=== PATIENT | female | born 1970 | race Caucasian/White ===

== ENCOUNTER → 2018-05-24 | Outpatient (CLI) | payer BC, MEDICARE ==
[2018-05-24 11:40] LABS: BASO % 0.6 %; BASO ABS # 0.03 K/uL (0-0.2); EOS % 3.3 %; EOS ABS # 0.18 K/uL (0-0.5); HEMATOCRIT 33.7 % (37-47); HEMOGLOBIN 10.1 g/dL (12.0-16.0); LYMPH ABS # 1.57 K/uL (1.2-3.4); MEAN CELL VOLUME 77.6 fL (80-100); MEAN CORPUSCULAR HEMOGLOBIN 23.3 pg (25-34); MEAN PLATELET VOLUME 9.8 fL (7.4-10.4); MONO ABS # 0.38 K/uL (0.11-0.59); NEUT % 60.1 %; NEUT ABS # 3.26 K/uL (1.4-6.5); PLATELET COUNT 357 K/uL (130-400); RED CELL DISTRIBUTION WIDTH CV 16.2 % (11.5-14.5); RED CELL DISTRIBUTION WIDTH SD 46.5 fL (36.4-46.3); WHITE BLOOD COUNT 5.42 K/uL (4.8-10.8)
[2018-05-24 11:51] LABS: HEMOGLOBIN A1C 6.9 % (4.5-5.6)
[2018-05-24 12:17] LABS: T3 FREE 3.29 pg/ml (2.30-4.20)
[2018-05-24 12:20] LABS: ALBUMIN 3.5 gm/dl (3.4-5.0); ALKALINE PHOSPHATASE 80 U/L (45-117); ALT/SGPT 25 U/L (12-78); AST/SGOT 9 U/L (15-37); BLOOD UREA NITROGEN 10 mg/dl (7-18); CALCIUM 8.8 mg/dl (8.5-10.1); CARBON DIOXIDE 26 mmol/L (21-32); CHOLESTEROL 181 mg/dl (0-200); CREATININE 0.77 mg/dl (0.60-1.20); GLUCOSE 108 mg/dl (70-99); LDL CHOLESTEROL CALCULATED 98 mg/dl; POTASSIUM 3.8 mmol/L (3.5-5.1); SODIUM 140 mmol/L (136-145); TOTAL PROTEIN 7.1 gm/dl (6.4-8.2)
== END | disposition home or self-care (01) ==
LOC: C.LAB 11:14
PROVIDERS: ATTEND Psychiatry & Neurology Child & Adolescent Psychiatry
DX: E11.9 Type 2 diabetes mellitus without complications (principal); F31.9 Bipolar disorder, unspecified; F90.2 Attention-deficit hyperactivity disorder, combined type; F32.9 Major depressive disorder, single episode, unspecified; E06.9 Thyroiditis, unspecified; D52.9 Folate deficiency anemia, unspecified; E55.9 Vitamin D deficiency, unspecified; E78.00 Pure hypercholesterolemia, unspecified; K75.9 Inflammatory liver disease, unspecified

== ENCOUNTER 2023-08-05 12:15 | Observation (INO) ==
--- NOTE | 2023-08-01 11:50 | Anesthesiology Consultation ---
Date of Service August 01, 2023 Assessment & Plan (1) Encounter for pre-operative examination: Chart Review Chart Review: Acceptable Risk for Surgery and Patient NOT seen in Pre Admission Testing *Due to pt's psychiatric history, decision was made to have procedure in Main OR with Anesthesia. 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 I do not think further recording to look for symptoms is necessary given the extreme slowing we have recorded. 2. Sinus node dysfunction: She has severe sinus node dysfunction with long pauses and I suspect loss of consciousness which she does not remember (based on what looks like pseudoseizure activity on the recording) on several different occasions while wearing her monitor. With a history of syncope and a documented pauses of nearly 8 seconds and on no medications to cause this she should have a pacemaker. I discussed the indications, procedure, risks and alternatives of pacemaker implantation with her and I gave her a booklet and showed her a pacemaker model. She agrees to proceed. 3. Hypertension: Her blood pressure is somewhat elevated today, she is on lisinopril and hydrochlorothiazide currently, I have not changed that although once a pacemaker is in place we can consider calcium blockade. It is certainly not dangerously high now and I would prefer to have it run a little bit high then risk hypotension." Infectious Disease screening: Per PAT nursing assessment on 08/01/23, No known infectious disease contacts in past 10 days. No recent travel outside the country. Pt reports cough and nasal congestion x past 10 days. Surgeon aware. She is coming to [facility] 08/01/23 for COVID testing. History Surgery Operation Date: 08/05/23 13:00 Proposed Procedures p Dual Chamber Pacemaker Insertion w/Anesthesia - Mateo Mcfarland MD Height/Weight Height: 5 ft 1 in Weight: 92.533 kg Allergies Allergy/AdvReac Type Severity Reaction Status Date / Time carbamazepine [From Tegretol] Allergy Intermediate Rash Verified 08/01/23 11:01 Sulfa (Sulfonamide Allergy Intermediate HIVES/DELUS Verified 08/01/23 11:01 Antibiotics) IONAL prednisone AdvReac Unknown CONTRAINDICATED Verified 08/01/23 11:01 WITH BIPOLAR MEDS. Medications Home Medications Medication Instructions Recorded Confirmed Last Taken clonazepam 0.5 mg tablet 0.5 mg PO TID PRN Anxiety 05/31/23 08/01/23 Unknown dextroamphetamine-amphetamine 10 10 mg PO BID 05/31/23 08/01/23 05/30/23 mg tablet dextroamphetamine-amphetamine ER 20 mg PO BID 05/31/23 08/01/23 05/30/23 20 mg 24hr capsule,extend release olanzapine 10 mg disintegrating 10 mg translingual DAILY PRN 05/31/23 08/01/23 05/30/23 tablet NEEDED cyanocobalamin (vitamin B-12) 100 mcg subcut Q7D 07/03/23 08/01/23 Unknown 1,000 mcg/mL injection kit metformin 500 mg tablet 500 mg PO BID 07/03/23 08/01/23 Unknown perphenazine 16 mg tablet 16 mg PO BID 07/03/23 08/01/23 Unknown sumatriptan succinate 100 mg tablet 100 mg PO Q2H PRN Migraine Headache 07/03/23 08/01/23 Unknown venlafaxine 75 mg capsule,extended 75 mg PO QAM 07/03/23 08/01/23 Unknown release 24 hr hydrochlorothiazide 25 mg tablet 25 mg PO QAM #30 tabs 07/17/23 08/01/23 Unknown metformin 500 mg/5 mL oral 500 mg (5 mL) PO BID #480 mL 07/17/23 08/01/23 Unknown suspension,extended release (Riomet ER) syringe with needle 3 mL 25 x 5/8" #50 ea 07/17/23 07/17/23 Unknown (BD Eclipse Luer-Yanna) paliperidone 3 mg tablet,extended 3 mg PO HS 07/24/23 08/01/23 Unknown release 24 hr (Invega) Medical Marijuana 1 dose PO DAILY PRN Pain 08/01/23 08/01/23 Unknown folic acid 1 mg tablet 1 mg PO QAM 08/01/23 08/01/23 Unknown lisinopril 40 mg tablet 40 mg PO HS 08/01/23 08/01/23 Unknown Past Medical History Medical History (Updated 10/12/23 @ 12:24 by Natty Maguire PA-C) Anxiety follows with psych Bipolar disorder follows with psych Chronic anemia per chart review, recent H/H WNL Diabetes NIDDM GERD (gastroesophageal reflux disease) denies, and no meds Hypertension Kidney stones passed on own Migraine "Thunderclap Migraines" Post traumatic stress disorder (PTSD) "Complex"; follows with psych Schizoaffective disorder follows with psych Sinus node dysfunction reason for up coming pacemaker placement Sleep apnea dx several yrs ago, no device, feels no issues with Spinal stenosis Spondylolysis "L5" Past Family History Family History Mother Breast cancer Aunt Breast cancer Uncle Lung cancer Denies family history of Ovarian cancer Prostate cancer Diabetes Myocardial infarction Colorectal cancer Stroke Past Surgical History Surgical History History of carpal tunnel release left History of colonoscopy History of esophagogastroduodenoscopy (EGD) History of gastric bypass History of total knee arthroplasty left partial S/P trigger finger release left thumb [place] teeth extracted Social History Smoking Status: Current every day smoker tobacco type: cigarettes Smoking cigarettes per day: 10-15 cigs per day > advised npo status Do You Dip or Chew Tobacco: No Hx Alcohol Use: No Hx Substance Use: Yes substance use type: marijuana Substance Use Type Other:: medical card > edibles > every other day use Lab Results Anesthesia Preop Results Results Anesthesia Widget: WBC 7.18 K/ul (4.8-10.8) 07/31/23 Hgb 12.8 g/dl (12.0-16.0) 07/31/23 Hct 39.8 % (37.0-47.0) 07/31/23 Plt 404 K/uL (130-400) H 07/31/23 Na 141 mmol/L (136-145) 07/31/23 K 3.8 mmol/L (3.5-5.1) 07/31/23 Cl 110 mmol/L (98-107) H 07/31/23 CO2 24 mmol/L (21-32) 07/31/23 BUN 13 mg/dl (6-23) 07/31/23 Creat 0.75 mg/dl (0.6-1.2) 07/31/23 Glucose Level 135 mg/dl (70-99(Fasting)) H 07/31/23 HA1c 7.2 % (4.5-5.6) H 07/31/23 Testing Electrocardiogram Date: 07/03/23 SB (rate 58bpm) with sinus arrhythmia Echocardiogram Date: 07/04/23 EF: 60-65% LV Function: normal RWMA: + none Mild MR. Mild TR. Other Testing Holter Monitor 07/05/23-07/12/23: -frequent PACs, pairs, rare triplet, no PSVT -rare PVCs. No pairs, grouped beating, or NSVT -sinus tachycardia (max HR 128bpm) -sinus bradycardia (min HR 14bpm) -5 pauses greater than 2 secs, longest 7.9 sec -No high grade AV block -No symptoms recorded 07/04/23 Carotid Doppler: No hemodynamically significant stenosis seen within the carotid arteries. 04/21/[address]: No acute fractures or subluxations are identified. The vertebral body heights and disk spaces are well maintained. The alignment is normal. Soft tissues are unremarkable.
[~2023-08-05 12:15] MED LIST: DEXAMETHASONE SOD INJ 4 MG/ML VIAL ONE; LIDOCAINE 2% 2 ML VIAL/AMP(20MG/ML) INFIL ONE; LR 15ML/HR IV SCH; MIDAZOLAM HCL 1 MG/ML 2ML VIAL ONE; ONDANSETRON INJ 2 MG/ML 2 ML VIAL ONE; PROPOFOL IV EMULSION 10 MG/ML 20 ML VIAL IV ONE; fentaNYL citrate PF 100 MCG/2 ML VIAL ONE
[2023-08-05] MEDS ORDERED: VANCOMYCIN HCL 1000MG/20ML VIAL ONE (12:21)
[2023-08-05] MEDS ORDERED: WATER, STERILE FOR INJ 10 ML VIAL ONE (12:21)
[2023-08-05] MEDS ORDERED: BUPIVACAINE 0.25% PF 30 ML VIAL ONE (12:21)
--- NOTE | 2023-08-05 13:01 | History & Physical Bridge Note ---
Date of Service August 05, 2023 History & Physical Bridge Note I have examined the patient, reviewed the History & Physical and in the interval since the performance of the History & Physical I have noted the following changes of clinical significance: no changes noted. I reviewed the indications, procedure, risks and alternatives with the patient, and answered all questions. Patient understands and agrees to the procedure. Consent obtained.
[2023-08-05] MEDS ORDERED: ONDANSETRON INJ 2 MG/ML 2 ML VIAL IV PRN (13:16)
[2023-08-05] MEDS ORDERED: ATROPINE SULFATE 0.1 MG/ML 10ML SYR IV PRN (13:16)
[2023-08-05] MEDS ORDERED: fentaNYL citrate PF 100 MCG/2 ML VIAL IV PRN (13:16)
[2023-08-05] MEDS ORDERED: ePHEDrine sulfate 50 MG/ML AMP IV PRN (13:16)
[2023-08-05] MEDS ORDERED: ceFAZolin 330 MG/ML 1 GM VIAL ONE (13:38)
[2023-08-05] MEDS ORDERED: KETAMINE 50 MG/5 ML SYRINGE ONE (13:39)
[2023-08-05] MEDS ORDERED: fentaNYL citrate PF 100 MCG/2 ML VIAL ONE (13:47)
[2023-08-05] MEDS ORDERED: KETOROLAC TROMETHAMINE 10 MG TABLET PO PRN (14:34)
[2023-08-05] MEDS ORDERED: ACETAMINOPHEN 325 MG TAB PO PRN (14:34)
--- NOTE | 2023-08-05 14:34 | Electrophysiology Report ---
Date of Service August 05, 2023 Electrophysiology Procedure Electrophysiology Procedure Report Preoperative diagnosis: Sinus node dysfunction and sinus arrest Postoperative diagnosis: Same Procedure: Dual-chamber pacemaker implantation Surgeon: Mateo Mcfarland MD Estimated blood loss: 30 cc Specimens: None Anesthesia: General per patient's request Procedure details: After obtaining informed consent for the procedure, the patient was brought to the laboratory and prepped and draped in the standard sterile manner. The left prepectoral region was anesthetized with 1% lidocaine local anesthetic and left axillary venipuncture was performed by percutaneous technique and a guidewire placed through the left subclavian vein into the superior vena cava. The area was further infiltrated with 1% lidocaine local anesthetic and a 5 cm incision was made parallel to the left clavicle and 2 cm below it and carried down to the anterior pectoralis fascia. A pacemaker pocket was formed by blunt dissection anterior to the pectoralis fascia and a vancomycin soaked sponge was placed in the pocket. An 8.5 Vietnamese Medtronic lead introducer was placed over the guidewire into the left subclavian vein, the dilator and guidewire were removed and a bipolar active fixation steroid tipped ventricular lead was advanced through the introducer into the superior vena cava. A guidewire was placed through the introducer and the introducer was stripped from the lead and guidewire. Another 8.5 Vietnamese Medtronic lead introducer was placed over the guidewire into the left subclavian vein, the dilator and guidewire were removed and a bipolar active fixation steroid tipped atrial lead was advanced through the introducer into the superior vena cava. A guidewire was placed back through the introducer and the introducer was stripped from the lead and guidewire. Using a curved stylette the ventricular lead was advanced through the right ventricular outflow tract into the pulmonary artery and then using a straight stylette was positioned in the right ventricular apex. The screw was extended fixing the lead in position. Pacing and sensing thresholds were evaluated in bipolar configuration and are recorded on the implant data sheet. Using a curved stylette the atrial lead was positioned in the region of the atrial appendage and the screw extended fixing the lead in position. Pacing and sensing thresholds were evaluated in bipolar configuration and are recorded on the implant data sheet. Once the leads were in position they were attached to the anterior pectoralis fascia using 2 sutures of 2-0 silk around each lead collar. The vancomycin soaked sponge was removed from the pocket, hemostasis was obtained, the pacemaker was attached to the leads and placed in the pocket with the leads coiled beneath it. The incision was closed with a running double subcutaneous closure of 3-0 Vicryl absorbable suture, followed by running subcuticular skin closure of 4-0 Vicryl absorbable suture. Bacitracin ointment was placed on the incision and a dressing applied. [facility] Electrophysiology codes Indication for Procedure (1) Sinus node dysfunction: Pacing Procedure 1: Pacin Insert/Replace Pacer A & V PG Moderate Sedation Codes Moderate Sedation Codes Procedure 1: Sedation/Anesthesia: 23054 Mod Sedation by the same physician;Init15 Min Child Age 5 & Up Procedure 2: Sedation/Anesthesia: 99930 Mod Sedation by the same physician; Ea [id number] Minutes
[2023-08-05] MEDS ORDERED: clonazePAM 0.5 MG TAB PO PRN (14:35)
[2023-08-05] MEDS ORDERED: NON-FORMULARY MEDICATION (Cyanocobalamin (Vitamin B-12) 1,000 mcg/mL kit) SQ SCH (14:45)
[2023-08-05] MEDS ORDERED: hydrALAZINE HCL 20 MG/ML VIAL IV STA (15:16)
[2023-08-05] MEDS ORDERED: hydrALAZINE HCL 20 MG/ML VIAL ONE (15:20)
[2023-08-05] MEDS ORDERED: MEDICAL MARIJUANA PO PRN (15:34)
[2023-08-05] MEDS ORDERED: hydrALAZINE HCL 20 MG/ML VIAL IV ONE (15:39)
--- NOTE | 2023-08-05 15:43 | Anesthesiology Progress Note ---
Date of Service August 05, 2023 Anesthesia Post Procedure Vital Signs Vital Signs: Temp Pulse Resp BP Pulse Ox O2 Del Method O2 Flow Rate 08/05/23 15:20 36.9 C 71 16 170/104 H 99 Oxymask 3 08/05/23 15:10 68 16 168/92 H 97 Oxymask 3 08/05/23 15:00 73 14 158/103 H 97 Oxymask 3 08/05/23 14:50 84 13 172/84 H 99 Oxymask 5 08/05/23 15:30 36.9 C 78 14 148/94 H 97 Room Air 08/05/23 14:40 90 18 168/92 H 96 Oxymask 5 08/05/23 14:33 36.0 C L 87 12 174/92 H 95 Oxymask 5 08/05/23 12:26 37.2 C 74 18 169/115 H 98 Room Air Transfer of Care Handoff Completed per policy Notes Mental Status: alert / awake / arousable Patient Amnestic to Procedure: Yes Nausea / Vomiting: adequately controlled Pain: adequately controlled Airway Patency, RR, SpO2: stable & adequate BP & HR: stable & adequate Hydration State: stable & adequate Anesthetic Complications: no major complications apparent and Pt Satisfied with anesthetic care
[2023-08-05] MEDS ORDERED: INFLUENZA VIRUS QUADRIVALENT VACCINE (IIV4) 0.5 ML SYR IM ONE (16:48)
[2023-08-05] MEDS: dilTIAZem HCL 180 MG CAPCR PO SCH (17:13)
[2023-08-05] MEDS: SUMAtriptan succinate 100 MG TAB PO PRN ×2 (20:18→22:15)
[2023-08-05] MEDS: PERPHENAZINE 2 MG TABLET PO SCH (20:19)
[2023-08-05] MEDS ORDERED: [UNRECOGNIZED DRUG - OTHER] PO SCH (21:00)
[2023-08-05] MEDS ORDERED: lisinopril 40 MG TAB PO SCH (21:00)
[2023-08-05] MEDS ORDERED: NON-FORMULARY MEDICATION (Dextroamphetamine-Amphetamine 10 mg tablet) PO SCH (21:00)
[2023-08-05] MEDS ORDERED: PALIPERIDONE 3 MG TABCR PO SCH (21:00)
[2023-08-05] MEDS ORDERED: AMPHETAMINE ASP/SULF/DEXTRAMPH ER 20 MG CAP PO SCH (21:00)
[2023-08-05] MEDS ORDERED: METFORMIN PO SCH (21:00)
--- NOTE | 2023-08-06 07:29 | XRay Report ---
XR chest 2V PA/lateral HISTORY: 52 years-old Female EXACT TIME ORDERED Evaluate for pneumothorax and l status post placemen t of a left subclavian pacer COMPARISON: Chest CT 04/21/2022 TECHNIQUE: PA and lateral views of the chest FINDINGS: Cardiac silhouette is normal in size. Status post placement of a dual lead left subclavian pacer. No postprocedural pneumothorax. No pleural effusion or overt pulmonary edema. Mild linear left basilar a telectasis versus scarring. Bones appear grossly intact. IMPRESSION: Status post placement of a left subclavian pacer. No postprocedural pneumothorax. ACT 112: Negative or not required by law. The above report was generated using voice recognition software. It may contain grammatical, syntax o r spelling errors. Electronically signed by: Issac Abdullahi M.D. 08/06/2023 7:28 AM
--- NOTE | 2023-08-06 07:40 | Electrocardiogram Report ---
Test Reason : Blood Pressure : / mmHG Vent. Rate : 065 BPM Atrial Rate : 065 BPM P-R Int : 138 ms QRS Dur : 092 ms QT Int : 388 ms P-R-T Axes : 019 -04 001 degrees QTc Int : 403 ms Normal sinus rhythm Minimal voltage criteria for LVH, may be normal variant Borderline ECG When compared with ECG of 21-APR-2022 12:23, No significant change was found Confirmed by Mateo Mcfarland ([id number]) on 08/06/2023 7:40:00 AM Referred By: Mateo Mcfarland Confirmed By:Mateo Mcfarland
[2023-08-06] MEDS: PERPHENAZINE 2 MG TABLET PO SCH (07:58)
[2023-08-06] MEDS: dilTIAZem HCL 180 MG CAPCR PO SCH (07:58)
[2023-08-06] MEDS ORDERED: metFORMIN HCL 500 MG TAB PO SCH (08:00)
[2023-08-06] MEDS ORDERED: FOLIC ACID 1 MG TAB PO SCH (09:00)
[2023-08-06] MEDS ORDERED: VENLAFAXINE HCL XR 75 MG CAPXR PO SCH (09:00)
[2023-08-06] MEDS ORDERED: hydroCHLOROthiazide 25 MG TAB PO SCH (09:00)
--- NOTE | 2023-08-06 09:42 | Cardiology Progress Note ---
Date of Service August 06, 2023 Assessment & Plan (1) Status post placement of cardiac pacemaker: Plan: 1. Postop day #1: The site looks good, the device is working well and leads are in good position. She is stable for discharge. Admission and Anticipated Discharge Date Admission Date: August 05, 2023 Subjective She is feeling well today, somewhat tired but no significant discomfort. No chest pain or shortness of breath. Physical Exam Physical Exam: The incision is clean and dry, no swelling or drainage. Cardiac rhythm is regular with no rub Lungs are clear Results & Data Vital Signs (Past 12 Hours) Vital Signs Temp Pulse Pulse Resp BP Pulse Ox O2 Del Method 08/06/23 08:00 60 08/06/23 07:34 36.6 C 72 18 182/99 H 93 Room Air 08/06/23 02:57 36.9 C 56 L 16 165/97 H 95 Nasal Cannula 08/05/23 23:00 36.9 C 68 16 166/98 H 94 Nasal Cannula 08/05/23 22:46 66 Diagnostic Findings Postop ECG: Appropriate pacemaker inhibition Chest x-ray: Good lead position, no pneumothorax Telemetry: Appropriate pacemaker inhibition Pacemaker evaluation: Excellent pacing and sensing characteristics PG Care Time/CCT Total # of Minutes Spent Total Time Spent with Patient: Total time spent is greater than 50% in coordination of care (as documented) at patient's floor/unit and/or counseling patient: Coding Level of Care Code 99140 Post Operative Follow-Up Diagnoses Status post placement of cardiac pacemaker Z95.0 CPT Codes Dual Lead Pacemaker System - 20410 ([id number])
--- NOTE | 2023-08-06 09:54 | Discharge Summary ---
Date of Service August 06, 2023 Admission HPI Per Admitting Provider This is a 52-year-old woman with a history of bipolar disorder as well as hypertension, diabetes mellitus and an episode of syncope. It sounds as though her syncopal event occurred around June 28, 2023 and occurred while she was standing on her porch. She evidently woke up face down on the ground and after a few minutes was able to get up and go to bed. This is the only episode she has had. She notes that her blood pressure has been "out of whack" by which she means elevated. Evaluation included an echocardiogram on July 04, 2023 which shows normal left ventricular systolic function with mild mitral regurgitation. She also wore a cardiac event monitor for a week from July 05, 2023 through July 12, 2023. Her heart rate ranged from a very low heart rate at around 10:40 AM on July 07, 2023 when she had bradycardia with a pause of nearly 8 seconds, up to a maximum of 128 with an average heart rate of 58 bpm. It is not clear that this cause symptoms however evaluation of the rhythm strip shows slowing leading up to the pauses and then artifact suggestive of possible pseudoseizure activity due to hypotension before termination. She had other periods of extreme bradycardia with similar artifact including on July 12, 2023 when she had sequential pauses and a heart rate which calculates to 14 bpm. This also demonstrates a similar artifact suggesting pseudoseizure a ctivity. Of note, she is not on a negative chronotropic medication. I reviewed her symptoms with her in detail and she reports having a few episodes of chest discomfort while laying in bed on the monitor (which she did not gloria) however had none of her presyncopal events. I suspect however she had transient loss of consciousness but was not aware of it. Admission Exam (Per Admitting) Constitutional Constitutional: Alert, cooperative and in no distress. She is overweight. HEENT: Unremarkable Neck: No jugular venous distention, carotid pulses are normal and equal bilaterally without bruits. Pulmonary: Clear to auscultation bilaterally. Cardiac: Regular rhythm with no murmur, gallop or rub. Abdomen: Soft, nontender with normal bowel sounds. Extremities: No edema. Distal pulses intact. Neurologic: No focal findings. Gait is steady. Skin: No rash, ecchymoses or petechiae. Discharge Data Procedures Performed Operation Date: 08/05/23 13:00 Actual Procedures p Pacer with A/V Leads (Dual) - Mateo Mcfarland MD Hospital Course (1) Status post placement of cardiac pacemaker: Plan 1. Pacemaker implantation: The pacemaker was implanted without difficulty on August 05, 2023, the device is working well, x-ray shows good lead position no pneumothorax and the site looks good. She is therefore stable for discharge. Coding Level of Care Code None Diagnoses Status post placement of cardiac pacemaker Z95.0
== END 2023-08-06 11:10 | disposition home or self-care (01) ==
LOC: ASU 12:15 → INTOOBSV 14:54 → EDINP 14:54 → 2S 16:16

== ENCOUNTER 2025-04-13 16:43 | Inpatient (IN) ==
[2025-04-13] MEDS: SODIUM CHLORIDE 0.9% 1,000 ML IV SCH (17:06)
[2025-04-13] MEDS: CALCIUM GLUCONATE 1,000 MG/60 ML BAG IV STA (17:07)
--- NOTE | 2025-04-13 17:11 | Emergency Department Note ---
Impression & Plan Hypotension, Pacemaker, Calcium channel edwin overdose, MARY JANE (acute kidney injury), Leukocytosis, Acute dehydration, Suicidal ideation, Metabolic acidosis, Elevated lactic acid level ED Provider Note NAME: DEVAN MERRITT AGE: 54 SEX: F : 1970 ARRIVES VIA: Ambulance INFORMANT: [Patient] ED PROVIDER(S): [Jose A Frank MD] CHIEF COMPLAINT: Overdose HISTORY OF PRESENT ILLNESS: Patient is a 54-year-old female who presents after overdosing on diltiazem tablets. She took around 50 of the 180 mg diltiazem XR tablets around 16 hours ago. She took the pills over about an hour timeframe. She did this as a suicide attempt because of how stressed and worked up she has been. The patient states that she has a pacemaker. She was hoping that the diltiazem would end her life. She woke up dizzy and weak. Somehow, she was able to get outside. She was found by bystanders outside laying in the grass. She was quite sweaty. She was brought for evaluation. The patient complains of feeling thirsty and hot and faint. She has no chest pain, no shortness of breath. She denies any abdominal pain, no trauma. She is not on blood thinning agents. PMHx/PSHx/Social Hx: See Below PHYSICAL EXAM: GENERAL: Patient is in mild distress, sweaty HEENT: No acute trauma, normocephalic atraumatic, mucous membranes quite dry, no nasal congestion. NECK: No stridor, no adenopathy, no meningismus, trachea is midline. LUNGS: Clear to auscultation bilaterally, no wheeze, no rhonchi, breath sounds equal. HEART: Without murmurs gallops or rubs, regular rate and rhythm. ABDOMEN: Soft, nontender, no peritonitis. EXTREMITIES: No cyanosis, full range of motion of all the joints without pain or difficulty. NEUROLOGIC: Oriented x 3, no acute motor or sensory deficits, no focal weakness. SKIN: No jaundice, mild diaphoresis. Somewhat pale appearing. DIFFERENTIAL DIAGNOSIS: Overdose, dysrhythmia, hypotension, dehydration, rhabdomyolysis, electrolyte imbalance, [place], among others. EMERGENCY DEPARTMENT PROCEDURES: MEDICAL DECISION MAKING: There is a leukocytosis at 19,000, this could be from infection or just the stress of her hypotension and presentation. Hemoglobin was adequate at 11.5. There was a normal platelet count. VBG shows a metabolic acidosis with some respiratory compensation. CO2 was low at 6 consistent with acidosis. There was an anion gap at 28. She was quite dehydrated with a creatinine of 2.5. Lactic acid level was quite high at 8.2, this would be consistent with hypotension and potentially infection. There was no concerning liver enzyme elevation. Total CK was not elevated making rhabdomyolysis unlikely. The patient appeared to be in a euthyroid state. ECG showed an atrial pacemaker, no dysrhythmia. Cardiac enzyme testing x 1 was not consistent with acute cardiac injury. Chest x-ray did not show pneumonia or CHF. Aspirin, Tylenol and alcohol levels were undetectable. Urine tox is pending. The patient was aggressively managed. She presented sweaty and hypotensive. Systolic blood pressure was in the 60s. She appeared quite dehydrated clinically. She was moved to a large trauma bay. Patient had multiple IVs initiated. She was given 2 L of IV saline, she received 3 g of IV calcium gluconate. She received 2 Amps of IV bicarb. She was eventually placed on an epinephrine drip and this was titrated to improve her blood pressure. Eventually, 2 additional g of IV calcium gluconate was ordered. I did discuss this case with the poison center in [place]. Their advice for fluid resuscitation, calcium administration, epinephrine administration was followed. A bedside cardiac echo was performed by the cardiology staff. The patient had adequate contraction and had an adequate EF. An additional 1 L of IV saline was then ordered. The patient has made some improvement with her blood pressure. Her blood pressure is now more consistently in the 90s systolic. I did speak with the ICU, I did speak with the on-call hospitalist. I spoke with cardiology. I did speak with case management. I talked to the patient and her family about the need for a hospital stay and ICU admission. It appears the patient truly did overdose on calcium channel blockers. This medication coupled with her dehydration has led to her hypotension. Luckily, her pacemaker is still working well. Prior/Outside records/notes reviewed: Today's EMS note describing her presentation and transport to this hospital. ECG per my interpretation: Indication was overdose. The ECG shows an atrial pacemaker with a prolonged AV conduction. The rate is 61. There is no acute ST elevation, no dysrhythmia, no PVCs. QTc was 453. Continuous Cardiac Monitoring per my interpretation: An order was placed for continuous cardiac monitoring. The monitor shows a rate of 61 with atrial pacemaker. Imaging/x-ray results per my interpretation: Chest x-ray does not show CHF or cardiomegaly. There was no pneumonia. Chronic Medical/Social conditions affecting care: History of previous mental health admissions. Care/Management discussed with: [place] [facility]--Dr. Wallace. ICU staff-Dr. Sandoval. Cardiology-Dr. Sharma. Case management and the on-call hospitalist. Level of care consideration(s): After review of the information above and other included data: --I believe the patient requires escalation of care to admission Critical Care Note: I have personally spent 62 minutes of critical care time in the direct management of this patient. This includes bedside care, interpretation of diagnostic studies, and testing, discussion with consultants, patient, and family members, and other required patient management activities. This 62 minutes is in excess of all separately billable procedures. DISPOSITION: Admission Past Med/Surg History Problem List (Updated 04/13/25 @ 21:04 by Jose A Frank MD) Elevated lactic acid level (Acute) Metabolic acidosis (Acute) Suicidal ideation (Acute) Acute dehydration (Acute) Leukocytosis (Acute) MARY JANE (acute kidney injury) (Acute) Calcium channel edwin overdose (Acute) Pacemaker (Acute) Hypotension (Acute) Medical non-compliance Cardiogenic shock Mass of heart Leukocytosis Lactic acidosis High anion gap metabolic acidosis Acute kidney injury Calcium channel edwin overdose Vertigo PSVT (paroxysmal supraventricular tachycardia) Pacemaker Dyslipidemia due to type 2 diabetes mellitus GERD (gastroesophageal reflux disease) Sinus node dysfunction Bipolar disorder Schizoaffective disorder Diabetes (Chronic) NIDDM Migraine (Chronic) "Thunderclap Migraines" Chronic anemia (Chronic) per chart review, recent H/H WNL Hypertension (Chronic) Spondylolysis (Chronic) "L5" Spinal stenosis (Chronic) Post traumatic stress disorder (PTSD) (Chronic) "Complex"; follows with psych Medical History Diabetes mellitus, type 2 Encounter for pre-operative examination Schizoaffective disorder follows with psych Kidney stones passed on own Anxiety follows with psych Bipolar disorder follows with psych Sinus node dysfunction reason for up coming pacemaker placement Sleep apnea dx several yrs ago, no device, feels no issues with Surgical History Status post placement of cardiac pacemaker S/P trigger finger release left thumb History of carpal tunnel release left History of esophagogastroduodenoscopy (EGD) History of colonoscopy [place] teeth extracted Family History Mother Breast cancer Aunt Breast cancer Uncle Lung cancer Denies family history of Ovarian cancer Prostate cancer Diabetes Myocardial infarction Colorectal cancer Stroke Social History Smoking Status: Current every day smoker Tobacco Type: Cigarettes Age Started Using Tobacco: 17; packs per day: 0.5; Cigarettes Per Day: 10-15 cigs per day > advised npo status; Second Hand Exposure: Yes (s/o smokes); Do You Dip or Chew Tobacco: No; Hx Alcohol Use: No Hx Substance Use: No Preferred Language: Kazakh Communication Ability: Effective Visual Impairment: Limited Hearing Ability: Normal Dining Room Helper Required: No Beliefs That Will Affect Care: None marital status: Single Current Living Situation: Homeless Current Living Situation Comment: Pt states she had a roommate, but would consider herself homeless now. current occupational status: unemployed How many Children do You have: 0 Feels Safe at Home: Yes Childhood Exposure to Second-Hand Smoke: Yes Diet: regular caffeine: Yes during the past year weight has: decreased > 10 lbs Dental Care, Regularly: Yes Physical Activity Frequency: Does not Exercise Seatbelt Use: always Sunscreen Use: Yes Gender Identity: Female Assistive Devices: None Allergies Allergies Allergy/AdvReac Type Severity Reaction Status Date / Time carbamazepine [From Tegretol] Allergy Intermediate Rash Verified 03/09/25 16:08 Sulfa (Sulfonamide Allergy Intermediate HIVES/DELUS Verified 03/09/25 16:08 Antibiotics) IONAL prednisone AdvReac Unknown CONTRAINDICATED Verified 03/09/25 16:08 WITH BIPOLAR MEDS. Home Meds Home Medications Medication Instructions Recorded Confirmed clonazepam 0.5 mg tablet 0.5 mg PO TID PRN Anxiety 05/31/23 04/13/25 sumatriptan succinate 100 mg tablet 100 mg PO Q2H PRN Migraine Headache 07/03/23 04/13/25 Medical Marijuana 1 dose PO DAILY PRN Pain 08/01/23 04/13/25 olanzapine 10 mg disintegrating 10 mg translingual DAILY 09/18/23 04/13/25 tablet ipratropium bromide 21 mcg (0.03 2 spray intranasal BID PRN 01/11/25 04/13/25 %) nasal spray DIRECTED lamotrigine 100 mg tablet 100 mg PO DAILY 01/11/25 04/13/25 lamotrigine 150 mg tablet 150 mg PO DAILY 01/11/25 04/13/25 dextroamphetamine-amphetamine 10 20 mg PO DAILY 04/13/25 04/13/25 mg tablet Previous Rx's Medication Instructions Recorded syringe with needle 3 mL 25 x 5/8" #50 ea 07/17/23 (BD Eclipse Luer-Yanna) spironolactone 50 mg tablet 50 mg PO QAM #90 tabs 08/27/24 lisinopril 40 mg tablet 40 mg PO HS #90 tabs 09/03/24 omeprazole 40 mg capsule,delayed 40 mg PO DAILY #90 caps 10/12/24 release atorvastatin 10 mg tablet 10 mg PO DAILY #90 tabs 10/26/24 diltiazem HCl 180 mg 180 mg PO BID #180 caps 11/04/24 capsule,extended release 24 hr cyanocobalamin (vitamin B-12) 1,000 mcg subcut Q7D #26 ea 11/30/24 1,000 mcg/mL injection kit venlafaxine 75 mg capsule,extended 75 mg PO DAILY #30 caps 01/11/25 release 24 hr Results & Data (ED) Vital Signs Vital Signs - 24 hr 04/13/25 16:53 04/13/25 16:56 04/13/25 17:02 Temperature 36.5 C Temperature Source Oral Pulse Rate 61 61 Pulse Rate [Apical] Pulse Rate from SpO2 Sensor Pulse Rhythm [Apical] Pulse Strength [Apical] Respiratory Rate 18 Respiratory Effort / Characteristics Non-Labored Spontaneous Respiratory Depth Normal Respiratory Pattern Regular Blood Pressure 67/37 L Blood Pressure [Right Arm] Blood Pressure Mean 47 Blood Pressure Mean [Right Arm] Blood Pressure Position [Right Arm] Pulse Oximetry 100 Oxygen Delivery Method Room Air Sepsis Recent Fever Within 48 Hours No Sepsis New/Unexplained Change in Mental Status No Sepsis Action Taken by Nursing No Action Required 04/13/25 17:03 04/13/25 17:03 04/13/25 17:03 Temperature Temperature Source Pulse Rate 61 61 Pulse Rate [Apical] Pulse Rate from SpO2 Sensor 61 Pulse Rhythm [Apical] Pulse Strength [Apical] Respiratory Rate Respiratory Effort / Characteristics Respiratory Depth Respiratory Pattern Blood Pressure 64/38 L 64/38 L Blood Pressure [Right Arm] Blood Pressure Mean 51 51 Blood Pressure Mean [Right Arm] Blood Pressure Position [Right Arm] Pulse Oximetry 96 96 Oxygen Delivery Method Sepsis Recent Fever Within 48 Hours Sepsis New/Unexplained Change in Mental Status Sepsis Action Taken by Nursing 04/13/25 17:08 04/13/25 17:08 04/13/25 17:08 Temperature Temperature Source Pulse Rate Pulse Rate [Apical] Pulse Rate from SpO2 Sensor Pulse Rhythm [Apical] Pulse Strength [Apical] Respiratory Rate Respiratory Effort / Characteristics Respiratory Depth Respiratory Pattern Blood Pressure 80/45 L 80/45 L 80/45 L Blood Pressure [Right Arm] Blood Pressure Mean 52 52 52 Blood Pressure Mean [Right Arm] Blood Pressure Position [Right Arm] Pulse Oximetry Oxygen Delivery Method Sepsis Recent Fever Within 48 Hours Sepsis New/Unexplained Change in Mental Status Sepsis Action Taken by Nursing 04/13/25 17:12 04/13/25 17:15 04/13/25 17:15 Temperature Temperature Source Pulse Rate 60 60 60 Pulse Rate [Apical] Pulse Rate from SpO2 Sensor 60 Pulse Rhythm [Apical] Pulse Strength [Apical] Respiratory Rate Respiratory Effort / Characteristics Respiratory Depth Respiratory Pattern Blood Pressure 78/43 L 70/45 L Blood Pressure [Right Arm] Blood Pressure Mean 49 54 Blood Pressure Mean [Right Arm] Blood Pressure Position [Right Arm] Pulse Oximetry 100 95 95 Oxygen Delivery Method Sepsis Recent Fever Within 48 Hours Sepsis New/Unexplained Change in Mental Status Sepsis Action Taken by Nursing 04/13/25 17:21 04/13/25 17:25 04/13/25 17:27 Temperature Temperature Source Pulse Rate 60 60 60 Pulse Rate [Apical] Pulse Rate from SpO2 Sensor 60 Pulse Rhythm [Apical] Pulse Strength [Apical] Respiratory Rate Respiratory Effort / Characteristics Respiratory Depth Respiratory Pattern Blood Pressure 77/45 L 78/50 L 87/49 L Blood Pressure [Right Arm] Blood Pressure Mean 51 63 61 Blood Pressure Mean [Right Arm] Blood Pressure Position [Right Arm] Pulse Oximetry 99 100 100 Oxygen Delivery Method Sepsis Recent Fever Within 48 Hours Sepsis New/Unexplained Change in Mental Status Sepsis Action Taken by Nursing 04/13/25 17:36 04/13/25 17:38 04/13/25 17:40 Temperature Temperature Source Pulse Rate 62 Pulse Rate [Apical] Pulse Rate from SpO2 Sensor Pulse Rhythm [Apical] Pulse Strength [Apical] Respiratory Rate Respiratory Effort / Characteristics Respiratory Depth Respiratory Pattern Blood Pressure 87/49 L 70/38 L 65/38 L Blood Pressure [Right Arm] Blood Pressure Mean 61 54 46 Blood Pressure Mean [Right Arm] Blood Pressure Position [Right Arm] Pulse Oximetry 100 Oxygen Delivery Method Sepsis Recent Fever Within 48 Hours Sepsis New/Unexplained Change in Mental Status Sepsis Action Taken by Nursing 04/13/25 17:45 04/13/25 17:46 04/13/25 17:48 Temperature Temperature Source Pulse Rate 60 Pulse Rate [Apical] 60 Pulse Rate from SpO2 Sensor 60 Pulse Rhythm [Apical] Regular Pulse Strength [Apical] Normal Respiratory Rate 20 Respiratory Effort / Characteristics Non-Labored Spontaneous Respiratory Depth Normal Respiratory Pattern Regular Blood Pressure 70/38 L Blood Pressure [Right Arm] 70/38 L Blood Pressure Mean 51 Blood Pressure Mean [Right Arm] 48 Blood Pressure Position [Right Arm] Lying Pulse Oximetry 98 98 Oxygen Delivery Method Room Air Sepsis Recent Fever Within 48 Hours Sepsis New/Unexplained Change in Mental Status Sepsis Action Taken by Nursing 04/13/25 17:50 04/13/25 17:51 04/13/25 17:55 Temperature Temperature Source Pulse Rate 60 60 Pulse Rate [Apical] Pulse Rate from SpO2 Sensor 60 Pulse Rhythm [Apical] Pulse Strength [Apical] Respiratory Rate 18 Respiratory Effort / Characteristics Respiratory Depth Respiratory Pattern Blood Pressure 71/43 L 72/42 L Blood Pressure [Right Arm] Blood Pressure Mean 53 55 Blood Pressure Mean [Right Arm] Blood Pressure Position [Right Arm] Pulse Oximetry 98 98 Oxygen Delivery Method Sepsis Recent Fever Within 48 Hours Sepsis New/Unexplained Change in Mental Status Sepsis Action Taken by Nursing 04/13/25 17:58 04/13/25 18:06 04/13/25 18:08 Temperature Temperature Source Pulse Rate Pulse Rate [Apical] Pulse Rate from SpO2 Sensor Pulse Rhythm [Apical] Pulse Strength [Apical] Respiratory Rate Respiratory Effort / Characteristics Respiratory Depth Respiratory Pattern Blood Pressure 78/37 L 75/39 L 79/40 L Blood Pressure [Right Arm] Blood Pressure Mean 62 61 53 Blood Pressure Mean [Right Arm] Blood Pressure Position [Right Arm] Pulse Oximetry Oxygen Delivery Method Sepsis Recent Fever Within 48 Hours Sepsis New/Unexplained Change in Mental Status Sepsis Action Taken by Nursing 04/13/25 18:10 04/13/25 18:15 04/13/25 18:15 Temperature Temperature Source Pulse Rate 60 Pulse Rate [Apical] Pulse Rate from SpO2 Sensor 60 Pulse Rhythm [Apical] Pulse Strength [Apical] Respiratory Rate 24 Respiratory Effort / Characteristics Respiratory Depth Respiratory Pattern Blood Pressure 84/33 L 82/41 L Blood Pressure [Right Arm] Blood Pressure Mean 51 55 Blood Pressure Mean [Right Arm] Blood Pressure Position [Right Arm] Pulse Oximetry 97 Oxygen Delivery Method Sepsis Recent Fever Within 48 Hours Sepsis New/Unexplained Change in Mental Status Sepsis Action Taken by Nursing 04/13/25 18:16 04/13/25 18:16 04/13/25 18:19 Temperature Temperature Source Pulse Rate Pulse Rate [Apical] Pulse Rate from SpO2 Sensor Pulse Rhythm [Apical] Pulse Strength [Apical] Respiratory Rate Respiratory Effort / Characteristics Respiratory Depth Respiratory Pattern Blood Pressure 81/38 L 81/38 L 81/44 L Blood Pressure [Right Arm] Blood Pressure Mean 55 55 59 Blood Pressure Mean [Right Arm] Blood Pressure Position [Right Arm] Pulse Oximetry Oxygen Delivery Method Sepsis Recent Fever Within 48 Hours Sepsis New/Unexplained Change in Mental Status Sepsis Action Taken by Nursing 04/13/25 18:28 04/13/25 18:31 04/13/25 18:32 Temperature Temperature Source Pulse Rate Pulse Rate [Apical] Pulse Rate from SpO2 Sensor Pulse Rhythm [Apical] Pulse Strength [Apical] Respiratory Rate Respiratory Effort / Characteristics Respiratory Depth Respiratory Pattern Blood Pressure 87/38 L 73/30 L 81/38 L Blood Pressure [Right Arm] Blood Pressure Mean 55 48 66 Blood Pressure Mean [Right Arm] Blood Pressure Position [Right Arm] Pulse Oximetry Oxygen Delivery Method Sepsis Recent Fever Within 48 Hours Sepsis New/Unexplained Change in Mental Status Sepsis Action Taken by Nursing 04/13/25 18:34 04/13/25 18:37 Temperature Temperature Source Pulse Rate Pulse Rate [Apical] Pulse Rate from SpO2 Sensor Pulse Rhythm [Apical] Pulse Strength [Apical] Respiratory Rate Respiratory Effort / Characteristics Respiratory Depth Respiratory Pattern Blood Pressure 90/36 L 88/44 L Blood Pressure [Right Arm] Blood Pressure Mean 52 59 Blood Pressure Mean [Right Arm] Blood Pressure Position [Right Arm] Pulse Oximetry Oxygen Delivery Method Sepsis Recent Fever Within 48 Hours Sepsis New/Unexplained Change in Mental Status Sepsis Action Taken by Intermediate Medications Current Medication List: was personally reviewed by me Laboratory Data Attestation: I reviewed the patient's lab results. 04/13/25 17:01 04/13/25 20:06 Lab Results 04/13/25 04/13/25 04/13/25 Range/Units 17:01 17:09 17:48 WBC 19.00 H (4.8-10.8) K/ul RBC 4.40 (4.20-5.40) M/uL Hgb 11.5 L (12.0-16.0) g/dl POC Hgb 11.9 L (12.0-16.0) g/dl Hct 36.8 L (37.0-47.0) % POC Hct 35 L (37-47) % MCV 83.6 (80.0-100.0) fL MCH 26.1 (25.0-34.0) pg MCHC 31.3 L (32.0-36.0) g/dL RDW Std Deviation 50.6 H (36.4-46.3) fL RDW Coeff of Maxine 16.7 H (11.5-14.5) % Plt Count 313 (130-400) K/uL MPV 10.5 (9.4-12.4) fL Immature Gran % (Auto) 1.8 % Neut % (Auto) 82.3 % Lymph % (Auto) 9.9 % [place] % (Auto) 5.5 % Eos % (Auto) 0.2 % Baso % (Auto) 0.3 % Neut # (Auto) 15.65 H (1.40-6.50) K/uL Lymph # (Auto) 1.88 (1.20-3.40) K/uL [place] # (Auto) 1.04 H (0.11-0.59) K/uL Eos # (Auto) 0.03 (0.00-0.50) K/uL Baso # (Auto) 0.06 (0.00-0.20) K/uL Immature Gran # (Auto) 0.34 H (0.01-0.20) K/uL VBG pH 7.19 L (7.36-7.41) VBG pCO2 21 L (38-50) mmHg VBG pO2 61 mmHg VBG HCO3 8 mmol/L VBG O2 Saturation 88.4 % VBG Base Excess -18.4 mEq/L POC Sodium 138 (135-144) mmol/L Sodium 138 (136-145) mmol/L POC Potassium 4.1 (3.3-5.0) mmol/L Potassium 4.1 (3.5-5.1) mmol/L POC Chloride 110 (101-112) mmol/L Chloride 104 (98-107) mmol/L Carbon Dioxide 6 L* (21-32) mmol/L POC Total CO2 8 L* (24-31) mmol/L Anion Gap 28 H (3-11) POC Anion Gap 25.0 (16-25) mmol/L POC BUN 18 (7-18) mg/dl BUN 21 (6-23) mg/dl Creatinine 2.53 H (0.6-1.2) mg/dl POC Creatinine 2.6 H (0.6-1.3) mg/dl Est Cr Clr Drug Dosing 24.6 ml/min eGFR 21.84 BUN/Creatinine Ratio 8.3 L (10-20) Glucose 165 H (70-99(Fasting)) mg/dl POC Glucose (other) 160 H (70-99) mg/dl Lactate (0.4-2.0) mmol/L Calcium 10.1 (8.6-10.3) mg/dl POC Ioniz Calcium Armen 1.17 (1.12-1.32) mmol/l Magnesium 2.2 (1.7-2.4) mg/dl Total Bilirubin 0.6 (0.2-1.0) mg/dl AST 21 (13-39) U/L ALT 24 (7-52) U/L Alkaline Phosphatase 66 (34-104) U/L Total Creatine Kinase 170 (26-192) U/L Troponin I High Sens 9.7 (0-14) pg/ml Total Protein 7.1 (6.0-8.3) gm/dl Albumin 4.2 (3.4-5.0) gm/dl Globulin 2.9 (2.5-4.0) gm/dl Albumin/Globulin Ratio 1.4 (0.9-2) TSH 2.220 (0.300-4.500) uIu/ml Salicylates < 3.0 L (3.0-30) mg/dl Acetaminophen < 3 L (10-30) ug/ml Ethyl Alcohol mg/dL < 10.0 (<10.0) mg/dl 04/13/25 Range/Units 18:00 WBC (4.8-10.8) K/ul RBC (4.20-5.40) M/uL Hgb (12.0-16.0) g/dl POC Hgb (12.0-16.0) g/dl Hct (37.0-47.0) % POC Hct (37-47) % MCV (80.0-100.0) fL MCH (25.0-34.0) pg MCHC (32.0-36.0) g/dL RDW Std Deviation (36.4-46.3) fL RDW Coeff of Maxine (11.5-14.5) % Plt Count (130-400) K/uL MPV (9.4-12.4) fL Immature Gran % (Auto) % Neut % (Auto) % Lymph % (Auto) % [place] % (Auto) % Eos % (Auto) % Baso % (Auto) % Neut # (Auto) (1.40-6.50) K/uL Lymph # (Auto) (1.20-3.40) K/uL [place] # (Auto) (0.11-0.59) K/uL Eos # (Auto) (0.00-0.50) K/uL Baso # (Auto) (0.00-0.20) K/uL Immature Gran # (Auto) (0.01-0.20) K/uL VBG pH (7.36-7.41) VBG pCO2 (38-50) mmHg VBG pO2 mmHg VBG HCO3 mmol/L VBG O2 Saturation % VBG Base Excess mEq/L POC Sodium (135-144) mmol/L Sodium (136-145) mmol/L POC Potassium (3.3-5.0) mmol/L Potassium (3.5-5.1) mmol/L POC Chloride (101-112) mmol/L Chloride (98-107) mmol/L Carbon Dioxide (21-32) mmol/L POC Total CO2 (24-31) mmol/L Anion Gap (3-11) POC Anion Gap (16-25) mmol/L POC BUN (7-18) mg/dl BUN (6-23) mg/dl Creatinine (0.6-1.2) mg/dl POC Creatinine (0.6-1.3) mg/dl Est Cr Clr Drug Dosing ml/min eGFR BUN/Creatinine Ratio (10-20) Glucose (70-99(Fasting)) mg/dl POC Glucose (other) (70-99) mg/dl Lactate 8.2 H* (0.4-2.0) mmol/L Calcium (8.6-10.3) mg/dl POC Ioniz Calcium Armen (1.12-1.32) mmol/l Magnesium (1.7-2.4) mg/dl Total Bilirubin (0.2-1.0) mg/dl AST (13-39) U/L ALT (7-52) U/L Alkaline Phosphatase (34-104) U/L Total Creatine Kinase (26-192) U/L Troponin I High Sens (0-14) pg/ml Total Protein (6.0-8.3) gm/dl Albumin (3.4-5.0) gm/dl Globulin (2.5-4.0) gm/dl Albumin/Globulin Ratio (0.9-2) TSH (0.300-4.500) uIu/ml Salicylates (3.0-30) mg/dl Acetaminophen (10-30) ug/ml Ethyl Alcohol mg/dL (<10.0) mg/dl Administered Medications Epinephrine HCl () 4 mg in 254 mls @ 19.042 mls/hr IV .[id number] [facility]; Protocol Stop: 05/13/25 17:44 Last Titration: 04/13/25 19:34 Dose: 0.24 mcg/kg/min, 76.2 mls/hr Documented By: NABIL Co-signed By: IDD Titration: 04/13/25 19:29 Dose: 0.22 mcg/kg/min, 69.8 mls/hr Documented By: NABIL Co-signed By: BRONSON Titration: 04/13/25 19:19 Dose: 0.2 mcg/kg/min, 63.5 mls/hr Documented By: NABIL Co-signed By: IDD Titration: 04/13/25 18:36 Dose: 0.18 mcg/kg/min, 57.1 mls/hr Documented By: VALE Co-signed By: KENNEDI Titration: 04/13/25 18:30 Dose: 0.16 mcg/kg/min, 50.8 mls/hr Documented By: VALE Co-signed By: KENNEDI Titration: 04/13/25 18:22 Dose: 0.14 mcg/kg/min, 44.4 mls/hr Documented By: VALE Co-signed By: KENNEDI Titration: 04/13/25 18:08 Dose: 0.12 mcg/kg/min, 38.1 mls/hr Documented By: VALE Co-signed By: KENNEDI Titration: 04/13/25 18:01 Dose: 0.1 mcg/kg/min, 31.7 mls/hr Documented By: VALE Co-signed By: KENNEDI Titration: 04/13/25 17:56 Dose: 0.08 mcg/kg/min, 25.4 mls/hr Documented By: VALE Co-signed By: KENNEDI Admin: 04/13/25 17:51 Dose: 0.06 mcg/kg/min, 19 mls/hr Documented By: VALE Co-signed By: KENNEDI Lactated Ringer's (Lr) 1,000 mls @ 125 mls/hr IV .Q8H MARTÍN Stop: 04/16/25 19:14 Last Admin: 04/13/25 19:36 Dose: 125 mls/hr Documented By: NABIL Discontinued Medications Calcium Gluconate () 1,000 mg in 60 mls @ 240 mls/hr IV NOW STA Stop: 04/13/25 17:14 Last Infusion: 04/13/25 17:22 Dose: Infused Documented By: Admin: 04/13/25 17:07 Dose: 240 mls/hr Documented By: VALE Sodium Chloride (Nss) 1,000 mls @ 999 mls/hr IV .Q1H1M MARTÍN Stop: 04/13/25 19:00 Last Infusion: 04/13/25 17:31 Dose: Infused Documented By: Admin: 04/13/25 17:23 Dose: 999 mls/hr Documented By: Infusion: 04/13/25 17:23 Dose: Infused Documented By: Admin: 04/13/25 17:06 Dose: 999 mls/hr Documented By: VALE Calcium Gluconate () 1,000 mg in 60 mls @ 240 mls/hr IV Q15M MARTÍN Stop: 04/13/25 17:44 Last Infusion: 04/13/25 17:56 Dose: Infused Documented By: Admin: 04/13/25 17:36 Dose: 240 mls/hr Documented By: Infusion: 04/13/25 17:36 Dose: Infused Documented By: Admin: 04/13/25 17:23 Dose: 240 mls/hr Documented By: VALE Calcium Gluconate () 1,000 mg in 60 mls @ 240 mls/hr IV Q15M MARTÍN Stop: 04/13/25 18:59 Last Admin: 04/13/25 18:50 Dose: 240 mls/hr Documented By: Infusion: 04/13/25 18:45 Dose: Infused Documented By: Admin: 04/13/25 18:29 Dose: 240 mls/hr Documented By: VALE Sodium Chloride (Nss) 1,000 mls @ 999 mls/hr IV .Q1H1M ONE Stop: 04/13/25 19:49 Last Admin: 04/13/25 18:51 Dose: 999 mls/hr Documented By: VALE Sodium Chloride (Nss) 1,000 mls @ 999 mls/hr IV .Q1H1M ONE Stop: 04/13/25 20:01 Last Admin: 04/13/25 20:06 Dose: Not Given Documented By: NABIL Miscellaneous (Stat Iv Infusion Titration Per Protocol) 1 each N/A NOW STA Stop: 04/13/25 17:45 Last Admin: 04/13/25 19:58 Dose: Not Given Documented By: NABIL Sodium Bicarbonate (Sodium Bicarbonate 8.4% Inj 50 Meq/50 Ml Vial) 100 meq IV NOW STA Stop: 04/13/25 18:12 Last Admin: 04/13/25 18:17 Dose: 100 meq Documented By: KENNEDI Sodium Bicarbonate (Sodium Bicarb 8.4% Inj 50 Meq/50 Ml Syr) 50 meq IV NOW STA Stop: 04/13/25 19:31 Last Admin: 04/13/25 19:35 Dose: 50 meq Documented By: NABIL Imaging Data Radiologist's Impression: Chest X-Ray 04/13/25 17:02 Chest radiograph, one view History: Overdose Comparison: 08/27/2024 Findings: Single AP view of the chest performed. No focal consolidation or pleural effusion. No pneumothorax. Left chest wall dual-lead AICD. The cardiomediastinal silhouette is within normal limits. Normal pulmonary vascularity. No evidence for lymphadenopathy. No visualized bony or soft tissue abnormality. Gaseous distention of the large bowel appears moderate. Impression: Normal chest radiograph Electronically signed by Frederick Reyes 04-13-2025 5:20 PM Discharge Plan Visit Data Chief Complaint: Overdose (Intentional) ED Provider: Jose A Frank Discharge Problem: Hypotension, Pacemaker, Calcium channel edwin overdose, MARY JANE (acute kidney injury), Leukocytosis, Acute dehydration, Suicidal ideation, Metabolic acidosis, Elevated lactic acid level Patient Disposition: Admitted As Inpatient Condition: Critical Discharge Instructions Interventions: ED Discharge Assessment Last Done: 04/13/25 19:35 Discharge Problem: Hypotension Qualifiers: Hypotension type: unspecified hypotension type Qualified Code(s): I95.9 - Hypotension, unspecified Calcium channel edwin overdose Qualifiers: Encounter type: initial encounter Injury intent: intentional self-harm Q ualified Code(s): T46.1X2A - Poisoning by calcium-channel blockers, intentional self-harm, initial encounter Leukocytosis Qualifiers: Leukocytosis type: unspecified Qualified Code(s): D72.829 - Elevated white blood cell count, unspecified
[2025-04-13 17:16] LABS: Hematocrit (blood only) 36.8 % (37.0-47.0); Hemoglobin 11.5 g/dl (12.0-16.0); Immature Granulocytes # (auto) 0.34 K/uL (0.01-0.20); Immature Granulocytes % (auto) 1.8 %; Mean Corpuscular Hemoglobin 26.1 pg (25.0-34.0); Mean Corpuscular Volume 83.6 fL (80.0-100.0); Platelet Count 313 K/uL (130-400); RDW Standard Deviation 50.6 fL (36.4-46.3); Red Blood Count 4.40 M/uL (4.20-5.40); White Blood Count 19.00 K/ul (4.8-10.8)
--- NOTE | 2025-04-13 17:20 | XRay Report ---
Chest radiograph, one view History: Overdose Comparison: 08/27/2024 Findings: Single AP view of the chest performed. No focal consolidation or pleural effusion. No pneumothorax. Left chest wall dual-lead AICD. The cardiomediastinal silhouette is within normal limits. Normal pulmonary vascularity. No evidence for lymphadenopathy. No visualized bony or soft tissue abnormality. Gaseous distention of the large bowel appears moderate. Impression: Normal chest radiograph Electronically signed by Frederick Reyes 04-13-2025 5:20 PM
[2025-04-13] MEDS: CALCIUM GLUCONATE 1,000 MG/60 ML BAG IV SCH ×3 (17:23→23:19)
[2025-04-13 17:37] LABS: Acetaminophen < 3 ug/ml (10-30); Salicylate < 3.0 mg/dl (3.0-30)
[2025-04-13 17:46] LABS: Alanine Aminotransferase 24.0 U/L (7-52); Albumin Globulin Ratio 1.4 (0.9-2); Alkaline Phosphatase 66.0 U/L (34-104); Anion Gap 28.0 (3-11); Bilirubin,Total 0.6 mg/dl (0.2-1.0); Blood Urea Nitrogen 21.0 mg/dl (6-23); Calcium 10.1 mg/dl (8.6-10.3); Carbon Dioxide 6.0 mmol/L (21-32); Chloride 104.0 mmol/L (98-107); Creatine Kinase 170.0 U/L (26-192); Creatinine Clr Calc Pharmacy 24.6 ml/min; Globulin 2.9 gm/dl (2.5-4.0); Glucose 165.0 mg/dl (70-99(Fasting)); Magnesium 2.2 mg/dl (1.7-2.4); Potassium 4.1 mmol/L (3.5-5.1); Sodium 138.0 mmol/L (136-145); Total Protein 7.1 gm/dl (6.0-8.3)
[2025-04-13] MEDS: EPINEPHrine/NSS 4 MG/254 ML BAG IV SCH (17:51)
[2025-04-13 17:52] LABS: Thyroid Stimulating Hormone 2.22 uIu/ml (0.300-4.500)
[2025-04-13 17:52] LABS: Base Excess VBG -18.4 mEq/L; HCO3 VBG 8 mmol/L; Oxygen Saturation VBG 88.4 %; PCO2 VBG 21 mmHg (38-50); PO2 VBG 61 mmHg; pH VBG 7.19 (7.36-7.41)
--- NOTE | 2025-04-13 18:13 | History & Physical Report ---
Date of Service April 13, 2025 Assessment & Plan (1) Calcium channel edwin overdose: Plan: 4-year-old female who presented after an intentional attempted overdose in life with diltiazem. She woke the following morning feeling poorly, collapsed and EMS was called. Intentional overdose Diltiazem XR tablets 50x, 180mg each taken at approximately 1 AM on 04/13/2020 Hypotensive, started on epinephrine in the ER patient is in shock, lactic 8.2 and hypotensive. Cardiogenic and vasodilatory shock Calcium gluconate 1 g x 3 given in the ER. NSS 1 L given in the ER Epinephrine gtt. currently at 0.06, admitted to the ICU As per poison control Dr. Wallace and following. Recommended initial treatment with epinephrine. If maxed out then add norepinephrine as an adjunct. Stat echo is pending. Patient clinically appears dry with dry mucous membranes however if EF is markedly reduced then for fluids due to risk of decompensation. If EF is preserved/hyperdynamic --> +additional fluids. Did not recommend fat/motion therapy. Could consider high-dose insulin therapy as adjunct if all other measures fail. Agree with continuing regular calcium dosing. No transaminitis EKG atrial paced with prolonged AV conduction QTc 453, normal No salicylate/acetaminophen coingestion. Levels of this are negative. Alcohol level negative Sinus node dysfunction, history of PSVT With history of syncope S/p Med[employer]onic dual-chamber pacemaker 07/2023 Pacer functioning appropriately, fortunately maintaining paced rate in the setting of CCB overdose Stat echo pending to evaluate contractility/EF History of nonepileptic form seizures Noted. Bipolar/PTSD, acute suicidal attempts One-to-one observation Will need psychiatry consultation once medically cleared Home medications clonazepam PRN, olanzapine, Adderall IR, lamotrigine, Effexor Lamotrigine continued due to risk of withdrawal seizures Venlafaxine continued Olanzapine with alpha-1 antagonism. This is held due to potential for potentiating hypotension with CCB overdose Type II DM ICU hyperglycemia protocol May progress to insulin infusion for CCP toxicity. BSG 160 MARY JANE Perfusion versus prerenal Continue fluids Trend Hold nephrotoxins Prophylaxis: Heparin SQ Disposition: ICU CODE STATUS: Full code, may not leave AMA (2) PSVT (paroxysmal supraventricular tachycardia): (3) Schizoaffective disorder: (4) Dyslipidemia due to type 2 diabetes mellitus: History of Present Illness Primary Care Provider: Dusty Stover DO Leslie is a 54-year-old female with a past medical history of schizoaffective/bipolar disorder who took 50x tablets of 180 mg diltiazem XR in a suicidal attempt. She presents hypotensive and with a metabolic acidosis and is recommended for admission for overdose/CCB toxicity. Seen at bedside. She reports she has a long history of passive suicidality, intermittently active with attempts in the past. She reports that she was not particularly planning her current overdose but last night she was overwhelmed with recent stressors and feeling that she has a stalker although is not who this is. She has not seen or heard anything unusual. She reported she started taking 1 diltiazem, and then continue taking 1 after the other with the intention to . When she woke up this morning she felt very weak tired and confused to try to go outside and then was brought to the hospital. She reports she still feels suicidal. She notes that her suicidal he has never completely gone away but is usually passive, and current stressors have made this worse. She denies any coingestions along with her diltiazem. She last took her regular medications yesterday, she reports she had not been missing doses of these. She denies alcohol/tobacco use. She reports she is very thirsty, otherwise no complaints. Denies fevers chills sweats. Denies cough. Denies abdominal pain. She denies chest pressure/chest pain. Full code in the setting of SI/302 Allergies Allergy/AdvReac Type Severity Reaction Status Date / Time carbamazepine [From Tegretol] Allergy Intermediate Rash Verified 03/09/25 16:08 Sulfa (Sulfonamide Allergy Intermediate HIVES/DELUS Verified 03/09/25 16:08 Antibiotics) IONAL prednisone AdvReac Unknown CONTRAINDICATED Verified 03/09/25 16:08 WITH BIPOLAR MEDS. Home Medications Medication Instructions Recorded Confirmed Type clonazepam 0.5 mg tablet 0.5 mg PO TID PRN Anxiety 05/31/23 04/13/25 History sumatriptan succinate 100 mg tablet 100 mg PO Q2H PRN Migraine Headache 07/03/23 04/13/25 History syringe with needle 3 mL 25 x 5/8" #50 ea 07/17/23 04/13/25 Rx (BD Eclipse Luer-Yanna) Medical Marijuana 1 dose PO DAILY PRN Pain 10/12/23 06/24/25 History olanzapine 10 mg disintegrating 10 mg translingual DAILY 09/18/23 04/13/25 History tablet spironolactone 50 mg tablet 50 mg PO QAM #90 tabs 08/27/24 04/13/25 Rx lisinopril 40 mg tablet 40 mg PO HS #90 tabs 09/03/24 04/13/25 Rx omeprazole 40 mg capsule,delayed 40 mg PO DAILY #90 caps 10/12/24 04/13/25 Rx release atorvastatin 10 mg tablet 10 mg PO DAILY #90 tabs 10/26/24 04/13/25 Rx diltiazem HCl 180 mg 180 mg PO BID #180 caps 11/04/24 04/13/25 Rx capsule,extended release 24 hr cyanocobalamin (vitamin B-12) 1,000 mcg subcut Q7D #26 ea 11/30/24 04/13/25 Rx 1,000 mcg/mL injection kit ipratropium bromide 21 mcg (0.03 2 spray intranasal BID PRN 01/11/25 04/13/25 History %) nasal spray DIRECTED lamotrigine 100 mg tablet 100 mg PO DAILY 01/11/25 04/13/25 History lamotrigine 150 mg tablet 150 mg PO DAILY 01/11/25 04/13/25 History venlafaxine 75 mg capsule,extended 75 mg PO DAILY #30 caps 01/11/25 04/13/25 Rx release 24 hr dextroamphetamine-amphetamine 10 20 mg PO DAILY 04/13/25 04/13/25 History mg tablet Past Med/Surg History Problem List (Updated 04/13/25 @ 20:15 by Prachi Ordoñez) Calcium channel edwin overdose Vertigo PSVT (paroxysmal supraventricular tachycardia) Pacemaker Dyslipidemia due to type 2 diabetes mellitus GERD (gastroesophageal reflux disease) Sinus node dysfunction Bipolar disorder Schizoaffective disorder Diabetes (Chronic) NIDDM Migraine (Chronic) "Thunderclap Migraines" Chronic anemia (Chronic) per chart review, recent H/H WNL Hypertension (Chronic) Spondylolysis (Chronic) "L5" Spinal stenosis (Chronic) Post traumatic stress disorder (PTSD) (Chronic) "Complex"; follows with psych Medical History (Updated 04/13/25 @ 20:15 by Prachi Ordoñez) Diabetes mellitus, type 2 Encounter for pre-operative examination Schizoaffective disorder follows with psych Kidney stones passed on own Anxiety follows with psych Bipolar disorder follows with psych Sinus node dysfunction reason for up coming pacemaker placement Sleep apnea dx several yrs ago, no device, feels no issues with Surgical History Status post placement of cardiac pacemaker S/P trigger finger release left thumb History of carpal tunnel release left History of esophagogastroduodenoscopy (EGD) History of colonoscopy [place] teeth extracted Family History Mother Breast cancer Aunt Breast cancer Uncle Lung cancer Denies family history of Ovarian cancer Prostate cancer Diabetes Myocardial infarction Colorectal cancer Stroke Social History Smoking Status: Current every day smoker Tobacco Type: Cigarettes Age Started Using Tobacco: 17; packs per day: 0.5; Cigarettes Per Day: 10-15 cigs per day > advised npo status; Second Hand Exposure: Yes (s/o smokes); Do You Dip or Chew Tobacco: No; Hx Alcohol Use: No Hx Substance Use: No Preferred Language: Citizen Of [place] Communication Ability: Effective Visual Impairment: Limited Hearing Ability: Normal Cooker Pie Filling Required: No Beliefs That Will Affect Care: None marital status: Single Current Living Situation: Homeless Current Living Situation Comment: Pt states she had a roommate, but would consider herself homeless now. current occupational status: unemployed How many Children do You have: 0 Feels Safe at Home: Yes Childhood Exposure to Second-Hand Smoke: Yes Diet: regular caffeine: Yes during the past year weight has: decreased > 10 lbs Dental Care, Regularly: Yes Physical Activity Frequency: Does not Exercise Seatbelt Use: always Sunscreen Use: Yes Gender Identity: Female Assistive Devices: None Physical Exam Physical Exam: General: A&Ox3. NAD. Cooperative. Rogers pallor. HEENT: Atraumatic, normocephalic./Hearing grossly intact Pulm: CTAB A&P. -wheezes, -rales, -rhonchi. Symmetrical chest rise. No increased work of breathing. No respiratory distress. Cardiac: RRR, -mrg. Radial pulses intact and symmetrical. Abdominal: Nontender, nondistended, soft. BS present. Results & Data Results & Data Vital Signs (Past 12 Hours) Vital Signs Temp Pulse Pulse Resp BP BP Pulse Ox 04/13/25 17:58 78/37 L 04/13/25 17:55 72/42 L 04/13/25 17:51 60 98 04/13/25 17:50 60 18 71/43 L 98 04/13/25 17:48 60 98 04/13/25 17:46 60 20 70/38 L 98 04/13/25 17:45 70/38 L 04/13/25 17:40 65/38 L 04/13/25 17:38 70/38 L 04/13/25 17:36 62 87/49 L 100 04/13/25 17:27 60 87/49 L 100 04/13/25 17:25 60 78/50 L 100 04/13/25 17:21 60 77/45 L 99 04/13/25 17:15 60 95 04/13/25 17:15 60 70/45 L 95 04/13/25 17:12 60 78/43 L 100 04/13/25 17:08 80/45 L 04/13/25 17:08 80/45 L 04/13/25 17:08 80/45 L 04/13/25 17:03 64/38 L 04/13/25 17:03 61 64/38 L 96 04/13/25 17:03 61 96 04/13/25 17:02 100 04/13/25 16:56 61 04/13/25 16:53 36.5 C 61 18 67/37 L O2 Del Method 04/13/25 17:58 04/13/25 17:55 04/13/25 17:51 04/13/25 17:50 04/13/25 17:48 04/13/25 17:46 Room Air 04/13/25 17:45 04/13/25 17:40 04/13/25 17:38 04/13/25 17:36 04/13/25 17:27 04/13/25 17:25 04/13/25 17:21 04/13/25 17:15 04/13/25 17:15 04/13/25 17:12 04/13/25 17:08 04/13/25 17:08 04/13/25 17:08 04/13/25 17:03 04/13/25 17:03 04/13/25 17:03 04/13/25 17:02 Room Air 04/13/25 16:56 04/13/25 16:53 PG Care Time/CCT Total # of Minutes Spent Total Time Spent with Patient: Total time spent is greater than 50% in coordination of care (as documented) at patient's floor/unit and/or counseling patient: Coding Level of Care Code 28873 INT INP/OBS CARE 3/75MIN Diagnoses Calcium channel edwin overdose T46.1X1A PSVT (paroxysmal supraventricular tachycardia) I47.10 Schizoaffective disorder, depressive type F25.1 Schizoaffective disorder type: depressive Dyslipidemia due to type 2 diabetes mellitus E11.69; E78.5 (3) Schizoaffective disorder Schizoaffective disorder type: depressive Qualified Code(s): F25.1 - Schizoaffective disorder, depressive type
[2025-04-13] MEDS: SODIUM BICARBONATE 8.4% INJ 50 MEQ/50 ML VIAL IV STA (18:17)
[2025-04-13] MEDS: SODIUM CHLORIDE 0.9% 1,000 ML IV ONE ×2 (18:51→20:06)
[2025-04-13] MEDS: SODIUM BICARB 8.4% INJ 50 MEQ/50 ML SYR IV STA ×2 (19:35→23:18)
--- NOTE | 2025-04-13 19:35 | Critical Care Consultation ---
Date of Consultation April 13, 2025 Assessment & Plan (1) Calcium channel edwin overdose: (2) Schizoaffective disorder: (3) Bipolar disorder: (4) Acute kidney injury: (5) High anion gap metabolic acidosis: (6) Lactic acidosis: (7) Leukocytosis: (8) Mass of heart: (9) Cardiogenic shock: (10) Medical non-compliance: Plan Reason Critically Ill: 1. Cardiogenic shock 2/2 #2 2. Intention overdose of CCB 3. Bipolar disorder, prior suicide attempts 4. Non-compliance with medical management of psychiatric illness 5. HAGMA 2/2 lactic acidosis 6. Acute kidney injury, prerenal 2/2 #1 7. Leukocytosis, likely reactive, cannot rule out infection 8. Large mass of atrial pacemaker lead, cannot rule out infection Neuro - [facility] ICU: Negative RASS GOAL 0 Continue Lamictal, Effexor. Continue to hold home Adderall, Zyprexa, clonazpam. Can consider re-introducing in the next 12 - 24 hours Psychiatry consult, appreciate recommendations. Expect involuntary commitment once medically cleared 1-to-1 sitter, cannot elope Cardiac - Hold all antihypertensives and diuretics Continue epinephrine infusion for MAP goal > 65mmHg Admit EKG atrial-paced with prolonged AV conduction, normal QTc Repeat EKG NSR, prolonged QTc (504) Target K > 4, Mg > 2 TTE showing large atrial lead mass, non-specific, cannot rule out infection, RVSP elevated. LVEF WNL. Routine Cardiology consult, appreciate recommendations Respiratory - Respiratory compensation inadequate on admission VBG, recheck pending SpO2 goal > 92% Reported history of LARON not using a device at home, monitor while inpatient Admission CXR WNL GI - Diet: Advance as tolerated once respiratory status is stable SUP: N/A Bowel regimen: PRN RENAL/LYTES - BMP trended overnight, continue IVF S/p calcium gluconate x3g with improvement in AV conduction delay Replete electrolytes as indicated Purewick for I/Os, can consider gomez if UOP inadequate or Cr does not improve. At this time patient is adamantly refusing all invasive measures Maintain net even ENDO - BG 140-180 per SCCM guidelines ISS if needed while inpatient HEME - Leukocytosis No other concerns ID - Unable to rule out EC BC x2 prior to antibiotics, UA to be collected, procalcitonin pending, MRSA nares pending Vancomycin on board after BC LINES/TUBES/DRAINS - PIV x2 DVT PROPHYLAXIS - SQH DISPOSITION - ICU CODE STATUS - FULL, patient unable to change status at this time given suicide attempt and no prior advanced directive I have personally spent 46 minutes of critical care time in the direct management of this patient. This is a life/limb threatening event. This includes time spent evaluating patient, direct bedside care, chart review, placing orders, interpretation of diagnostic studies, discussion with consultants, patient, and family members, as well as other required patient management activities. This time is exclusive of all separately billable procedures, and teaching time and separate from and in addition to any other critical care service time. Thank you for allowing us to participate in the care of this patient. Please refer to my attending physician's documentation for any further recommendations. Supervising Physician Co-Signing Physician Notes Patient seen and examined. EMR reviewed. Discussed with ER and with critical care NIRAV. Agree with assessment plan as noted. For additional details please refer to my progress note from 04/14/2025 History of Present Illness Reason for Consultation: CCB overdose Requesting Physician: Darren Attending Physician: Prachi Tinoco MD History of Present Illness Ms. Leslie Ling is a 54YOF with a history of schizoaffective and bipolar disorders, migraines, tobacco use disorder (1/2PPD), spinal stenosis, hypertension, hyperlipidemia, sinus node dysfunction/PSVT s/p PPM, NIDDMII who presented to [facility] ED after being found down by bystanders in her front lawn. On arrival to ED patient was awake and alert. Diaphoretic. Profoundly hypotensive on arrival. HR 61 (paced), BP 67/37mmHg. Normothermic. Per report, patient gave history that she took #50 180mg Diltiazem XR tablets around midnight or 0100 (16 hours prior to presentation) in an attempt to take her own life. EKG showed atrial paced rhythm with prolonged AV conduction, QTc 453. Labs remarkable for lactic acidosis (8.2), MARY JANE (2.53), HCO3 6, AG 28, WBC 19K with neutrophil predominance, CK WNL. VBG 7.19/21/61/8. She was started on epinephrine infusion. Calcium gluconate 3g given as well as 2L NSS. Poison Control was contacted who recommended epinephrine infusion, calcium administration, possible high dose insulin if those measures fail. Admitted to ICU for continuation of care. Patient is seen on arrival to ICU. On 0.26mcg/kg/min Epinephrine. She is AAOx3. Currently complaining of thirst, otherwise feeling better. Denies headache, visual changes, chest pain, SOB, n/v, abdominal pain, muscle cramps. Does have auditory hallucinations. Currently taking Lamictal, lisinopril, Effexor, Ald actone, Diltiazem. Not taking her clonazepam, Zyprexa (ran out), or Adderall IR/XR (x2 weeks). STAT echo has returned with significant finding for normal LVEF but with nonspecific large mass on atrial lead of pacemaker with RVSP elevated. Will reach out to on-call Cardiology for additional recommendations. She will be placed on vancomycin in the interim. Allergies Allergy/AdvReac Type Severity Reaction Status Date / Time carbamazepine [From Tegretol] Allergy Intermediate Rash Verified 03/09/25 16:08 Sulfa (Sulfonamide Allergy Intermediate HIVES/DELUS Verified 03/09/25 16:08 Antibiotics) IONAL prednisone AdvReac Unknown CONTRAINDICATED Verified 03/09/25 16:08 WITH BIPOLAR MEDS. Home Medications Medication Instructions Recorded Confirmed Type clonazepam 0.5 mg tablet 0.5 mg PO TID PRN Anxiety 05/31/23 04/13/25 History sumatriptan succinate 100 mg tablet 100 mg PO Q2H PRN Migraine Headache 07/03/23 04/13/25 History syringe with needle 3 mL 25 x 5/8" #50 ea 07/17/23 04/13/25 Rx (BD Eclipse Luer-Yanna) Medical Marijuana 1 dose PO DAILY PRN Pain 08/01/23 04/13/25 History olanzapine 10 mg disintegrating 10 mg translingual DAILY 09/18/23 04/13/25 History tablet spironolactone 50 mg tablet 50 mg PO QAM #90 tabs 08/27/24 04/13/25 Rx lisinopril 40 mg tablet 40 mg PO HS #90 tabs 09/03/24 04/13/25 Rx omeprazole 40 mg capsule,delayed 40 mg PO DAILY #90 caps 10/12/24 04/13/25 Rx release atorvastatin 10 mg tablet 10 mg PO DAILY #90 tabs 10/26/24 04/13/25 Rx diltiazem HCl 180 mg 180 mg PO BID #180 caps 11/04/24 04/13/25 Rx capsule,extended release 24 hr cyanocobalamin (vitamin B-12) 1,000 mcg subcut Q7D #26 ea 11/30/24 04/13/25 Rx 1,000 mcg/mL injection kit ipratropium bromide 21 mcg (0.03 2 spray intranasal BID PRN 01/11/25 04/13/25 History %) nasal spray DIRECTED lamotrigine 100 mg tablet 100 mg PO DAILY 01/11/25 04/13/25 History lamotrigine 150 mg tablet 150 mg PO DAILY 01/11/25 04/13/25 History venlafaxine 75 mg capsule,extended 75 mg PO DAILY #30 caps 01/11/25 04/13/25 Rx release 24 hr dextroamphetamine-amphetamine 10 20 mg PO DAILY 04/13/25 04/13/25 History mg tablet Patient History Medical History Diabetes mellitus, type 2 Encounter for pre-operative examination Schizoaffective disorder follows with psych Kidney stones passed on own Anxiety follows with psych Bipolar disorder follows with psych Sinus node dysfunction reason for up coming pacemaker placement Sleep apnea dx several yrs ago, no device, feels no issues with Surgical History Status post placement of cardiac pacemaker S/P trigger finger release left thumb History of carpal tunnel release left History of esophagogastroduodenoscopy (EGD) History of colonoscopy [place] teeth extracted Family History Mother Breast cancer Aunt Breast cancer Uncle Lung cancer Denies family history of Ovarian cancer Prostate cancer Diabetes Myocardial infarction Colorectal cancer Stroke Social History Smoking Status: Current every day smoker Tobacco Type: Cigarettes Age Started Using Tobacco: 17; packs per day: 0.5; Cigarettes Per Day: 10-15 cigs per day > advised npo status; Second Hand Exposure: Yes (s/o smokes); Do You Dip or Chew Tobacco: No; Hx Alcohol Use: No Hx Substance Use: No Preferred Language: Portuguese Communication Ability: Effective Visual Impairment: Limited Hearing Ability: Normal Allergist/Pediatric Pulmonologist Required: No Beliefs That Will Affect Care: None marital status: Single Current Living Situation: Homeless Current Living Situation Comment: Pt states she had a roommate, but would consider herself homeless now. current occupational status: unemployed How many Children do You have: 0 Feels Safe at Home: Yes Childhood Exposure to Second-Hand Smoke: Yes Diet: regular caffeine: Yes during the past year weight has: decreased > 10 lbs Dental Care, Regularly: Yes Physical Activity Frequency: Does not Exercise Seatbelt Use: always Sunscreen Use: Yes Gender Identity: Female Assistive Devices: None Review of Systems Review of Systems: All systems reviewed & are unremarkable except as noted in Subjective Physical Exam Constitutional: well developed, well nourished and cooperative; no acute distress Eyes: PERRL, conjunctivae normal, anicteric sclerae ENMT: external ear and nose normal, oropharynx normal Respiratory: normal respiratory effort, lungs clear to auscultation Cardiovascular: Rate/Rhythm: regular rate and regular rhythm Heart Sounds: no murmur Vessels: no JVD and no carotid bruit Extremities: normal capillary refill; no edema Gastrointestinal (Abdomen): normal bowel sounds, soft, nontender, no hepatosplenomegaly Musculoskeletal: no cyanosis or clubbing, extremities motor strength 5/5 Skin: no rashes, warm and dry Neurologic: PERRL, EOMI, accommodation nl, no face palsy, no dysarthria Psychiatric: Orientation: alert and oriented x 3 Apperance: appeared stated age Eye Contact: + fair eye contact Motor Behavior: no abnormal motor movements Speech: normal rate/rhythm/volume of speech Affect: + flat affect Mood: + depressed mood Thought Process: goal directed thought process Thought Content: + preoccupation and + hopelessness Suicidal Thoughts: + reports suicidal thoughts, + reports suicidal plan and + reports suicidal intent Homicidal Thoughts: denies homicidal thoughts Hallucinations: + auditory hallucinations Cognition: recent memory grossly intact Estimated Intelligence: average estimated intelligence Insight: + limited insight Judgment: + fair judgement Genitourinary: Deferred Results & Data Results & Data Vital Signs (Past 12 Hours) Vital Signs Temp Pulse Pulse Resp BP BP Pulse Ox 04/13/25 19:21 61 16 98 04/13/25 19:20 86/49 L 04/13/25 19:18 82/49 L 04/13/25 19:17 92/44 L 04/13/25 19:15 60 19 98 04/13/25 19:15 89/43 L 04/13/25 19:10 92/46 L 04/13/25 19:04 91/45 L 04/13/25 19:00 87/46 L 04/13/25 19:00 87/46 L 04/13/25 18:55 92/62 L 04/13/25 18:54 63 15 98 04/13/25 18:54 95/44 L 04/13/25 18:53 97/46 L 04/13/25 18:50 97/46 L 04/13/25 18:48 60 13 100 04/13/25 18:48 100/40 L 04/13/25 18:47 89/47 L 04/13/25 18:45 90/45 L 04/13/25 18:45 60 18 98 04/13/25 18:40 60 19 90/45 L 98 04/13/25 18:39 60 19 99 04/13/25 18:37 88/44 L 04/13/25 18:34 90/36 L 04/13/25 18:32 81/38 L 04/13/25 18:31 73/30 L 04/13/25 18:28 87/38 L 04/13/25 18:19 81/44 L 04/13/25 18:16 81/38 L 04/13/25 18:16 81/38 L 04/13/25 18:15 60 24 97 04/13/25 18:15 82/41 L 04/13/25 18:10 84/33 L 04/13/25 18:08 79/40 L 04/13/25 18:06 75/39 L 04/13/25 17:58 78/37 L 04/13/25 17:55 72/42 L 04/13/25 17:51 60 98 04/13/25 17:50 60 18 71/43 L 98 04/13/25 17:48 60 98 04/13/25 17:46 60 20 70/38 L 98 04/13/25 17:45 70/38 L 04/13/25 17:40 65/38 L 04/13/25 17:38 70/38 L 04/13/25 17:36 62 87/49 L 100 04/13/25 17:27 60 87/49 L 100 04/13/25 17:25 60 78/50 L 100 04/13/25 17:21 60 77/45 L 99 04/13/25 17:15 60 95 04/13/25 17:15 60 70/45 L 95 04/13/25 17:12 60 78/43 L 100 04/13/25 17:08 80/45 L 04/13/25 17:08 80/45 L 04/13/25 17:08 80/45 L 04/13/25 17:03 64/38 L 04/13/25 17:03 61 64/38 L 96 04/13/25 17:03 61 96 04/13/25 17:02 100 04/13/25 16:56 61 04/13/25 16:53 36.5 C 61 18 67/37 L O2 Del Method 04/13/25 19:21 04/13/25 19:20 04/13/25 19:18 04/13/25 19:17 04/13/25 19:15 04/13/25 19:15 04/13/25 19:10 04/13/25 19:04 04/13/25 19:00 04/13/25 19:00 04/13/25 18:55 04/13/25 18:54 04/13/25 18:54 04/13/25 18:53 04/13/25 18:50 04/13/25 18:48 04/13/25 18:48 04/13/25 18:47 04/13/25 18:45 04/13/25 18:45 04/13/25 18:40 Room Air 04/13/25 18:39 Room Air 04/13/25 18:37 04/13/25 18:34 04/13/25 18:32 04/13/25 18:31 04/13/25 18:28 04/13/25 18:19 04/13/25 18:16 04/13/25 18:16 04/13/25 18:15 04/13/25 18:15 04/13/25 18:10 04/13/25 18:08 04/13/25 18:06 04/13/25 17:58 04/13/25 17:55 04/13/25 17:51 04/13/25 17:50 04/13/25 17:48 04/13/25 17:46 Room Air 04/13/25 17:45 04/13/25 17:40 04/13/25 17:38 04/13/25 17:36 04/13/25 17:27 04/13/25 17:25 04/13/25 17:21 04/13/25 17:15 04/13/25 17:15 04/13/25 17:12 04/13/25 17:08 04/13/25 17:08 04/13/25 17:08 04/13/25 17:03 04/13/25 17:03 04/13/25 17:03 04/13/25 17:02 Room Air 04/13/25 16:56 04/13/25 16:53 Laboratory Results Reviewed Diagnostic Findings Reviewed Medications Administered See MAR Coding Level of Care Code 82808 CRITICAL CARE 1ST 30-74M Diagnoses Calcium channel edwin overdose T46.1X1A Schizoaffective disorder, depressive type F25.1 Schizoaffective disorder type: depressive Bipolar disorder F31.9 Acute kidney injury N17.9 High anion gap metabolic acidosis E87.29 Lactic acidosis E87.20 Leukocytosis D72.829 Mass of heart I51.89 Cardiogenic shock R57.0 Medical non-compliance Z91.199 Time Spent (min) 46 (2) Schizoaffective disorder Schizoaffective disorder type: depressive Qualified Code(s): F25.1 - Schizoaffective disorder, depressive type
[2025-04-13] MEDS: LACTATED RINGER'S 1,000 ML IV SCH (19:36)
--- NOTE | 2025-04-13 19:42 | XCELERA ---
[id number] \\[id number]
[2025-04-13] MEDS: STAT IV Infusion **Titration per Protocol STA (19:58)
[2025-04-13] MEDS ORDERED: VANCOMYCIN CONSULT ACTIVE PRN (20:01)
[2025-04-13 20:40] LABS: Anion Gap 26.0 (3-11); Blood Urea Nitrogen 21.0 mg/dl (6-23); Calcium 10.1 mg/dl (8.6-10.3); Carbon Dioxide 10.0 mmol/L (21-32); Chloride 108.0 mmol/L (98-107); Creatinine Clr Calc Pharmacy 25.9 ml/min; Glucose 295.0 mg/dl (70-99(Fasting)); Potassium 3.6 mmol/L (3.5-5.1); Sodium 144.0 mmol/L (136-145)
[2025-04-13] MEDS: VANCOMYCIN HCL 1,750 MG in SODIUM CHLORIDE 0.9% 500 ML IV ONE (21:12)
[2025-04-13] MEDS ORDERED: DEXTROSE 50% 50 ML SYRINGE IV PRN (21:20)
[2025-04-13] MEDS ORDERED: CARBOHYDRATES FOR HYPOGLYCEMIA PO PRN (21:20)
[2025-04-13] MEDS ORDERED: GLUCOSE 40% GEL 15 GM TUBE PO PRN (21:20)
[2025-04-13] MEDS ORDERED: GLUCOSE 10 TAB/TUBE PO PRN (21:20)
[2025-04-13] MEDS ORDERED: GLUCAGON FOR INJ 1 MG VIAL SQ PRN (21:20)
[2025-04-13] MEDS: POTASSIUM CHLORIDE / WTR 10 MEQ/100 ML PLCT IV SCH (21:37)
[2025-04-13] MEDS: INSULIN ASPART PER UNIT CHARGE SC SCH (21:48)
[2025-04-13] MEDS ORDERED: STAT IV Infusion **Titration per Protocol STA (22:14)
[2025-04-13] MEDS ORDERED: STAT IV/IM STA (23:00)
--- NOTE | 2025-04-13 23:05 | Communication Note ---
Date of Service: April 13, 2025 Patient's metabolic acidosis has not improved. She has incomplete respiratory compensation. Clinically she appears ill, tachypneic. Able to converse, she is oriented, no significant distress requiring airway protection. Lactic acid is 12.4 from 8.3. Will give 2 ampules of bicarbonate and add bicarbonate infusion. D/w Dr. Sandoval regarding possible insulin infusion, we will hold on this given predominantly vasodilatory shock rather than myocardial dysfunction. Methylene blue also an options but we will defer for now. Cr slightly improved. Mcdonnell was placed for close monitoring of I/Os. Will perform POCUS to evaluate volume status and any progression to myocardial dysfunction. Epinephrine remains at 0.28mcg/kg/min with borderline hemodynamics. CVC will need to be placed, will also consider arterial line. PPM is functioning appropriately. Paced at 60bpm. She is high risk for continued respiratory decompensation. Despite continued request of large volumes of water, we will make patient NPO except ice chips and sips for safety. HFNC placed to augment ventilation. Continue trending chemistries. Give additional 3g calcium gluconate and target goal iCal of 2. Addendum 0200: Discussed course with poison control. Recommending continued up- titration of vasopressors as well as calcium supplementation as we are doing. No current role for targeted insulin therapy. Rn Shift Mgr does recommend increasing the paced rate to 80-100bpm to augment cardiac output. I spoke with our [employer] sales representative cash registers who advises placement of donut magnet on pacemaker to set to asynchronous mode which will set AV paced rate at 85bpm automatically. This was done successfully. Will apply Tegaderm to ensure proper positioning. Standard insulin infusion was started due to profound hyperglycemia. Patient was intubated for airway protection at 0140 by me. Please see procedure note for details. Will update patient's family now that she is unable to make her own medical decisions. Addendum 0245: New hypoxemia following intubation. Concern for pulmonary vascular congestion. Will decrease HCO3 gtt to 100cc/hr and consider gentle diuresis if no improvement in oxygenation. I have personally spent 67 minutes of critical care time in the direct management of this patient. This is a life/limb threatening event. This includes time spent evaluating patient, direct bedside care, chart review, placing orders, interpretation of diagnostic studies, discussion with consultants, patient, and family members, as well as other required patient management activities. This time is exclusive of all separately billable procedures, and teaching time and separate from and in addition to any other critical care service time. Coding Level of Care Code 61779 CRITICAL CARE EA ADD 30M Time Spent (min) 67
[2025-04-13 23:10] LABS: iSTAT Art Bld Gas Base Excess -24.0 meg/L (-9-1.8); iSTAT Art Bld Gas pCO2 Correct 13 mmHg (35-46); iSTAT Art Bld Gas pH Corrected 7.147 (7.35-7.45); iSTAT Arterial Blood Gas pO2 C 65
[2025-04-13 23:11] LABS: Appearance Urine Clear (Clear); Bacteria Urine Automated None Seen (None Seen); Glucose Urine UA 2+ (Negative); RBC Urine Automated 0-2 /hpf (0-2)
[2025-04-13 23:42] LABS: Amphetamines+Metham, Urine Neg (Neg); MDMA (Ecstacy), Urine Neg (Neg); Marijuana, Urine Pos (Neg)
[2025-04-13] MEDS: SODIUM BICARBONATE 8.4% 150 MEQ in DEXTROSE 5% 1,000 ML IV SCH (23:46)
--- NOTE | 2025-04-14 | Procedure Note ---
Procedure Note Date of Service April 13, 2025 ARTERIAL LINE PROCEDURE NOTE: Procedure: Arterial Line Placement Attending: Dr. Sandoval APC/Proceduralist: Farnaz Lion PA-C Indication: Monitoring on Pressors/Frequent labs Anesthesia: Lidocaine 1% Emergent consent implied A time-out was completed verifying correct patient, procedure, site, positioning, and implant(s) or special equipment if applicable. Patients L groin was prepped and draped in the usual sterile fashion. Ultrasound guidance was used to aid needle placement. A 20g Arrow arterial line was introduced into the L common femoral artery. Catheter was threaded, and the needle was removed with appropriate blood return. Good waveform was observed. The patient tolerated the procedure well. Blood Loss: Minimal Complications: None [facility] Procedure Codes (Charges) Aterial Pressure Waveform Analysis Arterial Pressure Waveform: 80848 Arterial Pressure Waveform Analysis Tubes, Drains, and Vasc Access Procedure 1: Tubes, Drains, and Vasc Access: [id number] Arterial Cath/Cannulation Sampling/Monitoring/Transfusion Coding CPT Codes Aterial Pressure Waveform Analysis - Arterial Pressure Waveform: 30641 Arterial Pressure Waveform Analysis ([id number]) Tubes, Drains, and Vasc Access - Tubes, Drains, and Vasc Access: [id number] Arterial Cath/Cannulation Sampling/Monitoring/Transfusion ([id number]) Additional Codes Date of Service ([facility].SURGERY)
--- NOTE | 2025-04-14 00:03 | Procedure Note ---
Procedure Note Date of Service April 14, 2025 INTERNAL JUGULAR CENTRAL LINE PROCEDURE NOTE: Procedure: Internal Jugular Central Line Placement Attending: Dr. Sandoval APC/Proceduralist: Farnaz Lion PA-C Indication: Central Drug Administration, Poor Venous Access, Multiple Lab Draws Necessary, etc. Anesthesia: Lidocaine 1% Emergent consent implied. A time-out was completed verifying correct patient, procedure, site, positioning, and implants(s) or special equipment if applicable. Patients L groin was cleansed and draped in the typical sterile fashion using Chloraprep. The femoral vein and common femoral artery were identified using ultrasound. The superficial tissue was anesthetized using 5 mL of 1% lidocaine without epinephrine under direct visualization with the ultrasound. After adequate anesthetization was achieved, the Internal Jugular vein was cannulated under direct ultrasound guidance using an introducer needle on a syringe. Good venous blood return was maintained prior to removal of syringe from introducer needle. Using Seldinger Technique, a guide wire was advanced through the introducer needle without resistance. The introducer needle was removed and the guide wire was visualized within the femoral vein on mulitple veins. A small incision was made in penetrating fashion at the guide wire insertion site utilizing an 11 blade scalpel. The dilator was advanced to the vessel without resistance. The dilator was exchanged for the triple lumen catheter which was advanced into the vessel without resistance. The guide wire was removed intact from the catheter without issue. Claves were placed on each catheter tip with confirmation of good blood flow from each lumen. Each port was easily flushed with sterile saline. The catheter was placed at 20 cm and sutured in place. BioPatch was applied to the catheter and a sterile Tegaderm dressing was applied over the catheter with careful attention to sterility. Patient tolerated procedure well. No immediate complications were met. Site selection rationale: Patient cooperation and respiratory status. [facility] [place]odes (Charges) Tubes, Drains, and Vasc Access Procedure 1: Tubes, Drains, and Vasc Access: [id number] Insertion Of Non-tunneled Catheter Age 4 Yrs> Coding CPT Codes Tubes, Drains, and Vasc Access - Tubes, Drains, and Vasc Access: [id number] Insertion Of Non-tunneled Catheter Age 4 Yrs> ([id number]) Additional Codes Date of Service ([facility].SURGERY)
[2025-04-14] MEDS: SODIUM BICARB 8.4% INJ 50 MEQ/50 ML SYR IV STA ×2 (00:29→01:30)
[2025-04-14] MEDS: NOREPINEPHRINE/D5W 4 MG/250 ML PLCT IV SCH (00:39)
[2025-04-14] MEDS: ALBUMIN 5% 250 ML IV ONE (00:57)
[2025-04-14 01:11] LABS: Anion Gap 29.0 (3-11); Blood Urea Nitrogen 21.0 mg/dl (6-23); Calcium 10.5 mg/dl (8.6-10.3); Carbon Dioxide 6.0 mmol/L (21-32); Chloride 102.0 mmol/L (98-107); Creatinine Clr Calc Pharmacy 25.5 ml/min; Glucose 412.0 mg/dl (70-99(Fasting)); Magnesium 2.0 mg/dl (1.7-2.4); Potassium 4.2 mmol/L (3.5-5.1); Sodium 137.0 mmol/L (136-145)
[2025-04-14] MEDS ORDERED: SEVERE STRESS LEVEL ONE (01:11)
[2025-04-14] MEDS ORDERED: INSULIN PROTOCOL GOAL RANGE ONE (01:11)
[2025-04-14] MEDS ORDERED: STAT IV Infusion **Titration per Protocol STA ×2 (01:11→01:46)
[2025-04-14] MEDS ORDERED: Concentrate Norepinephrine IV Infusion ONE (01:14)
[2025-04-14] MEDS: CALCIUM GLUCONATE 1,000 MG/60 ML BAG IV SCH ×2 (01:14→05:22)
[2025-04-14] MEDS ORDERED: Nursing to Pharmacy Communication SCH ×2 (01:30→06:00)
[2025-04-14] MEDS: RAPID SEQUENCE INDUCTION BAG ONE (01:37)
[2025-04-14] MEDS: fentaNYL citrate 2,500 MCG/250 ML BAG IV ONE (01:42)
[2025-04-14] MEDS: fentaNYL citrate 2,500 MCG/250 ML BAG IV SCH (01:45)
[2025-04-14] MEDS: INSULIN REGULAR 250 UNITS in SODIUM CHLORIDE 0.9% 247.5 ML IV SCH (01:59)
[2025-04-14] MEDS: NovoLIN-R BOLUS FROM BAG IV ONE ×3 (02:01→07:07)
--- NOTE | 2025-04-14 02:03 | Procedure Note ---
Procedure Note Date of Service April 14, 2025 INTUBATION PROCEDURE NOTE: APC/Proceduralist: Farnaz Lion PA-C. Attending: Lori A time-out was completed verifying correct patient, procedure, site, positioning. Patient was evaluated and required intubation for airway protection. Sedative agent used: Ketamine 100mg, Versed 2mg Paralysis agent used: Rocuronium 50mg Emergent consent was implied given patients rapidly declining clinical status and need for airway protection. The patient was prepared in the appropriate fashion. Sedation was achieved utilizing Ketamine and Versed, per Dr. Rowe administration. The patient was easily ventilated using [id number] to achieve adequate oxygenation. A 7.5 Scottish endotracheal tube was placed under direct visualization via video laryngoscopy to 24 cm at the lip. The stylette was removed and balloon was inflated with 10mL of air. Appropriate Colorimetric change was appreciated. Bilateral breath sounds were heard without air sounds in the abdomen. Dr. Rowe was present for the entire procedure. Post Intubation Chest X-ray confirms placement without pneumothorax. ETT was removed to 22cm based on CXR. Patient tolerated the procedure well and there were no immediate complications. [facility] [place] Procedure Codes (Charges) Resuscitation Resuscitation: 29159 Endotracheal Intubation, emergency Ventilator Management Ventilator Managment: [id number] Ventilation assist and management; Hospital inpt/obs, intl day Coding CPT Codes Resuscitation - Resuscitation: 70553 Endotracheal Intubation, emergency ([id number]) Ventilator Management - Ventilator Managment: [id number] Ventilation assist and management; Hospital inpt/obs, intl day ([id number]) Additional Codes Date of Service (PG.SURGERY)
[2025-04-14] MEDS: Max Conc; 16 MG in 250mL for HYPOTENSION IV SCH (02:07)
--- NOTE | 2025-04-14 02:14 | XRay Report ---
Exam(s): XR CXR 1 VIEW EXAM: XR Chest, 1 View CLINICAL HISTORY: Reason for exam: SOB. TECHNIQUE: Frontal view of the chest. COMPARISON: Prior chest x-ray from April 13, 2025 5. FINDINGS: There is an MR-compatible pacemaker in the left chest wall distal leads in the right atrium right ventricle. Lungs: Moderate peribronchial thickening of the central lower lobe bronchi with increased interstitial opacities throughout the lungs. No consolidation. Pleural space: Unremarkable. No pneumothorax. Heart: Unremarkable. No cardiomegaly. Mediastinum: Unremarkable. Normal mediastinal contour. Bones/joints: Unremarkable. No acute fracture. IMPRESSION: Bronchitis, which may be of infectious or inflammatory etiologies. No consolidation or pleural effusion. Electronically signed by: Temi Ji MD 04/14/25 02:13 AM
[2025-04-14] MEDS: MAGNESIUM SULFATE / D5W 1 GM/100 ML BAG IV SCH (02:21)
[2025-04-14 02:31] LABS: iSTAT Art Bld Gas Base Excess -14.0 meg/L (-9-1.8); iSTAT Art Bld Gas pCO2 Correct 31 mmHg (35-46); iSTAT Art Bld Gas pH Corrected 7.247 (7.35-7.45); iSTAT Arterial Blood Gas pO2 C 62
--- NOTE | 2025-04-14 02:48 | XRay Report ---
EXAM: XR chest 1V portable CLINICAL HISTORY: line placement TECHNIQUE: An X-ray image of the chest is obtained in AP projection. COMPARISON: 04/13/2025 FINDINGS: Pulmonary Parenchyma: Low lying endotracheal tube is seen with its tip measuring 0.5 cm from the cecelia. Interval new. Prominent bilateral hilar and bronchovascular markings likely lung congestion. Lungs are clear bilaterally. No evidence of consolidation, collapse, or focal opacities. No pulmonary nodules are identified. No evidence of pleural effusion or pleural thickening. Two leads pacemaker seen in place. Heart and Mediastinum: Mild cardiomegaly. No mediastinal widening or masses. No hilar or mediastinal lymphadenopathy. Bony Thorax: Bony thorax appears intact without fractures or deformities. Soft Tissues: Soft tissues overlying the chest wall are unremarkable. IMPRESSION: 1. Low low-lying endotracheal tube is seen with its tip measuring 0.5 cm from the cecelia. Pulling upwards is advised. Interval new. 2. Mild cardiomegaly. Electronically signed by Terry Acevedo 04-14-2025 02:48 AM
[2025-04-14] MEDS: MAX Conc; 16mg in 250mL IV SCH (03:07)
[2025-04-14 04:21] LABS: Hematocrit (blood only) 23.6 % (37.0-47.0); Hemoglobin 7.7 g/dl (12.0-16.0); Mean Corpuscular Hemoglobin 26.6 pg (25.0-34.0); Mean Corpuscular Volume 81.7 fL (80.0-100.0); Platelet Count 176 K/uL (130-400); RDW Standard Deviation 50.2 fL (36.4-46.3); Red Blood Count 2.89 M/uL (4.20-5.40); White Blood Count 13.65 K/ul (4.8-10.8)
[2025-04-14 04:32] LABS: Alanine Aminotransferase 80.0 U/L (7-52); Alkaline Phosphatase 47.0 U/L (34-104); Bilirubin,Total 0.6 mg/dl (0.2-1.0); Total Protein 4.9 gm/dl (6.0-8.3)
[2025-04-14 04:34] LABS: Anion Gap 19.0 (3-11); Blood Urea Nitrogen 20.0 mg/dl (6-23); Calcium 10.4 mg/dl (8.6-10.3); Carbon Dioxide 20.0 mmol/L (21-32); Chloride 100.0 mmol/L (98-107); Creatinine Clr Calc Pharmacy 25.1 ml/min; Glucose 481.0 mg/dl (70-99(Fasting)); Potassium 3.4 mmol/L (3.5-5.1); Sodium 139.0 mmol/L (136-145)
[2025-04-14 04:35] LABS: Immature Granulocytes # (auto) 0.26 K/uL (0.01-0.20); Immature Granulocytes % (auto) 1.9 %; Polychromasia 1+
[2025-04-14 04:41] LABS: Chlamydia pneumoniae PCR Not Detected (NotDetected); Coronavirus 229E PCR Not Detected (NotDetected); Coronavirus CoV-2 (COVID19)PCR Not Detected (NotDetected); Coronavirus HKU1 PCR Not Detected (NotDetected); Coronavirus NL63 PCR Not Detected (NotDetected); Coronavirus OC43PCR Not Detected (NotDetected); Human Metapneumovirus PCR Not Detected (NotDetected); Parainfluenza Virus 1 PCR Not Detected (NotDetected); Parainfluenza Virus 2 PCR Not Detected (NotDetected); Parainfluenza Virus 3 PCR Not Detected (NotDetected); Parainfluenza Virus 4 PCR Not Detected (NotDetected); Respiratory Syncytial VirusPCR Not Detected (NotDetected); Rhinovirus/Enterovirus PCR Not Detected (NotDetected)
[2025-04-14] MEDS ORDERED: INSULIN HUMAN REGULAR PER UNIT 10 UNITS in SYRINGE 0 ML IV STA (05:14)
[2025-04-14] MEDS: POTASSIUM CHLORIDE / WTR 20 MEQ/100 ML PLCT IV SCH ×2 (05:25→10:41)
[2025-04-14 05:37] LABS: iSTAT Art Bld Gas Base Excess -5.0 meg/L (-9-1.8); iSTAT Art Bld Gas pCO2 Correct 39 mmHg (35-46); iSTAT Art Bld Gas pH Corrected 7.344 (7.35-7.45); iSTAT Arterial Blood Gas pO2 C 70
[2025-04-14] MEDS: MIDAZOLAM HCL 1 MG/ML 2ML VIAL IV PRN (06:29)
--- NOTE | 2025-04-14 07:22 | Critical Care Progress Note ---
Date of Service April 14, 2025 Assessment & Plan (1) Calcium channel edwin overdose: (2) Schizoaffective disorder: (3) Bipolar disorder: (4) Acute kidney injury: (5) High anion gap metabolic acidosis: (6) Lactic acidosis: (7) Leukocytosis: (8) Mass of heart: (9) Cardiogenic shock: (10) Medical non-compliance: Plan Impression: 54-year-old female with suicide attempt with long-acting calcium channel edwin admitted with lactic acidosis, acute renal failure, severe hypotension. 24-hour events: Patient presented to the emergency room. Poison control was contacted. She was initiated on epinephrine and calcium was replaced. A stat echocardiogram was performed which revealed a questionable lesion on the atrial lead. Overnight she decompensated requiring 2 vasopressor agents and intubation mechanical ventilation as well as arterial line placement. Antibiotics were initiated. Recommendation: Neuro -currently intubated and sedated on fentanyl and Versed. Once medically stable will need behavioral health consultation given suicide attempts. Holding Adderall, Zyprexa, and clonazepam. Continue with Lamictal Cardiac -significant hypotension in the setting of extended release calcium channel overdose. Continue supportive care. Currently on norepinephrine and epinephrine. Wean epinephrine to off as tolerated then work on weaning norepinephrine. Echocardiogram with preserved ejection fraction however questionable lesion on the atrial lead. Await cardiology consultation today. If requires lead extraction, will likely require transfer to tertiary facility. Lactates improving. Continue to trend. Pacemaker currently set at 85 default. Further adjustments per cardiology Respiratory -intubated due to increased work of breathing and hypoxemic respiratory failure. PF ratio was high and she may have some component of mild volume overload. Hold diuretics for now. Chest x-ray with low lung volumes but no obvious infiltrate. Maintain PaO2 greater than 55. Plateau pressures acceptable. GI -PPI. Hold tube feeds given pressor requirements for now. Bowel regimen as needed. AST today. Potentially shock liver and pressor related. Continue to trend. RENAL/LYTES -acute renal failure: Suspect ATN and possible prerenal etiologies. Will check urine electrolytes today. CPK normal at 170 so no evidence of rhabdomyolysis. Acidosis improved. Lactate clearing. Bicarb off. Nephrology consultation. ENDO - glycemic control per protocol, currently on insulin infusion. Will check for relative adrenal insufficiency and consider stress dose steroids if needed. HEME -anemia, no evidence of acute blood loss and no indication for transfusion currently. ID -procalcitonin mildly elevated. Questionable lesion on the atrial lead, await cardiology input. Currently on vancomycin. Cultures pending, no growth to date LINES/TUBES/DRAINS - PIV x2 DVT PROPHYLAXIS - SQH DISPOSITION - ICU CODE STATUS - FULL I have personally spent 46 minutes of critical care time in the direct management of this patient. This is a life/limb threatening event. This includes time spent evaluating patient, direct bedside care, chart review, placing orders, interpretation of diagnostic studies, discussion with consultants, patient, and family members, as well as other required patient management activities. This time is exclusive of all separately billable procedures, and teaching time and separate from and in addition to any other critical care service time. Admission and Anticipated Discharge Date Admission Date: April 13, 2025 Subjective Patient seen and examined. EMR reviewed. Discussed with overnight critical care NIRAV as well as with bedside nurse today on multidisciplinary rounds. Patient is intubated and sedated. Review of Systems Review of Systems: Unobtainable due to endotracheal tube Physical Exam Constitutional: + mechanically ventilated Intubated and sedated Neck: trachea midline, no thyromegaly Respiratory: normal respiratory effort, lungs clear to auscultation Cardiovascular: RRR, no murmur, no edema Gastrointestinal (Abdomen): normal bowel sounds, soft, nontender, no hepatosplenomegaly Musculoskeletal: Extremities: extremities normal to inspection Skin: no rashes, warm and dry Neurologic: Sedated on the ventilator Lymphatic: no cervical lymphadenopathy Results & Data Results & Data Vital Signs (Past 12 Hours) Vital Signs Temp Pulse Pulse Resp BP BP Pulse Ox 04/14/25 06:51 37.4 C 84 27 H 94 04/14/25 06:42 37.4 C 84 28 H 94 04/14/25 06:33 37.2 C 84 25 H 93 04/14/25 06:24 37.2 C 85 28 H 92 04/14/25 06:15 37.2 C 84 31 H 91 04/14/25 06:00 143/65 H 04/14/25 06:00 37.1 C 84 31 H 93 04/14/25 06:00 37.1 C 85 31 H 135/54 L 91 04/14/25 05:54 37.1 C 84 28 H 93 04/14/25 05:46 04/14/25 05:33 37.1 C 85 29 H 92 04/14/25 05:00 37.0 C 85 29 H 93 04/14/25 05:00 37 C 84 29 H 128/54 L 92 04/14/25 04:51 37.0 C 84 28 H 92 04/14/25 04:42 36.8 C 85 27 H 92 04/14/25 04:30 36.8 C 85 28 H 91 04/14/25 04:03 36.7 C 84 29 H 92 04/14/25 04:00 116/59 L 04/14/25 04:00 36.7 C 85 29 H 115/46 L 92 04/14/25 04:00 84 119/51 L 04/14/25 03:36 36.6 C 84 27 H 93 04/14/25 03:00 04/14/25 03:00 36.6 C 85 26 H 116/50 L 93 04/14/25 02:54 36.6 C 84 26 H 93 04/14/25 02:45 36.6 C 84 26 H 93 04/14/25 02:38 36.6 C 84 26 H 93 04/14/25 02:20 36.7 C 84 26 H 91 04/14/25 02:19 85 27 H 93 04/14/25 02:14 36.7 C 84 26 H 87 L 04/14/25 02:00 105/56 L 04/14/25 02:00 36.7 C 84 26 H 113/48 L 92 04/14/25 01:47 36.6 C 73 26 H 97 04/14/25 01:35 84 26 H 92 04/14/25 01:32 36.7 C 73 38 H 94 04/14/25 01:11 36.7 C 68 32 H 98 04/14/25 01:00 36.6 C 65 25 H 95/38 L 98 04/14/25 01:00 36.6 C 65 25 H 95/38 L 98 04/14/25 00:42 36.5 C 64 24 99 04/14/25 00:30 36.5 C 70 26 H 100 04/14/25 00:15 36.6 C 70 23 99 04/14/25 00:06 36.6 C 60 23 100 04/14/25 00:05 95/46 L 04/14/25 00:00 36.6 C 61 20 91/38 L 98 04/14/25 00:00 60 18 99 04/13/25 23:51 36.6 C 89 37 H 98 04/13/25 23:30 36.5 C 69 34 H 100 04/13/25 23:06 36.5 C 60 19 99 04/13/25 23:00 91/44 L 04/13/25 23:00 36.5 C 60 27 H 91/44 L 100 04/13/25 22:47 91/46 L 04/13/25 22:42 36.3 C L 64 39 H 99 04/13/25 22:15 104/50 L 04/13/25 22:15 63 28 H 100 04/13/25 22:00 60 26 H 98/43 L 98 04/13/25 21:00 63 29 H 89/49 L 98 04/13/25 20:00 64 28 H 88/38 L 98 04/13/25 19:57 66 25 H 99 04/13/25 19:57 36.6 C 67 24 116/59 L 99 04/13/25 19:55 36.6 C 04/13/25 19:55 67 20 116/59 L 100 04/13/25 19:37 60 89/57 L 04/13/25 19:37 60 22 89/57 L 99 04/13/25 19:37 89/57 L 04/13/25 19:27 60 14 95 04/13/25 19:26 80/37 L 04/13/25 19:24 85/54 L 04/13/25 19:24 61 17 97 O2 Del Method O2 Flow Rate FiO2 04/14/25 06:51 04/14/25 06:42 04/14/25 06:33 04/14/25 06:24 04/14/25 06:15 04/14/25 06:00 04/14/25 06:00 04/14/25 06:00 Mechanical Vent 100 04/14/25 05:54 04/14/25 05:46 100 04/14/25 05:33 04/14/25 05:00 04/14/25 05:00 Mechanical Vent 100 04/14/25 04:51 04/14/25 04:42 04/14/25 04:30 04/14/25 04:03 04/14/25 04:00 04/14/25 04:00 Mechanical Vent 100 04/14/25 04:00 04/14/25 03:36 04/14/25 03:00 Mechanical Vent 100 04/14/25 03:00 Mechanical Vent 100 04/14/25 02:54 04/14/25 02:45 04/14/25 02:38 04/14/25 02:20 04/14/25 02:19 100 04/14/25 02:14 04/14/25 02:00 04/14/25 02:00 Mechanical Vent 75 04/14/25 01:47 04/14/25 01:35 75 04/14/25 01:32 04/14/25 01:11 04/14/25 01:00 High Flow Nasal Cannula 40 40 04/14/25 01:00 High Flow Nasal Cannula 40 40 04/14/25 00:42 04/14/25 00:30 04/14/25 00:15 04/14/25 00:06 04/14/25 00:05 04/14/25 00:00 Room Air 04/14/25 00:00 High Flow Nasal Cannula 40 40 04/13/25 23:51 04/13/25 23:30 04/13/25 23:06 04/13/25 23:00 04/13/25 23:00 Room Air 04/13/25 22:47 04/13/25 22:42 04/13/25 22:15 04/13/25 22:15 04/13/25 22:00 Room Air 04/13/25 21:00 Room Air 04/13/25 20:00 Room Air 04/13/25 19:57 04/13/25 19:57 Room Air 04/13/25 19:55 04/13/25 19:55 Room Air 04/13/25 19:37 04/13/25 19:37 04/13/25 19:37 04/13/25 19:27 04/13/25 19:26 04/13/25 19:24 04/13/25 19:24 Critical Care Results & Data Vital Signs (Past 12 Hours) Vital Signs Temp Pulse Pulse Resp BP BP Pulse Ox 04/14/25 06:51 37.4 C 84 27 H 94 04/14/25 06:42 37.4 C 84 28 H 94 04/14/25 06:33 37.2 C 84 25 H 93 04/14/25 06:24 37.2 C 85 28 H 92 04/14/25 06:15 37.2 C 84 31 H 91 04/14/25 06:00 143/65 H 04/14/25 06:00 37.1 C 84 31 H 93 04/14/25 06:00 37.1 C 85 31 H 135/54 L 91 04/14/25 05:54 37.1 C 84 28 H 93 04/14/25 05:46 04/14/25 05:33 37.1 C 85 29 H 92 04/14/25 05:00 37.0 C 85 29 H 93 04/14/25 05:00 37 C 84 29 H 128/54 L 92 04/14/25 04:51 37.0 C 84 28 H 92 04/14/25 04:42 36.8 C 85 27 H 92 04/14/25 04:30 36.8 C 85 28 H 91 04/14/25 04:03 36.7 C 84 29 H 92 04/14/25 04:00 116/59 L 04/14/25 04:00 36.7 C 85 29 H 115/46 L 92 04/14/25 04:00 84 119/51 L 04/14/25 03:36 36.6 C 84 27 H 93 04/14/25 03:00 04/14/25 03:00 36.6 C 85 26 H 116/50 L 93 04/14/25 02:54 36.6 C 84 26 H 93 04/14/25 02:45 36.6 C 84 26 H 93 04/14/25 02:38 36.6 C 84 26 H 93 04/14/25 02:20 36.7 C 84 26 H 91 04/14/25 02:19 85 27 H 93 04/14/25 02:14 36.7 C 84 26 H 87 L 04/14/25 02:00 105/56 L 04/14/25 02:00 36.7 C 84 26 H 113/48 L 92 04/14/25 01:47 36.6 C 73 26 H 97 04/14/25 01:35 84 26 H 92 04/14/25 01:32 36.7 C 73 38 H 94 04/14/25 01:11 36.7 C 68 32 H 98 04/14/25 01:00 36.6 C 65 25 H 95/38 L 98 04/14/25 01:00 36.6 C 65 25 H 95/38 L 98 04/14/25 00:42 36.5 C 64 24 99 04/14/25 00:30 36.5 C 70 26 H 100 04/14/25 00:15 36.6 C 70 23 99 04/14/25 00:06 36.6 C 60 23 100 04/14/25 00:05 95/46 L 04/14/25 00:00 36.6 C 61 20 91/38 L 98 04/14/25 00:00 60 18 99 04/13/25 23:51 36.6 C 89 37 H 98 04/13/25 23:30 36.5 C 69 34 H 100 04/13/25 23:06 36.5 C 60 19 99 04/13/25 23:00 91/44 L 04/13/25 23:00 36.5 C 60 27 H 91/44 L 100 04/13/25 22:47 91/46 L 04/13/25 22:42 36.3 C L 64 39 H 99 04/13/25 22:15 104/50 L 04/13/25 22:15 63 28 H 100 04/13/25 22:00 60 26 H 98/43 L 98 04/13/25 21:00 63 29 H 89/49 L 98 04/13/25 20:00 64 28 H 88/38 L 98 04/13/25 19:57 66 25 H 99 04/13/25 19:57 36.6 C 67 24 116/59 L 99 04/13/25 19:55 36.6 C 04/13/25 19:55 67 20 116/59 L 100 04/13/25 19:37 60 89/57 L 04/13/25 19:37 60 22 89/57 L 99 04/13/25 19:37 89/57 L 04/13/25 19:27 60 14 95 04/13/25 19:26 80/37 L 04/13/25 19:24 85/54 L 04/13/25 19:24 61 17 97 O2 Del Method O2 Flow Rate FiO2 04/14/25 06:51 04/14/25 06:42 04/14/25 06:33 04/14/25 06:24 04/14/25 06:15 04/14/25 06:00 04/14/25 06:00 04/14/25 06:00 Mechanical Vent 100 04/14/25 05:54 04/14/25 05:46 100 04/14/25 05:33 04/14/25 05:00 04/14/25 05:00 Mechanical Vent 100 04/14/25 04:51 04/14/25 04:42 04/14/25 04:30 04/14/25 04:03 04/14/25 04:00 04/14/25 04:00 Mechanical Vent 100 04/14/25 04:00 04/14/25 03:36 04/14/25 03:00 Mechanical Vent 100 04/14/25 03:00 Mechanical Vent 100 04/14/25 02:54 04/14/25 02:45 04/14/25 02:38 04/14/25 02:20 04/14/25 02:19 100 04/14/25 02:14 04/14/25 02:00 04/14/25 02:00 Mechanical Vent 75 04/14/25 01:47 04/14/25 01:35 75 04/14/25 01:32 04/14/25 01:11 04/14/25 01:00 High Flow Nasal Cannula 40 40 04/14/25 01:00 High Flow Nasal Cannula 40 40 04/14/25 00:42 04/14/25 00:30 04/14/25 00:15 04/14/25 00:06 04/14/25 00:05 04/14/25 00:00 Room Air 04/14/25 00:00 High Flow Nasal Cannula 40 40 04/13/25 23:51 04/13/25 23:30 04/13/25 23:06 04/13/25 23:00 04/13/25 23:00 Room Air 04/13/25 22:47 04/13/25 22:42 04/13/25 22:15 04/13/25 22:15 04/13/25 22:00 Room Air 04/13/25 21:00 Room Air 04/13/25 20:00 Room Air 04/13/25 19:57 04/13/25 19:57 Room Air 04/13/25 19:55 04/13/25 19:55 Room Air 04/13/25 19:37 04/13/25 19:37 04/13/25 19:37 04/13/25 19:27 04/13/25 19:26 04/13/25 19:24 04/13/25 19:24 Lab & Micro Results (Past 24 Hours) RBC 2.89 M/uL (4.20-5.40) L 04/14/25 WBC 13.65 K/ul (4.8-10.8) H 04/14/25 Hgb 7.7 g/dl (12.0-16.0) L 04/14/25 Hct 23.6 % (37.0-47.0) L 04/14/25 MCV 81.7 fL (80.0-100.0) 04/14/25 MCH 26.6 pg (25.0-34.0) 04/14/25 MCHC 32.6 g/dL (32.0-36.0) 04/14/25 RDW Standard Deviation 50.2 fL (36.4-46.3) H 04/14/25 RDW Coefficient of Variation 16.6 % (11.5-14.5) H 04/14/25 Plt Count 176 K/uL (130-400) 04/14/25 MPV 10.3 fL (9.4-12.4) 04/14/25 Neutrophils (%) (Auto) 82.9 % 04/14/25 Lymphocytes (%) (Auto) 12.0 % 04/14/25 Monocytes # (Auto) 0.40 K/uL (0.11-0.59) 04/14/25 Eosinophils # (Auto) 0.01 K/uL (0.00-0.50) 04/14/25 Immature Granulocyte % (Auto) 1.9 % 04/14/25 Neutrophils # (Auto) 11.31 K/uL (1.40-6.50) H 04/14/25 Lymphocytes # (Auto) 1.64 K/uL (1.20-3.40) 04/14/25 Monocytes # (Auto) 0.40 K/uL (0.11-0.59) 04/14/25 Eosinophils # (Auto) 0.01 K/uL (0.00-0.50) 04/14/25 Basophils # (Auto) 0.03 K/uL (0.00-0.20) 04/14/25 Immature Granulocyte # (Auto) 0.26 K/uL (0.01-0.20) H 04/14 Polychromasia 1+ 04/14/25 Na 139 mmol/L (136-145) 04/14/25 K 3.4 mmol/L (3.5-5.1) L 04/14/25 Cl 100 mmol/L (98-107) 04/14/25 CO2 20 mmol/L (21-32) L 04/14/25 Anion Gap 19 (3-11) H 04/14/25 BUN 20 mg/dl (6-23) 04/14/25 Creatinine 2.51 mg/dl (0.6-1.2) H 04/14/25 BUN/Creatinine Ratio 8.0 (10-20) L 04/14/25 Glu 481 mg/dl (70-99(Fasting)) H* 04/14/25 Ca 10.4 mg/dl (8.6-10.3) H 04/14/25 Phosphorus Level 6.4 mg/dl (2.5-4.9) H 04/14/25 Total Bilirubin 0.6 mg/dl (0.2-1.0) 04/14/25 Direct Bilirubin 0.2 mg/dl (0-0.2) 04/14/25 AST 65 U/L (13-39) H 04/14/25 ALT 80 U/L (7-52) H 04/14/25 Alkaline Phosphatase 47 U/L (34-104) 04/14/25 TP 4.9 gm/dl (6.0-8.3) L 04/14/25 Albumin 3.1 gm/dl (3.4-5.0) L 04/14/25 Globulin 2.9 gm/dl (2.5-4.0) 04/13/25 Albumin/Globulin Ratio 1.4 (0.9-2) 04/13/25 Mg 2.0 mg/dl (1.7-2.4) 04/14/25 00:22 Calcium Level 10.4 mg/dl (8.6-10.3) H 04/14/25 03:57 Ionized Calcium 1.38 mmol/L (1.12-1.32) H 04/14/25 03:57 Venous Blood pH 7.23 (7.36-7.41) L 04/14/25 00:22 Venous Blood Partial Pressure CO2 21 mmHg (38-50) L 04/13/25 17 :48 Venous Blood Partial Pressure O2 61 mmHg 04/13/25 17:48 Venous Blood HCO3 8 mmol/L 04/13/25 17:48 Venous Blood Base Excess -18.4 mEq/L 04/13/25 17:48 Venous Blood Oxygen Saturation 88.4 % 04/13/25 17:48 Herve Test NA 04/14/25 05:08 Diagnostic Findings (Past 24 Hours) Chest X-Ray 04/13/25 17:02 Chest radiograph, one view History: Overdose Comparison: 08/27/2024 Findings: Single AP view of the chest performed. No focal consolidation or pleural effusion. No pneumothorax. Left chest wall dual-lead AICD. The cardiomediastinal silhouette is within normal limits. Normal pulmonary vascularity. No evidence for lymphadenopathy. No visualized bony or soft tissue abnormality. Gaseous distention of the large bowel appears moderate. Impression: Normal chest radiograph Electronically signed by Frederick Reyes 04-13-2025 5:20 PM Chest X-Ray 04/13/25 22:13 Exam(s): XR CXR 1 VIEW EXAM: XR Chest, 1 View CLINICAL HISTORY: Reason for exam: SOB. TECHNIQUE: Frontal view of the chest. COMPARISON: Prior chest x-ray from April 13, 2025 5. FINDINGS: There is an MR-compatible pacemaker in the left chest wall distal leads in the right atrium right ventricle. Lungs: Moderate peribronchial thickening of the central lower lobe bronchi with increased interstitial opacities throughout the lungs. No consolidation. Pleural space: Unremarkable. No pneumothorax. Heart: Unremarkable. No cardiomegaly. Mediastinum: Unremarkable. Normal mediastinal contour. Bones/joints: Unremarkable. No acute fracture. IMPRESSION: Bronchitis, which may be of infectious or inflammatory etiologies. No consolidation or pleural effusion. Electronically signed by: Temi Ji MD 04/14/25 02:13 AM Chest X-Ray 04/14/25 01:43 EXAM: XR chest 1V portable CLINICAL HISTORY: line placement TECHNIQUE: An X-ray image of the chest is obtained in AP projection. COMPARISON: 04/13/2025 FINDINGS: Pulmonary Parenchyma: Low lying endotracheal tube is seen with its tip measuring 0.5 cm from the cecelia. Interval new. Prominent bilateral hilar and bronchovascular markings likely lung congestion. Lungs are clear bilaterally. No evidence of consolidation, collapse, or focal opacities. No pulmonary nodules are identified. No evidence of pleural effusion or pleural thickening. Two leads pacemaker seen in place. Heart and Mediastinum: Mild cardiomegaly. No mediastinal widening or masses. No hilar or mediastinal lymphadenopathy. Bony Thorax: Bony thorax appears intact without fractures or deformities. Soft Tissues: Soft tissues overlying the chest wall are unremarkable. IMPRESSION: 1. Low low-lying endotracheal tube is seen with its tip measuring 0.5 cm from the cecelia. Pulling upwards is advised. Interval new. 2. Mild cardiomegaly. Electronically signed by Terry Acevedo 04-14-2025 02:48 AM I & O Totals 24 Hours 04/13/25 04/14/25 04/15/25 06:59 06:59 06:59 Intake Total 7553.239 / 7553.239 65.673 / 65.673 Output Total 1230 / 1230 Balance 6323.239 / 6323.239 65.673 / 65.673 Cumulative 04/13/25 16:41 thru 04/14/25 07:20 Intake Total 7618.912 Output Total 1230 Balance 6388.912 RT Ventilator Mngmt (Last Documented) Ventilator Ordered Settings Ventilator Support Mode Assist Control 04/14/25 05:46 Respiratory Rate 27 04/14/25 06:51 Ventilator Tidal Volume 355 04/14/25 05:46 Setting Minute Ventilation 9.2 04/14/25 02:19 Positive End Expiratory 10 04/14/25 05:46 Pressure Fraction of Inspired Oxygen 100 04/14/25 06:00 Ventilator - PT Measurements Respiratory Rate 27 Exhaled Tidal Volume 353 Minute Ventilation 9.2 Peak Inspiratory Airway 28 Pressure Plateau Pressure 24 Respiratory Cycle Inspiratory: 1:2.3 Expiratory Ratio Inspiratory Phase Time 0.7 End-Tidal CO2 29 Static Lung Compliance 25.21 Dynamic Lung Compliance 19.61 Normal Static Lung Compliance 45.00 Patient Measurements Comment tube placement adjustment post chest x-ray Coding Level of Care Code 27812 CRITICAL CARE 1ST 30-74M Diagnoses Calcium channel edwin overdose [id number] Schizoaffective disorder, depressive type F25.1 Schizoaffective disorder type: depressive Bipolar disorder F31.9 Acute kidney injury N17.9 High anion gap metabolic acidosis E87.29 Lactic acidosis E87.20 Leukocytosis D72.829 Mass of heart I51.89 Cardiogenic shock R57.0 Medical non-compliance Z91.199 (2) Schizoaffective disorder Schizoaffective disorder type: depressive Qualified Code(s): F25.1 - Schizoaffective disorder, depressive type
[2025-04-14] MEDS: INSULIN ASPART PER UNIT CHARGE SC SCH ×2 (07:33→20:36)
[2025-04-14] MEDS: VENLAFAXINE HCL XR 75 MG CAPXR PO SCH (07:35)
--- NOTE | 2025-04-14 07:54 | Emergency Department Note ---
ED Visit Note I was consulted by ICU Advanced Practice Provider, Farnaz Lion PA-C to supervise endotracheal intubation for airway protection in the setting intentional CCB overdose. Medications per my order. I was present for the entire procedure and agree with procedure note as documented per NIRAV Ayad.
--- NOTE | 2025-04-14 08:04 | Hospitalist Progress Note ---
Date of Service April 14, 2025 Assessment & Plan (1) Calcium channel edwin overdose: Plan: 54-year-old woman with bipolar disorder who presented after an intentional overdose with long-acting diltiazem. She woke the following morning feeling poorly, collapsed and EMS was called. Diltiazem XR tablets 50x, 180mg each taken at approximately 1 AM on 04/13/2020. given calcium and emergency treatment for hyperkalemia. Admitted to ICU for shock, required intubation and mechanical ventilation as well as pressors. # shock caused by intentional overdose of long-acting calcium channel edwin, endorgan dysfunction of MARY JANE continue supportive care in the ICU including pressors, IV fluids, electrolyte replacements mid level net developer increased atrial pacing to 80 to override her junctional rhythm lactate severely elevated in ED remains elevated but improvement continues continue intubation and mechanical ventilation until stable these are being managed by the hat steamer team # possible sepsis present on admission she does have leukocytosis and minimal procalcitonin elevation Continue to follow blood cultures Continue ceftriaxone and vancomycin # MARY JANE/ metabolic acidosis/hyperkalemia continue IV fluids, supportive care with adequate MAP as above, hyperkalemia has resolved reviewed recommendations and cat cracker operator consult note she has had good urine output and creatinine improved to 2.0 continue monitoring UOP and BMP hypokalemic this morning which was replaced, currently normal at 3.8 # suicide attempt /bipolar disorder/PTSD/schizoaffective disorder consulted psychiatrist, discussed with Dr. Carroll - continue lamotrigine, and venlafaxine. Olanzapine currently held once extubated needs one-to-one observation, should not be allowed to leave AMA, highly likely to need inpatient psychiatric admission once medically stable "There is a 302 petitioning statement on the chart. Once extubated the patient should remain on safety precautions with 1-on-1 pending medical clearance. The patient is not psychiatrically cleared to leave the hospital without additional safety or aftercare planning; theyshould not be allowed to leave AMA without notification to our service as a 302 warrant would be appropriate." # right atrial mass consulted cardiology, reviewed recommendations in Dr. Mcfarland's note well-visualized on TTE and RAYMON will not provide additional benefit plan is to monitor with TTE follow-up blood cultures CTA chest to evaluate for emboli once/if renal function improves # mild transaminitis is related to ischemic hepatitis from shockmonitor LFTs # Type II DM ICU hyperglycemia protocol BG at goal # History of nonepileptic seizures Noted DVT Prophylaxis: Heparin SQ I discussed the plan of care with her mother at bedside as well as the hat steamer, psychiatrist, bedside nurse (2) PSVT (paroxysmal supraventricular tachycardia): (3) Schizoaffective disorder: (4) Dyslipidemia due to type 2 diabetes mellitus: Admission and Anticipated Discharge Date Admission Date: April 13, 2025 Subjective intubated and sedated remains on multiple pressors though doses have been weaning this morning Physical Exam Physical Exam: Last 24h vitals reviewed GEN: sedated lying on bed in ICU HEENT: pupils equal, sclerae anicteric, moist MM. ET tube in place RESP: Vent sounds bilaterally CV: reg no mrg ABD: nondistended bowel tones present : Mcdonnell catheter draining yellow urine SKIN: warm and dry, no generalized rashes no extremity edema NEURO: pupils are small bilaterally 1 mm, intubated and sedated Results & Data Results & Data Vital Signs (Past 12 Hours) Vital Signs Temp Pulse Pulse Resp BP BP Pulse Ox 04/14/25 07:44 04/14/25 07:26 85 28 H 95 04/14/25 06:51 37.4 C 84 27 H 94 04/14/25 06:42 37.4 C 84 28 H 94 04/14/25 06:33 37.2 C 84 25 H 93 04/14/25 06:24 37.2 C 85 28 H 92 04/14/25 06:15 37.2 C 84 31 H 91 04/14/25 06:00 143/65 H 04/14/25 06:00 37.1 C 84 31 H 93 04/14/25 06:00 37.1 C 85 31 H 135/54 L 91 04/14/25 05:54 37.1 C 84 28 H 93 04/14/25 05:46 04/14/25 05:33 37.1 C 85 29 H 92 04/14/25 05:00 37.0 C 85 29 H 93 04/14/25 05:00 37 C 84 29 H 128/54 L 92 04/14/25 04:51 37.0 C 84 28 H 92 04/14/25 04:42 36.8 C 85 27 H 92 04/14/25 04:30 36.8 C 85 28 H 91 04/14/25 04:03 36.7 C 84 29 H 92 04/14/25 04:00 116/59 L 04/14/25 04:00 36.7 C 85 29 H 115/46 L 92 04/14/25 04:00 84 119/51 L 04/14/25 03:36 36.6 C 84 27 H 93 04/14/25 03:00 04/14/25 03:00 36.6 C 85 26 H 116/50 L 93 04/14/25 02:54 36.6 C 84 26 H 93 04/14/25 02:45 36.6 C 84 26 H 93 04/14/25 02:38 36.6 C 84 26 H 93 04/14/25 02:20 36.7 C 84 26 H 91 04/14/25 02:19 85 27 H 93 04/14/25 02:14 36.7 C 84 26 H 87 L 04/14/25 02:00 105/56 L 04/14/25 02:00 36.7 C 84 26 H 113/48 L 92 04/14/25 01:47 36.6 C 73 26 H 97 04/14/25 01:35 84 26 H 92 04/14/25 01:32 36.7 C 73 38 H 94 04/14/25 01:11 36.7 C 68 32 H 98 04/14/25 01:00 36.6 C 65 25 H 95/38 L 98 04/14/25 01:00 36.6 C 65 25 H 95/38 L 98 04/14/25 00:42 36.5 C 64 24 99 04/14/25 00:30 36.5 C 70 26 H 100 04/14/25 00:15 36.6 C 70 23 99 04/14/25 00:06 36.6 C 60 23 100 04/14/25 00:05 95/46 L 04/14/25 00:00 36.6 C 61 20 91/38 L 98 04/14/25 00:00 60 18 99 04/13/25 23:51 36.6 C 89 37 H 98 04/13/25 23:30 36.5 C 69 34 H 100 04/13/25 23:06 36.5 C 60 19 99 04/13/25 23:00 91/44 L 04/13/25 23:00 36.5 C 60 27 H 91/44 L 100 04/13/25 22:47 91/46 L 04/13/25 22:42 36.3 C L 64 39 H 99 04/13/25 22:15 104/50 L 04/13/25 22:15 63 28 H 100 04/13/25 22:00 60 26 H 98/43 L 98 04/13/25 21:00 63 29 H 89/49 L 98 O2 Del Method O2 Flow Rate FiO2 04/14/25 07:44 Mechanical Vent 1.0 04/14/25 07:26 100 04/14/25 06:51 04/14/25 06:42 04/14/25 06:33 04/14/25 06:24 04/14/25 06:15 04/14/25 06:00 04/14/25 06:00 04/14/25 06:00 Mechanical Vent 100 04/14/25 05:54 04/14/25 05:46 100 04/14/25 05:33 04/14/25 05:00 04/14/25 05:00 Mechanical Vent 100 04/14/25 04:51 04/14/25 04:42 04/14/25 04:30 04/14/25 04:03 04/14/25 04:00 04/14/25 04:00 Mechanical Vent 100 04/14/25 04:00 04/14/25 03:36 04/14/25 03:00 Mechanical Vent 100 04/14/25 03:00 Mechanical Vent 100 04/14/25 02:54 04/14/25 02:45 04/14/25 02:38 04/14/25 02:20 04/14/25 02:19 100 04/14/25 02:14 04/14/25 02:00 04/14/25 02:00 Mechanical Vent 75 04/14/25 01:47 04/14/25 01:35 75 04/14/25 01:32 04/14/25 01:11 04/14/25 01:00 High Flow Nasal Cannula 40 40 04/14/25 01:00 High Flow Nasal Cannula 40 40 04/14/25 00:42 04/14/25 00:30 04/14/25 00:15 04/14/25 00:06 04/14/25 00:05 04/14/25 00:00 Room Air 04/14/25 00:00 High Flow Nasal Cannula 40 40 04/13/25 23:51 04/13/25 23:30 04/13/25 23:06 04/13/25 23:00 04/13/25 23:00 Room Air 04/13/25 22:47 04/13/25 22:42 04/13/25 22:15 04/13/25 22:15 04/13/25 22:00 Room Air 04/13/25 21:00 Room Air Laboratory Results Laboratory Tests 04/13/25 04/14/25 04/14/25 17:01 00:22 03:57 WBC 13.65 H Hgb Sodium 139 Potassium 3.4 L Anion Gap 19 H Creatinine 2.51 H Lactate 7.7 H* Procalcitonin 0.55 H TSH 2.220 04/14/25 03:57 WBC Hgb 7.7 L D Sodium Potassium Anion Gap Creatinine Lactate Procalcitonin TSH PG Care Time/CCT Total # of Minutes Spent Total Time Spent with Patient: Total time spent is greater than 50% in coordination of care (as documented) at patient's floor/unit and/or counseling patient: Coding Level of Care Code 58855 SUB INP/OBS CARE 3/50MIN Diagnoses Calcium channel edwin overdose T46.1X1A PSVT (paroxysmal supraventricular tachycardia) I47.10 Schizoaffective disorder, depressive type F25.1 Schizoaffective disorder type: depressive Dyslipidemia due to type 2 diabetes mellitus E11.69; E78.5 (3) Schizoaffective disorder Schizoaffective disorder type: depressive Qualified Code(s): F25.1 - Schizoaffective disorder, depressive type
[2025-04-14 08:30] LABS: Anion Gap 12.0 (3-11); Blood Urea Nitrogen 20.0 mg/dl (6-23); Calcium 11.0 mg/dl (8.6-10.3); Carbon Dioxide 25.0 mmol/L (21-32); Chloride 104.0 mmol/L (98-107); Creatinine Clr Calc Pharmacy 26.4 ml/min; Glucose 323.0 mg/dl (70-99(Fasting)); Magnesium 2.0 mg/dl (1.7-2.4); Potassium 3.1 mmol/L (3.5-5.1); Sodium 141.0 mmol/L (136-145)
[2025-04-14] MEDS: lamoTRIgine 100 MG TAB PO SCH (08:32)
--- NOTE | 2025-04-14 08:34 | Cardiology Consultation ---
Date of Consultation April 14, 2025 Assessment & Plan (1) Right atrial mass: (2) Pacemaker: (3) PSVT (paroxysmal supraventricular tachycardia): Plan 1. Right atrial mass: Clearly visible on transthoracic echo and confined to the atrium. I reviewed this with several of my partners and we are not sure of the significance. It is unlikely that a transesophageal echo would be of much benefit, therefore I do not think this is indicated. Despite the size of the mass if there are is no evidence for embolization (pulmonary emboli) and no evidence of infection it may be preferable to leave this alone and follow it with echocardiography. We will await the blood culture results, if this is suggestive of endocarditis then that would alter our approach as it would have to be treated at that point. If her creatinine recovers enough I think a chest CT angiogram would be helpful, if there is evidence of embolization that might alter our approach as well. For now I would not do anything with it. 2. Pacemaker: Functioning well, rate increased to atrial pace at 80 bpm to o verride her accelerated junctional rhythm. This should be programmed back to 60 bpm at some point once she has stabilized. 3. PSVT: No clinically significant findings. History of Present Illness Reason for Consultation: Pacemaker, left atrial mass Attending Physician: Prachi Tinoco MD History of Present Illness This is a 54-year-old woman with a history of bipolar disorder as well as hypertension, diabetes mellitus and an episode of syncope. It sounds as though her syncopal event occurred around June 28, 2023 and occurred while she was standing on her porch. She evidently woke up face down on the ground and after a few minutes was able to get up and go to bed. This is the only episode she had. Evaluation included an echocardiogram on July 04, 2023 which shows normal left ventricular systolic function with mild mitral regurgitation. She also wore a cardiac event monitor for a week from July 05, 2023 through July 12, 2023. Her heart rate ranged from a very low heart rate at around 10:40 AM on July 07, 2023 when she had bradycardia with a pause of nearly 8 seconds, up to a maximum of 128 with an average heart rate of 58 bpm. It is not clear that this caused symptoms however evaluation of the rhythm strip shows slowing leading up to the pauses and then artifact suggestive of possible pseudoseizure activity due to hypotension before termination. She had other periods of extreme bradycardia with similar artifact including on July 12, 2023 when she had sequential pauses and a heart rate which calculates to 14 bpm. This also demonstrates a similar artifact suggesting pseudoseizure activity. Of note, she was not on a negative chronotropic medication. I therefore implanted a dual-chamber pacemaker on August 05, 2023. From the cardiovascular standpoint she has done well with regards to presyncope or syncope which seem to have been eliminated, however she did develop palpitations associated with findings of SVT on monitoring (the mechanism is not clear). She was treated with increased diltiazem. She now presents to the emergency room on April 13, 2025 with a diltiazem overdose in an apparent suicide attempt. Her heart rate was maintained by the pacemaker and she was brought to the emergency room. She required pressor support and intubation. An echocardiogram was notable for normal left ventricular systolic function but a large mass attached to the atrial portion of a pacing lead. Her initial electrocardiogram shows atrial pacing with intact AV conduction which is appropriate pacemaker function. The chest x-ray does not show any abnormality in the lung rehman. A chest CT cannot be done with contrast due to acute renal failure. She did have an elevated white blood cell count on presentation with an increase in neutrophils. She did have acute renal failure with a creatinine in the mid twos. Blood cultures were drawn in the evening of of April 13, 2025. At the time of my evaluation she is laying supine in bed, intubated, with no s ignificant response due to sedation. Allergies Allergy/AdvReac Type Severity Reaction Status Date / Time carbamazepine [From Tegretol] Allergy Intermediate Rash Verified 03/09/25 16:08 Sulfa (Sulfonamide Allergy Intermediate HIVES/DELUS Verified 03/09/25 16:08 Antibiotics) IONAL prednisone AdvReac Unknown CONTRAINDICATED Verified 03/09/25 16:08 WITH BIPOLAR MEDS. Home Medications Medication Instructions Recorded Confirmed Type clonazepam 0.5 mg tablet 0.5 mg PO TID PRN Anxiety 05/31/23 04/13/25 History sumatriptan succinate 100 mg tablet 100 mg PO Q2H PRN Migraine Headache 07/03/23 04/13/25 History syringe with needle 3 mL 25 x 5/8" #50 ea 07/17/23 04/13/25 Rx (BD Eclipse Luer-Yanna) Medical Marijuana 1 dose PO DAILY PRN Pain 08/01/23 04/13/25 History olanzapine 10 mg disintegrating 10 mg translingual DAILY 09/18/23 04/13/25 History tablet spironolactone 50 mg tablet 50 mg PO QAM #90 tabs 08/27/24 04/13/25 Rx lisinopril 40 mg tablet 40 mg PO HS #90 tabs 09/03/24 04/13/25 Rx omeprazole 40 mg capsule,delayed 40 mg PO DAILY #90 caps 10/12/24 04/13/25 Rx release atorvastatin 10 mg tablet 10 mg PO DAILY #90 tabs 10/26/24 04/13/25 Rx diltiazem HCl 180 mg 180 mg PO BID #180 caps 11/04/24 04/13/25 Rx capsule,extended release 24 hr cyanocobalamin (vitamin B-12) 1,000 mcg subcut Q7D #26 ea 11/30/24 04/13/25 Rx 1,000 mcg/mL injection kit ipratropium bromide 21 mcg (0.03 2 spray intranasal BID PRN 01/11/25 04/13/25 History %) nasal spray DIRECTED lamotrigine 100 mg tablet 100 mg PO DAILY 01/11/25 04/13/25 History lamotrigine 150 mg tablet 150 mg PO DAILY 01/11/25 04/13/25 History venlafaxine 75 mg capsule,extended 75 mg PO DAILY #30 caps 01/11/25 04/13/25 Rx release 24 hr dextroamphetamine-amphetamine 10 20 mg PO DAILY 04/13/25 04/13/25 History mg tablet Patient History Medical History Diabetes mellitus, type 2 Encounter for pre-operative examination Schizoaffective disorder follows with psych Kidney stones passed on own Anxiety follows with psych Bipolar disorder follows with psych Sinus node dysfunction reason for up coming pacemaker placement Sleep apnea dx several yrs ago, no device, feels no issues with Surgical History Status post placement of cardiac pacemaker S/P trigger finger release left thumb History of carpal tunnel release left History of esophagogastroduodenoscopy (EGD) History of colonoscopy [place] teeth extracted Family History Mother Breast cancer Aunt Breast cancer Uncle Lung cancer Denies family history of Ovarian cancer Prostate cancer Diabetes Myocardial infarction Colorectal cancer Stroke Social History Smoking Status: Current every day smoker Tobacco Type: Cigarettes Age Started Using Tobacco: 17; packs per day: 0.5; Cigarettes Per Day: 10-15 cigs per day > advised npo status; Second Hand Exposure: Yes (s/o smokes); Do You Dip or Chew Tobacco: No; Hx Alcohol Use: No Hx Substance Use: No Preferred Language: Cymraes Communication Ability: Effective Visual Impairment: Limited Hearing Ability: Normal Department Of Sociology Chair Required: No Beliefs That Will Affect Care: None marital status: Single Current Living Situation: Homeless Current Living Situation Comment: Pt states she had a roommate, but would consider herself homeless now. current occupational status: unemployed How many Children do You have: 0 Feels Safe at Home: Yes Childhood Exposure to Second-Hand Smoke: Yes Diet: regular caffeine: Yes during the past year weight has: decreased > 10 lbs Dental Care, Regularly: Yes Physical Activity Frequency: Does not Exercise Seatbelt Use: always Sunscreen Use: Yes Gender Identity: Female Assistive Devices: None Review of Systems Review of Systems: Unobtainable due to cognitive status Physical Exam Physical Exam: Constitutional: Unresponsive, intubated HEENT: Cannot be adequately examined Neck: No jugular venous distention, carotid pulses are normal and equal bilaterally without bruits. Pulmonary: Clear to auscultation bilaterally. Cardiac: Regular rhythm with no murmur, gallop or rub. Abdomen: Soft, nontender with normal bowel sounds. Extremities: No edema. Neurologic: No focal findings. Skin: No rash, ecchymoses or petechiae. Results & Data Vital Signs (Past 12 Hours) Vital Signs Temp Pulse Pulse Resp BP BP Pulse Ox 04/14/25 07:44 04/14/25 07:26 85 28 H 95 04/14/25 06:51 37.4 C 84 27 H 94 04/14/25 06:42 37.4 C 84 28 H 94 04/14/25 06:33 37.2 C 84 25 H 93 04/14/25 06:24 37.2 C 85 28 H 92 06/25/25 06:15 37.2 C 84 31 H 91 04/14/25 06:00 143/65 H 04/14/25 06:00 37.1 C 84 31 H 93 04/14/25 06:00 37.1 C 85 31 H 135/54 L 91 04/14/25 05:54 37.1 C 84 28 H 93 04/14/25 05:46 04/14/25 05:33 37.1 C 85 29 H 92 04/14/25 05:00 37.0 C 85 29 H 93 04/14/25 05:00 37 C 84 29 H 128/54 L 92 04/14/25 04:51 37.0 C 84 28 H 92 04/14/25 04:42 36.8 C 85 27 H 92 04/14/25 04:30 36.8 C 85 28 H 91 04/14/25 04:03 36.7 C 84 29 H 92 04/14/25 04:00 116/59 L 04/14/25 04:00 36.7 C 85 29 H 115/46 L 92 04/14/25 04:00 84 119/51 L 04/14/25 03:36 36.6 C 84 27 H 93 04/14/25 03:00 04/14/25 03:00 36.6 C 85 26 H 116/50 L 93 04/14/25 02:54 36.6 C 84 26 H 93 04/14/25 02:45 36.6 C 84 26 H 93 04/14/25 02:38 36.6 C 84 26 H 93 04/14/25 02:20 36.7 C 84 26 H 91 04/14/25 02:19 85 27 H 93 04/14/25 02:14 36.7 C 84 26 H 87 L 04/14/25 02:00 105/56 L 04/14/25 02:00 36.7 C 84 26 H 113/48 L 92 04/14/25 01:47 36.6 C 73 26 H 97 04/14/25 01:35 84 26 H 92 04/14/25 01:32 36.7 C 73 38 H 94 04/14/25 01:11 36.7 C 68 32 H 98 04/14/25 01:00 36.6 C 65 25 H 95/38 L 98 04/14/25 01:00 36.6 C 65 25 H 95/38 L 98 04/14/25 00:42 36.5 C 64 24 99 04/14/25 00:30 36.5 C 70 26 H 100 04/14/25 00:15 36.6 C 70 23 99 04/14/25 00:06 36.6 C 60 23 100 04/14/25 00:05 95/46 L 04/14/25 00:00 36.6 C 61 20 91/38 L 98 04/14/25 00:00 60 18 99 04/13/25 23:51 36.6 C 89 37 H 98 04/13/25 23:30 36.5 C 69 34 H 100 04/13/25 23:06 36.5 C 60 19 99 04/13/25 23:00 91/44 L 04/13/25 23:00 36.5 C 60 27 H 91/44 L 100 04/13/25 22:47 91/46 L 04/13/25 22:42 36.3 C L 64 39 H 99 04/13/25 22:15 104/50 L 04/13/25 22:15 63 28 H 100 04/13/25 22:00 60 26 H 98/43 L 98 04/13/25 21:00 63 29 H 89/49 L 98 O2 Del Method O2 Flow Rate FiO2 04/14/25 07:44 Mechanical Vent 1.0 04/14/25 07:26 100 04/14/25 06:51 04/14/25 06:42 04/14/25 06:33 04/14/25 06:24 04/14/25 06:15 04/14/25 06:00 04/14/25 06:00 04/14/25 06:00 Mechanical Vent 100 04/14/25 05:54 04/14/25 05:46 100 04/14/25 05:33 04/14/25 05:00 04/14/25 05:00 Mechanical Vent 100 04/14/25 04:51 04/14/25 04:42 04/14/25 04:30 04/14/25 04:03 04/14/25 04:00 04/14/25 04:00 Mechanical Vent 100 04/14/25 04:00 04/14/25 03:36 04/14/25 03:00 Mechanical Vent 100 04/14/25 03:00 Mechanical Vent 100 04/14/25 02:54 04/14/25 02:45 04/14/25 02:38 04/14/25 02:20 04/14/25 02:19 100 04/14/25 02:14 04/14/25 02:00 04/14/25 02:00 Mechanical Vent 75 04/14/25 01:47 04/14/25 01:35 75 04/14/25 01:32 04/14/25 01:11 04/14/25 01:00 High Flow Nasal Cannula 40 40 04/14/25 01:00 High Flow Nasal Cannula 40 40 04/14/25 00:42 04/14/25 00:30 04/14/25 00:15 04/14/25 00:06 04/14/25 00:05 04/14/25 00:00 Room Air 04/14/25 00:00 High Flow Nasal Cannula 40 40 04/13/25 23:51 04/13/25 23:30 04/13/25 23:06 04/13/25 23:00 04/13/25 23:00 Room Air 04/13/25 22:47 04/13/25 22:42 04/13/25 22:15 04/13/25 22:15 04/13/25 22:00 Room Air 04/13/25 21:00 Room Air Laboratory Results Cardiac Enzymes 04/13/25 04/14/25 Range/Units 17:01 03:57 AST 21 65 H (13-39) U/L Troponin I High Sens 9.7 (0-14) pg/ml CBC 04/13/25 04/14/25 Range/Units 17:01 03:57 WBC 19.00 H 13.65 H (4.8-10.8) K/ul RBC 4.40 2.89 L (4.20-5.40) M/uL Hgb 11.5 L 7.7 L D (12.0-16.0) g/dl Hct 36.8 L 23.6 L (37.0-47.0) % Plt Count 313 176 (130-400) K/uL Neut # (Auto) 15.65 H 11.31 H (1.40-6.50) K/uL Lymph # (Auto) 1.88 1.64 (1.20-3.40) K/uL [place] # (Auto) 1.04 H 0.40 (0.11-0.59) K/uL Eos # (Auto) 0.03 0.01 (0.00-0.50) K/uL Baso # (Auto) 0.06 0.03 (0.00-0.20) K/uL Comprehensive Metabolic Panel 04/13/25 04/13/25 04/14/25 Range/Units 17:01 20:06 00:22 Sodium 138 144 137 (136-145) mmol/L Potassium 4.1 3.6 4.2 (3.5-5.1) mmol/L Chloride 104 108 H 102 (98-107) mmol/L Carbon Dioxide 6 L* 10 L 6 L* (21-32) mmol/L BUN 21 21 21 (6-23) mg/dl Creatinine 2.53 H 2.43 H 2.47 H (0.6-1.2) mg/dl Glucose 165 H 295 H 412 H* (70-99(Fasting)) mg/dl Calcium 10.1 10.1 10.5 H (8.6-10.3) mg/dl Direct Bilirubin (0-0.2) mg/dl AST 21 (13-39) U/L ALT 24 (7-52) U/L Alkaline Phosphatase 66 (34-104) U/L Total Protein 7.1 (6.0-8.3) gm/dl Albumin 4.2 (3.4-5.0) gm/dl 04/14/25 04/14/25 Range/Units 03:57 07:52 Sodium 139 141 (136-145) mmol/L Potassium 3.4 L 3.1 L (3.5-5.1) mmol/L Chloride 100 104 (98-107) mmol/L Carbon Dioxide 20 L 25 (21-32) mmol/L BUN 20 20 (6-23) mg/dl Creatinine 2.51 H 2.44 H (0.6-1.2) mg/dl Glucose 481 H* 323 H* (70-99(Fasting)) mg/dl Calcium 10.4 H 11.0 H (8.6-10.3) mg/dl Direct Bilirubin 0.2 (0-0.2) mg/dl AST 65 H (13-39) U/L ALT 80 H (7-52) U/L Alkaline Phosphatase 47 (34-104) U/L Total Protein 4.9 L D (6.0-8.3) gm/dl Albumin 3.1 L (3.4-5.0) gm/dl Intake and Output 04/13/25 04/14/25 04/14/25 22:59 06:59 14:59 Intake Total 5057.303 / 7553.239 2495.936 / 7553.239 122.103 / 122.103 Output Total 700 / 1230 530 / 1230 Balance 4357.303 / 6323.239 1965.936 / 6323.239 122.103 / 122.103 Intake: IV 3237.303 / 5733.239 2495.936 / 5733.239 122.103 / 122.103 Albumin 5% 250 ml @ 500 mls/hr 250 / 250 IV ONE ONE Rx#:[id number] Calcium Gluconate 1,000 mg In 292 / 832 540 / 832 60 ml @ 240 mls/hr IV Q15M [facility] Rx#:[id number] EPINEPHrine/NSS 16 mg In 250 ml 218.513 / 218.513 67.717 / 67.717 @ 0.6 MCG/KG/MIN 47.813 mls/hr IV .Q5H14M [facility] Rx#:[id number] EPINEPHrine/NSS 4 mg In 254 ml 278.920 / 730.107 451.187 / 730.107 @ 0.42 MCG/KG/MIN 133.297 mls/ hr IV .Q1H55M [facility] Rx#:[id number] Insulin Regular 250 units In 13.153 / 13.153 26.113 / 26.113 Sodium Chloride 0.9% 247.5 ml @ 7.8 UNITS/HR 7.8 mls/hr IV . Q24H [facility] Rx#:[id number] Lactated Ringer's 1,000 ml @ 75 283.333 / 387.083 103.75 / 387.083 mls/hr IV .B81M15H [facility] Rx#: [id number] Magnesium Sulfate / D5w 1 gm In 193.333 / 193.333 100 ml @ 50 mls/hr IV Q2H [facility] Rx#:[id number] Norepinephrine/Nss 16 mg In 250 9.44 / 9.44 ml @ 0.05 MCG/KG/MIN 3.984 mls /hr IV .Q24H [facility] Rx#:[id number] Potassium Chloride / Wtr 10 meq 100 / 200 100 / 200 In 100 ml @ 100 mls/hr IV Q1H [facility] Rx#:[id number] Potassium Chloride / Wtr 20 meq 77.5 / 77.5 In 100 ml @ 50 mls/hr IV Q2H [facility] Rx#:[id number] Sodium Chloride 0.9% 1,000 ml @ 2283.05 / 2283.05 999 mls/hr IV .Q1H1M [facility] Rx#: [id number] Vancomycin HCl 1,750 mg In 535 / 535 Sodium Chloride 0.9% 500 ml @ 200 mls/hr IV NOW ONE Rx#: [id number] fentaNYL citrate 2,500 mcg In 13.5 / 13.5 18.833 / 18.833 250 ml @ 100 MCG/HR 10 mls/hr IV .Q25H [facility] Rx#:[id number] Oral 1820 / 1820 Output: Urine 0 / 0 Urine Amount (Catheter) 700 / 1230 530 / 1230 Mcdonnell/Indwelling 700 / 1230 530 / 1230 Other: Weight 85 kg 88.5 kg Weight Measurement Method Built in [facility] Built in [facility] Diagnostic Findings Telemetry: Initially atrial pacing with intact AV conduction, after initiation of pressors a junctional rate ensued, a magnet was placed on the pacemaker resulting in AV pacing at 85 bpm with appropriate atrial and ventricular capture. Pacemaker evaluation: I did interrogate the pacemaker which is functioning correctly, her junctional rhythm is overriding the pacemaker but she does not have VA conduction resulting in intermittent atrial tracking with ventricular pacing. This is normal pacer operation but results in an irregular rate. I programmed the pacing rate to 80 bpm which resulted in continuous atrial pacing with intact AV conduction. This may be better hemodynamically. Echocardiogram by my review: Very large atrial mass on the pacing lead, it is not clear whether this is thrombus or endocarditis. It is however an incidental finding, not identified due to another finding such as embolism. PG Care Time/CCT Total # of Minutes Spent Total Time Spent with Patient: Total time spent is greater than 50% in coordination of care (as documented) at patient's floor/unit and/or counseling patient: Coding Level of Care Code 01135 INT INP/OBS CARE Diagnoses Right atrial mass I51.89 Pacemaker Z95.0 PSVT (paroxysmal supraventricular tachycardia) I47.10
[2025-04-14] MEDS ORDERED: lamoTRIgine 100 MG TAB PO SCH ×2 (09:00)
[2025-04-14] MEDS: HEPARIN SOD 5,000 UNIT/0.5 ML VIAL SQ SCH (09:15)
[2025-04-14] MEDS ORDERED: ROCURONIUM BROMIDE 10 MG/ML 5 ML VIAL IV ONE (09:24)
[2025-04-14] MEDS ORDERED: MIDAZOLAM HCL 5 MG/ML 2ML VIAL IV ONE (09:24)
[2025-04-14] MEDS ORDERED: KETAMINE HCL INJ 50 MG/ML 10 ML VIAL IV ONE (09:24)
--- NOTE | 2025-04-14 10:25 | Nephrology Consultation ---
Date of Consultation April 14, 2025 Assessment & Plan (1) MARY JANE (acute kidney injury): (2) Metabolic acidosis: (3) Elevated lactic acid level: (4) Hypotension: (5) Hypercalcemia: (6) Hyperkalemia: (7) Calcium channel edwin overdose: Plan 54-year-old female with baseline normal kidney function, baseline creatinine 0.8-0.9 mg/dl with past medical history of hypertension, diabetes, bipolar disorder and suicidal ideation and schizoaffective disorder, admitted with overdose with 50 tablets of 180 mg diltiazem. She was brought to ER after she was found collapsed in her front yard. On arrival she was awake and alert but within few hours she was intubated for less responsiveness and airway protection. She is profoundly hypotensive with systolic blood pressure in 60s and diastolic in 30s and started on epinephrine and norepinephrine. On admission lab was notable for MARY JANE, critical electrolyte abnormality. Received multiple IV fluid boluses and more than 6 L positive but having decent urine output, about 1.3 L overnight. Urinalysis with trace proteinuria but no h ematuria or pyuria. MARY JANE in the setting of profound hypotension. Electrolyte abnormality started to improve. Volume status acceptable. --Continue on hemodynamic support, monitor kidney function and electrolyte closely. --Monitor intake and output --Avoid nephrotoxic medications Thank you for allowing me to participate in your patient's care. It was a pleasure to see Leslie. History of Present Illness Reason for Consultation: MARY JANE, anion gap metabolic acidosis, hyperkalemia, hypercalcemia. Attending Physician: Prachi Tinoco MD History of Present Illness Ms. Leslie Ling is a 54 y o F with past medical history significant for hypertension, diabetes, schizoaffective and bipolar disorders, prior history of suicidal ideation, admitted to the hospital with intentional calcium channel edwin overdose and found down at home by bystanders. Nephrology consult was requested for management of acute kidney injury and multiple critical electrolyte abnormality. EMR records were reviewed in detail during patient's visit. Leslie was brought to ER yesterday after being found down by bystanders in her front lawn. She was profoundly hypotensive on arrival with lowest blood pressure 64/38. Patient provided the history of intentional overdose with 50 tabs of 180 mg diltiazem the night before. In the morning she was feeling weak, lethargy and diaphoretic. She was awake and alert on arrival but after few hours as she became more lethargic and less responsive she was intubated for airway protection. EKG on arrival showed atrial paced rhythm with prolonged AV conduction, QTc 453. Labs was notable for MARY JANE, creatinine 2.5 mg/with baseline normal kidney function, creatinine 0.8-0.9 mg/dl. Had an gap acidosis with lactic acidosis, bicarb was 6, AG 28, leukocytosis with WBC 19K. She was also noted to be in DKA. Initial potassium and calcium was normal but potassium repeat lab showed potassium of 7.5 which rapidly improved after started on insulin. Calcium was initially normal but this morning calcium increased to 11.0. Mild elevation in LFT noted with normal CPK. Hemoglobin was 11.5 which dropped to 7.7. Urinalysis showed trace proteinuria but no hematuria or bacteriuria. Stat echo showed normal EF. Urine output has been normal, overnight urine output was 1230 but she is total about 6.5 L positive with multiple IV fluid boluses. Started on epinephrine and norepinephrine infusion. Past medical history significant for hypertension, diabetes, bipolar disorder and schizoaffective disorder, history of suicidal ideation. Has been on Lamictal, lisinopril, venlafaxine, spironolactone and diltiazem. Currently she is intubated, sedated on 2 pressors. Allergies Allergy/AdvReac Type Severity Reaction Status Date / Time carbamazepine [From Tegretol] Allergy Intermediate Rash Verified 03/09/25 16:08 Sulfa (Sulfonamide Allergy Intermediate HIVES/DELUS Verified 03/09/25 16:08 Antibiotics) IONAL prednisone AdvReac Unknown CONTRAINDICATED Verified 03/09/25 16:08 WITH BIPOLAR MEDS. Home Medications Medication Instructions Recorded Confirmed Type clonazepam 0.5 mg tablet 0.5 mg PO TID PRN Anxiety 05/31/23 04/13/25 History sumatriptan succinate 100 mg tablet 100 mg PO Q2H PRN Migraine Headache 07/03/23 04/13/25 History syringe with needle 3 mL 25 x 5/8" #50 ea 07/17/23 04/13/25 Rx (BD Eclipse [facility]er-[facility]) Medical Marijuana 1 dose PO DAILY PRN Pain 08/01/23 04/13/25 History olanzapine 10 mg disintegrating 10 mg translingual DAILY 09/18/23 04/13/25 History tablet spironolactone 50 mg tablet 50 mg PO QAM #90 tabs 08/27/24 04/13/25 Rx lisinopril 40 mg tablet 40 mg PO HS #90 tabs 09/03/24 04/13/25 Rx omeprazole 40 mg capsule,delayed 40 mg PO DAILY #90 caps 10/12/24 04/13/25 Rx release atorvastatin 10 mg tablet 10 mg PO DAILY #90 tabs 10/26/24 04/13/25 Rx diltiazem HCl 180 mg 180 mg PO BID #180 caps 11/04/24 04/13/25 Rx capsule,extended release 24 hr cyanocobalamin (vitamin B-12) 1,000 mcg subcut Q7D #26 ea 11/30/24 04/13/25 Rx 1,000 mcg/mL injection kit ipratropium bromide 21 mcg (0.03 2 spray intranasal BID PRN 01/11/25 04/13/25 History %) nasal spray DIRECTED lamotrigine 100 mg tablet 100 mg PO DAILY 01/11/25 04/13/25 History lamotrigine 150 mg tablet 150 mg PO DAILY 01/11/25 04/13/25 History venlafaxine 75 mg capsule,extended 75 mg PO DAILY #30 caps 01/11/25 04/13/25 Rx release 24 hr dextroamphetamine-amphetamine 10 20 mg PO DAILY 04/13/25 04/13/25 History mg tablet Patient History Medical History Diabetes mellitus, type 2 Encounter for pre-operative examination Schizoaffective disorder follows with psych Kidney stones passed on own Anxiety follows with psych Bipolar disorder follows with psych Sinus node dysfunction reason for up coming pacemaker placement Sleep apnea dx several yrs ago, no device, feels no issues with Surgical History Status post placement of cardiac pacemaker S/P trigger finger release left thumb History of carpal tunnel release left History of esophagogastroduodenoscopy (EGD) History of colonoscopy [place] teeth extracted Family History Mother Breast cancer Aunt Breast cancer Uncle Lung cancer Denies family history of Ovarian cancer Prostate cancer Diabetes Myocardial infarction Colorectal cancer Stroke Social History Smoking Status: Current every day smoker Tobacco Type: Cigarettes Age Started Using Tobacco: 17; packs per day: 0.5; Cigarettes Per Day: 10-15 cigs per day > advised npo status; Second Hand Exposure: Yes (s/o smokes); Do You Dip or Chew Tobacco: No; Hx Alcohol Use: No Hx Substance Use: No Preferred Language: Albanian Communication Ability: Effective Visual Impairment: Limited Hearing Ability: Normal Machine Bander And Cellophaner Required: No Beliefs That Will Affect Care: None marital status: Single Current Living Situation: Homeless Current Living Situation Comment: Pt states she had a roommate, but would consider herself homeless now. current occupational status: unemployed How many Children do You have: 0 Feels Safe at Home: Yes Childhood Exposure to Second-Hand Smoke: Yes Diet: regular caffeine: Yes during the past year weight has: decreased > 10 lbs Dental Care, Regularly: Yes Physical Activity Frequency: Does not Exercise Seatbelt Use: always Sunscreen Use: Yes Gender Identity: Female Assistive Devices: None Review of Systems Review of Systems: Unobtainable due to endotracheal tube Physical Exam Constitutional: WD/WN, vitals as above + ill appearing and + mechanically ventilated Respiratory: Auscultation: lungs clear to auscultation bilaterally Cardiovascular: RRR, no murmur, no edema Gastrointestinal (Abdomen): Inspection/Auscultation: abdomen normal to inspection and normal bowel sounds Percussion/Palpation: abdomen soft Musculoskeletal: Extremities: extremities normal to inspection Skin: no rashes Neurologic: could not be accessed. Psychiatric: Intubated, could not be assessed. Results & Data Vital Signs (Past 12 Hours) Vital Signs Temp Pulse Pulse Resp BP BP Pulse Ox 04/14/25 08:00 85 04/14/25 07:44 04/14/25 07:26 85 28 H 95 04/14/25 06:51 37.4 C 84 27 H 94 04/14/25 06:42 37.4 C 84 28 H 94 04/14/25 06:33 37.2 C 84 25 H 93 04/14/25 06:24 37.2 C 85 28 H 92 04/14/25 06:15 37.2 C 84 31 H 91 04/14/25 06:00 143/65 H 04/14/25 06:00 37.1 C 84 31 H 93 04/14/25 06:00 37.1 C 85 31 H 135/54 L 91 04/14/25 05:54 37.1 C 84 28 H 93 04/14/25 05:46 04/14/25 05:33 37.1 C 85 29 H 92 04/14/25 05:00 37.0 C 85 29 H 93 04/14/25 05:00 37 C 84 29 H 128/54 L 92 04/14/25 04:51 37.0 C 84 28 H 92 04/14/25 04:42 36.8 C 85 27 H 92 04/14/25 04:30 36.8 C 85 28 H 91 04/14/25 04:03 36.7 C 84 29 H 92 04/14/25 04:00 116/59 L 04/14/25 04:00 36.7 C 85 29 H 115/46 L 92 04/14/25 04:00 84 119/51 L 04/14/25 03:36 36.6 C 84 27 H 93 04/14/25 03:00 04/14/25 03:00 36.6 C 85 26 H 116/50 L 93 04/14/25 02:54 36.6 C 84 26 H 93 04/14/25 02:45 36.6 C 84 26 H 93 04/14/25 02:38 36.6 C 84 26 H 93 04/14/25 02:20 36.7 C 84 26 H 91 04/14/25 02:19 85 27 H 93 04/14/25 02:14 36.7 C 84 26 H 87 L 04/14/25 02:00 105/56 L 04/14/25 02:00 36.7 C 84 26 H 113/48 L 92 04/14/25 01:47 36.6 C 73 26 H 97 04/14/25 01:35 84 26 H 92 04/14/25 01:32 36.7 C 73 38 H 94 04/14/25 01:11 36.7 C 68 32 H 98 04/14/25 01:00 36.6 C 65 25 H 95/38 L 98 04/14/25 01:00 36.6 C 65 25 H 95/38 L 98 04/14/25 00:42 36.5 C 64 24 99 04/14/25 00:30 36.5 C 70 26 H 100 04/14/25 00:15 36.6 C 70 23 99 04/14/25 00:06 36.6 C 60 23 100 04/14/25 00:05 95/46 L 04/14/25 00:00 36.6 C 61 20 91/38 L 98 04/14/25 00:00 60 18 99 04/13/25 23:51 36.6 C 89 37 H 98 04/13/25 23:30 36.5 C 69 34 H 100 04/13/25 23:06 36.5 C 60 19 99 04/13/25 23:00 91/44 L 04/13/25 23:00 36.5 C 60 27 H 91/44 L 100 04/13/25 22:47 91/46 L 04/13/25 22:42 36.3 C L 64 39 H 99 04/13/25 22:15 104/50 L 04/13/25 22:15 63 28 H 100 O2 Del Method O2 Flow Rate FiO2 04/14/25 08:00 04/14/25 07:44 Mechanical Vent 1.0 04/14/25 07:26 100 04/14/25 06:51 04/14/25 06:42 04/14/25 06:33 04/14/25 06:24 04/14/25 06:15 04/14/25 06:00 04/14/25 06:00 04/14/25 06:00 Mechanical Vent 100 04/14/25 05:54 04/14/25 05:46 100 04/14/25 05:33 04/14/25 05:00 04/14/25 05:00 Mechanical Vent 100 04/14/25 04:51 04/14/25 04:42 04/14/25 04:30 04/14/25 04:03 04/14/25 04:00 04/14/25 04:00 Mechanical Vent 100 04/14/25 04:00 04/14/25 03:36 04/14/25 03:00 Mechanical Vent 100 04/14/25 03:00 Mechanical Vent 100 04/14/25 02:54 04/14/25 02:45 04/14/25 02:38 04/14/25 02:20 04/14/25 02:19 100 04/14/25 02:14 04/14/25 02:00 04/14/25 02:00 Mechanical Vent 75 04/14/25 01:47 04/14/25 01:35 75 04/14/25 01:32 04/14/25 01:11 04/14/25 01:00 High Flow Nasal Cannula 40 40 04/14/25 01:00 High Flow Nasal Cannula 40 40 04/14/25 00:42 04/14/25 00:30 04/14/25 00:15 04/14/25 00:06 04/14/25 00:05 04/14/25 00:00 Room Air 04/14/25 00:00 High Flow Nasal Cannula 40 40 04/13/25 23:51 04/13/25 23:30 04/13/25 23:06 04/13/25 23:00 04/13/25 23:00 Room Air 04/13/25 22:47 04/13/25 22:42 04/13/25 22:15 04/13/25 22:15 PG Care Time/CCT Total # of Minutes Spent Total Time Spent with Patient: Total time spent is greater than 50% in coordination of care (as documented) at patient's floor/unit and/or counseling patient: Coding Level of Care Code 63251 INT INP/OBS CARE MIN Diagnoses MARY JANE (acute kidney injury) N17.9 Metabolic acidosis E87.20 Elevated lactic acid level R79.89 Hypotension I95.9 Hypotension type: unspecified hypotension type Hypercalcemia E83.52 Hyperkalemia E87.5 Calcium channel edwin overdose T46.1X1A (4) Hypotension Hypotension type: unspecified hypotension type Qualified Code(s): I95.9 - Hypotension, unspecified
[2025-04-14] MEDS: PANTOprazole 40 MG in SYRINGE DAILY IV SCH (10:47)
[2025-04-14] MEDS: cefTRIAXone SODIUM 2,000 MG/50 ML BAG IV SCH (10:48)
--- NOTE | 2025-04-14 11:16 | Psychiatric Consultation ---
Date of Consultation April 14, 2025 Impression / Recommendations Impression Diagnostically based on history of prior suicide attempts, mood disorder vs schizoaffective disorder, PTSD and report of intentional overdose suicide attempt she is likely to require inpatient psychiatric treatment once medically stable. Further history limited at this time due to intubation. There is a 302 petitioning statement on the chart. Once extubated the patient should remain on safety precautions with 1-on-1 pending medical clearance. The patient is not psychiatrically cleared to leave the hospital without additional safety or aftercare planning; theyshould not be allowed to leave AMA without notification to our service as a 302 warrant would be appropriate. Overall, I spent a total of 45 minutes with this case including review of chart records, review of labwork, direct evaluation of the patient at bedside, discussion of the patient with the Nurse and with the hospitalist provider, discussion with the psychiatric liason during clinical rounds and documentation in the electronic health record. (1) Suicide attempt: (2) Bipolar disorder: (3) Post traumatic stress disorder (PTSD): (4) Schizoaffective disorder: Plan -psychiatry to continue to follow and will gather more history once she's extubated -once extubated: * 1-on-1 * suicide precautions * cannot leave AMA, if attempts to do so call security and psych liason RN as she would meet 302 criteria -agree with continuation of lamictal and venlafaxine as ordered Psych History Identifying Data LESLIE MRERITT is a 54-year-old woman with numerous historical psychiatric diagnoses over the years such as bipolar disorder, personality disorder, schizoaffective disorder, depression, and PTSD and past [psychiatric hospitalization on [facility] in 2019 admitted medically following suicide attempt via overdose on diltiazem. Chief Complaint intubated History of Present Illness Leslie remains intubated in the ICU so unable to gather history from her. Per chart review she took ~50 tabs of diltiazem 180mg. Further details per admission H&P by Dr. Banks on 04/13/2025: "She reports she has a long history of passive suicidality, intermittently active with attempts in the past. She reports that she was not particularly planning her current overdose but last night she was overwhelmed with recent stressors and feeling that she has a stalker although is not who this is. She has not seen or heard anything unusual. She reported she started taking 1 diltiazem, and then continue taking 1 after the other with the intention to . When she woke up this morning she felt very weak tired and confused to try to go outside and then was brought to the hospital. She reports she still feels suicidal. She notes that her suicidal he has never completely gone away but is usually passive, and current stressors have made this worse. She denies any coingestions along with her diltiazem. She last took her regular medications yesterday, she reports she had not been missing doses of these. She denies alcohol/tobacco use." Additional history per ED CM notes on 04/13/2025: "Met with patient to complete a brief MH evaluation with Dr. Frank present. Patient reports taking 50 180mg of Diltiazem in an attempt to kill herself. She reports being in distress, stating that she is also being harassed. She reports this is not the first time she has attempted to kill herself, and that she did other things to harm herself, but does not remember what she has done. Patient stated she has a pacemaker, she thought if she took the medication it would slow her heart rate down enough that it would make her pacemaker malfunction. She states she took the medication around 1:30am, she does not know how, but was found outside by her father about 45 minutes before she was brought into the ED. She reports feeling dehydrated and lethargic but is feeling better than she was. Patient states she has not been sleeping well. She has a bruise on her arm, and states she has been having falls. Patient has an extensive MH history. Patient's father Bill reported to ED. He states patient has been diagnosed with bipolar and schizoaffective disorder 30 years ago. He states she refuses all MH treatment including medication. Patient is in a very unhealthy relationship and has been for a long time. The man comes and goes in and out of her life, and according her father, is homeless and takes advantage of patient. Patient contacted mother and father over the weekend threatening to take medication to overdose. Father stated patient has psychotic behaviors, that she is paranoid and hears voices that she believes are threatening her. He states she refuses all help and has no MH services/medication at this time. Father states his called him and asked him to go to the home to check on patient and to get her boyfriend out of the house, when he was on his way to her home, patient called him and appeared very disoriented. Father states he arrived an she was outside, had fallen and was completed altered. He stated he called an ambulance and the police and began pouring cold water on her. Explained to father that patient will be a medical admission at first, but a 302 petitioning statement will be completed and placed on patient's chart, when she is cleared medically she will need to follow through with inpatient MH treatment." and "Box A petitioning statement completed by ANTHONY Thomas reads as follows: " Leslie has a very extensive mental health history. She has been diagnosed with bipolar disorder, schizoaffective disorder, and experiences psychotic behaviors including paranoia and hearing voices, daily. She is non-compliant with MH treatment and is not currently on MH medications. On 04/13/25 at 1:00am, Leslie reports taking 50 180mg of Diltiazem in an attempt to end her life." Allergies Allergy/AdvReac Type Severity Reaction Status Date / Time carbamazepine [From Tegretol] Allergy Intermediate Rash Verified 03/09/25 16:08 Sulfa (Sulfonamide Allergy Intermediate HIVES/DELUS Verified 03/09/25 16:08 Antibiotics) IONAL prednisone AdvReac Unknown CONTRAINDICATED Verified 03/09/25 16:08 WITH BIPOLAR MEDS. Home Medications Medication Instructions Recorded Confirmed Type clonazepam 0.5 mg tablet 0.5 mg PO TID PRN Anxiety 05/31/23 04/13/25 History sumatriptan succinate 100 mg tablet 100 mg PO Q2H PRN Migraine Headache 07/03/23 04/13/25 History syringe with needle 3 mL 25 x 5/8" #50 ea 07/17/23 04/13/25 Rx (BD Eclipse Luer-Yanna) Medical Marijuana 1 dose PO DAILY PRN Pain 08/01/23 04/13/25 History olanzapine 10 mg disintegrating 10 mg translingual DAILY 09/18/23 04/13/25 History tablet spironolactone 50 mg tablet 50 mg PO QAM #90 tabs 08/27/24 04/13/25 Rx lisinopril 40 mg tablet 40 mg PO HS #90 tabs 09/03/24 04/13/25 Rx omeprazole 40 mg capsule,delayed 40 mg PO DAILY #90 caps 10/12/24 04/13/25 Rx release atorvastatin 10 mg tablet 10 mg PO DAILY #90 tabs 10/26/24 04/13/25 Rx diltiazem HCl 180 mg 180 mg PO BID #180 caps 11/04/24 04/13/25 Rx capsule,extended release 24 hr cyanocobalamin (vitamin B-12) 1,000 mcg subcut Q7D #26 ea 11/30/24 04/13/25 Rx 1,000 mcg/mL injection kit ipratropium bromide 21 mcg (0.03 2 spray intranasal BID PRN 01/11/25 04/13/25 History %) nasal spray DIRECTED lamotrigine 100 mg tablet 100 mg PO DAILY 01/11/25 04/13/25 History lamotrigine 150 mg tablet 150 mg PO DAILY 01/11/25 04/13/25 History venlafaxine 75 mg capsule,extended 75 mg PO DAILY #30 caps 01/11/25 04/13/25 Rx release 24 hr dextroamphetamine-amphetamine 10 20 mg PO DAILY 04/13/25 04/13/25 History mg tablet Patient History Medical History Diabetes mellitus, type 2 Encounter for pre-operative examination Schizoaffective disorder follows with psych Kidney stones passed on own Anxiety follows with psych Bipolar disorder follows with psych Sinus node dysfunction reason for up coming pacemaker placement Sleep apnea dx several yrs ago, no device, feels no issues with Surgical History Status post placement of cardiac pacemaker S/P trigger finger release left thumb History of carpal tunnel release left History of esophagogastroduodenoscopy (EGD) History of colonoscopy [place] teeth extracted Family History Mother Breast cancer Aunt Breast cancer Uncle Lung cancer Denies family history of Ovarian cancer Prostate cancer Diabetes Myocardial infarction Colorectal cancer Stroke Social History Smoking Status: Current every day smoker Tobacco Type: Cigarettes Age Started Using Tobacco: 17; packs per day: 0.5; Cigarettes Per Day: 10-15 cigs per day > advised npo status; Second Hand Exposure: Yes (s/o smokes); Do You Dip or Chew Tobacco: No; Hx Alcohol Use: No Hx Substance Use: No Preferred Language: Israeli Communication Ability: Effective Visual Impairment: Limited Hearing Ability: Normal Girl Friday Required: No Beliefs That Will Affect Care: None marital status: Single Current Living Situation: Homeless Current Living Situation Comment: Pt states she had a roommate, but would consider herself homeless now. current occupational status: unemployed How many Children do You have: 0 Feels Safe at Home: Yes Childhood Exposure to Second-Hand Smoke: Yes Diet: regular caffeine: Yes during the past year weight has: decreased > 10 lbs Dental Care, Regularly: Yes Physical Activity Frequency: Does not Exercise Seatbelt Use: always Sunscreen Use: Yes Gender Identity: Female Assistive Devices: None Physical Exam Vital Signs (Past 24 Hours): Last Vital Signs Temp 38.1 C H 04/14/25 10:33 Pulse 80 04/14/25 10:33 Resp 32 H 04/14/25 10:33 BP 119/52 L 04/14/25 10:01 Pulse Ox 95 04/14/25 10:33 O2 Del Method Mechanical Vent 04/14/25 10:33 O2 Flow Rate 40 04/14/25 01:00 FiO2 0.8 04/14/25 10:33 Results & Data (PSY) Medications Administered Fentanyl Citrate (Fentanyl Bolus From Bag) 50 mcg IV Q1H PRN PRN Reason: Pain or Agitation Stop: 04/28/25 05:53 Last Admin: 04/14/25 06:15 Dose: 50 mcg Documented By: DANTE Co-signed By: VICTORIANO Heparin Sodium (Porcine) (Heparin Sod 5,000 Unit/0.5 Ml Vial) 5,000 units SQ Q12 MARTÍN Stop: 05/14/25 08:59 Last Admin: 04/14/25 09:15 Dose: 5,000 units Documented By: EMMA Insulin Human Regular 250 (units/ Sodium Chloride) 250 mls @ 11.3 mls/hr IV .Q22H8M [facility]; Protocol Stop: 05/14/25 01:29 Last Titration: 04/14/25 08:10 Dose: 11.3 units/hr, 11.3 mls/hr Documented By: EMMA Co-signed By: GPF Titration: 04/14/25 07:20 Dose: 9.4 units/hr, 9.4 mls/hr Documented By: SMW Co-signed By: CAM Titration: 04/14/25 07:17 Dose: 9.4 units/hr, 9.4 mls/hr Documented By: LLP Co-signed By: SMW Titration: 04/14/25 05:00 Dose: 7.8 units/hr, 7.8 mls/hr Documented By: SMW Co-signed By: LLP Titration: 04/14/25 04:00 Dose: 5.4 units/hr, 5.4 mls/hr Documented By: SMW Co-signed By: LLP Titration: 04/14/25 03:00 Dose: 4.5 units/hr, 4.5 mls/hr Documented By: SMW Co-signed By: LLP Admin: 04/14/25 01:59 Dose: 3.2 units/hr, 3.2 mls/hr Documented By: SMW Co-signed By: LLP Epinephrine HCl () 16 mg in 250 mls @ 47.813 mls/hr IV .Q5H14M [facility]; Protocol Stop: 05/14/25 01:29 Last Titration: 04/14/25 10:48 Dose: 0.38 mcg/kg/min, 30.3 mls/hr Documented By: MEMA Co-signed By: JB Titration: 04/14/25 10:00 Dose: 0.48 mcg/kg/min, 38.3 mls/hr Documented By: CAM Co-signed By: JB Titration: 04/14/25 09:07 Dose: 0.58 mcg/kg/min, 46.2 mls/hr Documented By: CAM Co-signed By: JB Titration: 04/14/25 08:21 Dose: 0.59 mcg/kg/min, 47 mls/hr Documented By: CAM Co-signed By: JB Titration: 04/14/25 07:20 Dose: 0.6 mcg/kg/min, 47.8 mls/hr Documented By: SMW Co-signed By: CAM Admin: 04/14/25 06:56 Dose: 0.6 mcg/kg/min, 47.8 mls/hr Documented By: LLP Co-signed By: SMW Titration: 04/14/25 06:56 Dose: Infused Documented By: LLP Co-signed By: SMW Titration: 04/14/25 03:30 Dose: 0.6 mcg/kg/min, 47.8 mls/hr Documented By: SMW Co-signed By: LLP Titration: 04/14/25 03:22 Dose: 0.58 mcg/kg/min, 46.2 mls/hr Documented By: SMW Co-signed By: LLP Titration: 04/14/25 03:15 Dose: 0.56 mcg/kg/min, 44.6 mls/hr Documented By: SMW Co-signed By: LLP Titration: 04/14/25 03:06 Dose: 0.54 mcg/kg/min, 43 mls/hr Documented By: SMW Co-signed By: LLP Titration: 04/14/25 03:00 Dose: 0.52 mcg/kg/min, 41.4 mls/hr Documented By: SMW Co-signed By: LLP Titration: 04/14/25 02:45 Dose: 0.5 mcg/kg/min, 39.8 mls/hr Documented By: SMW Co-signed By: LLP Titration: 04/14/25 02:37 Dose: 0.48 mcg/kg/min, 38.3 mls/hr Documented By: SMW Co-signed By: LLP Titration: 04/14/25 02:30 Dose: 0.46 mcg/kg/min, 36.7 mls/hr Documented By: SMW Co-signed By: LLP Titration: 04/14/25 02:20 Dose: 0.44 mcg/kg/min, 35.1 mls/hr Documented By: SMW Co-signed By: LLP Admin: 04/14/25 02:07 Dose: 0.42 mcg/kg/min, 33.5 mls/hr Documented By: SMW Co-signed By: VICTORIANO Norepinephrine Bitartrate (Levophed/Nss) 16 mg in 250 mls @ 3.984 mls/hr IV .Q24H [facility]; Protocol Stop: 05/14/25 01:44 Last Titration: 04/14/25 07:20 Dose: 0.12 mcg/kg/min, 9.6 mls/hr Documented By: SMW Co-signed By: EMMA Admin: 04/14/25 06:21 Dose: 0.12 mcg/kg/min, 9.6 mls/hr Documented By: VICTORIANO Co-signed By: DANTE Admin: 04/14/25 03:07 Dose: Not Given Documented By: DANTE Fentanyl Citrate (Fentanyl Citrate) 2,500 mcg in 250 mls @ 10 mls/hr IV .Q25H [facility]; Protocol Stop: 04/28/25 01:59 Last Titration: 04/14/25 07:20 Dose: 100 mcg/hr, 10 mls/hr Documented By: DANTE Co-signed By: EMMA Titration: 04/14/25 05:27 Dose: 100 mcg/hr, 10 mls/hr Documented By: DANTE Co-signed By: VICTORIANO Titration: 04/14/25 03:45 Dose: 50 mcg/hr, 5 mls/hr Documented By: DANTE Co-signed By: VICTORIANO Admin: 04/14/25 01:45 Dose: 25 mcg/hr, 2.5 mls/hr Documented By: DANTE Co-signed By: VICTORIANO Potassium Chloride (K Reji / Wtr) 20 meq in 100 mls @ 50 mls/hr IV Q2H MARTÍN Stop: 04/14/25 13:59 Last Admin: 04/14/25 10:41 Dose: 50 mls/hr Documented By: EMMA Co-signed By: RENA Ceftriaxone Sodium (Rocephin) 2,000 mg in 50 mls @ 100 mls/hr IV DAILY MARTÍN Stop: 04/17/25 08:59 Last Admin: 04/14/25 10:48 Dose: 100 mls/hr Documented By: EMMA Pantoprazole Sodium (Protonix) 40 mg in 10 mls @ 5 mls/min IV DAILY MARTÍN Stop: 05/14/25 10:29 Last Admin: 04/14/25 10:47 Dose: 5 mls/min Documented By: EMMA Insulin Aspart (Insulin Aspart Per Unit Charge) 0 units SC ACHS MARTÍN Stop: 05/14/25 07:29 Last Admin: 04/14/25 07:33 Dose: Not Given Documented By: EMMA Lamotrigine (Lamotrigine 100 Mg Tab) 250 mg PO DAILY MARTÍN Stop: 05/14/25 08:59 Last Admin: 04/14/25 08:32 Dose: Not Given Documented By: CAM Midazolam HCl (Midazolam Hcl 1 Mg/Ml 2ml Vial) 2 mg IV Q2H PRN PRN Reason: RASS goal -1 Stop: 05/14/25 06:09 Last Admin: 04/14/25 09:43 Dose: 2 mg Documented By: Admin: 04/14/25 06:29 Dose: 2 mg Documented By: LLP Venlafaxine HCl (Venlafaxine Hcl Xr 75 Mg Capxr) 75 mg PO DAILY [facility] Stop: 05/14/25 08:59 Last Admin: 04/14/25 07:35 Dose: Not Given Documented By: EMMA Coding Level of Care Code 10927 IN/OBS CONSULT LVL 3,45M Diagnoses Suicide attempt T14.91XA Bipolar disorder F31.9 Post traumatic stress disorder (PTSD) F43.10 Schizoaffective disorder F25.9
--- NOTE | 2025-04-14 12:00 | Pharmacy Report ---
Pharmacy PK ABX Note - Date of Service April 14, 2025 - Assessment and Plan Assessment * 54 year old F admitted for intentional overdose on diltiazem who had a transthoracic echo as part of her workup that revealed a clearly visible right atrial mass. Unclear if this is infectious at this point but empiric coverage for endocarditis is warranted and she is currently receiving ceftriaxone and vancomycin * Pertinent microbiologic data includes: MRSA nasal swab negative, blood cult ures x2 pending, sputum culture pending * SCr is acutely elevated. Baseline 0.8 mg/dL. Admission SCr 2.53 mg/dL. Stable today from admission at 2.44 mg/dL. Plan Vancomycin * Loading dose: 1750 mg IV x 1 administered yesterday * Will dose vancomycin via level for now 2nd acutely changing SCr * Random level of 15.9 mcg/mL this AM * Will re-dose vancomycin but at a dose lower than yesterday. 1000 mg ordered. * Random level ordered for tomorrow AM * If/when renal function stabilizes, target AUC/JOCELYN of 400-600 mg/L.hr Pharmacy will continue to follow and will adjust dose/frequency as necessary. Thank you. Pharmacy has transitioned to AUC monitoring for vancomycin. AUC/JOCELYN is the preferred PK/PD target and is associated with decreased risk of nephrotoxicity compared to traditional trough targets.
[2025-04-14] MEDS: VANCOMYCIN HCL 1,000 MG/270 ML BAG IV ONE (12:12)
--- NOTE | 2025-04-14 13:06 | Electrocardiogram Report ---
Test Reason : Blood Pressure : */* mmHG Vent. Rate : 71 BPM Atrial Rate : 71 BPM P-R Int : 132 ms QRS Dur : 96 ms QT Int : 464 ms P-R-T Axes : -4 14 22 degrees QTcB Int : 504 ms Normal sinus rhythm Septal infarct (cited on or before 13-Apr-2025) Prolonged QT Abnormal ECG When compared with ECG of 13-Apr-2025 17:04, (unconfirmed) Sinus rhythm has replaced Electronic atrial pacemaker QT has lengthened Confirmed by Mateo Mcfarland ([id number]) on 04/14/2025 1:06:17 PM Referred By: REFERRED SELF Confirmed By: Mateo Mcfarland
[2025-04-14] MEDS ORDERED: INSULIN ASPART PER UNIT CHARGE SC SCH (15:00)
[2025-04-14] MEDS ORDERED: PHARMACY GLYCEMIC MGMT CONSULT PRN (16:05)
[2025-04-14 16:14] LABS: Anion Gap 10.0 (3-11); Blood Urea Nitrogen 21.0 mg/dl (6-23); Calcium 10.5 mg/dl (8.6-10.3); Carbon Dioxide 26.0 mmol/L (21-32); Chloride 107.0 mmol/L (98-107); Creatinine Clr Calc Pharmacy 32.2 ml/min; Glucose 83.0 mg/dl (70-99(Fasting)); Potassium 3.8 mmol/L (3.5-5.1); Sodium 143.0 mmol/L (136-145)
--- NOTE | 2025-04-14 16:34 | Electrocardiogram Report ---
Test Reason : Blood Pressure : */* mmHG Vent. Rate : 61 BPM Atrial Rate : 61 BPM P-R Int : 210 ms QRS Dur : 92 ms QT Int : 450 ms P-R-T Axes : 49 10 -18 degrees QTcB Int : 453 ms Atrial-paced rhythm with prolonged AV conduction Abnormal ECG When compared with ECG of 05-Aug-2023 15:14, Electronic atrial pacemaker has replaced Sinus rhythm Confirmed by Mateo Mcfarland ([id number]) on 04/14/2025 4:34:16 PM Referred By: Confirmed By: Mateo Mcfarland
[2025-04-14 20:34] LABS: Anion Gap 13.0 (3-11); Blood Urea Nitrogen 20.0 mg/dl (6-23); Calcium 10.1 mg/dl (8.6-10.3); Carbon Dioxide 22.0 mmol/L (21-32); Chloride 107.0 mmol/L (98-107); Creatinine Clr Calc Pharmacy 35.5 ml/min; Glucose 102.0 mg/dl (70-99(Fasting)); Potassium 4.4 mmol/L (3.5-5.1); Sodium 142.0 mmol/L (136-145)
[2025-04-15] MEDS: INSULIN ASPART PER UNIT CHARGE SC SCH (00:43)
[2025-04-15] MEDS ORDERED: STAT IV Infusion **Titration per Protocol STA ×3 (01:01→02:52)
[2025-04-15] MEDS: dexMEDEtomidine 200 MCG/50 ML BAG IV SCH (01:05)
[2025-04-15 01:09] LABS: Anion Gap 16.0 (3-11); Blood Urea Nitrogen 22.0 mg/dl (6-23); Calcium 9.9 mg/dl (8.6-10.3); Carbon Dioxide 18.0 mmol/L (21-32); Chloride 107.0 mmol/L (98-107); Creatinine Clr Calc Pharmacy 37.6 ml/min; Glucose 107.0 mg/dl (70-99(Fasting)); Potassium 4.5 mmol/L (3.5-5.1); Sodium 141.0 mmol/L (136-145)
[2025-04-15] MEDS: ACETAMINOPHEN SUSP 325 MG/10.15 ML UDC PO PRN (01:12)
[2025-04-15] MEDS: MIDAZOLAM HCL 1 MG/ML 2ML VIAL IV STA (01:47)
[2025-04-15] MEDS: VASOPRESSIN 20 UNITS in SODIUM CHLORIDE 0.9% 100 ML IV SCH (02:34)
[2025-04-15] MEDS: PHENYLEPHRINE/NSS 25 MG/250 ML BAG IV SCH (02:55)
--- NOTE | 2025-04-15 03:26 | Communication Note ---
Date of Service: April 15, 2025 Patient with increasing oxygen and vasopressor requirements after spiking a fever of 39C. She became quite agitated. Managed with acetaminophen. Added Prece dex. Avoided propofol due to vasodilatory effect. Chemistries show her gap has opened back up with decreasing serum bicarbonate. Cr continues to improve. UOP was brisk, now slowing with hypotension. Placed on vasopressin and neosynephrine. AM labs pending. CXR now, repeat sputum culture. Current culture data showing bacterial species which should be covered by current antibiotic regimen. Repeat blood cultures I'm concerned her lactic acidosis is worsening despite supportive treatment. Given her prolonged high dose vasopressors we will remain mindful of possible development of intraabdominal pathology like ischemic bowel. Exam is unreliable at this time, may need to consider CT AP and broadening antibiotic coverage. Also consider starvation ketosis, will obtain UA for urine ketones since beta hydroxybutyrate is not available Remains 5-6L+ cumulatively, receiving volume from high dose vasopressors, will hold on additional IVF at this time Still unable to rule out EC, can consider repeat TTE if concern for vegetation with embolism Steroids have been avoided due to interaction with Lamictal. Will defer to attending physician's expertise regarding initiation Prognosis remains guarded Addendum 0330: CXR on my view shows dense RLL infiltrate consistent with pneumonia, likely aspiration. As above, cannot rule out intraabdominal pathology and with clinical worsening I will broaden to Zosyn. Coding Level of Care Code None
[2025-04-15] MEDS: PIPERACILLIN/TAZOBACTAM 4.5 GM/100 ML BAG IV ONE (03:49)
[2025-04-15 03:55] LABS: Hematocrit (blood only) 31.8 % (37.0-47.0); Hemoglobin 10.1 g/dl (12.0-16.0); Mean Corpuscular Hemoglobin 25.8 pg (25.0-34.0); Mean Corpuscular Volume 81.3 fL (80.0-100.0); Platelet Count 147 K/uL (130-400); RDW Standard Deviation 51.8 fL (36.4-46.3); Red Blood Count 3.91 M/uL (4.20-5.40); White Blood Count 14.96 K/ul (4.8-10.8)
[2025-04-15 03:57] LABS: Immature Granulocytes # (auto) 0.20 K/uL (0.01-0.20); Immature Granulocytes % (auto) 1.3 %
[2025-04-15 03:58] LABS: Alanine Aminotransferase 452.0 U/L (7-52); Albumin Globulin Ratio 1.2 (0.9-2); Alkaline Phosphatase 56.0 U/L (34-104); Anion Gap 18.0 (3-11); Bilirubin,Total 0.6 mg/dl (0.2-1.0); Blood Urea Nitrogen 24.0 mg/dl (6-23); Calcium 10.0 mg/dl (8.6-10.3); Carbon Dioxide 17.0 mmol/L (21-32); Chloride 106.0 mmol/L (98-107); Creatinine Clr Calc Pharmacy 34.2 ml/min; Globulin 2.4 gm/dl (2.5-4.0); Glucose 149.0 mg/dl (70-99(Fasting)); Magnesium 2.0 mg/dl (1.7-2.4); Potassium 4.5 mmol/L (3.5-5.1); Sodium 141.0 mmol/L (136-145); Total Protein 5.3 gm/dl (6.0-8.3)
--- NOTE | 2025-04-15 04:43 | XRay Report ---
EXAM: XR chest 1V portable CLINICAL HISTORY: hypoxemia, fever TECHNIQUE: Radiograph of chest was acquired. COMPARISON: CR dated 04/14/2025 00:52:00 [employer]. FINDINGS: Endotracheal tube is seen in situ with its tip at a distance of 3.8cm from the cecelia. Nasogastric tube insitu with tip in fundus There is obscuration of right costophrenic angle with opacification of right lower zone. Ill-defined opacities are seen in right upper and middle zone. Pacemaker is seen in situ. The cardiomediastinal silhouette is within normal limits. No acute osseous abnormality. IMPRESSION: 1. Endotracheal tube in situ with tip adequately positioned. 2. Right lower lobe consolidation with underlying right pleural effusion - new finding. Electronically signed by Carlo Alvarenga 04-15-2025 04:43 AM
[2025-04-15 06:36] LABS: Appearance Urine Clear (Clear); Bacteria Urine Automated None Seen (None Seen); Glucose Urine UA 3+ (Negative); RBC Urine Automated 0-2 /hpf (0-2); WBC Urine Automated 0-5 /hpf (0-5)
--- NOTE | 2025-04-15 07:44 | Critical Care Progress Note ---
Date of Service April 15, 2025 Assessment & Plan (1) Calcium channel edwin overdose: (2) Schizoaffective disorder: (3) Bipolar disorder: (4) Acute kidney injury: (5) High anion gap metabolic acidosis: (6) Lactic acidosis: (7) Leukocytosis: (8) Mass of heart: (9) Cardiogenic shock: (10) Medical non-compliance: Plan Impression: 54-year-old female with suicide attempt with long-acting calcium channel edwin admitted with lactic acidosis, acute renal failure, severe hypotension. 24-hour events: Patient was weaned off epinephrine yesterday and sedation breaks revealed her to be neurologically responsive however overnight she developed fevers, increasing oxygen requirement, and progressive hypotension requiring initiation of vasopressin and Richard-Synephrine. Antibiotics were broadened to Zosyn. Sedation was achieved with Precedex Recommendation: Neuro -currently intubated and sedated on fentanyl and Precedex and Versed pushes. Holding Adderall, Zyprexa, and clonazepam. Continue with Lamictal. Suicide attempt with calcium channel edwin overdose. Behavioral health evaluation once medically stable Cardiac -persistent hypotension, worse overnight now with fevers. Likely multifactorial due to calcium channel edwin overdose superimposed on possible severe sepsis with septic shock. She appears adequately volume resuscitated. No real response to vasopressin so we will discontinue and see if we can wean Richard-Synephrine down before moving on norepinephrine. Pacemaker now functioning at 80. Reviewed cardiology comments regarding the atrial lead. Cannot rule out infection. See comments below under infectious disease Respiratory -intubated due to increased work of breathing and hypoxemic respiratory failure. Vent settings appropriate. New area of consolidation in the right lower lobe possibly consistent with aspiration or healthcare associated pneumonia as it developed greater than 48 hours from presentation. Wean oxygen as tolerated. GI -PPI. Hold tube feeds given pressor requirements for now. Bowel regimen as needed. AST and ALT increasing consistent with probable shock liver. Try to keep acetaminophen dose as low as possible. RENAL/LYTES -nephrology consultation reviewed. Anion gap and non-anion gap acidosis present on blood gas but lactate normal. Will give 1 amp of bicarb today. Creatinine improving. I think the diagnostic utility of giving the patient contrast for CT of the chest and abdomen would outweigh potential risk of worsening kidney function at this point in time. ENDO - glycemic control per protocol, currently on insulin infusion. Random cortisol appropriate no indication for stress dose steroids HEME -anemia, no evidence of acute blood loss and no indication for transfusion currently. ID -procalcitonin significantly increased today. Patient remains persistently febrile with increased white blood cell count. Currently receiving vancomycin and Zosyn. Cultures remain negative. Will proceed with CT angiogram as well as CT of the abdomen and pelvis with oral and IV contrast. Low threshold for consultation with infectious disease LINES/TUBES/DRAINS - Central line and arterial line in the femoral positions DVT PROPHYLAXIS - SQH DISPOSITION - ICU CODE STATUS - FULL I have personally spent 40 minutes of critical care time in the direct management of this patient. This is a life/limb threatening event. This includes time spent evaluating patient, direct bedside care, chart review, placing orders, interpretation of diagnostic studies, discussion with consultants, patient, and family members, as well as other required patient management activities. This time is exclusive of all separately billable procedures, and teaching time and separate from and in addition to any other critical care service time. Admission and Anticipated Discharge Date Admission Date: April 13, 2025 Subjective Patient is intubated and sedated. Discussed with bedside critical care nurse on multidisciplinary rounds as well as with overnight critical care NIRAV Review of Systems Review of Systems: Unobtainable due to endotracheal tube Physical Exam Constitutional: + mechanically ventilated Neck: trachea midline, no thyromegaly Respiratory: normal respiratory effort, lungs clear to auscultation Cardiovascular: RRR, no murmur, no edema Gastrointestinal (Abdomen): normal bowel sounds, soft, nontender, no h epatosplenomegaly Musculoskeletal: Extremities: extremities normal to inspection Skin: no rashes, warm and dry Lymphatic: no cervical lymphadenopathy Results & Data Results & Data Vital Signs (Past 12 Hours) Vital Signs Temp Pulse Resp BP Pulse Ox FiO2 04/15/25 05:09 38.4 C H 80 29 H 129/65 97 04/15/25 05:00 129/65 04/15/25 04:57 38.4 C H 80 28 H 97 04/15/25 04:30 38.5 C H 80 23 97 04/15/25 03:21 38.5 C H 80 19 97 04/15/25 03:00 92/58 L 04/15/25 03:00 90 04/15/25 03:00 88 33 H 98 90 04/15/25 02:24 38.8 C H 80 19 98 04/15/25 02:21 38.9 C H 80 18 97 04/15/25 01:03 38.3 C H 90 45 H 93 04/15/25 00:03 38.3 C H 80 27 H 101/62 97 04/15/25 00:00 81 04/14/25 23:57 38.3 C H 80 23 96 04/14/25 23:03 38.1 C H 80 21 111/59 L 96 04/14/25 23:00 30 H 80 04/14/25 23:00 80 04/14/25 22:48 38.1 C H 80 24 96 04/14/25 22:00 38.0 C H 81 34 H 124/69 94 04/14/25 21:09 38.0 C H 80 18 96 04/14/25 20:00 37.9 C H 80 24 95 Critical Care Results & Data Vital Signs (Past 12 Hours) Vital Signs Temp Pulse Resp BP Pulse Ox FiO2 04/15/25 05:09 38.4 C H 80 29 H 129/65 97 04/15/25 05:00 129/65 04/15/25 04:57 38.4 C H 80 28 H 97 04/15/25 04:30 38.5 C H 80 23 97 04/15/25 03:21 38.5 C H 80 19 97 04/15/25 03:00 92/58 L 04/15/25 03:00 90 04/15/25 03:00 88 33 H 98 90 04/15/25 02:24 38.8 C H 80 19 98 04/15/25 02:21 38.9 C H 80 18 97 04/15/25 01:03 38.3 C H 90 45 H 93 04/15/25 00:03 38.3 C H 80 27 H 101/62 97 04/15/25 00:00 81 04/14/25 23:57 38.3 C H 80 23 96 04/14/25 23:03 38.1 C H 80 21 111/59 L 96 04/14/25 23:00 30 H 80 04/14/25 23:00 80 04/14/25 22:48 38.1 C H 80 24 96 04/14/25 22:00 38.0 C H 81 34 H 124/69 94 04/14/25 21:09 38.0 C H 80 18 96 04/14/25 20:00 37.9 C H 80 24 95 Lab & Micro Results (Past 24 Hours) RBC 3.91 M/uL (4.20-5.40) L 04/15/25 WBC 14.96 K/ul (4.8-10.8) H 04/15/25 Hgb 10.1 g/dl (12.0-16.0) L 04/15/25 Hct 31.8 % (37.0-47.0) L 04/15/25 MCV 81.3 fL (80.0-100.0) 04/15/25 MCH 25.8 pg (25.0-34.0) 04/15/25 MCHC 31.8 g/dL (32.0-36.0) L 04/15/25 RDW Standard Deviation 51.8 fL (36.4-46.3) H 04/15/25 RDW Coefficient of Variation 17.5 % (11.5-14.5) H 04/15/25 Plt Count 147 K/uL (130-400) 04/15/25 MPV 11.5 fL (9.4-12.4) 04/15/25 Nucleated Red Blood Cells % (auto) 0.2 % 04/15 Nucleated RBC Absolute Count (auto) 0.03 K/uL (0.00-0.12) 0 04/15/25 Neutrophils (%) (Auto) 86.9 % 04/15/25 Lymphocytes (%) (Auto) 7.2 % 04/15/25 Monocytes # (Auto) 0.65 K/uL (0.11-0.59) H 04/15/25 Eosinophils # (Auto) 0.00 K/uL (0.00-0.50) 04/15/25 Immature Granulocyte % (Auto) 1.3 % 04/15/25 Neutrophils # (Auto) 12.99 K/uL (1.40-6.50) H 04/15/25 Lymphocytes # (Auto) 1.08 K/uL (1.20-3.40) L 04/15/25 Monocytes # (Auto) 0.65 K/uL (0.11-0.59) H 04/15/25 Eosinophils # (Auto) 0.00 K/uL (0.00-0.50) 04/15/25 Basophils # (Auto) 0.04 K/uL (0.00-0.20) 04/15/25 Immature Granulocyte # (Auto) 0.20 K/uL (0.01-0.20) 5 Echinocytes 1+ 04/15/25 Na 141 mmol/L (136-145) 04/15/25 K 4.5 mmol/L (3.5-5.1) 04/15/25 Cl 106 mmol/L (98-107) 04/15/25 CO2 17 mmol/L (21-32) L 04/15/25 Anion Gap 18 (3-11) H 04/15/25 BUN 24 mg/dl (6-23) H 04/15/25 Creatinine 1.88 mg/dl (0.6-1.2) H 04/15/25 BUN/Creatinine Ratio 12.8 (10-20) 04/15/25 Glu 149 mg/dl (70-99(Fasting)) H 04/15/25 Ca 10.0 mg/dl (8.6-10.3) 04/15/25 Phosphorus Level 3.2 mg/dl (2.5-4.9) 04/15/25 Total Bilirubin 0.6 mg/dl (0.2-1.0) 04/15/25 AST 309 U/L (13-39) H 04/15/25 ALT 452 U/L (7-52) H 04/15/25 Alkaline Phosphatase 56 U/L (34-104) 04/15/25 TP 5.3 gm/dl (6.0-8.3) L 04/15/25 Albumin 2.9 gm/dl (3.4-5.0) L 04/15/25 Globulin 2.4 gm/dl (2.5-4.0) L 04/15/25 Albumin/Globulin Ratio 1.2 (0.9-2) 04/15/25 Mg 2.0 mg/dl (1.7-2.4) 04/15/25 03:16 Calcium Level 10.0 mg/dl (8.6-10.3) 04/15/25 03:16 Microbiology 04/15/25 Unknown Gram Stain - Final Sputum,Vent Suction 04/13/25 20:23 Aerobic Blood Culture - Preliminary Blood No growth in Aerobic bottle after 24 hours. Anaerobic Blood Culture - Preliminary No growth in Anaerobic bottle after 24 hours. 04/13/25 20:37 Aerobic Blood Culture - Preliminary Blood No growth in Aerobic bottle after 24 hours. Anaerobic Blood Culture - Preliminary No growth in Anaerobic bottle after 24 hours. 04/14/25 Unknown Gram Stain - Final Sputum,Vent Suction Diagnostic Findings (Past 24 Hours) Chest X-Ray 04/15/25 03:17 EXAM: XR chest 1V portable CLINICAL HISTORY: hypoxemia, fever TECHNIQUE: Radiograph of chest was acquired. COMPARISON: CR dated 04/14/2025 00:52:00 [employer]. FINDINGS: Endotracheal tube is seen in situ with its tip at a distance of 3.8cm from the cecelia. Nasogastric tube insitu with tip in fundus There is obscuration of right costophrenic angle with opacification of right lower zone. Ill-defined opacities are seen in right upper and middle zone. Pacemaker is seen in situ. The cardiomediastinal silhouette is within normal limits. No acute osseous abnormality. IMPRESSION: 1. Endotracheal tube in situ with tip adequately positioned. 2. Right lower lobe consolidation with underlying right pleural effusion - new finding. Electronically signed by Carlo Alvarenga 04-15-2025 04:43 AM I & O Totals 24 Hours 04/14/25 04/15/25 04/16/25 06:59 06:59 06:59 Intake Total 7553.239 / 7553.239 3495.512 / 3495.512 Output Total 1230 / 1230 1385 / 1385 Balance 6323.239 / 6323.239 2110.512 / 2110.512 Cumulative 04/13/25 16:41 thru 04/15/25 06:59 Intake Total 82962.751 Output Total 2615 Balance 8433.751 RT Ventilator Mngmt (Last Documented) Ventilator Ordered Settings Ventilator Support Mode Assist Control 04/15/25 03:00 Respiratory Rate 29 04/15/25 05:09 Ventilator Tidal Volume 355 04/15/25 03:00 Setting Minute Ventilation 10 04/15/25 03:00 Positive End Expiratory 10 04/15/25 03:00 Pressure Fraction of Inspired Oxygen 90 04/15/25 03:00 Ventilator - PT Measurements Respiratory Rate 29 Exhaled Tidal Volume 357 Minute Ventilation 10 Peak Inspiratory Airway 21 Pressure Plateau Pressure 18 Respiratory Cycle Inspiratory: 1:2.3 Expiratory Ratio Inspiratory Phase Time 0.70 End-Tidal CO2 23 Static Lung Compliance 44.63 Dynamic Lung Compliance 32.45 Normal Static Lung Compliance 47.00 Patient Measurements Comment tube placement adjustment post chest x-ray Coding Level of Care Code 67998 CRITICAL CARE 1ST 30-74M Diagnoses Calcium channel edwin overdose T46.1X1A Schizoaffective disorder, depressive type F25.1 Schizoaffective disorder type: depressive Bipolar disorder F31.9 Acute kidney injury N17.9 High anion gap metabolic acidosis E87.29 Lactic acidosis E87.20 Leukocytosis D72.829 Mass of heart I51.89 Cardiogenic shock R57.0 Medical non-compliance Z91.199 (2) Schizoaffective disorder Schizoaffective disorder type: depressive Qualified Code(s): F25.1 - Schizoaffective disorder, depressive type
[2025-04-15] MEDS: SODIUM BICARB 8.4% INJ 50 MEQ/50 ML SYR IV STA (08:02)
--- NOTE | 2025-04-15 08:18 | Pharmacy Report ---
Pharmacy PK ABX Note - Date of Service April 15, 2025 - Assessment and Plan Assessment * 54 year old F admitted for intentional overdose on diltiazem who had a transthoracic echo as part of her workup that revealed a clearly visible right atrial mass. Unclear if this is infectious at this point but empiric coverage for endocarditis is warranted. Was receiving ceftriaxone and vancomycin but ceftriaxone was broadened to pip/tazo 04/15 AM due to new onset fever 04/14. WBC worsening today 04/15. Considering additional infectious etiology such as pneumonia and/or GI pathology. * Pertinent microbiologic data includes: * 04/13 MRSA nasal swab negative * 04/13 blood cultures x2 NGTD * 04/14 sputum culture w gram stain showing gram negative coccobacilli, GPC, GPR * 04/15 blood cultures x2 pending * 04/15 sputum culture pending * SCr is remains acutely elevated but is now trending down. Baseline 0.8 mg/dL. Trending 2.53 - 2.44 - 1.88 mg/dL Plan Vancomycin * Will continue to dose vancomycin via level for now 2nd acutely changing SCr * Random level of 15.0 mcg/mL this AM * Will re-dose vancomycin but at a higher dose than yesterday due to SCr improvement. 1250 mg ordered. * Random level ordered for tomorrow AM * If/when renal function stabilizes, target AUC/JOCELYN of 400-600 mg/L.hr Pharmacy will continue to follow and will adjust dose/frequency as necessary. Thank you. Pharmacy has transitioned to AUC monitoring for vancomycin. AUC/JOCELYN is the pre ferred PK/PD target and is associated with decreased risk of nephrotoxicity compared to traditional trough targets.
[2025-04-15] MEDS: VANCOMYCIN HCL 1,250 MG in SODIUM CHLORIDE 0.9% 250 ML IV ONE (08:25)
--- NOTE | 2025-04-15 08:56 | Cardiology Progress Note ---
Date of Service April 15, 2025 Assessment & Plan (1) Right atrial mass: (2) Pacemaker: (3) PSVT (paroxysmal supraventricular tachycardia): Plan 1. Right atrial mass: Clearly visible on transthoracic echo and confined to the atrium. I reviewed this with several of my partners and we are not sure of the significance. It is unlikely that a transesophageal echo would be of much benefit, therefore I do not think this is indicated. Despite the size of the mass we had felt that without evidence for embolization (pulmonary emboli) and no evidence of infection it may be preferable to leave this alone and follow it with echocardiography. We will await the blood culture results, so far they are negative, however now with a picture consistent with sepsis this may force our hand. If this is suggestive of endocarditis then that would alter our approach as it would have to be treated at that point. I am not sure we can do much with that here, the lead may need to be extracted and although it has been in for relatively short time so we might be able to do that here under the circumstances I would be reluctant. A further complication is that that mass would likely embolize if we were able to remove the lead. If her creatinine recovers enough I think a chest CT angiogram would be helpful, if there is evidence of embolization that might alter our approach as well. For now I agree with current management. 2. Pacemaker: Functioning well, rate increased to atrial pace at 80 bpm yesterday to override her accelerated junctional rhythm. This should be programmed back to 60 bpm at some point once she has stabilized. 3. PSVT: No clinically significant findings. Admission and Anticipated Discharge Date Admission Date: April 13, 2025 Subjective Remains intubated, sedated and on pressors. Events of past 24 hours reviewed. Physical Exam Physical Exam: Constitutional: Unresponsive, intubated HEENT: Cannot be adequately examined Neck: No jugular venous distention, carotid pulses are normal and equal bilaterally without bruits. Pulmonary: Clear to auscultation bilaterally. Cardiac: Regular rhythm with no murmur, gallop or rub. Abdomen: Soft, nontender with normal bowel sounds. Extremities: No edema. Neurologic: No exam is possible Skin: No rash, ecchymoses or petechiae. Results & Data Vital Signs (Past 12 Hours) Vital Signs Temp Pulse Resp BP Pulse Ox FiO2 04/15/25 08:45 37.3 C 80 21 94 04/15/25 08:30 37.5 C 80 26 H 95 04/15/25 08:00 126/73 04/15/25 08:00 37.9 C H 80 24 95 04/15/25 07:45 37.9 C H 80 26 H 97 04/15/25 07:33 37.9 C H 80 28 H 96 04/15/25 07:06 37.8 C H 80 28 H 99 04/15/25 07:00 124/75 04/15/25 07:00 0.6 04/15/25 07:00 80 32 H 94 50 04/15/25 05:09 38.4 C H 80 29 H 129/65 97 04/15/25 05:00 129/65 04/15/25 04:57 38.4 C H 80 28 H 97 04/15/25 04:30 38.5 C H 80 23 97 04/15/25 03:21 38.5 C H 80 19 97 04/15/25 03:00 92/58 L 04/15/25 03:00 90 04/15/25 03:00 88 33 H 98 90 04/15/25 02:24 38.8 C H 80 19 98 04/15/25 02:21 38.9 C H 80 18 97 04/15/25 01:03 38.3 C H 90 45 H 93 04/15/25 00:03 38.3 C H 80 27 H 101/62 97 04/15/25 00:00 81 04/14/25 23:57 38.3 C H 80 23 96 04/14/25 23:03 38.1 C H 80 21 111/59 L 96 04/14/25 23:00 30 H 80 04/14/25 23:00 80 04/14/25 22:48 38.1 C H 80 24 96 04/14/25 22:00 38.0 C H 81 34 H 124/69 94 04/14/25 21:09 38.0 C H 80 18 96 Laboratory Results Cardiac Enzymes 04/15/25 Range/Units 03:16 AST 309 H (13-39) U/L CBC 04/15/25 Range/Units 03:16 WBC 14.96 H (4.8-10.8) K/ul RBC 3.91 L (4.20-5.40) M/uL Hgb 10.1 L (12.0-16.0) g/dl Hct 31.8 L (37.0-47.0) % Plt Count 147 (130-400) K/uL Neut # (Auto) 12.99 H (1.40-6.50) K/uL Lymph # (Auto) 1.08 L (1.20-3.40) K/uL [place] # (Auto) 0.65 H (0.11-0.59) K/uL Eos # (Auto) 0.00 (0.00-0.50) K/uL Baso # (Auto) 0.04 (0.00-0.20) K/uL Comprehensive Metabolic Panel 04/14/25 04/14/25 04/15/25 Range/Units 15:23 19:54 00:30 Sodium 143 142 141 (136-145) mmol/L Potassium 3.8 D 4.4 4.5 (3.5-5.1) mmol/L Chloride 107 107 107 (98-107) mmol/L Carbon Dioxide 26 22 18 L (21-32) mmol/L BUN 21 20 22 (6-23) mg/dl Creatinine 2.00 H D 1.81 H 1.71 H (0.6-1.2) mg/dl Glucose 83 102 H 107 H (70-99(Fasting)) mg/dl Calcium 10.5 H 10.1 9.9 (8.6-10.3) mg/dl AST (13-39) U/L ALT (7-52) U/L Alkaline Phosphatase (34-104) U/L Total Protein (6.0-8.3) gm/dl Albumin (3.4-5.0) gm/dl 04/15/25 Range/Units 03:16 Sodium 141 (136-145) mmol/L Potassium 4.5 (3.5-5.1) mmol/L Chloride 106 (98-107) mmol/L Carbon Dioxide 17 L (21-32) mmol/L BUN 24 H (6-23) mg/dl Creatinine 1.88 H (0.6-1.2) mg/dl Glucose 149 H (70-99(Fasting)) mg/dl Calcium 10.0 (8.6-10.3) mg/dl AST 309 H (13-39) U/L ALT 452 H (7-52) U/L Alkaline Phosphatase 56 (34-104) U/L Total Protein 5.3 L (6.0-8.3) gm/dl Albumin 2.9 L (3.4-5.0) gm/dl Intake and Output 04/14/25 04/15/25 04/15/25 22:59 06:59 14:59 Intake Total 376.868 / 3495.512 1139.363 / 3495.512 66.887 / 66.887 Output Total 780 / 1385 355 / 1385 Balance -403.132 / 2110.512 784.363 / 2110.512 66.887 / 66.887 Intake: IV 376.868 / 3495.512 1139.363 / 3495.512 66.887 / 66.887 EPINEPHrine/NSS 16 mg In 250 ml 4.688 / 250.000 @ 0.6 MCG/KG/MIN 47.813 mls/hr IV .Q5H14M [facility] Rx#:[id number] Insulin Regular 250 units In 0 / 236.847 151.151 / 236.847 Sodium Chloride 0.9% 247.5 ml @ 4.6 UNITS/HR 4.6 mls/hr IV . Q24H [facility] Rx#:[id number] Norepinephrine/D5w 4 mg In 250 250 / 250 ml @ 0.05 MCG/KG/MIN 15.938 mls /hr IV .[id number] [facility] Rx#: [id number] Norepinephrine/Nss 16 mg In 250 105.680 / 276.847 161.727 / 276.847 ml @ 0.05 MCG/KG/MIN 4.148 mls /hr IV .Q24H [facility] Rx#:[id number] Phenylephrine/Nss 25 mg In 250 186.79 / 186.79 48.597 / 48.597 ml @ 0.9 MCG/KG/MIN 47.79 mls/ hr IV .Q5H14M [facility] Rx#:[id number] Piperacillin/Tazobactam 4.5 gm 100 / 100 In 100 ml @ 200 mls/hr IV [facility] Rx#:[id number] Potassium Chloride / Wtr 20 meq 100 / 200 In 100 ml @ 50 mls/hr IV Q2H [facility] Rx#:[id number] Vasopressin 20 units In Sodium 53.442 / 53.442 Chloride 0.9% 100 ml @ 0.04 UNIT/MIN 12.12 mls/hr IV . Q8H20M [facility] Rx#:[id number] cefTRIAXone SODIUM 2,000 mg In 50 / 50 50 ml @ 100 mls/hr IV DAILY [facility] Rx#:[id number] dexMEDEtomidine 200 mcg In 50 90.420 / 90.420 18.29 / 18.29 ml @ 0.8 MCG/KG/HR 17.7 mls/hr IV .Q2H50M [facility] Rx#:[id number] fentaNYL citrate 2,500 mcg In 116.5 / 281.166 145.833 / 281.166 250 ml @ 150 MCG/HR 15 mls/hr IV .[id number] [facility] Rx#:[id number] Output: Urine Amount (Catheter) 780 / 1385 355 / 1385 Mcdonnell/Indwelling 780 / 1385 355 / 1385 Other: Weight 92.7 kg Weight Measurement Method Built in [facility] Diagnostic Findings Telemetry: Atrial pacing at 80 bpm, no significant intrinsic rhythm at this rate. PG Care Time/CCT Total # of Minutes Spent Total Time Spent with Patient: Total time spent is greater than 50% in coordination of care (as documented) at patient's floor/unit and/or counseling patient: Coding Level of Care Code 64778 SUB INP/OBS CARE 2/35MIN Diagnoses Right atrial mass I51.89 Pacemaker Z95.0 PSVT (paroxysmal supraventricular tachycardia) I47.10
[2025-04-15 09:14] LABS: iSTAT Art Bld Gas Base Excess -9.0 meg/L (-9-1.8); iSTAT Art Bld Gas pCO2 Correct 31 mmHg (35-46); iSTAT Art Bld Gas pH Corrected 7.332 (7.35-7.45); iSTAT Arterial Blood Gas pO2 C 93
--- NOTE | 2025-04-15 09:46 | Nephrology Progress Note ---
Date of Service April 15, 2025 Assessment & Plan (1) MARY JANE (acute kidney injury): (2) Metabolic acidosis: (3) Elevated lactic acid level: (4) Hypotension: (5) Hypercalcemia: (6) Hyperkalemia: (7) Calcium channel edwin overdose: Plan 54-year-old female with baseline normal kidney function, baseline creatinine 0.8-0.9 mg/dl with past medical history of hypertension, diabetes, bipolar disorder and suicidal ideation and schizoaffective disorder, admitted with overdose with 50 tablets of 180 mg diltiazem. She was brought to ER after she was found collapsed in her front yard. On arrival she was awake and alert but within few hours she was intubated for less responsiveness and airway protection. She is profoundly hypotensive with systolic blood pressure in 60s and diastolic in 30s and started on epinephrine and norepinephrine. On admission lab was notable for MARY JANE, critical electrolyte abnormality. Received multiple IV fluid boluses and more than 6 L positive but having decent urine output, about 1.3 L overnight. Urinalysis with trace proteinuria but no hematu elizabeth or pyuria. MARY JANE in the setting of profound hypotension, kidney function slightly improved. Electrolyte abnormality started to improve. Volume status acceptable. Has decent urine output but overall net positive more than 8 L. --Continue on hemodynamic support, monitor kidney function and electrolyte closely. --Recommend Lasix 40 mg IV x 1 dose as she continues to be volume overloaded and more than 8 L positive and developing right-sided pleural effusion --Monitor intake and output --Avoid nephrotoxic medications Admission and Anticipated Discharge Date Admission Date: April 13, 2025 Daly Nelson was seen and evaluated this morning. Remains intubated and sedated and continues to require pressor the blood pressure slightly improved. Decent oxygen saturation hide 50% FiO2. Chest x-ray with right lower lobe consolidation and right-sided pleural effusion. Slight improvement in kidney function noted, creatinine down to 1.8, electrolyte abnormality improving. Review of Systems Review of Systems: Unobtainable due to endotracheal tube and Unobtainable due to reduced consciousness Physical Exam Constitutional: WD/WN, vitals as above + ill appearing and + mechanically ventilated Respiratory: Auscultation: lungs clear to auscultation bilaterally Cardiovascular: RRR, no murmur, no edema Gastrointestinal (Abdomen): Inspection/Auscultation: abdomen normal to inspection Percussion/Palpation: abdomen soft Musculoskeletal: Extremities: extremities normal to inspection Skin: no rashes Results & Data Vital Signs (Past 12 Hours) Vital Signs Temp Pulse Resp BP Pulse Ox FiO2 04/15/25 08:45 37.3 C 80 21 94 04/15/25 08:30 37.5 C 80 26 H 95 04/15/25 08:00 126/73 04/15/25 08:00 37.9 C H 80 24 95 04/15/25 07:45 37.9 C H 80 26 H 97 04/15/25 07:33 37.9 C H 80 28 H 96 04/15/25 07:06 37.8 C H 80 28 H 99 04/15/25 07:00 124/75 04/15/25 07:00 0.6 04/15/25 07:00 80 32 H 94 50 04/15/25 05:09 38.4 C H 80 29 H 129/65 97 04/15/25 05:00 129/65 04/15/25 04:57 38.4 C H 80 28 H 97 04/15/25 04:30 38.5 C H 80 23 97 04/15/25 03:21 38.5 C H 80 19 97 04/15/25 03:00 92/58 L 04/15/25 03:00 90 04/15/25 03:00 88 33 H 98 90 04/15/25 02:24 38.8 C H 80 19 98 04/15/25 02:21 38.9 C H 80 18 97 04/15/25 01:03 38.3 C H 90 45 H 93 04/15/25 00:03 38.3 C H 80 27 H 101/62 97 04/15/25 00:00 81 04/14/25 23:57 38.3 C H 80 23 96 04/14/25 23:03 38.1 C H 80 21 111/59 L 96 04/14/25 23:00 30 H 80 04/14/25 23:00 80 04/14/25 22:48 38.1 C H 80 24 96 04/14/25 22:00 38.0 C H 81 34 H 124/69 94 PG Care Time/CCT Total # of Minutes Spent Total Time Spent with Patient: Total time spent is greater than 50% in coordination of care (as documented) at patient's floor/unit and/or counseling patient: Coding Level of Care Code 35654 SUB INP/OBS CARE MIN Diagnoses MARY JANE (acute kidney injury) N17.9 Metabolic acidosis E87.20 Elevated lactic acid level R79.89 Hypotension I95.9 Hypotension type: unspecified hypotension type Hypercalcemia E83.52 Hyperkalemia E87.5 Calcium channel edwin overdose T46.1X1A (4) Hypotension Hypotension type: unspecified hypotension type Qualified Code(s): I95.9 - Hypotension, unspecified
[2025-04-15] MEDS: PIPERACILLIN/TAZOBACTAM 4.5 GM/100 ML BAG IV SCH (10:06)
[2025-04-15] MEDS: OPTIRAY 320 125ml IV ONE (10:57)
--- NOTE | 2025-04-15 11:27 | Pharmacy Report ---
Pharmacy Glycemic Short Note 2 - Date of Service April 15, 2025 - Glycemic Short BSG Results (Last 24 hours): 04/14/25 04/14/25 04/14/25 11:08 12:13 13:11 Glucose POC Glucose (other) 178 H 150 H 121 H 04/14/25 04/14/25 04/14/25 14:07 15:23 16:58 Glucose 83 POC Glucose (other) 102 H 93 04/14/25 04/15/25 04/15/25 19:54 00:28 00:30 Glucose 102 H 107 H POC Glucose (other) 108 H 04/15/25 04/15/25 04/15/25 03:16 04:34 08:12 Glucose 149 H POC Glucose (other) 171 H 185 H OUTPATIENT ANTIDIABETIC REGIMEN: * None * HbA1c 7.7% on 03/05/25 ASSESSMENT: * 54 yo F with T2DM but not on any diabetes medications admitted 04/13 for intentional diltiazem XR (calcium channel edwin/CCB) overdose/OD. * Poison center involved - did not recommend high dose insulin for treatment of CCB OD. * Insulin drip initiated 04/14 AM for hyperglycemia > 400 mg/dL. Insulin drip ran continuously but was held 04/14 PM for BSG of 93 mg/dL. Transitioned to Novolog q4h. * Discussed on ICU rounds 04/15 AM - significant pressor requirements and questionable absorption of SC insulin. Will transition back to insulin drip for hyperglycemia > 180 mg/dL plus initiation of trickle feeds. No bolus, starting at a low dose. Of note, high anion gap metabolic acidosis noted, but this was felt to be due to etiologies other than DKA therefore will not start dextrose containing fluids * Of note, CCB overdose can precipitate hyperglycemia - may see improvement in BSG's / possibly reduced insulin requirements as time goes on PLAN FOR INPATIENT GLYCEMIC CONTROL: * Insulin drip resuming at 1 unit/hr. Goal range 140-180 mg/dL. Titrate per protocol. Re-evaluate tomorrow AM. * Usually utilize Novolog to cover CHO, but will refrain from adding due to pressor requirements and low rate trickle feeds at this time
[2025-04-15] MEDS: PEPTAMEN INTENSE VHP 1.0 CAL 1,000 ML BAG OG SCH (11:29)
[2025-04-15] MEDS: TUBE FEEDING WATER FLUSH OG SCH (11:31)
--- NOTE | 2025-04-15 11:42 | CT Scan Report ---
CT angio chest PE protocol, CT abd pelvis oral and IV con CT DOSE: 2309.53 mGy.cm HISTORY: 54 years-old Female with PE. Acute shortness of breath with chest and abdominal pain TECHNIQUE: Multiple CTA images of the chest were obtained after the intravenous administration of 112 ml Optiray. Coronal and sagittal MIPS were obtained from the axial data set and were submitted for review. All measurements were obtained according to NASCET criteria. CT abdomen and pelvis with IV a nd oral contrast also obtained. A dose lowering technique was utilized adhering to the principles of ALARA. COMPARISON: Chest CT 03/11/2024, CT abdomen and pelvis April 21, 2022 FINDINGS: CTA: Heart is mildly enlarged. Left subclavian pacer. No pericardial effusion. No thoracic aortic aneurysm or dissection. No central pulmonary emboli. The segmental and subsegmental branches are not well zhao luated secondary to contrast bolus timing and respiratory motion. CT CHEST: No thyroid nodule. No pathologically enlarged lymph nodes. Small left with small to moderate right pl eural effusions. Deep and didn't bibasilar consolidation with additional patchy multifocal alveolar o pacities throughout the right lung. A few additional patchy densities are also noted within the left upper lobe. Endotracheal tube in place. Mild mucous plugging with tracheobronchial secretions. Unrema rkable soft tissues. No acute fracture is seen. CT ABDOMEN/PELVIS: No pneumatosis or pneumoperitoneum. Unremarkable spleen and atrophic pancreas. Bilateral adrenal glan d lesions are again noted measuring 2.4 cm on the right and 1.8 cm on the left, similar to the prior study. Liver is within normal limits. Distended gallbladder. Bilateral perinephric stranding. Left-si ded renal cysts. No hydronephrosis. Mcdonnell catheter is in place. Air within the nondependent bladder, likely secondary to instrumentation. Atherosclerosis of the aorta. No lymphadenopathy. Trace free pelvic fluid. An enteric tube distal tip terminates within the proximal stomach. Rolly-en-Y gastric bypass. A few dilated proximal contrast-filled loops of small bowel measure up to approximat azam 3.5 cm. More decompressed loops are present distally without clear transition point identified to suggest high-grade obstruction. No acute fracture. Possible small contusion lateral to the left hip. A left femoral catheter is in place. IMPRESSION: 1. No pulmonary emboli identified. 2. Mild bibasilar atelectasis is present. Additionally, there are patchy multifocal alveolar opacitie s which are most pronounced in the right lung suggestive of pneumonia versus aspiration pneumonitis. 3. Small left and klkhb-vj-gvuhtacp right pleural effusions. 4. A few mildly dilated contrast-filled loops of proximal small bowel with decompressed bowel seen di stally may be physiologic with low-grade obstruction considered less likely. Follow-up recommended. 5. Rolly-en-Y gastric bypass. ACT 112: Negative or not required by law. The above report was generated using voice recognition software. It may contain grammatical, syntax o r spelling errors. Electronically signed by: Issac Abdullahi M.D. 04/15/2025 11:41 AM
[2025-04-15] MEDS: INSULIN REGULAR 250 UNITS in SODIUM CHLORIDE 0.9% 247.5 ML IV SCH (11:47)
--- NOTE | 2025-04-15 18:00 | Hospitalist Progress Note ---
Date of Service April 15, 2025 Assessment & Plan (1) Calcium channel edwin overdose: Plan: 54-year-old woman with bipolar disorder who presented after an intentional overdose with long-acting diltiazem. She woke the following morning feeling poorly, collapsed and EMS was called. Diltiazem XR tablets 50x, 180mg each taken at approximately 1 AM on 04/13/2020. given calcium and emergency treatment for hyperkalemia. Admitted to ICU for shock, required intubation and mechanical ventilation as well as pressors. # toxidromic shock caused by intentional overdose of long-acting calcium channel edwin, endorgan dysfunction of MARY JANE # acute hypoxic respiratory failure present on admission # septic shock, unable to determine whether present on admission, obvious as of evening of 04/14 and caused by haemophilus influenzae pneumonia continue supportive care in the ICU including pressors, IV fluids, electrolyte replacements. Three pressors overnight, back down to two and weaning. managed by building tech appraiser boats and marine increased atrial pacing to 80 to override her junctional rhythm lactate severely elevated in ED remains elevated but improvement continues continue intubation and mechanical ventilation until stable - managed by building tech continue antibiotics as below, CT imaging discussed below # haemophilus influenzae RLL pneumonia, unclear whether she also has a component of aspiration pneumonia/pneumonitis # endocarditis possible CTA chest and CT abd/pelvis with IV/po contrast reviewed - patchy multifocal right lung opacities, bilateral pleural effusions small-mod, mildly dilated small bowel, gastric bypass. No PE or appearance of septic pulm emboli. -sputum cx with H. flu -blood cultures from admission and 04/15 pending ngtd -continue pip-tazo and vancomycin # MARY JANE/ metabolic acidosis/hyperkalemia continue IV fluids, supportive care with adequate MAP as above, hyperkalemia has resolved sub arc operator consulted she has had good urine output and creatinine improved to 1.8 continue monitoring UOP and BMP # suicide attempt /bipolar disorder/PTSD/schizoaffective disorder consulted psychiatrist, discussed with Dr. Carroll 04/14. reevaluate once awake/alert - continue lamotrigine, and venlafaxine. Olanzapine currently held once extubated needs one-to-one observation, should not be allowed to leave AMA, highly likely to need inpatient psychiatric admission once medically stable "There is a 302 petitioning statement on the chart. Once extubated the patient should remain on safety precautions with 1-on-1 pending medical clearance. The patient is not psychiatrically cleared to leave the hospital without additional safety or aftercare planning; theyshould not be allowed to leave AMA without notification to our service as a 302 warrant would be appropriate." # right atrial mass consulted cardiology, reviewed recommendations in Dr. Mcfarland's note today well-visualized on TTE and RAYMON will not provide additional benefit -septic shock raised more concern for endocarditis but blood cultures negative so far and no septic emboli on chest CT monitor with TTE # mild transaminitis is related to ischemic hepatitis from shockmonitor LFTs. Worse today, related to worsened shock overnight # Type II DM ICU hyperglycemia protocol BG at goal # History of nonepileptic seizures Noted DVT Prophylaxis: Heparin SQ Discussed plan of care with INTERIOR WALL ASSEMBLER at bedside, patient (2) PSVT (paroxysmal supraventricular tachycardia): (3) Schizoaffective disorder: (4) Dyslipidemia due to type 2 diabetes mellitus: Admission and Anticipated Discharge Date Admission Date: April 13, 2025 Subjective remains intubated though is alert mouthing words can nod yes/no had high fevers all last night antibiotics were broadened to pip-tazo and vancomycin, hypoxia worsened and hypotension worsened requiring increased pressors Physical Exam 2 Physical Exam: Last 24h vitals reviewed GEN: awake alert intubated HEENT: pupils equal, sclerae anicteric, moist MM. ET tube in place RESP: Vent sounds bilaterally CV: reg no mrg ABD: nondistended bowel tones present : Mcdonnell catheter draining yellow urine SKIN: warm and dry, no generalized rashes no extremity edema NEURO: awake following basic commands and nodding yes/no, moving 4 extremities spontaneously Results & Data Results & Data Vital Signs (Past 12 Hours) Vital Signs Temp Pulse Resp BP Pulse Ox O2 Del Method FiO2 04/15/25 15:00 80 28 H 94 60 04/15/25 15:00 0.6 04/15/25 12:21 37.4 C 80 25 H 92 Mechanical Vent 04/15/25 12:00 37.4 C 80 31 H 92 04/15/25 12:00 111/58 L 04/15/25 12:00 111/58 L 04/15/25 12:00 111/58 L 04/15/25 11:45 37.4 C 80 29 H 92 04/15/25 11:36 37.4 C 80 31 H 92 04/15/25 11:21 110/64 04/15/25 11:21 110/64 04/15/25 11:18 37.3 C 81 23 94 04/15/25 11:18 0.45 04/15/25 11:00 80 31 H 92 50 04/15/25 10:15 37.3 C 80 28 H 94 04/15/25 10:09 37.3 C 80 24 95 04/15/25 09:54 37.2 C 80 23 95 04/15/25 09:15 37.3 C 80 19 95 04/15/25 09:01 126/69 04/15/25 08:51 37.3 C 80 23 94 04/15/25 08:45 37.3 C 80 21 94 04/15/25 08:30 37.5 C 80 26 H 95 04/15/25 08:00 126/73 04/15/25 08:00 37.9 C H 80 24 95 04/15/25 07:48 Mechanical Vent 0.45 04/15/25 07:45 37.9 C H 80 26 H 97 04/15/25 07:33 37.9 C H 80 28 H 96 04/15/25 07:06 37.8 C H 80 28 H 99 04/15/25 07:00 124/75 04/15/25 07:00 0.6 04/15/25 07:00 80 32 H 94 50 Laboratory Results 04/15/25 03:16 04/15/25 03:16 ABG 7.3 04/18/82 on 90% FiO2 this was overnight chemistry panel notable for elevated anion gap, metabolic acidosis MARY JANE improved creatinine 1.8 lactate normalized Calcium 10.0 bilirubin remains normal AST ALT increased to [id number] procalcitonin up to 6.29 urinalysis negative for pyuria chest x-ray personally reviewed film shows a dense right base consolidation PG Care Time/CCT Total # of Minutes Spent Total Time Spent with Patient: Total time spent is greater than 50% in coordination of care (as documented) at patient's floor/unit and/or counseling patient: Coding Level of Care Code 65335 SUB INP/OBS CARE 3/50MIN Diagnoses Calcium channel edwin overdose T46.1X1A PSVT (paroxysmal supraventricular tachycardia) I47.10 Schizoaffective disorder, depressive type F25.1 Schizoaffective disorder type: depressive Dyslipidemia due to type 2 diabetes mellitus E11.69; E78.5 (3) Schizoaffective disorder Schizoaffective disorder type: depressive Qualified Code(s): F25.1 - Schizoaffective disorder, depressive type
--- NOTE | 2025-04-15 19:58 | Procedure Note ---
Procedure Note Date of Service April 15, 2025 INTERNAL JUGULAR CENTRAL LINE PROCEDURE NOTE: Procedure: Internal Jugular Central Line Placement Attending: Dr. Sandoval APC/Proceduralist: Farnaz Lion PA-C Indication: Central Drug Administration, Poor Venous Access, Multiple Lab Draws Necessary, etc. - Moving CVC from L groin to RIJ Anesthesia: Lidocaine 1% Emergent consent implied. A time-out was completed verifying correct patient, procedure, site, positioning, and implants(s) or special equipment if applicable. Patients R Neck was cleansed and draped in the typical sterile fashion using Chloraprep. The Internal Jugular Vein and Carotid Artery were identified using ultrasound. The superficial tissue was anesthetized using 4 mL of 1% lidocaine without epinephrine under direct visualization with the ultrasound. After adequate anesthetization was achieved, the Internal Jugular vein was cannulated under direct ultrasound guidance using an introducer needle on a syringe. Good venous blood return was maintained prior to removal of syringe from introducer needle. Using Seldinger Technique, a guide wire was advanced through the introducer needle without resistance. The introducer needle was removed and the guide wire was seen within the Internal Jugular Vein on multiple views. A small incision was made in penetrating fashion at the guide wire insertion site utilizing an 11 blade scalpel. The dilator was advanced to the vessel without resistance. The dilator was exchanged for the triple lumen catheter which was advanced into the vessel without resistance. The guide wire was removed intact from the catheter without issue. Claves were placed on each catheter tip with confirmation of good blood flow from each lumen. Each port was easily flushed with sterile saline. The catheter was placed at 17 cm and sut[address] in place. A sterile CHG-embedded Tegaderm dressing was applied over the catheter with careful attention to sterility. Patient tolerated procedure well. No immediate complications were met. Post procedure x-ray was completed, placement was appropriate and no pneumothorax was noted. [facility] [place] Procedure Codes (Charges) Tubes, Drains, and Vasc Access Procedure 1: Tubes, Drains, and Vasc Access: [id number] Place catheter in vein superior or inferior vena cava Coding CPT Codes Tubes, Drains, and Vasc Access - Tubes, Drains, and Vasc Access: [id number] Place catheter in vein superior or inferior vena cava ([id number]) Additional Codes Date of Service ([facility].SURGERY)
--- NOTE | 2025-04-15 20:52 | XRay Report ---
Exam(s): XR CXR 1 VIEW EXAM: XR Chest, 1 View CLINICAL HISTORY: Reason for exam: for left neck line placement. TECHNIQUE: Frontal view of the chest. COMPARISON: Chest radiograph on 04/15/2025 at 3:17 a.m. FINDINGS: Hardware: Endotracheal tube terminates approximately 3.8 cm above the cecelia. Enteric tube loops in the region of the gastric body. Right- sided central venous catheter terminates near the cavoatrial junction. Lungs/pleura: Similar opacities in dpiel-tmaroso-bwgw-left lungs. Probable small right pleural effusion. Heart/mediastinum: Left-sided pacemaker. No cardiomegaly. Soft tissues: Unremarkable. Bones: No acute fracture. Upper abdomen: Normal. IMPRESSION: 1. Endotracheal tube terminates approximately 3.8 cm above the cecelia. Enteric tube loops in the region of the gastric body. Right-sided central venous catheter terminates near the cavoatrial junction. 2. Similar opacities in lbnpg-aftlgkl-gxzx-left lungs. Probable small right pleural effusion. Electronically signed by: Dayton Ambrose M.D. 04/15/25 20:52 PM
[2025-04-16 06:05] LABS: Hematocrit (blood only) 27.8 % (37.0-47.0); Hemoglobin 9.0 g/dl (12.0-16.0); Mean Corpuscular Hemoglobin 26.1 pg (25.0-34.0); Mean Corpuscular Volume 80.6 fL (80.0-100.0); Platelet Count 101 K/uL (130-400); RDW Standard Deviation 51.8 fL (36.4-46.3); Red Blood Count 3.45 M/uL (4.20-5.40); White Blood Count 11.77 K/ul (4.8-10.8)
[2025-04-16 06:14] LABS: Alanine Aminotransferase 328.0 U/L (7-52); Albumin Globulin Ratio 1.3 (0.9-2); Alkaline Phosphatase 55.0 U/L (34-104); Anion Gap 7.0 (3-11); Bilirubin,Total 0.5 mg/dl (0.2-1.0); Blood Urea Nitrogen 23.0 mg/dl (6-23); Calcium 8.8 mg/dl (8.6-10.3); Carbon Dioxide 26.0 mmol/L (21-32); Chloride 105.0 mmol/L (98-107); Creatinine Clr Calc Pharmacy 51.2 ml/min; Globulin 2.3 gm/dl (2.5-4.0); Glucose 147.0 mg/dl (70-99(Fasting)); Magnesium 1.8 mg/dl (1.7-2.4); Potassium 3.2 mmol/L (3.5-5.1); Sodium 138.0 mmol/L (136-145); Total Protein 5.2 gm/dl (6.0-8.3)
[2025-04-16 06:26] LABS: Immature Granulocytes # (auto) 0.27 K/uL (0.01-0.20); Immature Granulocytes % (auto) 2.3 %; Polychromasia 1+
[2025-04-16] MEDS ORDERED: POTASSIUM PHOS 3 MMOL/1 ML INFUSION IV STA (06:37)
[2025-04-16] MEDS: POTASSIUM CHLORIDE / WTR 20 MEQ/100 ML PLCT IV ONE (06:45)
[2025-04-16] MEDS: MAGNESIUM SULFATE / D5W 1 GM/100 ML BAG IV SCH (06:45)
[2025-04-16 07:20] LABS: Toxic Vacuolation 1+
--- NOTE | 2025-04-16 07:34 | Critical Care Progress Note ---
Date of Service April 16, 2025 Assessment & Plan (1) Calcium channel edwin overdose: (2) Schizoaffective disorder: (3) Bipolar disorder: (4) Acute kidney injury: (5) High anion gap metabolic acidosis: (6) Lactic acidosis: (7) Leukocytosis: (8) Mass of heart: (9) Cardiogenic shock: (10) Medical non-compliance: Plan Impression: 54-year-old female with suicide attempt with long-acting calcium channel edwin admitted with lactic acidosis, acute renal failure, severe hypotension. 24-hour events: Patient is had improvement in hemodynamics and ventilator requirements. She is down to 40% FiO2 with 8 of PEEP. She remains febrile. Cultures from the vent circuit grew beta-lactamase negative haemophilus. She is now only on norepinephrine. Trophic tube feeding was started. CT imaging of the chest abdomen pelvis performed with findings noted abovesignificant right sided infiltrative pneumonic process without significant intra-abdominal pathology. Her femoral central venous catheter was removed and replaced with an IJ central venous catheter. Recommendation: Neuro -sedated but awake and following commands. Will wean sedation to off for SBT. Holding Adderall, Zyprexa, and clonazepam. Continue with Lamictal. Suicide attempt with calcium channel edwin overdose. Behavioral health evaluation once medically stable. Will need physical therapy and Occupational Therapy evaluations once extubated. Cardiac -multifactorial hypotension, resolving. Discontinue femoral arterial line. Continue to wean norepinephrine as tolerated. Anticipate that once we get her off fentanyl and Precedex, her hypotension should resolve. Agree with diuretics. Respiratory -intubated due to increased work of breathing and hypoxemic respiratory failure. Minimal vent settings today. Will proceed with sedation break in conjunction with SBT for possible vent liberation today. GI -PPI. Hold tube feeds for possible extubation. Transaminases decreasing consistent with shock liver. RENAL/LYTES -nephrology notes reviewed. Kidney function improving. Initiate ICU electrolyte replacement protocol. Will increase diuretics and follow kidney function. ENDO - glycemic control per protocol, currently on insulin infusion. Random cortisol appropriate no indication for stress dose steroids HEME -anemia, no evidence of acute blood loss and no indication for transfusion currently. ID -haemophilus pneumonia. Completed 3 days empiric vancomycin. De-escalate to Rocephin which should be adequate to cover respiratory pathogens. LINES/TUBES/DRAINS - Central line IJ. Remove femoral arterial line today DVT PROPHYLAXIS - SQH DISPOSITION - ICU CODE STATUS - FULL Admission and Anticipated Discharge Date Admission Date: April 13, 2025 Subjective Patient seen and examined. Reviewed. Discussed with bedside critical care nurse as well as with overnight critical care NIRAV and on multidisciplinary rounds. Patient remains intubated and sedated. She is able to follow some commands. Review of Systems Review of Systems: Unobtainable due to endotracheal tube Physical Exam Constitutional: + mechanically ventilated Neck: trachea midline, no thyromegaly Respiratory: no respiratory distress, no labored breathing, no cough and not tachypneic Auscultation: + rhonchi; no wheezes Cardiovascular: RRR, no murmur, no edema Gastrointestinal (Abdomen): normal bowel sounds, soft, nontender, no hepatosplenomegaly Musculoskeletal: Extremities: extremities normal to inspection Skin: no rashes, warm and dry Lymphatic: no cervical lymphadenopathy Results & Data Results & Data Vital Signs (Past 12 Hours) Vital Signs Temp Pulse Resp BP Pulse Ox FiO2 04/16/25 06:00 124/74 04/16/25 05:55 26 H 40 04/16/25 05:33 38.1 C H 80 26 H 100 04/16/25 05:00 38.1 C H 80 26 H 98 04/16/25 05:00 132/74 04/16/25 04:11 80 27 H 98 60 04/16/25 04:00 38.0 C H 80 26 H 98 04/16/25 04:00 128/69 04/16/25 04:00 128/69 04/16/25 04:00 128/69 04/16/25 04:00 132/63 04/16/25 03:03 37.9 C H 80 26 H 98 04/16/25 03:00 129/70 04/16/25 03:00 129/70 04/16/25 03:00 60 04/16/25 02:57 37.9 C H 80 26 H 96 04/16/25 02:00 37.9 C H 80 26 H 96 04/16/25 02:00 123/73 04/16/25 02:00 123/73 04/16/25 02:00 123/73 04/16/25 01:21 37.9 C H 80 26 H 92 04/16/25 01:00 117/71 04/16/25 01:00 117/71 04/16/25 00:21 37.8 C H 80 26 H 96 04/16/25 00:00 37.8 C H 80 26 H 95 04/16/25 00:00 121/69 04/16/25 00:00 121/69 04/16/25 00:00 120/58 L 04/15/25 23:12 37.8 C H 80 27 H 92 04/15/25 23:00 117/73 04/15/25 23:00 60 04/15/25 22:54 37.8 C H 80 26 H 94 04/15/25 22:03 37.9 C H 80 22 93 04/15/25 22:00 115/68 04/15/25 22:00 115/68 04/15/25 22:00 115/68 04/15/25 22:00 115/68 04/15/25 22:00 115/68 04/15/25 21:57 37.9 C H 80 30 H 100 04/15/25 21:43 107/04/15/25 21:43 107/71 04/15/25 21:43 107/71 04/15/25 21:43 107/71 04/15/25 21:36 80 25 H 89 L 04/15/25 21:03 84 93 04/15/25 20:15 80 29 H 92 60 04/15/25 20:00 37.8 C H 80 27 H 92 Critical Care Results & Data Vital Signs (Past 12 Hours) Vital Signs Temp Pulse Resp BP Pulse Ox FiO2 04/16/25 06:00 124/74 04/16/25 05:55 26 H 40 04/16/25 05:33 38.1 C H 80 26 H 100 04/16/25 05:00 38.1 C H 80 26 H 98 04/16/25 05:00 132/74 04/16/25 04:11 80 27 H 98 60 04/16/25 04:00 38.0 C H 80 26 H 98 04/16/25 04:00 128/69 04/16/25 04:00 128/69 04/16/25 04:00 128/69 04/16/25 04:00 132/63 04/16/25 03:03 37.9 C H 80 26 H 98 04/16/25 03:00 129/70 04/16/25 03:00 129/70 04/16/25 03:00 60 04/16/25 02:57 37.9 C H 80 26 H 96 04/16/25 02:00 37.9 C H 80 26 H 96 04/16/25 02:00 123/73 04/16/25 02:00 123/73 04/16/25 02:00 123/73 04/16/25 01:21 37.9 C H 80 26 H 92 04/16/25 01:00 117/71 04/16/25 01:00 117/71 04/16/25 00:21 37.8 C H 80 26 H 96 04/16/25 00:00 37.8 C H 80 26 H 95 04/16/25 00:00 121/69 04/16/25 00:00 121/69 04/16/25 00:00 120/58 L 04/15/25 23:12 37.8 C H 80 27 H 92 04/15/25 23:00 117/73 04/15/25 23:00 60 04/15/25 22:54 37.8 C H 80 26 H 94 04/15/25 22:03 37.9 C H 80 22 93 04/15/25 22:00 115/68 04/15/25 22:00 115/68 04/15/25 22:00 115/68 04/15/25 22:00 115/68 04/15/25 22:00 115/68 04/15/25 21:57 37.9 C H 80 30 H 100 04/15/25 21:43 107/71 04/15/25 21:43 107/71 04/15/25 21:43 107/71 04/15/25 21:43 107/71 04/15/25 21:36 80 25 H 89 L 04/15/25 21:03 84 93 04/15/25 20:15 80 29 H 92 60 04/15/25 20:00 37.8 C H 80 27 H 92 Lab & Micro Results (Past 24 Hours) RBC 3.45 M/uL (4.20-5.40) L 04/16/25 WBC 11.77 K/ul (4.8-10.8) H 04/16/25 Hgb 9.0 g/dl (12.0-16.0) L 04/16/25 Hct 27.8 % (37.0-47.0) L 04/16/25 MCV 80.6 fL (80.0-100.0) 04/16/25 MCH 26.1 pg (25.0-34.0) 04/16/25 MCHC 32.4 g/dL (32.0-36.0) 04/16/25 RDW Standard Deviation 51.8 fL (36.4-46.3) H 04/16/25 RDW Coefficient of Variation 17.7 % (11.5-14.5) H 04/16/25 Plt Count 101 K/uL (130-400) L 04/16/25 MPV 11.0 fL (9.4-12.4) 04/16/25 Nucleated Red Blood Cells % (auto) 0.2 % 04/16 Nucleated RBC Absolute Count (auto) 0.02 K/uL (0.00-0.12) 0 04/16/25 Neutrophils (%) (Auto) 83.4 % 04/16/25 Lymphocytes (%) (Auto) 10.0 % 04/16/25 Monocytes # (Auto) 0.46 K/uL (0.11-0.59) 04/16/25 Eosinophils # (Auto) 0.02 K/uL (0.00-0.50) 04/16/25 Immature Granulocyte % (Auto) 2.3 % 04/16/25 Neutrophils # (Auto) 9.82 K/uL (1.40-6.50) H 04/16/25 Lymphocytes # (Auto) 1.18 K/uL (1.20-3.40) L 04/16/25 Monocytes # (Auto) 0.46 K/uL (0.11-0.59) 04/16/25 Eosinophils # (Auto) 0.02 K/uL (0.00-0.50) 04/16/25 Basophils # (Auto) 0.02 K/uL (0.00-0.20) 04/16/25 Immature Granulocyte # (Auto) 0.27 K/uL (0.01-0.20) H 04/16 Polychromasia 1+ 04/16/25 Na 138 mmol/L (136-145) 04/16/25 K 3.2 mmol/L (3.5-5.1) L 04/16/25 Cl 105 mmol/L (98-107) 04/16/25 CO2 26 mmol/L (21-32) 04/16/25 Anion Gap 7 (3-11) 04/16/25 BUN 23 mg/dl (6-23) 04/16/25 Creatinine 1.28 mg/dl (0.6-1.2) H 04/16/25 BUN/Creatinine Ratio 18.0 (10-20) 04/16/25 Glu 147 mg/dl (70-99(Fasting)) H 04/16/25 Ca 8.8 mg/dl (8.6-10.3) 04/16/25 Phosphorus Level 1.9 mg/dl (2.5-4.9) L 04/16/25 Total Bilirubin 0.5 mg/dl (0.2-1.0) 04/16/25 AST 111 U/L (13-39) H 04/16/25 ALT 328 U/L (7-52) H 04/16/25 Alkaline Phosphatase 55 U/L (34-104) 04/16/25 TP 5.2 gm/dl (6.0-8.3) L 04/16/25 Albumin 2.9 gm/dl (3.4-5.0) L 04/16/25 Globulin 2.3 gm/dl (2.5-4.0) L 04/16/25 Albumin/Globulin Ratio 1.3 (0.9-2) 04/16/25 Mg 1.8 mg/dl (1.7-2.4) 04/16/25 05:20 Calcium Level 8.8 mg/dl (8.6-10.3) 04/16/25 05:20 Microbiology 04/15/25 03:16 Aerobic Blood Culture - Preliminary Blood No growth in Aerobic bottle after 24 hours. Anaerobic Blood Culture - Preliminary No growth in Anaerobic bottle after 24 hours. 04/15/25 03:16 Aerobic Blood Culture - Preliminary Blood No growth in Aerobic bottle after 24 hours. Anaerobic Blood Culture - Preliminary No growth in Anaerobic bottle after 24 hours. 04/13/25 20:23 Aerobic Blood Culture - Preliminary Blood No growth in Aerobic bottle after 48 hours. Anaerobic Blood Culture - Preliminary No growth in Anaerobic bottle after 48 hours. 04/13/25 20:37 Aerobic Blood Culture - Preliminary Blood No growth in Aerobic bottle after 48 hours. Anaerobic Blood Culture - Preliminary No growth in Anaerobic bottle after 48 hours. 04/14/25 Unknown Gram Stain - Final Sputum,Vent Suction Sputum Culture - Preliminary Haemo.influ betalactamase neg 04/15/25 Unknown Gram Stain - Final Sputum,Vent Suction Diagnostic Findings (Past 24 Hours) Abdomen/Pelvis CT 04/15/25 07:44 CT angio chest PE protocol, CT abd pelvis oral and IV con CT DOSE: 2309.53 mGy.cm HISTORY: 54 years-old Female with PE. Acute shortness of breath with chest and abdominal pain TECHNIQUE: Multiple CTA images of the chest were obtained after the intravenous administration of 112 ml Optiray. Coronal and sagittal MIPS were obtained from the axial data set and were submitted for review. All measurements were obtained according to NASCET criteria. CT abdomen and pelvis with IV and oral contrast also obtained. A dose lowering technique was utilized adhering to the principles of ALARA. COMPARISON: Chest CT 03/11/2024, CT abdomen and pelvis April 21, 2022 FINDINGS: CTA: Heart is mildly enlarged. Left subclavian pacer. No pericardial effusion. No thoracic aortic aneurysm or dissection. No central pulmonary emboli. The segmental and subsegmental branches are not well evaluated secondary to contrast bolus timing and respiratory motion. CT CHEST: No thyroid nodule. No pathologically enlarged lymph nodes. Small left with small to moderate right pleural effusions. Deep and didn't bibasilar consolidation with additional patchy multifocal alveolar opacities throughout the right lung. A few additional patchy densities are also noted within the left upper lobe. Endotracheal tube in place. Mild mucous plugging with tracheobronchial secretions. Unremarkable soft tissues. No acute fracture is seen. CT ABDOMEN/PELVIS: No pneumatosis or pneumoperitoneum. Unremarkable spleen and atrophic pancreas. Bilateral adrenal gland lesions are again noted measuring 2.4 cm on the right and 1.8 cm on the left, similar to the prior study. Liver is within normal limits. Distended gallbladder. Bilateral perinephric stranding. Left-sided renal cysts. No hydronephrosis. Mcdonnell catheter is in place. Air within the nondependent bladder, likely secondary to instrumentation. Atherosclerosis of the aorta. No lymphadenopathy. Trace free pelvic fluid. An enteric tube distal tip terminates within the proximal stomach. Rolly-en-Y gastric bypass. A few dilated proximal contrast- filled loops of small bowel measure up to approximately 3.5 cm. More decompressed loops are present distally without clear transition point identified to suggest high-grade obstruction. No acute fracture. Possible small contusion lateral to the left hip. A left femoral catheter is in place. IMPRESSION: 1. No pulmonary emboli identified. 2. Mild bibasilar atelectasis is present. Additionally, there are patchy multifocal alveolar opacities which are most pronounced in the right lung suggestive of pneumonia versus aspiration pneumonitis. 3. Small left and vfrun-pv-[id number] right pleural effusions. 4. A few mildly dilated contrast-filled loops of proximal small bowel with decompressed bowel seen distally may be physiologic with low-grade obstruction considered less likely. Follow-up recommended. 5. Rolly-en-Y gastric bypass. ACT 112: Negative or not required by law. The above report was generated using voice recognition software. It may contain grammatical, syntax or spelling errors. Electronically signed by: Issac bAdullahi M.D. 04/15/2025 11:41 AM Chest CTA 04/15/25 07:44 CT angio chest PE protocol, CT abd pelvis oral and IV con CT DOSE: 2309.53 mGy.cm HISTORY: 54 years-old Female with PE. Acute shortness of breath with chest and abdominal pain TECHNIQUE: Multiple CTA images of the chest were obtained after the intravenous administration of 112 ml Optiray. Coronal and sagittal MIPS were obtained from the axial data set and were submitted for review. All measurements were obtained according to NASCET criteria. CT abdomen and pelvis with IV and oral contrast also obtained. A dose lowering technique was utilized adhering to the principles of ALARA. COMPARISON: Chest CT 03/11/2024, CT abdomen and pelvis April 21, 2022 FINDINGS: CTA: Heart is mildly enlarged. Left subclavian pacer. No pericardial effusion. No thoracic aortic aneurysm or dissection. No central pulmonary emboli. The segmental and subsegmental branches are not well evaluated secondary to contrast bolus timing and respiratory motion. CT CHEST: No thyroid nodule. No pathologically enlarged lymph nodes. Small left with small to moderate right pleural effusions. Deep and didn't bibasilar consolidation with additional patchy multifocal alveolar opacities throughout the right lung. A few additional patchy densities are also noted within the left upper lobe. Endotracheal tube in place. Mild mucous plugging with tracheobronchial secretions. Unremarkable soft tissues. No acute fracture is seen. CT ABDOMEN/PELVIS: No pneumatosis or pneumoperitoneum. Unremarkable spleen and atrophic pancreas. Bilateral adrenal gland lesions are again noted measuring 2.4 cm on the right and 1.8 cm on the left, similar to the prior study. Liver is within normal limits. Distended gallbladder. Bilateral perinephric stranding. Left-sided renal cysts. No hydronephrosis. Mcdonnell catheter is in place. Air within the nondependent bladder, likely secondary to instrumentation. Atherosclerosis of the aorta. No lymphadenopathy. Trace free pelvic fluid. An enteric tube distal tip terminates within the proximal stomach. Rolly-en-Y gastric bypass. A few dilated proximal contrast- filled loops of small bowel measure up to approximately 3.5 cm. More decompressed loops are present distally without clear transition point identified to suggest high-grade obstruction. No acute fracture. Possible small contusion lateral to the left hip. A left femoral catheter is in place. IMPRESSION: 1. No pulmonary emboli identified. 2. Mild bibasilar atelectasis is present. Additionally, there are patchy multifocal alveolar opacities which are most pronounced in the right lung suggestive of pneumonia versus aspiration pneumonitis. 3. Small left and [id number] right pleural effusions. 4. A few mildly dilated contrast-filled loops of proximal small bowel with decompressed bowel seen distally may be physiologic with low-grade obstruction considered less likely. Follow-up recommended. 5. Rolly-en-Y gastric bypass. ACT 112: Negative or not required by law. The above report was generated using voice recognition software. It may contain grammatical, syntax or spelling errors. Electronically signed by: Issac Abdullahi M.D. 04/15/2025 11:41 AM Chest X-Ray 04/15/25 19:44 Exam(s): XR CXR 1 VIEW EXAM: XR Chest, 1 View CLINICAL HISTORY: Reason for exam: for left neck line placement. TECHNIQUE: Frontal view of the chest. COMPARISON: Chest radiograph on 04/15/2025 at 3:17 a.m. FINDINGS: Hardware: Endotracheal tube terminates approximately 3.8 cm above the cecelia. Enteric tube loops in the region of the gastric body. Right- sided central venous catheter terminates near the cavoatrial junction. Lungs/pleura: Similar opacities in [id number]-left lungs. Probable small right pleural effusion. Heart/mediastinum: Left-sided pacemaker. No cardiomegaly. Soft tissues: Unremarkable. Bones: No acute fracture. Upper abdomen: Normal. IMPRESSION: 1. Endotracheal tube terminates approximately 3.8 cm above the cecelia. Enteric tube loops in the region of the gastric body. Right-sided central venous catheter terminates near the cavoatrial junction. 2. Similar opacities in ixmcj-[id number]-lcdw-left lungs. Probable small right pleural effusion. Electronically signed by: Dayton Ambrose M.D. 04/15/25 20:52 PM I & O Totals 24 Hours 04/15/25 04/16/25 04/17/25 06:59 06:59 06:59 Intake Total 3495.512 / 3495.512 3289.779 / 3289.779 87.800 / 87.800 Output Total 1385 / 1385 1150 / 1150 Balance 2110.512 / 2110.512 2139.779 / 2139.779 87.800 / 87.800 Cumulative 04/13/25 16:41 thru 04/16/25 07:23 Intake Total 39917.330 Output Total 3765 Balance 54571.330 RT Ventilator Mngmt (Last Documented) Ventilator Ordered Settings Ventilator Support Mode Assist Control 04/16/25 05:55 Respiratory Rate 26 04/16/25 05:55 Ventilator Tidal Volume 355 04/16/25 05:55 Setting Minute Ventilation 8.9 04/16/25 04:11 Positive End Expiratory 8 04/16/25 05:55 Pressure Fraction of Inspired Oxygen 40 04/16/25 05:55 Peak Inspiratory Flow 47 04/15/25 15:00 Machine Comment titrated FIO2 to 40%, o2 sat 98% 04/16/25 05:55 at this time Ventilator - PT Measurements Respiratory Rate 26 Exhaled Tidal Volume 354 Minute Ventilation 8.9 Peak Inspiratory Airway 23 Pressure Plateau Pressure 18 Respiratory Cycle Inspiratory: 1:2.8 Expiratory Ratio Inspiratory Phase Time 6 End-Tidal CO2 29 Static Lung Compliance 35.40 Dynamic Lung Compliance 23.60 Normal Static Lung Compliance 46.00 Patient Measurements Comment tube placement adjustment post chest x-ray Coding Level of Care Code 34547 SUB INP/OBS CARE 3/50MIN Diagnoses Calcium channel edwin overdose T46.1X1A Schizoaffective disorder, depressive type F25.1 Schizoaffective disorder type: depressive Bipolar disorder F31.9 Acute kidney injury N17.9 High anion gap metabolic acidosis E87.29 Lactic acidosis E87.20 Leukocytosis D72.829 Mass of heart I51.89 Cardiogenic shock R57.0 Medical non-compliance Z91.199 (2) Schizoaffective disorder Schizoaffective disorder type: depressive Qualified Code(s): F25.1 - Schizoaffective disorder, depressive type
[2025-04-16] MEDS ORDERED: cefTRIAXone SODIUM 1,000 MG/50 ML BAG IV SCH (07:45)
--- NOTE | 2025-04-16 07:54 | XRay Report ---
EXAM: XR chest 1V portable CLINICAL HISTORY: Respiratory failure. TECHNIQUE: An X-ray image of the chest is obtained in AP projection. COMPARISON: Prior study dated 04/15/2025 FINDINGS: ET tube is seen with tip about 3.1cm from the cecelia. NG tube with tip seen in the stomach, in place Pulmonary Parenchyma: Mild interval decrease in the extent of right lower lung zone air space opacification Unchanged middle and upper zones opacities Unchanged right plural effusion Clear left lung and costophrenic angle Heart and Mediastinum: Left-sided ICD device seen Heart size and shape are normal. Bony Thorax: Bony thorax appears intact without fractures or deformities. Soft Tissues: Soft tissues overlying the chest wall are unremarkable. IMPRESSION: 1. Mild interval decrease in the extent of right lower lung zone air space opacification. 2. Unchanged middle and upper zones opacities. 3. Unchanged right plural effusion. 4. ET tube is seen with tip about 3.1cm from the cecelia. 5. NG tube with tip seen in the stomach, in place. Electronically signed by Terry Acevedo 04-16-2025 07:53 AM
--- NOTE | 2025-04-16 08:02 | Hospitalist Progress Note ---
Date of Service April 16, 2025 Assessment & Plan (1) Calcium channel edwin overdose: Plan: 54-year-old woman with bipolar disorder who presented after an intentional overdose with long-acting diltiazem. She woke the following morning feeling poorly, collapsed and EMS was called. Diltiazem XR tablets 50x, 180mg each taken at approximately 1 AM on 04/13/2020. given calcium and emergency treatment for hyperkalemia. Admitted to ICU for shock, required intubation and mechanical ventilation as well as pressors. # toxidromic shock caused by intentional overdose of long-acting calcium channel edwin, end organ dysfunction of MARY JANE and respiratory failure # acute hypoxic respiratory failure present on admission # septic shock, unable to determine whether present on admission, obvious as of evening of 04/14 and caused by haemophilus influenzae pneumonia paper sheeter increased atrial pacing to 80 to override her junctional rhythm -WBC 11 but temp curve increasing again past 12h continue antibiotics as below, CT imaging discussed below -extubated this AM, on HFO2, hypoventilatory on exam -gentle diuresis -no longer on pressors as of this AM # haemophilus influenzae RLL pneumonia, unclear whether she also has a component of aspiration pneumonia/pneumonitis # endocarditis unlikely CTA chest and CT abd/pelvis with IV/po contrast 04/15 - patchy multifocal right lung opacities, bilateral pleural effusions small-mod, mildly dilated small bowel, gastric bypass. No PE or appearance of septic pulm emboli. -sputum cx with H. flu -blood cultures from admission and 04/15 pending ngtd -abx narrowed to ceftriaxone # MARY JANE/ metabolic acidosis/hyperkalemia --resolving demi chef consulted she has had good urine output and creatinine improved to 1.28 continue monitoring UOP and BMP --had lasix 40 IV this am # suicide attempt /bipolar disorder/PTSD/schizoaffective disorder consulted psychiatrist, discussed with Dr. Carroll 04/14, 04/16 - continue lamotrigine, and venlafaxine - psychiatrist recommended abilify prn hallucinations (hears voices) needs one-to-one observation, should not be allowed to leave AMA, planning inpatient psychiatric admission once medically stable "There is a 302 petitioning statement on the chart. Once extubated the patient should remain on safety precautions with 1-on-1 pending medical clearance. The patient is not psychiatrically cleared to leave the hospital without additional safety or aftercare planning; theyshould not be allowed to leave AMA without notification to our service as a 302 warrant would be appropriate." # right atrial mass consulted cardiology, reviewed recommendations in Dr. Mcfarland's note 04/16 well-visualized on TTE and RAYMON will not provide additional benefit -septic shock raised more concern for endocarditis but blood cultures negative so far and no septic emboli on chest CT -follow up repeat TTE today # mild transaminitis is related to ischemic hepatitis from shockmonitor LFTs. improved, bili remains normal today # Type II DM ICU hyperglycemia protocol BG at goal, has diet, no longer on insulin drip # History of nonepileptic seizures Noted # FEN - now has diet DVT Prophylaxis: Heparin SQ Discussed plan of care with PLANNING CONSULTANT at bedside, patient, psychiatrist 04/16 (2) PSVT (paroxysmal supraventricular tachycardia): (3) Schizoaffective disorder: (4) Dyslipidemia due to type 2 diabetes mellitus: Admission and Anticipated Discharge Date Admission Date: April 13, 2025 Subjective awake, has been extubated can't remember much about what happened not short of breath at rest no abdominal pain feels very thirsty Physical Exam Physical Exam: Last 24h vitals reviewed GEN: awake alert witting up in bed, on HFNC HEENT: pupils equal, sclerae anicteric, moist MM. RESP: distant, CTA anteriorly CV: reg no mrg ABD: nondistended bowel tones present : Mcdonnell catheter draining yellow urine SKIN: warm and dry, no generalized rashes 3+ anasarca UE>LE NEURO: awake oriented to self hospital, partially to situation, normal speech, jose m, [email or web address] Results & Data Results & Data Vital Signs (Past 12 Hours) Vital Signs Temp Pulse Resp BP Pulse Ox FiO2 04/16/25 06:00 124/74 04/16/25 05:55 26 H 40 04/16/25 05:33 38.1 C H 80 26 H 100 04/16/25 05:00 38.1 C H 80 26 H 98 04/16/25 05:00 132/74 04/16/25 04:11 80 27 H 98 60 04/16/25 04:00 38.0 C H 80 26 H 98 04/16/25 04:00 128/69 04/16/25 04:00 128/69 04/16/25 04:00 128/69 04/16/25 04:00 132/63 04/16/25 03:03 37.9 C H 80 26 H 98 04/16/25 03:00 129/70 04/16/25 03:00 129/70 04/16/25 03:00 60 04/16/25 02:57 37.9 C H 80 26 H 96 04/16/25 02:00 37.9 C H 80 26 H 96 04/16/25 02:00 123/73 04/16/25 02:00 123/73 04/16/25 02:00 123/73 04/16/25 01:21 37.9 C H 80 26 H 92 04/16/25 01:00 117/71 04/16/25 01:00 117/71 04/16/25 00:21 37.8 C H 80 26 H 96 04/16/25 00:00 37.8 C H 80 26 H 95 04/16/25 00:00 121/69 04/16/25 00:00 121/69 04/16/25 00:00 120/58 L 04/15/25 23:12 37.8 C H 80 27 H 92 04/15/25 23:00 117/73 04/15/25 23:00 60 04/15/25 22:54 37.8 C H 80 26 H 94 04/15/25 22:03 37.9 C H 80 22 93 04/15/25 22:00 115/68 04/15/25 22:00 115/68 04/15/25 22:00 115/68 04/15/25 22:00 115/68 04/15/25 22:00 115/68 04/15/25 21:57 37.9 C H 80 30 H 100 04/15/25 21:43 107/71 04/15/25 21:43 107/71 04/15/25 21:43 107/71 04/15/25 21:43 107/71 04/15/25 21:36 80 25 H 89 L 04/15/25 21:03 84 93 04/15/25 20:15 80 29 H 92 60 04/15/25 20:00 37.8 C H 80 27 H 92 Laboratory Results Laboratory Tests 04/16/25 05:20 WBC 11.77 H Hgb 9.0 L Plt Count 101 L Potassium 3.2 L D Creatinine 1.28 H D Phosphorus 1.9 L D AST 111 H ALT 328 H Random Vancomycin 10.1 PG Care Time/CCT Total # of Minutes Spent Total Time Spent with Patient: Total time spent is greater than 50% in coordination of care (as documented) at patient's floor/unit and/or counseling patient: Coding Level of Care Code 57234 SUB INP/OBS CARE 3/50MIN Diagnoses Calcium channel edwin overdose T46.1X1A PSVT (paroxysmal supraventricular tachycardia) I47.10 Schizoaffective disorder, depressive type F25.1 Schizoaffective disorder type: depressive Dyslipidemia due to type 2 diabetes mellitus E11.69; E78.5 (3) Schizoaffective disorder Schizoaffective disorder type: depressive Qualified Code(s): F25.1 - Schizoaffective disorder, depressive type
--- NOTE | 2025-04-16 09:06 | Cardiology Progress Note ---
Date of Service April 16, 2025 Assessment & Plan (1) Right atrial mass: (2) Pacemaker: (3) PSVT (paroxysmal supraventricular tachycardia): Plan 1. Right atrial mass: Clearly visible on transthoracic echo and confined to the atrium. I reviewed this with several of my partners and we are not sure of the significance. It is unlikely that a transesophageal echo would be of much benefit, therefore I do not think this is indicated. Despite the size of the mass we had felt that without evidence for embolization (pulmonary emboli) and no evidence of infection it may be preferable to leave this alone and follow it with echocardiography. So far blood cultures are negative, a CT angiogram does not indicate embolization although subsegmental evaluation was incomplete. If this mass is either endocarditis or an infected thrombus then the lead may need to be extracted, although it has been in for a relatively short time so we might be able to do that here but under the circumstances I would be reluctant. A further complication is that that mass would likely embolize if we were able to remove the lead. At this point without bacteremia and no evidence of embolization I would continue to observe. I am going to repeat the echocardiogram to monitor stability of the mass. 2. Pacemaker: Functioning well, rate increased to atrial pace at 80 beats per minute to override her accelerated junctional rhythm. This should be programmed back to 60 bpm, I will plan to do that this afternoon. 3. PSVT: No clinically significant findings. Admission and Anticipated Discharge Date Admission Date: April 13, 2025 Subjective She is now extubated, she is awake and conversational. When asked how she feels she tells me she is "not very happy". No specific cardiovascular symptoms. Physical Exam Physical Exam: Constitutional: Awake and alert and answering questions appropriately. HEENT: Unremarkable. Neck: No jugular venous distention, carotid pulses are normal and equal bilaterally without bruits. Pulmonary: Clear to auscultation bilaterally. Cardiac: Regular rhythm with no murmur, gallop or rub. Abdomen: Soft, nontender with normal bowel sounds. Extremities: No edema. Neurologic: No obvious deficits. Skin: No rash, ecchymoses or petechiae. Results & Data Vital Signs (Past 12 Hours) Vital Signs Temp Pulse Resp BP Pulse Ox FiO2 04/16/25 06:00 124/74 04/16/25 05:55 26 H 40 04/16/25 05:33 38.1 C H 80 26 H 100 04/16/25 05:00 38.1 C H 80 26 H 98 04/16/25 05:00 132/74 04/16/25 04:11 80 27 H 98 60 04/16/25 04:00 38.0 C H 80 26 H 98 04/16/25 04:00 128/69 04/16/25 04:00 128/69 04/16/25 04:00 128/69 04/16/25 04:00 132/63 04/16/25 03:03 37.9 C H 80 26 H 98 04/16/25 03:00 129/70 04/16/25 03:00 129/70 04/16/25 03:00 60 04/16/25 02:57 37.9 C H 80 26 H 96 04/16/25 02:00 37.9 C H 80 26 H 96 04/16/25 02:00 123/73 04/16/25 02:00 123/73 04/16/25 02:00 123/73 04/16/25 01:21 37.9 C H 80 26 H 92 04/16/25 01:00 117/71 04/16/25 01:00 117/71 04/16/25 00:21 37.8 C H 80 26 H 96 04/16/25 00:00 37.8 C H 80 26 H 95 04/16/25 00:00 121/69 04/16/25 00:00 121/69 04/16/25 00:00 120/58 L 04/15/25 23:12 37.8 C H 80 27 H 92 04/15/25 23:00 117/73 04/15/25 23:00 60 04/15/25 22:54 37.8 C H 80 26 H 94 04/15/25 22:03 37.9 C H 80 22 93 04/15/25 22:00 115/68 04/15/25 22:00 115/68 04/15/25 22:00 115/68 04/15/25 22:00 115/68 04/15/25 22:00 115/68 04/15/25 21:57 37.9 C H 80 30 H 100 04/15/25 21:43 107/71 04/15/25 21:43 107/71 04/15/25 21:43 107/04/15/25 21:43 107/71 04/15/25 21:36 80 25 H 89 L Laboratory Results Cardiac Enzymes 04/16/25 Range/Units 05:20 AST 111 H (13-39) U/L CBC 04/16/25 Range/Units 05:20 WBC 11.77 H (4.8-10.8) K/ul RBC 3.45 L (4.20-5.40) M/uL Hgb 9.0 L (12.0-16.0) g/dl Hct 27.8 L (37.0-47.0) % Plt Count 101 L (130-400) K/uL Neut # (Auto) 9.82 H (1.40-6.50) K/uL Lymph # (Auto) 1.18 L (1.20-3.40) K/uL [place] # (Auto) 0.46 (0.11-0.59) K/uL Eos # (Auto) 0.02 (0.00-0.50) K/uL Baso # (Auto) 0.02 (0.00-0.20) K/uL Comprehensive Metabolic Panel 04/16/25 Range/Units 05:20 Sodium 138 (136-145) mmol/L Potassium 3.2 L D (3.5-5.1) mmol/L Chloride 105 (98-107) mmol/L Carbon Dioxide 26 (21-32) mmol/L BUN 23 (6-23) mg/dl Creatinine 1.28 H D (0.6-1.2) mg/dl Glucose 147 H (70-99(Fasting)) mg/dl Calcium 8.8 (8.6-10.3) mg/dl AST 111 H (13-39) U/L ALT 328 H (7-52) U/L Alkaline Phosphatase 55 (34-104) U/L Total Protein 5.2 L (6.0-8.3) gm/dl Albumin 2.9 L (3.4-5.0) gm/dl Intake and Output 04/15/25 04/16/25 04/16/25 22:59 06:59 14:59 Intake Total 667.912 / 3289.779 668.252 / 3289.779 105.487 / 105.487 Output Total 350 / 1150 350 / 1150 Balance 317.912 / 2139.779 318.252 / 2139.779 105.487 / 105.487 Intake: IV 557.912 / 2224.779 658.252 / 2224.779 105.487 / 105.487 Insulin Regular 250 units In 11.877 / 22.744 8.33 / 22.744 6.233 / 6.233 Sodium Chloride 0.9% 247.5 ml @ 1.7 UNITS/HR 1.7 mls/hr IV . Q24H [facility] Rx#:[id number] Norepinephrine/Nss 16 mg In 250 114.77 / 524.112 209.175 / 524.112 4.167 / 4.167 ml @ 0.05 MCG/KG/MIN 4.148 mls /hr IV .Q24H [facility] Rx#:[id number] Phenylephrine/Nss 25 mg In 250 0.265 / 298.862 ml @ 0.1 MCG/KG/MIN 5.31 mls/hr IV .Q24H [facility] Rx#:[id number] Piperacillin/Tazobactam 4.5 gm 100 / 300 100 / 300 In 100 ml @ 25 mls/hr IV Q8H [facility] Rx#:[id number] dexMEDEtomidine 200 mcg In 50 150.000 / 451.917 187.955 / 451.917 33.067 / 33.067 ml @ 1.3 MCG/KG/HR 28.763 mls/ hr IV .Q1H45M [facility] Rx#:[id number] fentaNYL citrate 2,500 mcg In 181.0 / 333.792 152.792 / 333.792 62.020 / 62.020 250 ml @ 175 MCG/HR 17.5 mls/hr IV .[id number] [facility] Rx#:[id number] Oral 0 / 0 Tube Feeding 10 / 45 10 / 45 Tube Irrigant 100 / 100 Output: Urine Amount (Catheter) 350 / 1150 350 / 1150 Mcdonnell/Indwelling 350 / 1150 350 / 1150 Other: Weight 91.6 kg Weight Measurement Method Built in [facility] Diagnostic Findings Telemetry: Atrial pacing at 80 bpm with no significant arrhythmia. Chest x-ray today: Little change in findings. Chest CTA April 15, 2025: Some subsegmental branches not well seen, but no pulmonary emboli identified. Blood cultures: 2 on April 13, 2025 no growth, 2 on April 15, 2025 no growth. PG Care Time/CCT Total # of Minutes Spent Total Time Spent with Patient: Total time spent is greater than 50% in coordination of care (as documented) at patient's floor/unit and/or counseling patient: Coding Level of Care Code 89012 SUB INP/OBS CARE 3/50MIN Diagnoses Right atrial mass I51.89 Pacemaker Z95.0 PSVT (paroxysmal supraventricular tachycardia) I47.10
--- NOTE | 2025-04-16 09:40 | Nephrology Progress Note ---
Date of Service April 16, 2025 Assessment & Plan (1) MARY JANE (acute kidney injury): (2) Metabolic acidosis: (3) Elevated lactic acid level: (4) Hypotension: (5) Hypercalcemia: (6) Hyperkalemia: (7) Calcium channel edwin overdose: Plan 54-year-old female with baseline normal kidney function, baseline creatinine 0.8-0.9 mg/dl with past medical history of hypertension, diabetes, bipolar disorder and suicidal ideation and schizoaffective disorder, admitted with overdose with 50 tablets of 180 mg diltiazem. She was brought to ER after she was found collapsed in her front yard. On arrival she was awake and alert but within few hours she was intubated for less responsiveness and airway protection. She is profoundly hypotensive with systolic blood pressure in 60s and diastolic in 30s and started on epinephrine and norepinephrine. On admission lab was notable for MARY JANE, critical electrolyte abnormality. Received multiple IV fluid boluses and more than 6 L positive but having decent urine output, about 1.3 L overnight. Urinalysis with trace proteinuria but no hematu elizabeth or pyuria. MARY JANE in the setting of profound hypotension, kidney function continues to improve, creatinine down to 1.3, has multiple electrolyte abnormalities, getting replacements. Has decent urine output but overall net positive more than 10 L. --Expect kidney function continues to improve. Considering more than 10 L net positive,recommend Lasix 40 mg iv x 1 dose now and then as needed. will sign off. Thank you for the consult, please contact if any further assistance needed. Admission and Anticipated Discharge Date Admission Date: April 13, 2025 Daly Nelson was seen and evaluated this morning. She was just extubated this morning, titrating pressors down. Kidney function continues to improve rapidly, creatinine down to 1.3, has multiple electrolyte abnormality including hypokalemia and hypophosphatemia, getting replacements. Remains net positive more than 10 L. Review of Systems Review of Systems: ROS was otherwise unremarkable. Physical Exam Constitutional: WD/WN, vitals as above + ill appearing Respiratory: Auscultation: lungs clear to auscultation bilaterally Cardiovascular: RRR, no murmur, no edema Musculoskeletal: Extremities: extremities normal to inspection Skin: no rashes Neurologic: Awake, alert. Results & Data Vital Signs (Past 12 Hours) Vital Signs Temp Pulse Resp BP Pulse Ox FiO2 04/16/25 06:00 124/74 04/16/25 05:55 26 H 40 04/16/25 05:33 38.1 C H 80 26 H 100 04/16/25 05:00 38.1 C H 80 26 H 98 04/16/25 05:00 132/74 04/16/25 04:11 80 27 H 98 60 04/16/25 04:00 38.0 C H 80 26 H 98 04/16/25 04:00 128/69 04/16/25 04:00 128/69 04/16/25 04:00 128/69 04/16/25 04:00 132/63 04/16/25 03:03 37.9 C H 80 26 H 98 04/16/25 03:00 129/70 04/16/25 03:00 129/70 04/16/25 03:00 60 04/16/25 02:57 37.9 C H 80 26 H 96 04/16/25 02:00 37.9 C H 80 26 H 96 04/16/25 02:00 123/73 04/16/25 02:00 123/73 04/16/25 02:00 123/73 04/16/25 01:21 37.9 C H 80 26 H 92 04/16/25 01:00 117/71 04/16/25 01:00 117/71 04/16/25 00:21 37.8 C H 80 26 H 96 04/16/25 00:00 37.8 C H 80 26 H 95 04/16/25 00:00 121/69 04/16/25 00:00 121/69 04/16/25 00:00 120/58 L 04/15/25 23:12 37.8 C H 80 27 H 92 04/15/25 23:00 117/73 04/15/25 23:00 60 04/15/25 22:54 37.8 C H 80 26 H 94 04/15/25 22:03 37.9 C H 80 22 93 04/15/25 22:00 115/68 04/15/25 22:00 115/68 04/15/25 22:00 115/68 04/15/25 22:00 115/68 04/15/25 22:00 115/68 04/15/25 21:57 37.9 C H 80 30 H 100 06/26/25 21:43 107/71 04/15/25 21:43 10704/15/25 21:43 04/15/25 21:43 PG Care Time/CCT Total # of Minutes Spent Total Time Spent with Patient: Total time spent is greater than 50% in coordination of care (as documented) at patient's floor/unit and/or counseling patient: Coding Level of Care Code 45999 SUB INP/OBS CARE 2/35MIN Diagnoses MARY JANE (acute kidney injury) N17.9 Metabolic acidosis E87.20 Elevated lactic acid level R79.89 Hypotension I95.9 Hypotension type: unspecified hypotension type Hypercalcemia E83.52 Hyperkalemia E87.5 Calcium channel edwin overdose T46.1X1A (4) Hypotension Hypotension type: unspecified hypotension type Qualified Code(s): I95.9 - Hypotension, unspecified
[2025-04-16] MEDS: FUROSEMIDE INJ 20 MG/2 ML VIAL IV ONE ×2 (09:55→10:30)
[2025-04-16] MEDS: cefTRIAXone SODIUM 2,000 MG/50 ML BAG IV SCH (10:28)
[2025-04-16] MEDS: POTASSIUM CHLORIDE / WTR 20 MEQ/100 ML PLCT IV SCH ×2 (10:29→20:13)
[2025-04-16] MEDS: POTASSIUM PHOSPHATE 21 MMOL in SODIUM CHLORIDE 0.9% 500 ML IV ONE (10:29)
[2025-04-16 10:50] LABS: Anion Gap 7.0 (3-11); Blood Urea Nitrogen 23.0 mg/dl (6-23); Calcium 8.8 mg/dl (8.6-10.3); Carbon Dioxide 27.0 mmol/L (21-32); Chloride 106.0 mmol/L (98-107); Creatinine Clr Calc Pharmacy 58.0 ml/min; Glucose 124.0 mg/dl (70-99(Fasting)); Potassium 3.8 mmol/L (3.5-5.1); Sodium 140.0 mmol/L (136-145)
[2025-04-16] MEDS: LANTUS PER UNIT CHARGE SC ONE (11:00)
[2025-04-16] MEDS: VANCOMYCIN HCL 1,250 MG in SODIUM CHLORIDE 0.9% 250 ML IV ONE (11:03)
[2025-04-16] MEDS: INSULIN ASPART PER UNIT CHARGE SC SCH ×2 (12:12→17:00)
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
--- NOTE | 2025-04-16 14:18 | Pharmacy Report ---
Pharmacy Glycemic Short Note 2 - Date of Service April 16, 2025 - Glycemic Short BSG Results (Last 24 hours): 04/15/25 04/15/25 04/15/25 14:06 15:08 16:22 Glucose POC Glucose POC Glucose (other) 189 H 187 H 184 H 04/15/25 04/15/25 04/15/25 17:25 18:32 20:32 Glucose POC Glucose POC Glucose (other) 180 H 176 H 177 H 04/15/25 04/15/25 04/16/25 22:34 23:33 00:33 Glucose POC Glucose POC Glucose (other) 184 H 181 H 170 H 04/16/25 04/16/25 04/16/25 01:33 03:50 05:20 Glucose 147 H POC Glucose POC Glucose (other) 162 H 148 H 04/16/25 04/16/25 04/16/25 09:13 10:08 10:42 Glucose 124 H POC Glucose 127 H 127 H POC Glucose (other) 04/16/25 11:56 Glucose POC Glucose 147 H POC Glucose (other) OUTPATIENT ANTIDIABETIC REGIMEN: * None * HbA1c 7.7% on 03/05/25 ASSESSMENT: 04/16 * Patient has been weaned off of pressors, extubated this morning. Diet ordered with lunch. * Given stable blood sugars with insulin drip will initiate basal/bolus regimen at this time. * Transitioned off of insulin drip with 15 units of lantus. Initiated basal between weight stress of 1 and 2. Will monitor. 04/15 * 54 yo F with T2DM but not on any diabetes medications admitted 04/13 for intentional diltiazem XR (calcium channel edwin/CCB) overdose/OD. * Poison center involved - did not recommend high dose insulin for treatment of CCB OD. * Insulin drip initiated 04/14 AM for hyperglycemia > 400 mg/dL. Insulin drip ran continuously but was held 04/14 PM for BSG of 93 mg/dL. Transitioned to Novolog q4h. * Discussed on ICU rounds 04/15 AM - significant pressor requirements and questionable absorption of SC insulin. Will transition back to insulin drip for hyperglycemia > 180 mg/dL plus initiation of trickle feeds. No bolus, starting at a low dose. Of note, high anion gap metabolic acidosis noted, but this was felt to be due to etiologies other than DKA therefore will not start dextrose containing fluids * Of note, CCB overdose can precipitate hyperglycemia - may see improvement in BSG's / possibly reduced insulin requirements as time goes on PLAN FOR INPATIENT GLYCEMIC CONTROL: * Basal insulin * Lantus 15 units sq x 1 * Bolus insulin * NovoLog per scale ACHS or Q6hrs while NPO * Goal Range: Low 120 mg/dL - High 160 mg/dL * Correction Factor: 30 mg/dL/unit * Nutritional / Prandial insulin per carb ratio of 1 unit per 12 grams CHO consumed
[2025-04-16] MEDS: ICU ELECTROLYTE REPLACEMENT PROTOCOL SCH (17:46)
--- NOTE | 2025-04-16 18:32 | XCELERA ---
[id number]
[2025-04-16 18:44] LABS: Magnesium 2.0 mg/dl (1.7-2.4); Potassium 3.5 mmol/L (3.5-5.1)
[2025-04-16] MEDS: OLANZapine 10 MG TAB PO SCH (20:15)
[2025-04-16] MEDS: clonazePAM 0.25 MG OD TAB PO PRN (20:16)
[2025-04-17 05:18] LABS: Alanine Aminotransferase 269.0 U/L (7-52); Albumin Globulin Ratio 1.1 (0.9-2); Alkaline Phosphatase 62.0 U/L (34-104); Anion Gap 6.0 (3-11); Bilirubin,Total 0.5 mg/dl (0.2-1.0); Blood Urea Nitrogen 15.0 mg/dl (6-23); Calcium 8.7 mg/dl (8.6-10.3); Carbon Dioxide 27.0 mmol/L (21-32); Chloride 104.0 mmol/L (98-107); Creatinine Clr Calc Pharmacy 86.2 ml/min; Globulin 2.8 gm/dl (2.5-4.0); Glucose 112.0 mg/dl (70-99(Fasting)); Magnesium 2.0 mg/dl (1.7-2.4); Potassium 3.6 mmol/L (3.5-5.1); Sodium 137.0 mmol/L (136-145); Total Protein 5.8 gm/dl (6.0-8.3)
[2025-04-17 05:32] LABS: Hematocrit (blood only) 28.9 % (37.0-47.0); Hemoglobin 9.3 g/dl (12.0-16.0); Mean Corpuscular Hemoglobin 26.5 pg (25.0-34.0); Mean Corpuscular Volume 82.3 fL (80.0-100.0); Platelet Count 91 K/uL (130-400); RDW Standard Deviation 54.1 fL (36.4-46.3); Red Blood Count 3.51 M/uL (4.20-5.40); White Blood Count 13.59 K/ul (4.8-10.8)
[2025-04-17 06:22] LABS: Anisocytosis Present; Immature Granulocytes # (auto) 0.06 K/uL (0.01-0.20); Immature Granulocytes % (auto) 0.4 %; Polychromasia 1+
[2025-04-17] MEDS ORDERED: SODIUM PHOSPHATE 3 MMOL/1 ML INFUSION IV STA (06:52)
--- NOTE | 2025-04-17 08:06 | Hospitalist Progress Note ---
Date of Service April 17, 2025 Assessment & Plan (1) Calcium channel edwin overdose: Plan: 54-year-old woman with bipolar disorder who presented after an intentional overdose with long-acting diltiazem. She woke the following morning feeling poorly, collapsed and EMS was called. Diltiazem XR tablets 50x, 180mg each taken at approximately 1 AM on 04/13/2020. given calcium and emergency treatment for hyperkalemia. Admitted to ICU for shock, required intubation and mechanical ventilation as well as pressors. # toxidromic shock caused by intentional overdose of long-acting calcium channel edwin, end organ dysfunction of MARY JANE and respiratory failure # acute hypoxic respiratory failure present on admission # septic shock, unable to determine whether present on admission, obvious as of evening of 04/14 and caused by haemophilus influenzae pneumonia physician practice consultant increased atrial pacing to 80 to override her junctional rhythm -off pressors as of AM 04/16, extubated to HFNC on 04/16 -WBC 13.5 and continues low grade fever continue antibiotics as below, CT imaging discussed below -remains tachypneic in 30s, still on HFNC 40L/60% overnight -continue diuresis - large UOP after lasix may need to decrease to bid -CXR today with increased R sided opacities - personally reviewed film desatting and slow recovery after stand attempts, hypoventilatory and keeps removing HFNC discussed with PURCHASING DIRECTOR and RT - started trial of Bipap with good effect, tolerating so far, FiO2 100-->85% with big improvement in sats -lorazepam 0.5 IV prn if needed to tolerate bipap # haemophilus influenzae RLL pneumonia, unclear whether she also has a component of aspiration pneumonia/pneumonitis # endocarditis unlikely CTA chest and CT abd/pelvis with IV/po contrast 04/15 - patchy multifocal right lung opacities, bilateral pleural effusions small-mod, mildly dilated small bowel, gastric bypass. No PE or appearance of septic pulm emboli. -sputum cx with H. flu -blood cultures from 04/13 and 04/15 pending ngtd -abx narrowed to ceftriaxone # thrombocytopenia - new past 24h. Plt 101-->91. Probably direct effect of heparin --hold heparin SQ --low dose apixaban --no evidence of SHANELL at this point # MARY JANE/ metabolic acidosis/hyperkalemia medical transcription radiology consulted, signed off 04/16 --resolved --lasix 40 mg IV for volume overload --Cr remains 0.7 # suicide attempt /bipolar disorder/PTSD/schizoaffective disorder consulted psychiatrist, 302 filed - continue lamotrigine, and venlafaxine - psychiatrist recommended abilify prn hallucinations (hears voices) needs one-to-one observation, should not be allowed to leave AMA, planning inpatient psychiatric admission once medically stable "There is a 302 petitioning statement on the chart. Once extubated the patient should remain on safety precautions with 1-on-1 pending medical clearance. The patient is not psychiatrically cleared to leave the hospital without additional safety or aftercare planning; theyshould not be allowed to leave AMA without notification to our service as a 302 warrant would be appropriate." # right atrial mass consulted cardiology, reviewed recommendations in Dr. Mcfarland's note 04/16 well-visualized on TTE and RAYMON will not provide additional benefit -septic shock raised more concern for endocarditis but blood cultures negative so far and no septic emboli on chest CT -repeat TTE 04/16 reviewed no change in R atrial mass appears attached to RA pacer lead # mild transaminitis is related to ischemic hepatitis from shockmonitor LFTs. continue to improve # Type II DM. A1c 7.7% ICU hyperglycemia protocol, pharmacist currently managing SQ insulin BG at goal reviewed 04/17 # History of nonepileptic seizures Noted # FEN - now has diet DVT Prophylaxis: low dose apixaban Discussed plan of care with PURCHASING DIRECTOR at bedside, patient (2) PSVT (paroxysmal supraventricular tachycardia): (3) Schizoaffective disorder: (4) Dyslipidemia due to type 2 diabetes mellitus: Admission and Anticipated Discharge Date Admission Date: April 13, 2025 Subjective Seen midday, working with PT/OT Has been in recliner chair 24h Complete 2 stand attempts x 15 sec each On HFNC 40L / 100% overnight Currently 60L/100% recovering from activity Desatting quickly and keeps fussing with cannula, on max HFNC - trial of bipap in progress Large UOP after 40 mg IV lasix Physical Exam 2 Physical Exam: Last 24h vitals reviewed GEN: awake alert sitting in chair, on HFNC HEENT: pupils equal, sclerae anicteric, moist MM. RESP: hypoventilating, diminished both bases, crackles throughout, coarse sounds upper rehman CV: tachycardic reg no mrg ABD: nondistended bowel tones present : Mcdonnell catheter draining light yellow urine SKIN: warm and dry, no generalized rashes 3+ anasarca UE>LE. UE edema improved co mpared to yesterday NEURO: awake oriented to self hospital, basic situation, normal speech, jose m, [id number] PSYCH: makes some eye contact, no agitation, normal behavior, depressed mood Results & Data Results & Data Vital Signs (Past 12 Hours) Vital Signs Temp Pulse Pulse Resp BP Pulse Ox O2 Del Method 04/17/25 06:22 80 24 92 High Flow Nasal Cannula 04/17/25 05:00 127/78 04/17/25 04:57 37.7 C H 80 32 H 93 04/17/25 04:39 37.7 C H 80 35 H 92 04/17/25 04:00 125/77 04/17/25 03:09 37.8 C H 80 38 H 91 04/17/25 03:03 37.9 C H 80 30 H 92 04/17/25 03:00 137/71 04/17/25 03:00 137/71 04/17/25 03:00 137/71 04/17/25 02:51 37.8 C H 80 33 H 92 04/17/25 02:44 80 28 H 90 High Flow Nasal Cannula 04/17/25 02:09 37.8 C H 81 19 89 L 04/17/25 02:00 139/76 04/17/25 02:00 139/76 04/17/25 01:57 37.9 C H 80 27 H 92 04/17/25 01:00 123/80 04/17/25 01:00 123/80 04/17/25 01:00 123/80 04/17/25 01:00 38.0 C H 80 30 H 93 04/17/25 00:00 38.1 C H 80 34 H 92 04/17/25 00:00 132/80 04/17/25 00:00 132/80 04/17/25 00:00 132/80 04/17/25 00:00 132/80 04/17/25 00:00 132/80 04/16/25 23:35 80 32 H 93 High Flow Nasal Cannula 04/16/25 23:00 38.0 C H 80 35 H 93 04/16/25 23:00 136/82 04/16/25 23:00 136/82 04/16/25 23:00 136/82 04/16/25 23:00 136/82 04/16/25 22:00 37.8 C H 80 37 H 93 04/16/25 22:00 138/78 04/16/25 22:00 138/78 04/16/25 21:00 134/84 04/16/25 21:00 37.6 C H 80 33 H 94 04/16/25 20:30 131/84 04/16/25 20:24 37.7 C H 80 23 94 04/16/25 20:00 122/78 04/16/25 20:00 122/78 04/16/25 20:00 122/78 04/16/25 20:00 37.7 C H 80 24 92 04/16/25 20:00 80 26 H 91 High Flow Nasal Cannula O2 Flow Rate FiO2 04/17/25 06:22 40 100 04/17/25 05:00 04/17/25 04:57 04/17/25 04:39 04/17/25 04:00 04/17/25 03:09 04/17/25 03:03 04/17/25 03:00 04/17/25 03:00 04/17/25 03:00 04/17/25 02:51 04/17/25 02:44 50 100 04/17/25 02:09 04/17/25 02:00 04/17/25 02:00 04/17/25 01:57 04/17/25 01:00 04/17/25 01:00 04/17/25 01:00 04/17/25 01:00 04/17/25 00:00 04/17/25 00:00 04/17/25 00:00 04/17/25 00:00 04/17/25 00:00 04/17/25 00:00 04/16/25 23:35 50 100 04/16/25 23:00 04/16/25 23:00 04/16/25 23:00 04/16/25 23:00 04/16/25 23:00 04/16/25 22:00 04/16/25 22:00 04/16/25 22:00 04/16/25 21:00 04/16/25 21:00 04/16/25 20:30 04/16/25 20:24 04/16/25 20:00 04/16/25 20:00 04/16/25 20:00 04/16/25 20:00 04/16/25 20:00 50 100 Laboratory Results 04/17/25 04:29 04/17/25 04:29 Diagnostic Findings Chest X-Ray 04/17/25 09:59 XR chest 1V portable HISTORY: 54 years-old Female resp failure acute respiratory failure COMPARISON: 04/16/2025 TECHNIQUE: AP view of the chest FINDINGS: Cardiac silhouette is enlarged. Left subclavian dual-lead pacer. No pneumothorax. Status post removal of the endotracheal and enteric tubes. Probable small pleural effusions. Extensive mixed interstitial and alveolar opacities throughout the right lung are redemonstrated and have mildly progressed. Bones appear grossly intact. IMPRESSION: 1. Status post removal of the endotracheal and enteric tubes. 2. Progressive extensive mixed interstitial and alveolar opacities of the right lung. ACT 112: Negative or not required by law. The above report was generated using voice recognition software. It may contain grammatical, syntax or spelling errors. Electronically signed by: Issac Abdullahi M.D. 04/17/2025 10:30 AM PG Care Time/CCT Total # of Minutes Spent Total Time Spent with Patient: Total time spent is greater than 50% in coordination of care (as documented) at patient's floor/unit and/or counseling patient: Coding Level of Care Code 68390 SUB INP/OBS CARE 3/50MIN Diagnoses Calcium channel edwin overdose T46.1X1A PSVT (paroxysmal supraventricular tachycardia) I47.10 Schizoaffective disorder, depressive type F25.1 Schizoaffective disorder type: depressive Dyslipidemia due to type 2 diabetes mellitus E11.69; E78.5 (3) Schizoaffective disorder Schizoaffective disorder type: depressive Qualified Code(s): F25.1 - Schizoaffective disorder, depressive type
[2025-04-17] MEDS: SODIUM PHOSPHATE 21 MMOL in SODIUM CHLORIDE 0.9% 500 ML IV ONE (08:43)
[2025-04-17] MEDS: POTASSIUM CHLORIDE CRTAB 20 MEQ TABCR PO SCH (08:43)
[2025-04-17] MEDS: APIXABAN 2.5 MG TAB PO SCH (08:47)
--- NOTE | 2025-04-17 09:56 | Critical Care Progress Note ---
Date of Service April 17, 2025 Assessment & Plan (1) Calcium channel edwin overdose: (2) Schizoaffective disorder: (3) Bipolar disorder: (4) Acute kidney injury: (5) High anion gap metabolic acidosis: (6) Lactic acidosis: (7) Leukocytosis: (8) Mass of heart: (9) Cardiogenic shock: (10) Medical non-compliance: Plan Impression: 54-year-old female with suicide attempt with long-acting calcium channel edwin admitted with lactic acidosis, acute renal failure, severe hypotension. 24-hour events: Extubated. On high flow. Out of bed to chair. Hemodynamics improved and vasopressor agents weaned off. Recommendation: Neuro -no current issues. Continue PT and OT evaluations. Psych medications per behavioral health. Continue one-to-one. Cardiac -multifactorial hypotension, resolved. Holding antihypertensives for now. Mass on the atrial lead of her pacemaker of unclear significance. Cultures negative. Stable on echocardiogram. No evidence of embolic phenomenon. Will need serial monitoring. Management per cardiology Respiratory -persistent hypoxemic respiratory failure. She is 14 L positive since presentation. Kidney functions no back to normal so we will initiate Lasix 40 mg IV every 8 with electrolyte replacement protocol GI -PPI. Tolerating diet. Shock liver resolving. RENAL/LYTES: Continue diuretics. Trend kidney function. Replace electrolytes ENDO - glycemic control per protocol, currently on insulin sliding scale. Random cortisol appropriate no indication for stress dose steroids HEME -anemia, no evidence of acute blood loss and no indication for transfusion currently. Thrombocytopenia: Suspect related to severity of illness. Transition to apixaban for DVT prophylaxis per primary admitting service. ID -continue Rocephin for haemophilus in sputum. Fever curve improving. Check procalcitonin in a.m. LINES/TUBES/DRAINS - Central line IJ. DVT PROPHYLAXIS - Transition to Eliquis DISPOSITION - ICU CODE STATUS - FULL If the patient's oxygen requirement should improve, she can likely transfer to the floor. Will see how she responds. Total time for [facility] visit is 55 minutes which includes reviewing records prior to patient arrival, the face to face visit, as well as time to record documentation after patient departure including coordination of care with other specialists and providers. Admission and Anticipated Discharge Date Admission Date: April 13, 2025 Subjective Patient seen and examined. EMR reviewed. Discussed with bedside critical care nurse in a multidisciplinary rounds as well as with overnight critical care NIRAV. Patient reports that she is improving. She is experiencing some shortness of breath. She is tolerating a diet. She is hemodynamically stable and off pressor agents. She remains on high flow. Review of Systems Review of Systems: All systems reviewed & are unremarkable except as noted in Subjective Physical Exam Constitutional: + ill appearing; no acute distress Neck: trachea midline, no thyromegaly Respiratory: normal respiratory effort, lungs clear to auscultation + labored breathing and + tachypneic; no respiratory distress and no cough Auscultation: + rhonchi; no wheezes Cardiovascular: RRR, no murmur, no edema Gastrointestinal (Abdomen): normal bowel sounds, soft, nontender, no hepatosplenomegaly Musculoskeletal: Extremities: extremities normal to inspection Skin: no rashes, warm and dry Lymphatic: no cervical lymphadenopathy Results & Data Results & Data Vital Signs (Past 12 Hours) Vital Signs Temp Pulse Pulse Resp BP Pulse Ox O2 Del Method 04/17/25 09:52 20 89 L High Flow Nasal Cannula 04/17/25 09:00 84 04/17/25 06:22 80 24 92 High Flow Nasal Cannula 04/17/25 05:00 127/78 04/17/25 04:57 37.7 C H 80 32 H 93 04/17/25 04:39 37.7 C H 80 35 H 92 04/17/25 04:00 125/77 04/17/25 03:09 37.8 C H 80 38 H 91 04/17/25 03:03 37.9 C H 80 30 H 92 04/17/25 03:00 137/71 04/17/25 03:00 137/71 04/17/25 03:00 137/71 04/17/25 02:51 37.8 C H 80 33 H 92 04/17/25 02:44 80 28 H 90 High Flow Nasal Cannula 04/17/25 02:09 37.8 C H 81 19 89 L 04/17/25 02:00 139/76 04/17/25 02:00 139/76 04/17/25 01:57 37.9 C H 80 27 H 92 04/17/25 01:00 123/80 04/17/25 01:00 123/80 04/17/25 01:00 123/80 04/17/25 01:00 38.0 C H 80 30 H 93 04/17/25 00:00 38.1 C H 80 34 H 92 04/17/25 00:00 132/80 04/17/25 00:00 132/80 04/17/25 00:00 132/80 04/17/25 00:00 132/80 04/17/25 00:00 132/80 04/16/25 23:35 80 32 H 93 High Flow Nasal Cannula 04/16/25 23:00 38.0 C H 80 35 H 93 04/16/25 23:00 136/82 04/16/25 23:00 136/82 04/16/25 23:00 136/82 04/16/25 23:00 136/82 04/16/25 22:00 37.8 C H 80 37 H 93 04/16/25 22:00 138/78 04/16/25 22:00 138/78 O2 Flow Rate FiO2 04/17/25 09:52 40 100 04/17/25 09:00 04/17/25 06:22 40 100 04/17/25 05:00 04/17/25 04:57 04/17/25 04:39 04/17/25 04:00 04/17/25 03:09 04/17/25 03:03 04/17/25 03:00 04/17/25 03:00 04/17/25 03:00 04/17/25 02:51 04/17/25 02:44 50 100 04/17/25 02:09 04/17/25 02:00 04/17/25 02:00 04/17/25 01:57 04/17/25 01:00 04/17/25 01:00 04/17/25 01:00 04/17/25 01:00 04/17/25 00:00 04/17/25 00:00 04/17/25 00:00 04/17/25 00:00 04/17/25 00:00 04/17/25 00:00 04/16/25 23:35 50 100 04/16/25 23:00 04/16/25 23:00 04/16/25 23:00 04/16/25 23:00 04/16/25 23:00 04/16/25 22:00 04/16/25 22:00 04/16/25 22:00 Critical Care Results & Data Vital Signs (Past 12 Hours) Vital Signs Temp Pulse Pulse Resp BP Pulse Ox O2 Del Method 04/17/25 09:52 20 89 L High Flow Nasal Cannula 04/17/25 09:00 84 04/17/25 06:22 80 24 92 High Flow Nasal Cannula 04/17/25 05:00 127/78 04/17/25 04:57 37.7 C H 80 32 H 93 04/17/25 04:39 37.7 C H 80 35 H 92 04/17/25 04:00 125/77 04/17/25 03:09 37.8 C H 80 38 H 91 04/17/25 03:03 37.9 C H 80 30 H 92 04/17/25 03:00 137/71 04/17/25 03:00 137/71 04/17/25 03:00 137/71 04/17/25 02:51 37.8 C H 80 33 H 92 04/17/25 02:44 80 28 H 90 High Flow Nasal Cannula 04/17/25 02:09 37.8 C H 81 19 89 L 04/17/25 02:00 139/76 04/17/25 02:00 139/76 04/17/25 01:57 37.9 C H 80 27 H 92 04/17/25 01:00 123/80 04/17/25 01:00 123/80 04/17/25 01:00 123/80 04/17/25 01:00 38.0 C H 80 30 H 93 04/17/25 00:00 38.1 C H 80 34 H 92 04/17/25 00:00 132/80 04/17/25 00:00 132/80 04/17/25 00:00 132/80 04/17/25 00:00 132/80 04/17/25 00:00 132/80 04/16/25 23:35 80 32 H 93 High Flow Nasal Cannula 04/16/25 23:00 38.0 C H 80 35 H 93 04/16/25 23:00 136/82 04/16/25 23:00 136/82 04/16/25 23:00 136/82 04/16/25 23:00 136/82 04/16/25 22:00 37.8 C H 80 37 H 93 04/16/25 22:00 138/78 04/16/25 22:00 138/78 O2 Flow Rate FiO2 04/17/25 09:52 40 100 04/17/25 09:00 04/17/25 06:22 40 100 04/17/25 05:00 04/17/25 04:57 04/17/25 04:39 04/17/25 04:00 04/17/25 03:09 04/17/25 03:03 04/17/25 03:00 04/17/25 03:00 04/17/25 03:00 04/17/25 02:51 04/17/25 02:44 50 100 04/17/25 02:09 04/17/25 02:00 04/17/25 02:00 04/17/25 01:57 04/17/25 01:00 04/17/25 01:00 04/17/25 01:00 04/17/25 01:00 04/17/25 00:00 04/17/25 00:00 04/17/25 00:00 04/17/25 00:00 04/17/25 00:00 04/17/25 00:00 04/16/25 23:35 50 100 04/16/25 23:00 04/16/25 23:00 04/16/25 23:00 04/16/25 23:00 04/16/25 23:00 04/16/25 22:00 04/16/25 22:00 04/16/25 22:00 Lab & Micro Results (Past 24 Hours) RBC 3.51 M/uL (4.20-5.40) L 04/17/25 WBC 13.59 K/ul (4.8-10.8) H 04/17/25 Hgb 9.3 g/dl (12.0-16.0) L 04/17/25 Hct 28.9 % (37.0-47.0) L 04/17/25 MCV 82.3 fL (80.0-100.0) 04/17/25 MCH 26.5 pg (25.0-34.0) 04/17/25 MCHC 32.2 g/dL (32.0-36.0) 04/17/25 RDW Standard Deviation 54.1 fL (36.4-46.3) H 04/17/25 RDW Coefficient of Variation 18.2 % (11.5-14.5) H 04/17/25 Plt Count 91 K/uL (130-400) L 04/17/25 MPV 11.5 fL (9.4-12.4) 04/17/25 Nucleated Red Blood Cells % (auto) 0.2 % 04/17 Nucleated RBC Absolute Count (auto) 0.03 K/uL (0.00-0.12) 0 04/17/25 Neutrophils (%) (Auto) 85.5 % 04/17/25 Lymphocytes (%) (Auto) 9.2 % 04/17/25 Monocytes # (Auto) 0.56 K/uL (0.11-0.59) 04/17/25 Eosinophils # (Auto) 0.07 K/uL (0.00-0.50) 04/17/25 Immature Granulocyte % (Auto) 0.4 % 04/17/25 Neutrophils # (Auto) 11.61 K/uL (1.40-6.50) H 04/17/25 Lymphocytes # (Auto) 1.25 K/uL (1.20-3.40) 04/17/25 Monocytes # (Auto) 0.56 K/uL (0.11-0.59) 04/17/25 Eosinophils # (Auto) 0.07 K/uL (0.00-0.50) 04/17/25 Basophils # (Auto) 0.04 K/uL (0.00-0.20) 04/17/25 Immature Granulocyte # (Auto) 0.06 K/uL (0.01-0.20) 5 Polychromasia 1+ 04/17/25 Anisocytosis Present 04/17/25 Na 137 mmol/L (136-145) 04/17/25 K 3.6 mmol/L (3.5-5.1) 04/17/25 Cl 104 mmol/L (98-107) 04/17/25 CO2 27 mmol/L (21-32) 04/17/25 Anion Gap 6 (3-11) 04/17/25 BUN 15 mg/dl (6-23) 04/17/25 Creatinine 0.76 mg/dl (0.6-1.2) 04/17/25 BUN/Creatinine Ratio 19.7 (10-20) 04/17/25 Glu 112 mg/dl (70-99(Fasting)) H 04/17/25 Ca 8.7 mg/dl (8.6-10.3) 04/17/25 Phosphorus Level 1.9 mg/dl (2.5-4.9) L 04/17/25 Total Bilirubin 0.5 mg/dl (0.2-1.0) 04/17/25 AST 85 U/L (13-39) H 04/17/25 ALT 269 U/L (7-52) H 04/17/25 Alkaline Phosphatase 62 U/L (34-104) 04/17/25 TP 5.8 gm/dl (6.0-8.3) L 04/17/25 Albumin 3.0 gm/dl (3.4-5.0) L 04/17/25 Globulin 2.8 gm/dl (2.5-4.0) 04/17/25 Albumin/Globulin Ratio 1.1 (0.9-2) 04/17/25 Mg 2.0 mg/dl (1.7-2.4) 04/17/25 04:29 Calcium Level 8.7 mg/dl (8.6-10.3) 04/17/25 04:29 Microbiology 04/15/25 Unknown Gram Stain - Final Sputum,Vent Suction Sputum Culture - Final Haemo.influ betalactamase neg 04/15/25 03:16 Aerobic Blood Culture - Preliminary Blood No growth in Aerobic bottle after 48 hours. Anaerobic Blood Culture - Preliminary No growth in Anaerobic bottle after 48 hours. 04/15/25 03:16 Aerobic Blood Culture - Preliminary Blood No growth in Aerobic bottle after 48 hours. Anaerobic Blood Culture - Preliminary No growth in Anaerobic bottle after 48 hours. 04/14/25 Unknown Gram Stain - Final Sputum,Vent Suction Sputum Culture - Final Haemo.influ betalactamase neg I & O Totals 24 Hours 04/16/25 04/17/25 04/18/25 06:59 06:59 06:59 Intake Total 3289.779 / 3289.779 2382.496 / 2382.496 890 / 890 Output Total 1150 / 1150 3650 / 3650 1050 / 1050 Balance 2139.779 / 2139.779 -1267.504 / -1267.504 -160 / -160 Cumulative 04/13/25 16:41 thru 04/17/25 09:46 Intake Total 18823.026 Output Total 8465 Balance 9146.026 RT Ventilator Mngmt (Last Documented) Ventilator Ordered Settings Ventilator Support Mode CPAP 04/16/25 08 :14 Respiratory Rate 20 04/17/25 09:52 Ventilator Tidal Volume 355 04/16/25 07:00 Setting Minute Ventilation 7.2 04/16/25 08:14 Ventilator Positive Pressure 5 04/16/25 08:14 Support Setting Positive End Expiratory 8 04/16/25 08:14 Pressure Fraction of Inspired Oxygen 100 04/17/25 09:52 Peak Inspiratory Flow 47 04/15/25 15:00 Machine Comment titrated FIO2 to 40%, o2 sat 98% 04/16/25 05:55 at this time Ventilator - PT Measurements Respiratory Rate 20 Exhaled Tidal Volume 530 Minute Ventilation 7.2 Peak Inspiratory Airway 16 Pressure Plateau Pressure 18 Respiratory Cycle Inspiratory: 1:2.8 Expiratory Ratio Inspiratory Phase Time 0.79 End-Tidal CO2 38 Static Lung Compliance 35.40 Dynamic Lung Compliance 66.25 Normal Static Lung Compliance 49.00 Patient Measurements Comment tube placement adjustment post chest x-ray Coding Level of Care Code 65175 SUB INP/OBS CARE 3/50MIN Diagnoses Calcium channel edwin overdose T46.1X1A Schizoaffective disorder, depressive type F25.1 Schizoaffective disorder type: depressive Bipolar disorder F31.9 Acute kidney injury N17.9 High anion gap metabolic acidosis E87.29 Lactic acidosis E87.20 Leukocytosis D72.829 Mass of heart I51.89 Cardiogenic shock R57.0 Medical non-compliance Z91.199 (2) Schizoaffective disorder Schizoaffective disorder type: depressive Qualified Code(s): F25.1 - Schizoaffective disorder, depressive type
[2025-04-17] MEDS: FUROSEMIDE 40 MG/4 ML VIAL IV SCH ×2 (10:22→17:00)
--- NOTE | 2025-04-17 10:32 | XRay Report ---
XR chest 1V portable HISTORY: 54 years-old Female resp failure acute respiratory failure COMPARISON: 04/16/2025 TECHNIQUE: AP view of the chest FINDINGS: Cardiac silhouette is enlarged. Left subclavian dual-lead pacer. No pneumothorax. Status post removal of the endotracheal and enteric tubes. Probable small pleural effusions. Extensive mixed interstitia l and alveolar opacities throughout the right lung are redemonstrated and have mildly progressed. Bon es appear grossly intact. IMPRESSION: 1. Status post removal of the endotracheal and enteric tubes. 2. Progressive extensive mixed interstitial and alveolar opacities of the right lung. ACT 112: Negative or not required by law. The above report was generated using voice recognition software. It may contain grammatical, syntax o r spelling errors. Electronically signed by: Issac Abdullahi M.D. 04/17/2025 10:30 AM
[2025-04-17 18:34] LABS: Magnesium 1.9 mg/dl (1.7-2.4); Potassium 3.4 mmol/L (3.5-5.1)
[2025-04-17] MEDS: ICU ELECTROLYTE REPLACEMENT PROTOCOL SCH (18:57)
[2025-04-17] MEDS: POTASSIUM CHLORIDE / WTR 20 MEQ/100 ML PLCT IV STA (20:05)
[2025-04-17] MEDS: MAGNESIUM SULFATE / D5W 1 GM/100 ML BAG IV SCH (20:16)
[2025-04-17] MEDS: POTASSIUM CHLORIDE / WTR 20 MEQ/100 ML PLCT IV SCH (20:16)
[2025-04-17] MEDS: LANTUS PER UNIT CHARGE SC SCH (21:04)
[2025-04-17] MEDS: ARIPiprazole 5 MG TAB PO SCH (21:06)
[2025-04-18 05:27] LABS: Anion Gap 6.0 (3-11); Blood Urea Nitrogen 14.0 mg/dl (6-23); Calcium 8.5 mg/dl (8.6-10.3); Carbon Dioxide 27.0 mmol/L (21-32); Chloride 105.0 mmol/L (98-107); Creatinine Clr Calc Pharmacy 103.5 ml/min; Glucose 106.0 mg/dl (70-99(Fasting)); Magnesium 2.4 mg/dl (1.7-2.4); Potassium 4.1 mmol/L (3.5-5.1); Sodium 138.0 mmol/L (136-145)
[2025-04-18 06:00] LABS: Hematocrit (blood only) 28.5 % (37.0-47.0); Hemoglobin 9.0 g/dl (12.0-16.0); Immature Granulocytes # (auto) 0.11 K/uL (0.01-0.20); Immature Granulocytes % (auto) 0.9 %; Mean Corpuscular Hemoglobin 26.2 pg (25.0-34.0); Mean Corpuscular Volume 82.8 fL (80.0-100.0); Ovalocytes 1+; Platelet Count 73 K/uL (130-400); RDW Standard Deviation 54.8 fL (36.4-46.3); Red Blood Count 3.44 M/uL (4.20-5.40); White Blood Count 12.33 K/ul (4.8-10.8)
[2025-04-18] MEDS: POT PHOSPHATE MONOBASIC W/ SOD TAB PO SCH (06:37)
--- NOTE | 2025-04-18 07:10 | Critical Care Progress Note ---
Date of Service April 18, 2025 Assessment & Plan (1) Calcium channel edwin overdose: (2) Schizoaffective disorder: (3) Bipolar disorder: (4) Acute kidney injury: (5) High anion gap metabolic acidosis: (6) Lactic acidosis: (7) Leukocytosis: (8) Mass of heart: (9) Cardiogenic shock: (10) Medical non-compliance: Plan Impression: 54-year-old female with suicide attempt with long-acting calcium channel edwin admitted with lactic acidosis, acute renal failure, severe hypotension. 24-hour events: Diuresed well. Remains on high flow. Recommendation: Neuro -no current issues. Continue PT and OT evaluations. Psych medications per behavioral health. Continue one-to-one. Add bed to chair as tolerated Cardiac -multifactorial hypotension, resolved. Holding antihypertensives for now. Mass on the atrial lead of her pacemaker of unclear significance. Cultures negative. Stable on echocardiogram. No evidence of embolic phenomenon. Will need serial monitoring. Management per cardiology. Signif icantly fluid overloaded. Continue diuretics. Respiratory -chest x-ray today improved. Continue diuretics and wean oxygen as tolerated. Haemophilus pneumonia, see comments under ID below GI -PPI. Tolerating diet. Shock liver resolving. RENAL/LYTES: Continue diuretics. Trend kidney function. Replace electrolytes ENDO - glycemic control per protocol, currently on insulin sliding scale. Random cortisol appropriate no indication for stress dose steroids HEME -anemia, no evidence of acute blood loss and no indication for transfusion currently. Thrombocytopenia: Suspect related to severity of illness. Transition to apixaban for DVT prophylaxis per primary admitting service. Her 4 T-score shows low probability for heparin-induced thrombocytopenia. Continue to trend at this point in time. ID -continue Rocephin for haemophilus in sputum. Fever curve improving. White blood cell count improving. Procalcitonin decreased to 0.74 from 6.29 consistent with favorable response. LINES/TUBES/DRAINS - Central line IJ. DVT PROPHYLAXIS - Transition to Eliquis DISPOSITION - Per primary service CODE STATUS - FULL Patient appears to be responding favorably. Disposition per primary service. Will sign off when the patient is transferred out of the ICU. Admission and Anticipated Discharge Date Admission Date: April 13, 2025 Subjective Patient seen and examined. EMR reviewed. Discussed with overnight critical care NIRAV as well as with bedside critical care nurse in a multidisciplinary rounds. Patient sitting up in a chair. She states she is feeling better this morning. She is coughing and expectorating some phlegm but is typically swallowing it. She is not any chest pain or palpitations. She feels her edema is improving. She had a favorable response to diuretics yesterday. No fevers chills overnight. She overall feels that she is making some slow and steady progress. Review of Systems Review of Systems: All systems reviewed & are unremarkable except as noted in Subjective Physical Exam Constitutional: + frail appearing; no acute distress Neck: trachea midline, no thyromegaly Respiratory: normal respiratory effort, lungs clear to auscultation + labored breathing and + tachypneic; no respiratory distress and no cough Auscultation: + rhonchi; no wheezes Cardiovascular: RRR, no murmur, no edema Gastrointestinal (Abdomen): normal bowel sounds, soft, nontender, no hepatosplenomegaly Musculoskeletal: Extremities: extremities normal to inspection Skin: no rashes, warm and dry Lymphatic: no cervical lymphadenopathy Results & Data Results & Data Vital Signs (Past 12 Hours) Vital Signs Temp Pulse Pulse Resp BP Pulse Ox O2 Del Method 04/18/25 07:01 135/85 04/18/25 06:33 80 38 H 93 04/18/25 06:21 80 24 93 04/18/25 06:01 143/82 H 04/18/25 06:01 143/82 H 04/18/25 05:15 80 30 H 91 04/18/25 05:03 80 33 H 90 04/18/25 05:01 144/77 H 04/18/25 04:57 80 27 H 93 04/18/25 04:00 80 21 149/79 H 92 04/18/25 03:24 75 31 H 98 High Flow Nasal Cannula 04/18/25 03:01 131/76 04/18/25 03:00 80 31 H 97 04/18/25 02:03 80 31 H 97 04/18/25 02:01 138/77 04/18/25 01:54 80 30 H 97 04/18/25 01:00 136/72 04/18/25 01:00 80 31 H 94 04/18/25 00:27 80 41 H 91 04/18/25 00:01 115/73 04/18/25 00:00 80 04/17/25 23:51 80 28 H 97 04/17/25 23:09 80 29 H 96 04/17/25 22:36 80 34 H 95 04/17/25 22:24 80 29 H 99 04/17/25 22:00 37.5 C 80 25 H 123/79 99 04/17/25 21:33 80 32 H 98 04/17/25 21:00 128/81 04/17/25 20:45 80 34 H 98 04/17/25 20:06 37.8 C H 81 36 H 135/79 97 04/17/25 20:00 BiPAP 04/17/25 19:58 82 37 H 97 O2 Flow Rate FiO2 04/18/25 07:01 04/18/25 06:33 04/18/25 06:21 04/18/25 06:01 04/18/25 06:01 04/18/25 05:15 04/18/25 05:03 04/18/25 05:01 04/18/25 04:57 04/18/25 04:00 04/18/25 03:24 40 60 04/18/25 03:01 04/18/25 03:00 04/18/25 02:03 04/18/25 02:01 04/18/25 01:54 04/18/25 01:00 04/18/25 01:00 04/18/25 00:27 04/18/25 00:01 04/18/25 00:00 04/17/25 23:51 04/17/25 23:09 04/17/25 22:36 60 04/17/25 22:24 04/17/25 22:00 75 04/17/25 21:33 04/17/25 21:00 04/17/25 20:45 04/17/25 20:06 04/17/25 20:00 75 04/17/25 19:58 75 Critical Care Results & Data Vital Signs (Past 12 Hours) Vital Signs Temp Pulse Pulse Resp BP Pulse Ox O2 Del Method 04/18/25 07:01 135/85 04/18/25 06:33 80 38 H 93 04/18/25 06:21 80 24 93 04/18/25 06:01 143/82 H 04/18/25 06:01 143/82 H 04/18/25 05:15 80 30 H 91 04/18/25 05:03 80 33 H 90 04/18/25 05:01 144/77 H 04/18/25 04:57 80 27 H 93 04/18/25 04:00 80 21 149/79 H 92 04/18/25 03:24 75 31 H 98 High Flow Nasal Cannula 04/18/25 03:01 131/76 04/18/25 03:00 80 31 H 97 04/18/25 02:03 80 31 H 97 04/18/25 02:01 138/77 04/18/25 01:54 80 30 H 97 04/18/25 01:00 136/72 04/18/25 01:00 80 31 H 94 04/18/25 00:27 80 41 H 91 04/18/25 00:01 115/73 04/18/25 00:00 80 04/17/25 23:51 80 28 H 97 04/17/25 23:09 80 29 H 96 04/17/25 22:36 80 34 H 95 04/17/25 22:24 80 29 H 99 04/17/25 22:00 37.5 C 80 25 H 123/79 99 04/17/25 21:33 80 32 H 98 04/17/25 21:00 128/81 04/17/25 20:45 80 34 H 98 04/17/25 20:06 37.8 C H 81 36 H 135/79 97 04/17/25 20:00 BiPAP 04/17/25 19:58 82 37 H 97 O2 Flow Rate FiO2 04/18/25 07:01 04/18/25 06:33 04/18/25 06:21 04/18/25 06:01 04/18/25 06:01 04/18/25 05:15 04/18/25 05:03 04/18/25 05:01 04/18/25 04:57 04/18/25 04:00 04/18/25 03:24 40 60 04/18/25 03:01 04/18/25 03:00 04/18/25 02:03 04/18/25 02:01 04/18/25 01:54 04/18/25 01:00 04/18/25 01:00 04/18/25 00:27 04/18/25 00:01 04/18/25 00:00 04/17/25 23:51 04/17/25 23:09 04/17/25 22:36 60 04/17/25 22:24 04/17/25 22:00 75 04/17/25 21:33 04/17/25 21:00 04/17/25 20:45 04/17/25 20:06 04/17/25 20:00 75 04/17/25 19:58 75 Lab & Micro Results (Past 24 Hours) RBC 3.44 M/uL (4.20-5.40) L 04/18/25 WBC 12.33 K/ul (4.8-10.8) H 04/18/25 Hgb 9.0 g/dl (12.0-16.0) L 04/18/25 Hct 28.5 % (37.0-47.0) L 04/18/25 MCV 82.8 fL (80.0-100.0) 04/18/25 MCH 26.2 pg (25.0-34.0) 04/18/25 MCHC 31.6 g/dL (32.0-36.0) L 04/18/25 RDW Standard Deviation 54.8 fL (36.4-46.3) H 04/18/25 RDW Coefficient of Variation 18.2 % (11.5-14.5) H 04/18/25 Plt Count 73 K/uL (130-400) L 04/18/25 MPV 10.7 fL (9.4-12.4) 04/18/25 Nucleated Red Blood Cells % (auto) 0.2 % 04/18 Nucleated RBC Absolute Count (auto) 0.02 K/uL (0.00-0.12) 0 04/18/25 Neutrophils (%) (Auto) 80.6 % 04/18/25 Lymphocytes (%) (Auto) 10.9 % 04/18/25 Monocytes # (Auto) 0.76 K/uL (0.11-0.59) H 04/18/25 Eosinophils # (Auto) 0.14 K/uL (0.00-0.50) 04/18/25 Immature Granulocyte % (Auto) 0.9 % 04/18/25 Neutrophils # (Auto) 9.94 K/uL (1.40-6.50) H 04/18/25 Lymphocytes # (Auto) 1.34 K/uL (1.20-3.40) 04/18/25 Monocytes # (Auto) 0.76 K/uL (0.11-0.59) H 04/18/25 Eosinophils # (Auto) 0.14 K/uL (0.00-0.50) 04/18/25 Basophils # (Auto) 0.04 K/uL (0.00-0.20) 04/18/25 Immature Granulocyte # (Auto) 0.11 K/uL (0.01-0.20) 5 Ovalocytes 1+ 04/18/25 Na 138 mmol/L (136-145) 04/18/25 K 4.1 mmol/L (3.5-5.1) 04/18/25 Cl 105 mmol/L (98-107) 04/18/25 CO2 27 mmol/L (21-32) 04/18/25 Anion Gap 6 (3-11) 04/18/25 BUN 14 mg/dl (6-23) 04/18/25 Creatinine 0.64 mg/dl (0.6-1.2) 04/18/25 BUN/Creatinine Ratio 21.9 (10-20) H 04/18/25 Glu 106 mg/dl (70-99(Fasting)) H 04/18/25 Ca 8.5 mg/dl (8.6-10.3) L 04/18/25 Phosphorus Level 2.0 mg/dl (2.5-4.9) L 04/18/25 Mg 2.4 mg/dl (1.7-2.4) 04/18/25 04:25 Calcium Level 8.5 mg/dl (8.6-10.3) L 04/18/25 04:25 Microbiology 04/15/25 Unknown Gram Stain - Final Sputum,Vent Suction Sputum Culture - Final Haemo.influ betalactamase neg 04/15/25 03:16 Aerobic Blood Culture - Preliminary Blood No growth in Aerobic bottle after 48 hours. Anaerobic Blood Culture - Preliminary No growth in Anaerobic bottle after 48 hours. 04/15/25 03:16 Aerobic Blood Culture - Preliminary Blood No growth in Aerobic bottle after 48 hours. Anaerobic Blood Culture - Preliminary No growth in Anaerobic bottle after 48 hours. Diagnostic Findings (Past 24 Hours) Chest X-Ray 04/17/25 09:59 XR chest 1V portable HISTORY: 54 years-old Female resp failure acute respiratory failure COMPARISON: 04/16/2025 TECHNIQUE: AP view of the chest FINDINGS: Cardiac silhouette is enlarged. Left subclavian dual-lead pacer. No pneumothorax. Status post removal of the endotracheal and enteric tubes. Probable small pleural effusions. Extensive mixed interstitial and alveolar opacities throughout the right lung are redemonstrated and have mildly progressed. Bones appear grossly intact. IMPRESSION: 1. Status post removal of the endotracheal and enteric tubes. 2. Progressive extensive mixed interstitial and alveolar opacities of the right lung. ACT 112: Negative or not required by law. The above report was generated using voice recognition software. It may contain grammatical, syntax or spelling errors. Electronically signed by: Issac Abdullahi M.D. 04/17/2025 10:30 AM I & O Totals 24 Hours 04/17/25 04/18/25 04/19/25 06:59 06:59 06:59 Intake Total 2382.496 / 2382.496 2832 / 2832 Output Total 3650 / 3650 5250 / 5250 Balance -1267.504 / -1267.504 -2418 / -2418 Cumulative 04/13/25 16:41 thru 04/18/25 05:58 Intake Total 51143.026 Output Total 84667 Balance 6888.026 RT Ventilator Mngmt (Last Documented) Ventilator Ordered Settings Ventilator Support Mode CPAP 04/16/25 08:14 Respiratory Rate 38 04/18/25 06:33 Ventilator Tidal Volume 355 04/16/25 07:00 Setting Minute Ventilation 7.2 04/16/25 08:14 Ventilator Positive Pressure 5 04/16/25 08:14 Support Setting Positive End Expiratory 8 04/16/25 08:14 Pressure Fraction of Inspired Oxygen 60 04/18/25 03:24 Peak Inspiratory Flow 47 04/15/25 15:00 Machine Comment titrated FIO2 to 40%, o2 sat 98% 04/16/25 05:55 at this time Ventilator - PT Measurements Respiratory Rate 38 Exhaled Tidal Volume 530 Minute Ventilation 7.2 Peak Inspiratory Airway 16 Pressure Plateau Pressure 18 Respiratory Cycle Inspiratory: 1:2.8 Expiratory Ratio Inspiratory Phase Time 0.79 End-Tidal CO2 38 Static Lung Compliance 35.40 Dynamic Lung Compliance 66.25 Normal Static Lung Compliance 49.00 Patient Measurements Comment tube placement adjustment post chest x-ray Coding Level of Care Code 79231 SUB INP/OBS CARE 3/50MIN Diagnoses Calcium channel edwin overdose T46.1X1A Schizoaffective disorder, depressive type F25.1 Schizoaffective disorder type: depressive Bipolar disorder F31.9 Acute kidney injury N17.9 High anion gap metabolic acidosis E87.29 Lactic acidosis E87.20 Leukocytosis D72.829 Mass of heart I51.89 Cardiogenic shock R57.0 Medical non-compliance Z91.199 (2) Schizoaffective disorder Schizoaffective disorder type: depressive Qualified Code(s): F25.1 - Schizoaffective disorder, depressive type
--- NOTE | 2025-04-18 07:58 | XRay Report ---
EXAM: XR chest 1V portable CLINICAL HISTORY: Resp failure TECHNIQUE: An X-ray image of the chest is obtained in AP projection. COMPARISON: 04/16/2025. FINDINGS: Lines and tubes: Endotracheal tube and nasogastric tube noted in the prior study are not seen in the current study Right-sided CVP was at the tip of the cavoatrial junction Peace maker leads seen in situ. Pulmonary Parenchyma: Ill-defined multifocal airspace shadowing seen in the right upper upper middle and lower zones, with a small atelectatic band traversing in the right lower zone. Minimal pleural reaction in the left costophrenic recess. Heart and Mediastinum: Heart size and shape are normal. No mediastinal widening or masses. No hilar or mediastinal lymphadenopathy. Cardiac pacemaker leads are seen in situ. Bony Thorax: Bony thorax appears intact without fractures or deformities. Soft Tissues: Soft tissues overlying the chest wall are unremarkable. IMPRESSION: 1. Ill-defined multifocal airspace shadowing/opacities seen in the right mid and lower zones with few small atelectatic bands. Suggest clinical correlation. 2. Comparing the previous X-ray dated 04/15/2025, the findings remain stable. Electronically signed by Terry Acevedo 04-18-2025 07:58 AM
--- NOTE | 2025-04-18 09:49 | Hospitalist Progress Note ---
Date of Service April 18, 2025 Assessment & Plan (1) Calcium channel edwin overdose: Plan: 54-year-old woman with bipolar disorder who presented after an intentional overdose with long-acting diltiazem. She woke the following morning feeling poorly, collapsed and EMS was called. Diltiazem XR tablets 50x, 180mg each taken at approximately 1 AM on 04/13/2020. given calcium and emergency treatment for hyperkalemia. Admitted to ICU for shock, required intubation and mechanical ventilation as well as pressors. 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 On 40L/70% currently, remains tachypneic mid to high 20s -WBC slightly improved and afebrile continue antibiotics as below, CT imaging discussed below -continue diuresis - over 6L of urine yesterday but only -2L because of pretty high intake. Lasix 40 IV bid currently, assess in afternoon if needs tid -CXR 04/18 persistent multifocal opacities on R, only 7 ribs visible/hypoventilatory, bowel gas. More or less same as yesterday - personally reviewed film -probably transfer to PCU status today if resp status remaining stable # haemophilus influenzae RLL pneumonia, unclear whether she also has a component of aspiration pneumonia/pneumonitis # endocarditis unlikely CTA chest and CT abd/pelvis with IV/po contrast 04/15 - patchy multifocal right lung opacities, bilateral pleural effusions small-mod, mildly dilated small bowel, gastric bypass. No PE or appearance of septic pulm emboli. -sputum cx with H. flu -blood cultures from 04/13 and 04/15 - reviewed remain NGTD -abx narrowed to ceftriaxone - continue # thrombocytopenia - new past 24h. Plt 73. little worse despite stopping heparin, may be related to critical illness/infection --cont low dose apixaban --no evidence of SHANELL at this point # MARY JANE/ metabolic acidosis/hyperkalemia manager game consulted, signed off 04/16 --resolved --lasix 40 mg IV bid for volume overload --Cr remains low at 0.64, electrolytes acceptable. K 4.1 # suicide attempt /bipolar disorder/PTSD/schizoaffective disorder consulted psychiatrist, 302 filed - continue lamotrigine, and venlafaxine - abilify 5 mg HS and prn hallucinations (hears voices) needs one-to-one observation, should not be allowed to leave AMA, planning inpatient psychiatric admission once medically stable "There is a 302 petitioning statement on the chart. Once extubated the patient should remain on safety precautions with 1-on-1 pending medical clearance. The patient is not psychiatrically cleared to leave the hospital without additional safety or aftercare planning; theyshould not be allowed to leave AMA without notification to our service as a 302 warrant would be appropriate." # right atrial mass consulted cardiology, reviewed recommendations in Dr. Mcfarland's note 04/16 well-visualized on TTE and RAYMON will not provide additional benefit -septic shock raised more concern for endocarditis but blood cultures negative so far and no septic emboli on chest CT -repeat TTE 04/16 reviewed no change in R atrial mass appears attached to RA pacer lead # mild transaminitis is related to ischemic hepatitis from shockmonitor LFTs. continue to improve/resolve # Type II DM. A1c 7.7% ICU hyperglycemia protocol, pharmacist currently managing SQ insulin BG at goal reviewed 04/18 # History of nonepileptic seizures Noted # FEN - now has diet DVT Prophylaxis: low dose apixaban discussed with Poncho RN, patient, reviewed recs in critical care note (2) PSVT (paroxysmal supraventricular tachycardia): (3) Schizoaffective disorder: (4) Dyslipidemia due to type 2 diabetes mellitus: Admission and Anticipated Discharge Date Admission Date: April 13, 2025 Subjective Had Bipap until around 3am, did sleep, back on HFNC. She says she's feeling pretty down, no auditory hallucinations, alert No pain, +cough, +dyspnea Physical Exam 2 Physical Exam: Last 24h vitals reviewed GEN: sitting up in recliner chair HEENT: pupils equal, sclerae anicteric, moist MM. On HFNC RESP: little bit better air movement, tachypneic mildly labored, bilateral crackles CV: reg no mrg ABD: nondistended bowel tones present : Mcdonnell catheter draining light yellow urine SKIN: warm and dry, no generalized rashes 3+ anasarca UE>LE. UE and LE edema impr nicole compared to yesterday. NEURO: awake oriented to self hospital, situation, normal speech, jose m, [id number] PSYCH: not making very good eye contact, hypoactive, no agitation, depressed mood, no hallucinations Results & Data Results & Data Vital Signs (Past 12 Hours) Vital Signs Temp Pulse Pulse Resp BP Pulse Ox O2 Del Method 04/18/25 08:03 88 28 H 91 04/18/25 08:03 149/106 H 04/18/25 08:01 189/117 H 04/18/25 08:00 88 04/18/25 07:57 88 30 H 92 04/18/25 07:39 81 32 H 92 High Flow Nasal Cannula 04/18/25 07:30 BiPAP, High Flow Nasal Cannula 04/18/25 07:15 80 29 H 91 04/18/25 07:01 135/85 04/18/25 06:33 80 38 H 93 04/18/25 06:21 80 24 93 04/18/25 06:01 143/82 H 04/18/25 06:01 143/82 H 04/18/25 05:15 80 30 H 91 04/18/25 05:03 80 33 H 90 04/18/25 05:01 144/77 H 04/18/25 04:57 80 27 H 93 04/18/25 04:00 80 21 149/79 H 92 04/18/25 03:24 75 31 H 98 High Flow Nasal Cannula 04/18/25 03:01 131/76 04/18/25 03:00 80 31 H 97 04/18/25 02:03 80 31 H 97 04/18/25 02:01 138/77 04/18/25 01:54 80 30 H 97 04/18/25 01:00 136/72 04/18/25 01:00 80 31 H 94 04/18/25 00:27 80 41 H 91 04/18/25 00:01 115/73 04/18/25 00:00 80 04/17/25 23:51 80 28 H 97 04/17/25 23:09 80 29 H 96 04/17/25 22:36 80 34 H 95 04/17/25 22:24 80 29 H 99 04/17/25 22:00 37.5 C 80 25 H 123/79 99 O2 Flow Rate FiO2 04/18/25 08:03 04/18/25 08:03 04/18/25 08:01 04/18/25 08:00 04/18/25 07:57 04/18/25 07:39 40 60 04/18/25 07:30 40 70 04/18/25 07:15 04/18/25 07:01 04/18/25 06:33 04/18/25 06:21 04/18/25 06:01 04/18/25 06:01 04/18/25 05:15 04/18/25 05:03 04/18/25 05:01 04/18/25 04:57 04/18/25 04:00 04/18/25 03:24 40 60 04/18/25 03:01 04/18/25 03:00 04/18/25 02:03 04/18/25 02:01 04/18/25 01:54 04/18/25 01:00 04/18/25 01:00 04/18/25 00:27 04/18/25 00:01 04/18/25 00:00 04/17/25 23:51 04/17/25 23:09 04/17/25 22:36 60 04/17/25 22:24 04/17/25 22:00 75 Laboratory Results 04/18/25 04:25 04/18/25 04:25 PG Care Time/CCT Total # of Minutes Spent Total Time Spent with Patient: Total time spent is greater than 50% in coordination of care (as documented) at patient's floor/unit and/or counseling patient: Coding Level of Care Code 19938 SUB INP/OBS CARE 3/50MIN Diagnoses Calcium channel edwin overdose T46.1X1A PSVT (paroxysmal supraventricular tachycardia) I47.10 Schizoaffective disorder, depressive type F25.1 Schizoaffective disorder type: depressive Dyslipidemia due to type 2 diabetes mellitus E11.69; E78.5 (3) Schizoaffective disorder Schizoaffective disorder type: depressive Qualified Code(s): F25.1 - Schizoaffective disorder, depressive type
[2025-04-18] MEDS: LANTUS PER UNIT CHARGE SC SCH (12:18)
[2025-04-18 13:07] LABS: Marijuana Quant, GCMS Urine 257 ng/mL (<5)
[2025-04-18 19:01] LABS: Magnesium 2.1 mg/dl (1.7-2.4); Potassium 3.4 mmol/L (3.5-5.1)
[2025-04-18] MEDS: MELATONIN 3 MG TAB PO PRN (20:17)
[2025-04-18] MEDS: POTASSIUM CHLORIDE CRTAB 20 MEQ TABCR PO SCH (21:27)
[2025-04-19 05:43] LABS: Anion Gap 8.0 (3-11); Blood Urea Nitrogen 13.0 mg/dl (6-23); Calcium 8.8 mg/dl (8.6-10.3); Carbon Dioxide 27.0 mmol/L (21-32); Chloride 103.0 mmol/L (98-107); Creatinine Clr Calc Pharmacy 106.8 ml/min; Glucose 105.0 mg/dl (70-99(Fasting)); Magnesium 2.0 mg/dl (1.7-2.4); Potassium 3.8 mmol/L (3.5-5.1); Sodium 138.0 mmol/L (136-145)
--- NOTE | 2025-04-19 07:32 | Hospitalist Progress Note ---
Date of Service April 19, 2025 Assessment & Plan (1) Calcium channel edwin overdose: Plan: 54-year-old woman with bipolar disorder who presented after an intentional overdose with long-acting diltiazem. She woke the following morning feeling poorly, collapsed and EMS was called. Diltiazem XR tablets 50x, 180mg each taken at approximately 1 AM on 04/13/2020. given calcium and emergency treatment for hyperkalemia. Admitted to ICU for shock, required intubation and mechanical ventilation as well as pressors. # toxidromic shock caused by intentional overdose of long-acting calcium channel edwin, end organ dysfunction of MARY JANE and respiratory failure # acute hypoxic respiratory failure present on admission # septic shock, unable to determine whether present on admission, obvious as of evening of 04/14 and caused by haemophilus influenzae pneumonia equipment associate increased atrial pacing to 80 to override her junctional rhythm -off pressors as of AM 04/16, extubated to HFNC on 04/16 - remains on HF and had several hours of Bipap last night. On 40L/70% currently, remains tachypneic mid to high 20s -WBC slightly improved and afebrile continue antibiotics as below, CT imaging discussed below -continue diuresis - almost 4L neg last 24h weight down a kg. Replacing low normal potassium po. Continue lasix 40 IV bid, resume spironolactone 50 mg daily -hypertensive, resume diltiazem if persisting despite lasix this AM -CXR 04/19 persistent multifocal opacities on R -hypoxia improved now 6L pnc with some nighttime bipap -continue daily BMP mag -transfer to PCU status # haemophilus influenzae RLL pneumonia, unclear whether she also has a component of aspiration pneumonia/pneumonitis # endocarditis unlikely CTA chest and CT abd/pelvis with IV/po contrast 04/15 - patchy multifocal right lung opacities, bilateral pleural effusions small-mod, mildly dilated small bowel, gastric bypass. No PE or appearance of septic pulm emboli. -sputum cx with H. flu -blood cultures from 04/13 and 04/15 - ngtd -abx narrowed to ceftriaxone - continue -procal down from 6-->0.7 # thrombocytopenia - new past 24h. Plt 73. little worse despite stopping heparin, may be related to critical illness/infection --cont low dose apixaban --no evidence of SHANELL at this point --CBC tomorrow # MARY JANE/ metabolic acidosis/hyperkalemia air pollution compliance inspector consulted, signed off 04/16 --resolved --lasix 40 mg IV bid for volume overload --Cr remains low at 0.64, electrolytes acceptable. K 3.8 # suicide attempt /bipolar disorder/PTSD/schizoaffective disorder consulted psychiatrist, 302 filed - continue lamotrigine, and venlafaxine (reordered) - abilify dose is increased by psychiatry today (hears voices) needs one-to-one observation, should not be allowed to leave AMA, planning inpatient psychiatric admission once medically stable "There is a 302 petitioning statement on the chart. Once extubated the patient should remain on safety precautions with 1-on-1 pending medical clearance. The patient is not psychiatrically cleared to leave the hospital without additional safety or aftercare planning; theyshould not be allowed to leave AMA without notification to our service as a 302 warrant would be appropriate." # right atrial mass consulted cardiology, reviewed recommendations in Dr. Mcfarland's note 04/16 well-visualized on TTE and RAYMON will not provide additional benefit -septic shock raised more concern for endocarditis but blood cultures negative so far and no septic emboli on chest CT -repeat TTE 04/16 reviewed no change in R atrial mass appears attached to RA pacer lead # mild transaminitis is related to ischemic hepatitis from shockmonitor LFTs. continue to improve/resolve # Type II DM. A1c 7.7% ICU hyperglycemia protocol, pharmacist currently managing SQ insulin BG at goal reviewed 04/18 # History of nonepileptic seizures Noted # FEN - now has diet DVT Prophylaxis: low dose apixaban discussed with Poncho RN, patient again on 04/19 (2) PSVT (paroxysmal supraventricular tachycardia): (3) Schizoaffective disorder: (4) Dyslipidemia due to type 2 diabetes mellitus: Admission and Anticipated Discharge Date Admission Date: April 13, 2025 Subjective neg 3800 overnight, weight down a kilo and on 6L O2 this AM on bipap until 2 am hypertensive She says she does feel better today not as short of breath, early afternoon got quite agitated was hearing voices and stating that she was going to leave. Assessed by behavioral health Physical Exam 2 Physical Exam: Last 24h vitals reviewed GEN: sitting up in bed wearing nasal cannula HEENT: pupils equal, sclerae anicteric, moist MM. RESP: bilateral crackles, tachypneic and hypoventilatory, air movement a little bit better than yesterday CV: reg no mrg ABD: nondistended bowel tones present : Mcdonnell catheter draining light yellow urine SKIN: warm and dry, no generalized rashes 2+ anasarca UE>LE. UE and LE edema muc h improved last 24 hours NEURO: awake oriented to self hospital, situation, normal speech, jose m, [email or web address] PSYCH: made eye contact with me this morning and was not hallucinating, having auditory hallucinations this afternoon, persistently depressed mood Results & Data Results & Data Vital Signs (Past 12 Hours) Vital Signs Temp Pulse Resp BP Pulse Ox O2 Del Method O2 Flow Rate 04/19/25 05:00 37.5 C 80 29 H 95 04/19/25 04:24 37.5 C 80 32 H 99 04/19/25 03:12 37.3 C 80 25 H 92 04/19/25 03:09 176/108 H 04/19/25 02:54 37.2 C 80 26 H 100 04/19/25 02:16 80 38 H 97 04/19/25 02:09 37.3 C 80 21 96 04/19/25 02:00 180/110 H 04/19/25 01:48 37.3 C 80 26 H 98 04/19/25 01:39 37.3 C 80 27 H 98 04/19/25 01:00 162/107 H 04/19/25 01:00 162/107 H 04/19/25 00:57 37.3 C 80 29 H 98 04/19/25 00:00 143/100 H 04/19/25 00:00 37.3 C 80 25 H 97 04/18/25 23:27 37.6 C H 80 22 96 04/18/25 23:27 155/90 H 04/18/25 23:27 155/90 H 04/18/25 23:26 143/100 H 04/18/25 23:12 37.6 C H 80 28 H 95 04/18/25 23:03 37.6 C H 80 32 H 94 04/18/25 22:00 38.1 C H 80 33 H 138/83 93 04/18/25 22:00 80 37 H 94 04/18/25 21:03 38.3 C H 80 35 H 90 04/18/25 20:06 87 35 H 94 04/18/25 20:00 Nasal Cannula 6 FiO2 04/19/25 05:00 04/19/25 04:24 04/19/25 03:12 04/19/25 03:09 04/19/25 02:54 04/19/25 02:16 30 04/19/25 02:09 04/19/25 02:00 04/19/25 01:48 04/19/25 01:39 04/19/25 01:00 04/19/25 01:00 04/19/25 00:57 04/19/25 00:00 04/19/25 00:00 04/18/25 23:27 04/18/25 23:27 04/18/25 23:27 04/18/25 23:26 04/18/25 23:12 04/18/25 23:03 04/18/25 22:00 04/18/25 22:00 40 04/18/25 21:03 04/18/25 20:06 04/18/25 20:00 Laboratory Results 04/18/25 04:25 04/19/25 04:44 mag 2.0, phos normal Diagnostic Findings CXR - personally reviewed film - low lung volumes, multifocal right sided opacities similar, L base atelectasis or infiltrate PG Care Time/CCT Total # of Minutes Spent Total Time Spent with Patient: Total time spent is greater than 50% in coordination of care (as documented) at patient's floor/unit and/or counseling patient: Coding Level of Care Code 49991 SUB INP/OBS CARE 3/50MIN Diagnoses Calcium channel edwin overdose T46.1X1A PSVT (paroxysmal supraventricular tachycardia) I47.10 Schizoaffective disorder, depressive type F25.1 Schizoaffective disorder type: depressive Dyslipidemia due to type 2 diabetes mellitus E11.69; E78.5 (3) Schizoaffective disorder Schizoaffective disorder type: depressive Qualified Code(s): F25.1 - Schizoaffective disorder, depressive type
--- NOTE | 2025-04-19 08:05 | Critical Care Progress Note ---
Date of Service April 19, 2025 Assessment & Plan (1) Calcium channel edwin overdose: (2) Schizoaffective disorder: (3) Bipolar disorder: (4) Acute kidney injury: (5) High anion gap metabolic acidosis: (6) Lactic acidosis: (7) Leukocytosis: (8) Mass of heart: (9) Cardiogenic shock: (10) Medical non-compliance: Plan Impression: 54-year-old female with suicide attempt with long-acting calcium channel edwin admitted with lactic acidosis, acute renal failure, severe hypotension. 24-hour events: Diuresed well. Remains on high flow. Recommendation: Neuro -no current issues. Continue PT and OT evaluations. Psych medications per behavioral health. Continue one-to-one. Add bed to chair as tolerated Cardiac -multifactorial hypotension, resolved. Holding antihypertensives for now. Mass on the atrial lead of her pacemaker of unclear significance. Cultures negative. Stable on echocardiogram. No evidence of embolic phenomenon. Will need serial monitoring. Management per cardiology. Signif icantly fluid overloaded. Continue diuretics. Respiratory -chest x-ray today improved. Continue diuretics and wean oxygen as tolerated. Haemophilus pneumonia, see comments under ID below GI -PPI. Tolerating diet. Shock liver resolving. RENAL/LYTES: Continue diuretics. Trend kidney function. Replace electrolytes ENDO - glycemic control per protocol, currently on insulin sliding scale. Random cortisol appropriate no indication for stress dose steroids HEME -anemia, no evidence of acute blood loss and no indication for transfusion currently. Thrombocytopenia: Suspect related to severity of illness. Transition to apixaban for DVT prophylaxis per primary admitting service. Her 4 T-score shows low probability for heparin-induced thrombocytopenia. Continue to trend at this point in time. ID -continue Rocephin for haemophilus in sputum. Fever curve improving. White blood cell count improving. Procalcitonin decreased to 0.74 from 6.29 consistent with favorable response. LINES/TUBES/DRAINS - Central line IJ. DVT PROPHYLAXIS - Transition to Eliquis DISPOSITION - Per primary service CODE STATUS - FULL Patient appears to be responding favorably. Disposition per primary service. Will sign off when the patient is transferred out of the ICU. Admission and Anticipated Discharge Date Admission Date: April 13, 2025 Results & Data Results & Data Vital Signs (Past 12 Hours) Vital Signs Temp Pulse Resp BP Pulse Ox FiO2 04/19/25 05:00 37.5 C 80 29 H 95 04/19/25 04:24 37.5 C 80 32 H 99 04/19/25 03:12 37.3 C 80 25 H 92 04/19/25 03:09 176/108 H 04/19/25 02:54 37.2 C 80 26 H 100 04/19/25 02:16 80 38 H 97 30 04/19/25 02:09 37.3 C 80 21 96 04/19/25 02:00 180/110 H 04/19/25 01:48 37.3 C 80 26 H 98 04/19/25 01:39 37.3 C 80 27 H 98 04/19/25 01:00 162/107 H 04/19/25 01:00 162/107 H 04/19/25 00:57 37.3 C 80 29 H 98 04/19/25 00:00 143/100 H 04/19/25 00:00 37.3 C 80 25 H 97 04/18/25 23:27 37.6 C H 80 22 96 04/18/25 23:27 155/90 H 04/18/25 23:27 155/90 H 04/18/25 23:26 143/100 H 04/18/25 23:12 37.6 C H 80 28 H 95 04/18/25 23:03 37.6 C H 80 32 H 94 04/18/25 22:00 38.1 C H 80 33 H 138/83 93 04/18/25 22:00 80 37 H 94 40 04/18/25 21:03 38.3 C H 80 35 H 90 04/18/25 20:06 87 35 H 94 Coding Diagnoses Calcium channel edwin overdose T46.1X1A Schizoaffective disorder, depressive type F25.1 Schizoaffective disorder type: depressive Bipolar disorder F31.9 Acute kidney injury N17.9 High anion gap metabolic acidosis E87.29 Lactic acidosis E87.20 Leukocytosis D72.829 Mass of heart I51.89 Cardiogenic shock R57.0 Medical non-compliance Z91.199 (2) Schizoaffective disorder Schizoaffective disorder type: depressive Qualified Code(s): F25.1 - Schizoaffective disorder, depressive type
--- NOTE | 2025-04-19 09:23 | XRay Report ---
EXAM: XR chest 1V portable CLINICAL HISTORY: resp failure TECHNIQUE: An X-ray image of the chest is obtained in AP projection. COMPARISON: Comparing to prior CXR on 04/18/2025. FINDINGS: Right-sided CVP was at the tip of the cavoatrial junction. Left side dual wire cardiac pacemaker. Pulmonary Parenchyma: Mild interval worsening of the right lower zone consolidation and increase in patchy opacities in right upper, mid zones. Unchanged mild atelectasis in left lower zone. Right CP angle is obscured and mild blunting of left CP angle likely pleural thickening. Heart and Mediastinum: Enlarged heart size. No mediastinal widening or masses. No hilar or mediastinal lymphadenopathy. Bony Thorax: Bony thorax appears intact without fractures or deformities. Soft Tissues: Stable gas distention of the left colon. Soft tissues overlying the chest wall are unremarkable. IMPRESSION: 1. Right-sided CVP was at the tip of the cavoatrial junction. 2. Left side dual wire cardiac pacemaker. 3. Mild interval worsening of the right lower zone consolidation and increase in patchy opacities in right upper, mid zones. 4. Unchanged mild atelectasis in left lower zone. 5. Right CP angle is obscured and mild blunting of left CP angle likely pleural thickening. Electronically signed by Terry Acevedo 04-19-2025 09:22 AM
[2025-04-19] MEDS: POTASSIUM CHLORIDE CRTAB 20 MEQ TABCR PO SCH (09:44)
[2025-04-19] MEDS: SPIRONOLACTONE 25 MG TAB PO SCH (10:22)
[2025-04-19] MEDS: ATORVASTATIN 10 MG TAB PO SCH (10:23)
--- NOTE | 2025-04-19 11:21 | Pharmacy Report ---
Pharmacy Glycemic Short Note 2 - Date of Service April 19, 2025 - Glycemic Short BSG Results (Last 24 hours): 04/18/25 04/18/25 04/18/25 11:23 16:15 20:17 Glucose POC Glucose 192 H 110 H 150 H 04/19/25 04/19/25 04:44 07:03 Glucose 105 H POC Glucose 115 H OUTPATIENT ANTIDIABETIC REGIMEN: * None * HbA1c 7.7% on 03/05/25 ASSESSMENT: 04/19 * Patient transitioned to once daily morning lantus successfully. Novolog CR was tightened slightly yesterday. * BSGs in past 24 hours: [phone] mg/dL and fasting today was 115mg/dL. * Patient is tolerating a diet and remains on IV ceftriaxone. Continue current insulin regimen. 04/16 * Patient has been weaned off of pressors, extubated this morning. Diet ordered with lunch. * Given stable blood sugars with insulin drip will initiate basal/bolus regimen at this time. * Transitioned off of insulin drip with 15 units of lantus. Initiated basal between weight stress of 1 and 2. Will monitor. 04/15 * 54 yo F with T2DM but not on any diabetes medications admitted 04/13 for intentional diltiazem XR (calcium channel edwin/CCB) overdose/OD. * Poison center involved - did not recommend high dose insulin for treatment of CCB OD. * Insulin drip initiated 6 AM for hyperglycemia > 400 mg/dL. Insulin drip ran continuously but was held 6/25 PM for BSG of 93 mg/dL. Transitioned to Novolog q4h. * Discussed on ICU rounds 04/15 AM - significant pressor requirements and questionable absorption of SC insulin. Will transition back to insulin drip for hyperglycemia > 180 mg/dL plus initiation of trickle feeds. No bolus, starting at a low dose. Of note, high anion gap metabolic acidosis noted, but this was felt to be due to etiologies other than DKA therefore will not start dextrose containing fluids * Of note, CCB overdose can precipitate hyperglycemia - may see improvement in BSG's / possibly reduced insulin requirements as time goes on PLAN FOR INPATIENT GLYCEMIC CONTROL: * Basal insulin * Lantus 10 units SQ qam * Bolus insulin * NovoLog per scale ACHS or Q6hrs while NPO * Goal Range: Low 120 mg/dL - High 160 mg/dL * Correction Factor: 30 mg/dL/unit * Nutritional / Prandial insulin per carb ratio of 1 unit per 10 grams CHO consumed
[2025-04-19] MEDS: ARIPiprazole 5 MG TAB PO PRN (16:15)
[2025-04-19] MEDS ORDERED: clonazePAM 0.25 MG OD TAB PO PRN (18:15)
--- NOTE | 2025-04-19 18:21 | Communication Note ---
Date of Service: April 19, 2025 Has been hypertensive all day, agitated/anxious and RN reports sweaty, temp back up to 38 this afternoon May be benzodiazepine withdrawal - has been getting PRN clonazepam but at half her usual dose. Heavy alcohol history was not reported, but need more information. Ordered lorazepam 1 mg IV and increased PRN clonazepam back to her usual 0.5 mg tid PRN. Discuss with psychiatrist tomorrow. Abilify was increased today. Draw another set of blood culture for increasing fever, with underlying concern about RA mass and endocarditis DC central line tomorrow if remaining stable Moving to
[2025-04-20 07:00] LABS: Anion Gap 10.0 (3-11); Blood Urea Nitrogen 12.0 mg/dl (6-23); Calcium 9.2 mg/dl (8.6-10.3); Carbon Dioxide 27.0 mmol/L (21-32); Chloride 101.0 mmol/L (98-107); Creatinine Clr Calc Pharmacy 90.9 ml/min; Glucose 101.0 mg/dl (70-99(Fasting)); Magnesium 1.9 mg/dl (1.7-2.4); Potassium 4.0 mmol/L (3.5-5.1); Sodium 138.0 mmol/L (136-145)
--- NOTE | 2025-04-20 07:44 | XRay Report ---
EXAM: XR chest 1V portable CLINICAL HISTORY: None TECHNIQUE: An X-ray image of the chest is obtained in AP projection. COMPARISON: April 19/2025 05:55:09 IRRIGATION TAX ASSESSOR COLLECTOR FINDINGS: Right-sided CVP was at the tip of the cavoatrial junction. Left side dual wire cardiac pacemaker. Pulmonary Parenchyma: Mild interval regression of the right lower zone consolidation and mild resolution of patchy opacities in right upper, mid zones. Unchanged mild atelectasis in left lower zone. Right CP angle is obscured and mild blunting of left CP angle likely pleural thickening. Heart and Mediastinum: Enlarged heart size. No mediastinal widening or masses. No hilar or mediastinal lymphadenopathy. Bony Thorax: Bony thorax appears intact without fractures or deformities. Soft Tissues: Stable gas distention of the left colon. Soft tissues overlying the chest wall are unremarkable. IMPRESSION: Right-sided CVP was at the tip of the cavoatrial junction. Left side dual wire cardiac pacemaker. Mild interval regression of the right lower zone consolidation and mild resolution of patchy opacities in right upper, mid zones. Unchanged mild atelectasis in left lower zone. Right CP angle is obscured and mild blunting of left CP angle likely pleural thickening. Electronically signed by Carlo Alvarenga 04-20-2025 07:43 AM
[2025-04-20] MEDS: ACETAMINOPHEN 325 MG TAB PO PRN (08:40)
--- NOTE | 2025-04-20 13:53 | Psychiatric Progress Note ---
Date of Service April 20, 2025 Impression / Recommendations Impression Diagnostically based on history of prior suicide attempts, mood disorder vs schizoaffective disorder, PTSD and suspected intentional overdose suicide attempt she is likely to require inpatient psychiatric treatment once medically stable. A: Patient continues to be in a major depressive episode, presents with a serious suicide attempt, concern for recent psychosis, memory impairment related to overdose attempt, and does not present a safe discharge plan at this time. Remains a high risk of imminent harm to herself. Recommend to continue plan for inpatient psychiatry after medical stabilization. There is a 302 petitioning statement on the chart. The patient is not psychiatrically cleared to leave the hospital without additional safety or aftercare planning; theyshould not be allowed to leave AMA without notification to our service as a 302 warrant would be appropriate. Overall, I spent a total of 60 minutes with this case including review of chart records, review of labwork, direct evaluation of the patient at bedside, counseling the patient, discussion of the patient with the Nurse and with the hospitalist provider, discussion with the psychiatric liaison during clinical rounds, review of collateral historian information from the family and documentation in the electronic health record. (1) Suicide attempt: (2) Auditory hallucinations: (3) Post traumatic stress disorder (PTSD): (4) Schizoaffective disorder: Plan 04/20/2025: Increase aripiprazole to 10 mg at bedtime Start lorazepam 1 mg at bedtime Continue venlafaxine ER 75 mg and lamotrigine 250 mg daily Change anxiety PRN to lorazepam 0.5 mg twice daily as needed D/c Abilify PRN Olanzapine 5 mg every 8 hours as needed for agitation -psychiatry to continue to follow -1-on-1 with suicide precautions -cannot leave AMA, if attempts to do so call security and psych liason JAYLIN as she would meet 302 criteria Interval History Identifying Information DEVAN MERRITT is a 54-year-old woman with numerous historical psychiatric diagnoses over the years such as bipolar disorder, personality disorder, schizoaffective disorder, depression, and PTSD and past psychiatric hospitalization on [facility] in 2019 admitted medically following suicide attempt via overdose on diltiazem. Chief Complaint Depression, psychosis, suicide attempt Subjective Subjective Immediately on approach patient presents with an aggressive tone and says that I will pay if I 302 her and that I cannot do it because it has been 7 days. Says this hospitalization was a misunderstanding and that her parents caused it because they do not like her boyfriend. Patient was redirected and reassured and was more calm for the rest of our interaction. She endorses recent period of irritability, low mood, trouble staying asleep, anhedonia, low energy. Does not remember the details related to her overdose including her mood state, intention, or her situation. Denies auditory visualizations. Endorses medication adherence prior to admission. Recommended inpatient psychiatric hospitalization after she is medically cleared for stabilization and aftercare planning and she was agreeable. Chart review: PDMP shows patient was taking Klonopin 0.5 mg 3 times daily Physical Exam Vital Signs (Past 24 Hours) Last Vital Signs Temp 36.9 C 04/20/25 10:27 Pulse 80 04/20/25 10:27 Resp 19 04/20/25 10:27 BP 124/79 04/20/25 10:27 Pulse Ox 93 04/20/25 10:27 O2 Del Method Room Air 04/20/25 10:27 O2 Flow Rate 2 04/20/25 09:31 FiO2 30 04/20/25 02:15 Results & Data ([facility]) Laboratory Results Laboratory Results - last 24 hr 04/19/25 04/19/25 04/20/25 16:03 20:18 06:03 Sodium 138 Potassium 4.0 Chloride 101 Carbon Dioxide 27 Anion Gap 10 BUN 12 Creatinine 0.70 Est Cr Clr Drug Dosing 90.9 eGFR 102.07 BUN/Creatinine Ratio 17.1 Glucose 101 H POC Glucose 94 129 H Calcium 9.2 Magnesium 1.9 04/20/25 04/20/25 07:48 10:51 Sodium Potassium Chloride Carbon Dioxide Anion Gap BUN Creatinine Est Cr Clr Drug Dosing eGFR BUN/Creatinine Ratio Glucose POC Glucose 227 H 146 H Calcium Magnesium Current Inpatient Medications Current Inpatient Medications: Current Inpatient Medications Acetaminophen (Acetaminophen 325 Mg Tab) 650 mg PO Q4H PRN PRN Reason: Pain or Fever Stop: 05/20/25 04:57 Last Admin: 04/20/25 08:40 Dose: 650 mg Amlodipine Besylate (Amlodipine Besylate 5 Mg Tab) 5 mg PO QAM [facility] Stop: 05/19/25 17:29 Last Admin: 04/20/25 08:28 Dose: 5 mg Apixaban (Apixaban 2.5 Mg Tab) 2.5 mg PO BID [facility] Stop: 05/17/25 08:59 Last Admin: 04/20/25 08:29 Dose: 2.5 mg Aripiprazole (Aripiprazole 5 Mg Tab) 5 mg PO BID PRN PRN Reason: hallucinations Stop: 05/17/25 13:39 Last Admin: 04/20/25 08:34 Dose: 5 mg Aripiprazole (Aripiprazole 5 Mg Tab) 5 mg PO HS [facility] Stop: 05/17/25 20:59 Last Admin: 04/19/25 20:47 Dose: 5 mg Atorvastatin Calcium (Atorvastatin 10 Mg Tab) 10 mg PO DAILY [facility] Stop: 05/19/25 09:39 Last Admin: 04/20/25 08:29 Dose: 10 mg Clonazepam (Clonazepam 0.25 Mg Od Tab) 0.5 mg PO TID PRN PRN Reason: Anxiety/Agitation Stop: 05/16/25 19:26 Dextrose (Dextrose 50% 50 Ml Syringe) 25 - 50 ml IV UD PRN; Protocol PRN Reason: Hypoglycemia Protocol Stop: 05/13/25 21:19 Furosemide (Furosemide 40 Mg/4 Ml Vial) 40 mg IV [id number] [facility] Stop: 05/17/25 17:59 Last Admin: 04/20/25 08:29 Dose: 40 mg Glucagon (Glucagon For Inj 1 Mg Vial) 1 mg SQ UD PRN; Protocol PRN Reason: Hypoglycemia Protocol Stop: 05/13/25 21:19 Glucose (Glucose 40% Gel 15 Gm Tube) 15 - 30 gm PO UD PRN; Protocol PRN Reason: Hypoglycemia Protocol Stop: 05/13/25 21:19 Glucose (Glucose 10 Tab/Tube) 4 - 8 tab PO UD PRN; Protocol PRN Reason: Hypoglycemia Protocol Stop: 05/13/25 21:19 Ceftriaxone Sodium (Rocephin) 2,000 mg in 50 mls @ 100 mls/hr IV Q24H [facility] Stop: 04/23/25 07:59 Last Infusion: 04/20/25 09:15 Dose: Infused Insulin Aspart (Insulin Aspart Per Unit Charge) 0 units SC ACHS [facility] Stop: 05/16/25 11:59 Last Admin: 04/20/25 11:48 Dose: 4 units Insulin Glargine (Lantus Per Unit Charge) 10 units SC DAILY [facility] Stop: 05/18/25 11:44 Last Admin: 04/20/25 08:28 Dose: 10 units Lamotrigine (Lamotrigine 100 Mg Tab) 250 mg PO DAILY [facility] Stop: 05/14/25 08:59 Last Admin: 04/20/25 08:29 Dose: 250 mg Melatonin (Melatonin 3 Mg Tab) 9 mg PO HS PRN PRN Reason: Sleep Stop: 05/16/25 19:25 Last Admin: 04/18/25 20:17 Dose: 9 mg Miscellaneous (Carbohydrates For Hypoglycemia ) 15 - 30 gm PO UD PRN PRN Reason: Hypoglycemia Protocol Stop: 05/13/25 21:19 Miscellaneous Information (Pharmacy Glycemic Mgmt Consult) 1 each N/A UD PRN; Protocol PRN Reason: Consult Stop: 05/14/25 16:04 Spironolactone (Spironolactone 25 Mg Tab) 50 mg PO QAM [facility] Stop: 05/19/25 09:39 Last Admin: 04/20/25 08:29 Dose: 50 mg Venlafaxine HCl (Venlafaxine Hcl Xr 75 Mg Capxr) 75 mg PO DAILY [facility] Stop: 05/14/25 08:59 Last Admin: 04/20/25 08:29 Dose: 75 mg
--- NOTE | 2025-04-20 15:07 | Electrocardiogram Report ---
Test Reason : Blood Pressure : */* mmHG Vent. Rate : 81 BPM Atrial Rate : 81 BPM P-R Int : 150 ms QRS Dur : 84 ms QT Int : 350 ms P-R-T Axes : * -2 21 degrees QTcB Int : 406 ms Atrial-paced rhythm Nonspecific T wave abnormality Abnormal ECG When compared with ECG of 13-Apr-2025 19:53, Electronic atrial pacemaker has replaced Sinus rhythm Criteria for Septal infarct are no longer Present QT has shortened Confirmed by Rick Berrios ([id number]) on 04/20/2025 3:06:58 PM Referred By: REFERRED SELF Confirmed By: Rick Berrios
--- NOTE | 2025-04-20 23:20 | Hospitalist Progress Note ---
Date of Service April 20, 2025 Assessment & Plan (1) Calcium channel edwin overdose: Plan: 54-year-old woman with bipolar disorder who presented after an intentional overdose with long-acting diltiazem. She woke the following morning feeling poorly, collapsed and EMS was called. Diltiazem XR tablets 50x, 180mg each taken at approximately 1 AM on 04/13/2020. given calcium and emergency treatment for hyperkalemia. Admitted to ICU for shock, required intubation and mechanical ventilation as well as pressors. 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 On 40L/70% currently, remains tachypneic mid to high 20s -WBC slightly improved and afebrile continue antibiotics as below, CT imaging discussed below -continue diuresis - Continue lasix 40 IV bid, resume spironolactone 50 mg daily -resume diltiazem if HTN -CXR 04/19 persistent multifocal opacities on R -hypoxia improved now on RA -continue daily BMP mag -transfer to PCU status -diagnosed to psych on 04/21 # haemophilus influenzae RLL pneumonia, unclear whether she also has a component of aspiration pneumonia/pneumonitis # endocarditis unlikely CTA chest and CT abd/pelvis with IV/po contrast 04/15 - patchy multifocal right lung opacities, bilateral pleural effusions small-mod, mildly dilated small bowel, gastric bypass. No PE or appearance of septic pulm emboli. -sputum cx with H. flu -blood cultures from 04/13 and 04/15 - ngtd -abx narrowed to ceftriaxone - continue -procal down from -->0.7 # thrombocytopenia - new past 24h. Plt 73. little worse despite stopping heparin, may be related to critical illness/infection --cont low dose apixaban --no evidence of SHANELL at this point # MARY JANE/ metabolic acidosis/hyperkalemia antenna installer consulted, signed off 04/16 --resolved --lasix 40 mg IV bid for volume overload --Cr remains low at 0.64, electrolytes acceptable. K 3.8 # suicide attempt /bipolar disorder/PTSD/schizoaffective disorder consulted psychiatrist, 302 filed - continue lamotrigine, and venlafaxine (reordered) - abilify dose is increased by psychiatry today (hears voices) needs one-to-one observation, should not be allowed to leave AMA, planning inpatient psychiatric admission once medically stable "There is a 302 petitioning statement on the chart. Once extubated the patient should remain on safety precautions with 1-on-1 pending medical clearance. The patient is not psychiatrically cleared to leave the hospital without additional safety or aftercare planning; theyshould not be allowed to leave AMA without notification to our service as a 302 warrant would be appropriate." # right atrial mass consulted cardiology, reviewed recommendations in Dr. Mcfarland's note 04/16 well-visualized on TTE and RAYMON will not provide additional benefit -septic shock raised more concern for endocarditis but blood cultures negative so far and no septic emboli on chest CT -repeat TTE 04/16 reviewed no change in R atrial mass appears attached to RA pacer lead # mild transaminitis is related to ischemic hepatitis from shockmonitor LFTs. continue to improve/resolve # Type II DM. A1c 7.7% ICU hyperglycemia protocol, pharmacist currently managing SQ insulin BG at goal reviewed 04/18 # History of nonepileptic seizures Noted # FEN - now has diet DVT Prophylaxis: low dose apixaban (2) PSVT (paroxysmal supraventricular tachycardia): (3) Schizoaffective disorder: (4) Dyslipidemia due to type 2 diabetes mellitus: Admission and Anticipated Discharge Date Admission Date: April 13, 2025 Subjective Patient feeling better. Now off oxygen. Ambulating halls Physical Exam Physical Exam: Last 24h vitals reviewed GEN: sitting up in bed wearing nasal cannula HEENT: pupils equal, sclerae anicteric, moist MM. res: no rales, CV: reg no mrg NEURO: awake oriented to self hospital, situation, normal speech, jose m, [id number] PSYCH: limited eye contact with me this morning and was not hallucinating, persistently depressed mood Results & Data Results & Data Vital Signs (Past 12 Hours) Vital Signs Temp Pulse Pulse Resp BP Pulse Ox O2 Del Method 04/20/25 22:30 92 H 20 98 04/20/25 21:22 37.2 C 79 18 91 Room Air 04/20/25 16:36 Room Air 04/20/25 15:17 85 04/20/25 14:42 37.1 C 80 20 110/67 92 Room Air FiO2 04/20/25 22:30 30 04/20/25 21:22 04/20/25 16:36 04/20/25 15:17 04/20/25 14:42 PG Care Time/CCT Total # of Minutes Spent Total Time Spent with Patient: Total time spent is greater than 50% in coordination of care (as documented) at patient's floor/unit and/or counseling patient: Coding Level of Care Code 84137 SUB INP/OBS CARE 3/50MIN Diagnoses Calcium channel edwin overdose T46.1X1A PSVT (paroxysmal supraventricular tachycardia) I47.10 Schizoaffective disorder, depressive type F25.1 Schizoaffective disorder type: depressive Dyslipidemia due to type 2 diabetes mellitus E11.69; E78.5 (3) Schizoaffective disorder Schizoaffective disorder type: depressive Qualified Code(s): F25.1 - Schizoaffective disorder, depressive type
[2025-04-21 06:13] LABS: Hematocrit (blood only) 30.1 % (37.0-47.0); Hemoglobin 9.5 g/dl (12.0-16.0); Mean Corpuscular Hemoglobin 25.9 pg (25.0-34.0); Mean Corpuscular Volume 82.0 fL (80.0-100.0); Platelet Count 188 K/uL (130-400); RDW Standard Deviation 54.5 fL (36.4-46.3); Red Blood Count 3.67 M/uL (4.20-5.40); White Blood Count 10.07 K/ul (4.8-10.8)
[2025-04-21 06:42] LABS: Anion Gap 9.0 (3-11); Blood Urea Nitrogen 14.0 mg/dl (6-23); Calcium 9.1 mg/dl (8.6-10.3); Carbon Dioxide 29.0 mmol/L (21-32); Chloride 99.0 mmol/L (98-107); Creatinine Clr Calc Pharmacy 90.9 ml/min; Glucose 125.0 mg/dl (70-99(Fasting)); Magnesium 1.8 mg/dl (1.7-2.4); Potassium 3.8 mmol/L (3.5-5.1); Sodium 137.0 mmol/L (136-145)
--- NOTE | 2025-04-21 07:29 | Hospitalist Progress Note ---
Date of Service April 21, 2025 Assessment & Plan (1) Calcium channel edwin overdose: Plan: 54-year-old woman with bipolar disorder who presented after an intentional overdose with long-acting diltiazem. She woke the following morning feeling poorly, collapsed and EMS was called. Diltiazem XR tablets 50x, 180mg each taken at approximately 1 AM on 04/13/2020. given calcium and emergency treatment for hyperkalemia. Admitted to ICU for shock, required intubation and mechanical ventilation as well as pressors. 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 to override her junctional rhythm -off pressors as of AM 04/16, extubated now on room air -continue diuresis - transition lasix to po 04/21, resume spironolactone 50 mg daily -also on amlodipine for HTN -CXR 04/19 R LL pneumonia on ceftriaxone -medically stable to transition to psyche when bed available # haemophilus influenzae RLL pneumonia, unclear whether she also has a component of aspiration pneumonia/pneumonitis # endocarditis unlikely CTA chest and CT abd/pelvis with IV/po contrast 04/15 - patchy multifocal right lung opacities, bilateral pleural effusions small-mod, mildly dilated small bowel, gastric bypass. No PE or appearance of septic pulm emboli. -sputum cx with H. flu -blood cultures from 04/13 and 04/15 - ngtd -abx narrowed to ceftriaxone - complete one week -procal down from -->0.7 # thrombocytopenia - new past 24h. Plt 73. little worse despite stopping heparin, may be related to critical illness/infection --cont low dose apixaban --no evidence of SHANELL at this point # MARY JANE/ metabolic acidosis/hyperkalemia lead oracle developer consulted, signed off 04/16 --resolved --lasix 40 mg IV bid for volume overload --Cr remains low at 0.64, electrolytes acceptable. K 3.8 # suicide attempt /bipolar disorder/PTSD/schizoaffective disorder consulted psychiatrist, 302 filed - continue lamotrigine, and venlafaxine (reordered) - abilify dose is increased by psychiatry today (hears voices) needs one-to-one observation, should not be allowed to leave AMA, planning inpatient psychiatric admission once medically stable "There is a 302 petitioning statement on the chart. Once extubated the patient should remain on safety precautions with 1-on-1 pending medical clearance. The patient is not psychiatrically cleared to leave the hospital without additional safety or aftercare planning; theyshould not be allowed to leave AMA without notification to our service as a 302 warrant would be appropriate." # right atrial mass consulted cardiology, reviewed recommendations in Dr. Mcfarland's note 04/16 well-visualized on TTE and RAYMON will not provide additional benefit -septic shock raised more concern for endocarditis but blood cultures negative so far and no septic emboli on chest CT -repeat TTE 04/16 reviewed no change in R atrial mass appears attached to RA pacer lead # mild transaminitis is related to ischemic hepatitis from shockmonitor LFTs. continue to improve/resolve # Type II DM. A1c 7.7% ICU hyperglycemia protocol, pharmacist currently managing SQ insulin BG at goal reviewed 04/18 # History of nonepileptic seizures Noted # FEN - now has diet DVT Prophylaxis: low dose apixaban (2) PSVT (paroxysmal supraventricular tachycardia): (3) Schizoaffective disorder: (4) Dyslipidemia due to type 2 diabetes mellitus: Admission and Anticipated Discharge Date Admission Date: April 13, 2025 Subjective Started the day with a code solorzano, pt was counselled by psychiatry liaison and redirected, now improved currently is medically stable for determination of next steps after overdose Physical Exam Physical Exam: yelling and alert c/o abd pain, no focal pain or guarding lungs clear and unlabored Results & Data Results & Data Vital Signs (Past 12 Hours) Vital Signs Temp Pulse Pulse Resp BP Pulse Ox O2 Del Method 04/21/25 06:58 98.4 F 87 18 140/93 97 Room Air 04/20/25 22:30 92 H 20 98 04/20/25 21:45 98.4 F 80 17 104/89 95 Room Air 04/20/25 21:22 99.0 F 79 18 91 Room Air 04/20/25 20:15 Room Air FiO2 04/21/25 06:58 04/20/25 22:30 30 04/20/25 21:45 04/20/25 21:22 04/20/25 20:15 Laboratory Results review cbc review chemistry PG Care Time/CCT Total # of Minutes Spent Total Time Spent with Patient: Total time spent is greater than 50% in coordination of care (as documented) at patient's floor/unit and/or counseling patient: Coding Level of Care Code 85901 SUB INP/OBS CARE 3/50MIN Diagnoses Calcium channel edwin overdose T46.1X1A PSVT (paroxysmal supraventricular tachycardia) I47.10 Schizoaffective disorder, depressive type F25.1 Schizoaffective disorder type: depressive Dyslipidemia due to type 2 diabetes mellitus E11.69; E78.5 (3) Schizoaffective disorder Schizoaffective disorder type: depressive Qualified Code(s): F25.1 - Schizoaffective disorder, depressive type
[2025-04-21 08:36] LABS: Alanine Aminotransferase 84.0 U/L (7-52); Alkaline Phosphatase 61.0 U/L (34-104); Bilirubin,Total 0.4 mg/dl (0.2-1.0); Total Protein 6.3 gm/dl (6.0-8.3)
[2025-04-21] MEDS: FUROSEMIDE 40 MG TAB PO SCH (09:07)
[2025-04-21] MEDS: MoRPHine SULFATE 2 MG/ML CARP IV STA ×2 (09:40→20:04)
[2025-04-21] MEDS: POLYETHYLENE (MIRALAX) 17 GM PACK PO ONE (15:36)
--- NOTE | 2025-04-21 16:09 | CT Scan Report ---
CT OF THE ABDOMEN AND PELVIS WITHOUT CONTRAST CLINICAL HISTORY: Right flank pain. COMPARISON STUDY: CT of the abdomen and pelvis April 15, 2025. Lung screening CT March 11, 2024. TECHNIQUE: Axial images of the abdomen and pelvis were obtained without IV contrast. Images were revi ewed in the axial, sagittal, and coronal planes. Automated exposure control was utilized for the efren dy. A dose lowering technique was utilized adhering to the principles of ALARA. FINDINGS: Dense right lower lobe consolidation was shown on CT of April 15, 2025. Otherwise, lower quintin g opacities have improved since that exam. Several additional nodular subpleural opacities measure up to 1.2 cm. Evaluation of the abdomen and pelvis is suboptimal on this unenhanced examination. There is no pneumatosis, free air or portal venous gas. Unenhanced images of the liver, spleen and pancreas are unremarkable. Low-attenuation bilateral adrenal nodules are unchanged. These favor adenomas. Ora l contrast within the colon and rectum from prior CT is incidentally noted. There is no evidence for a bowel obstruction status post Rolly-en-Y gastric bypass. Small bowel dilatation has decreased since prior exam. The cecum, ascending colon and transverse colon are moderately distended and gas-filled. Colonic dilatation has increased since prior examination. There is no lymphadenopathy. No ascites is present. Low-attenuation left renal lesions are better depicted on prior contrast enhanced CT. There is no hydronephrosis. IMPRESSION: 1. Persistent dense right lower lobe consolidation suggestive of pneumonia. Otherwise, interval impro vement in lower lung airspace opacities since CT of April 15, 2025. Mild residual groundglass opacitie s and several nodular subpleural opacities. A follow-up chest CT in 3 months to ensure resolution is recommended. 2. Moderate gaseous distention of the cecum, ascending colon and transverse colon without convincing evidence for a bowel obstruction. This can be assessed with follow-up radiographs. 3. Status post Rolly-en-Y gastric bypass. Interval decrease in small bowel dilatation since CT of April 15, 2025. ACT 112: Negative or not required by law. Electronically signed by: Amol Bowie M.D. 04/21/2025 4:07 PM
[2025-04-22] MEDS: ACETAMINOPHEN 1,000 MG/100 ML VIAL IV STA (02:54)
[2025-04-22] MEDS: LANTUS PER UNIT CHARGE SC SCH (09:40)
[2025-04-22 11:10] LABS: Iron 23.0 mcg/dl (35-150); Total Iron Binding Cap Calc 269.0 mcg/dl (250-450); Transferrin 192.0 mg/dl (200-360); Transferrin (FE) Percent Satur 9.0 % (15-50)
[2025-04-22 11:11] LABS: Anion Gap 9.0 (3-11); Blood Urea Nitrogen 17.0 mg/dl (6-23); Calcium 9.8 mg/dl (8.6-10.3); Carbon Dioxide 29.0 mmol/L (21-32); Chloride 101.0 mmol/L (98-107); Creatinine Clr Calc Pharmacy 83.7 ml/min; Glucose 128.0 mg/dl (70-99(Fasting)); Magnesium 2.2 mg/dl (1.7-2.4); Potassium 4.5 mmol/L (3.5-5.1); Sodium 139.0 mmol/L (136-145)
[2025-04-22 11:31] LABS: Ferritin 166.5 ng/ml (8-388)
[2025-04-22 11:37] LABS: Folate (Folic Acid),Ser orPlas 14.73 ng/ml (>5.38); Vitamin B12 > 1500 pg/ml (180-914)
--- NOTE | 2025-04-22 12:02 | Pharmacy Report ---
Pharmacy Glycemic Short Note 2 - Date of Service April 22, 2025 - Glycemic Short BSG Results (Last 24 hours): 04/21/25 04/21/25 04/22/25 16:06 20:07 07:25 Glucose POC Glucose 160 H 187 H 150 H 04/22/25 04/22/25 10:37 11:23 Glucose 128 H POC Glucose 143 H OUTPATIENT ANTIDIABETIC REGIMEN: * None * HbA1c 7.7% on 03/05/25 ASSESSMENT: 04/20: * Patient received a total of 17 units of insulin yesterday 10 of which were basal. BSGs over past24 hours were [phone] mg/dL. * Fasting BSG yesterday was 153 and today was 150 mg/dL. Will increase basal insulin by ~20%. * Post prandial BSGs elevated yesterday but within range the previous two days. Will hold off on making NovoLog changes based on today's trends. * Patient is ordered and tolerating a diet. 04/19 * Patient transitioned to once daily morning lantus successfully. Novolog CR was tightened slightly yesterday. * BSGs in past 24 hours: [phone] mg/dL and fasting today was 115mg/dL. * Patient is tolerating a diet and remains on IV ceftriaxone. Continue current insulin regimen. 04/16 * Patient has been weaned off of pressors, extubated this morning. Diet ordered with lunch. * Given stable blood sugars with insulin drip will initiate basal/bolus regimen at this time. * Transitioned off of insulin drip with 15 units of lantus. Initiated basal between weight stress of 1 and 2. Will monitor. 04/15 * 54 yo F with T2DM but not on any diabetes medications admitted 04/13 for intentional diltiazem XR (calcium channel edwin/CCB) overdose/OD. * Poison center involved - did not recommend high dose insulin for treatment of CCB OD. * Insulin drip initiated 04/14 AM for hyperglycemia > 400 mg/dL. Insulin drip ran continuously but was held 04/14 PM for BSG of 93 mg/dL. Transitioned to Novolog q4h. * Discussed on ICU rounds 04/15 AM - significant pressor requirements and questionable absorption of SC insulin. Will transition back to insulin drip for hyperglycemia > 180 mg/dL plus initiation of trickle feeds. No bolus, starting at a low dose. Of note, high anion gap metabolic acidosis noted, but this was felt to be due to etiologies other than DKA therefore will not start dextrose containing fluids * Of note, CCB overdose can precipitate hyperglycemia - may see improvement in BSG's / possibly reduced insulin requirements as time goes on PLAN FOR INPATIENT GLYCEMIC CONTROL: * Basal insulin * Lantus 12 units SQ qam * Bolus insulin * NovoLog per scale ACHS or Q6hrs while NPO * Goal Range: Low 120 mg/dL - High 160 mg/dL * Correction Factor: 30 mg/dL/unit * Nutritional / Prandial insulin per carb ratio of 1 unit per 10 grams CHO consumed
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
--- NOTE | 2025-04-22 15:49 | Hospitalist Progress Note ---
Date of Service April 22, 2025 Assessment & Plan (1) Shock: (2) RLL pneumonia: (3) Calcium channel edwin overdose: (4) PSVT (paroxysmal supraventricular tachycardia): (5) Schizoaffective disorder: (6) Dyslipidemia due to type 2 diabetes mellitus: (7) Suicide attempt: (8) Hyperkalemia: (9) Right atrial mass: (10) Pacemaker: (11) Bipolar disorder: (12) History of gastric bypass: (13) Diabetes: (14) Chronic anemia: (15) Post traumatic stress disorder (PTSD): Plan 54yo female with bipolar disorder who presented after an intentional overdose with long-acting diltiazem. She woke the following morning feeling poorly, collapsed and EMS was called. Diltiazem XR tablets 180mg - about 50 ingested at approximately 1 AM on 04/13. Given IV calcium and emergency treatment for hyperkalemia. Admitted to ICU for shock, required intubation and mechanical ventilation as well as pressors. #toxidromic shock caused by intentional overdose of long-acting calcium channel edwin with end organ dysfunction of MARY JANE and respiratory failure - resolved #acute hypoxic respiratory failure present on admission - resolved; 2nd to above as well as RLL pneumonia #septic shock, unable to determine whether present on admission, 2nd to haemophilus influenzae pneumonia - resolved french polisher increased atrial pacing to 80 to override her junctional rhythm she had had early in the stay -off pressors and extubated AM 04/16 #haemophilus influenzae RLL pneumonia - -either 2nd to CAP or aspiration -dense consolidation -stable in room air -today is day #7 of rocephin IV - can d/c after today's dose -encouraged more pulmonary toilet #clinical and radiographic ileus - -downgrade diet to full liquids -ambulate -keep mag/K wnl -consider IV hydration - looks volume contracted today -- hold further lasix/aldactone for now #falls at home - -in light of right shoulder pain will order shoulder x-rays; at minimum has contusion; if x-rays negative can schedule tylenol TID, add voltaren gel QID, and may use heat as well -check CT head, c-spine CTs - r/o intracranial and c-spine injury #right atrial mass - cardiology consult appreciated mass well-visualized on TTE; RAYMON deferred - doing such would not global director air and climate change -some initial concern for endocarditis but blood cultures negative and no septic emboli on chest CT -repeat TTE 04/16 reviewed no change in R atrial mass appears attached to RA pacer lead -Dr Mcfarland saw patient from [facility] Cards/EP -- he is not inclined to extract the pacer lead - will simply follow for now #thrombocytopenia - -resolved as of 04/21/25 -was likely sepsis-associated #MARY JANE with resulting hyperkalemia - -both resolved with supportive care -now trending towards volume contraction - place diuretics on hold starting today #suicide attempt /bipolar disorder/PTSD/schizoaffective disorder - -appreciate psychiatrist assistance -increase abilify to 10mg HS -continue lamotrigine and venlafaxine -ativan 1mg HS scheduled -ativan BID prn -stop klonipin -olanzapine prn -cont one-to-one observation, should not be allowed to leave AMA, planning inpatient psychiatric admission following medical admission #transaminitis - -likely due to shock -resolved -most recent LFTs wnl #Type II DM - -A1c 7.7% -controlled # History of nonepileptic seizures - -Noted, no issues #hypertension - -BPs stable without diltiazem or lisinopril -cont amlodipine for now but if ileus persists would stop #h/o gastric bypass status #anemia - -consider IV venofer - iron studies c/w Fe def -B12/folate wnl -Fe def likely due to gastric bypass status #DVT Prophylaxis - -low dose apixaban 2.5mg BID PT, OT patient reports she does walk at home; does not use assistive devices significant other updated at bedside Esdras correspondence had with psych today Admission and Anticipated Discharge Date Admission Date: April 13, 2025 Subjective tele stable overnight patient lying in bed during the visit pt's significant other was at bedside she c/o mild right shoulder pain also c/o right lower chest pleuritic chest discomfort, minimal cough - but no dyspnea feels bloated/distended; not passing much in the way of flatus did have a stool this am but it was small appetite is poor some nausea at times but no emesis pt's significant other states she had multiple falls - perhaps up to 4 in number - at home she doesn't recall the details of these falls she does not know if she hit her head remains on 1:1 observation Review of Systems Review of Systems: gen - tired, weak; she DOES ambulate at home without assistance cv - pleuritic pain right lower chest; no substernal pain or left-sided pain pulm - minimal cough Physical Exam Physical Exam: gen - lying in bed, looks tired but nontoxic mouth - MM dry neck - no JVD; supple, passive range of motion is largely normal heart - RRR, s1 s2, no murmur lungs - poor airation especially the bases worse on right; mild crackles R base; no wheeze; no increased work of breathing abd - BS significantly diminished; tympanic to percussion; distended; mildly tender central abdomen; no HSM ext - no edema, pulses 2+ b/l feet psych - a/o x 3 musculo - right shoulder - passive range of motion intact, no crepitus, no obvious joint deformity; tender over subacromial region with external rotation neuro - strength 5/5 x 4 exts Results & Data Results & Data Vital Signs (Past 12 Hours) Vital Signs Temp Pulse Pulse Resp BP Pulse Ox O2 Del Method 04/22/25 15:18 37.0 C 80 19 101/69 94 Room Air 04/22/25 13:00 80 04/22/25 10:49 37.0 C 113 H 20 118/90 94 Room Air 04/22/25 07:21 36.4 C L 87 20 104/70 94 Room Air 04/22/25 06:00 87 04/22/25 03:54 20 FiO2 04/22/25 15:18 04/22/25 13:00 04/22/25 10:49 04/22/25 07:21 04/22/25 06:00 04/22/25 03:54 30 Laboratory Results Laboratory Results - last 24 hr 04/22/25 04/22/25 04/22/25 07:25 10:37 11:23 Sodium 139 Potassium 4.5 Chloride 101 Carbon Dioxide 29 Anion Gap 9 BUN 17 Creatinine 0.73 Est Cr Clr Drug Dosing 83.7 eGFR 97.06 BUN/Creatinine Ratio 23.3 H Glucose 128 H POC Glucose 150 H 143 H Calcium 9.8 Magnesium 2.2 Iron 23 L TIBC 269 Transferrin 192 L Transferrin % Sat 9 L Ferritin 166.5 Vitamin B12 > 1500 H Folate 14.73 PG Care Time/CCT Total # of Minutes Spent Total Time Spent with Patient: Total time spent is greater than 50% in coordination of care (as documented) at patient's floor/unit and/or counseling patient: Coding Level of Care Code 86310 SUB INP/OBS CARE 3/50MIN Diagnoses Shock R57.9 RLL pneumonia J18.9 Calcium channel edwin overdose T46.1X1A PSVT (paroxysmal supraventricular tachycardia) I47.10 Schizoaffective disorder, depressive type F25.1 Schizoaffective disorder type: depressive Dyslipidemia due to type 2 diabetes mellitus E11.69; E78.5 Suicide attempt T14.91XA Hyperkalemia E87.5 Right atrial mass I51.89 Pacemaker Z95.0 Bipolar disorder F31.9 History of gastric bypass Z98.84 Diabetes E11.9 Chronic anemia D64.9 Post traumatic stress disorder (PTSD) F43.10 (5) Schizoaffective disorder Schizoaffective disorder type: depressive Qualified Code(s): F25.1 - Schizoaffective disorder, depressive type
--- NOTE | 2025-04-22 16:38 | XRay Report ---
Clinical History: Pain. 3 views of the right shoulder are submitted for review. Findings: No fracture or dislocation is seen. There is mild acromioclavicular osteoarthritis. No other osseous abnormality is identified. There are no radiopaque foreign bodies. There is a suspected small right pleural effusion Impression: 1. Mild acromioclavicular osteoarthritis 2. Suspected small right pleural effusion ACT 112: Positive. There are findings on this exam that require communication between the performing entity and the patient following Patient Test Result Information Act ([place] ACT 112) guidelines. Electronically signed by Mraquis Ferraro 04-22-2025 4:38 PM
--- NOTE | 2025-04-22 16:54 | CT Scan Report ---
EXAMINATION: Head CT without CLINICAL HISTORY: Recent falls PRIORS: 05/13/2020 TECHNIQUE: Contiguous axial images were obtained through the head without the use of intravenous contrast. Sagittal and coronal reformations are supplied. FINDINGS: Appropriate parenchymal volume is noted. Rogers-white differentiation is preserved. No edema or midline shift. No intra-axial or extra-axial hemorrhage. Ventricles are normal in size and configuration. Brainstem and cerebellum have a normal appearance. Calvarium unremarkable. Paranasal sinuses and mastoid air cells are well-pneumatized. Globes are intact. No retrobulbar abnormality. IMPRESSION: No CT evidence of an acute intracranial abnormality. Electronically signed by Natalia Medina 04-22-2025 4:54 PM
--- NOTE | 2025-04-22 16:57 | CT Scan Report ---
EXAM: CT cervical spine CLINICAL HISTORY: Recent fall, right shoulder pain TECHNIQUE: Contiguous axial images were obtained through the cervical spine without the use of intravenous contrast. PRIORS: April 21, 2022 FINDINGS: Moderate osseous demineralization noted. Lordotic straightening is noted. No acute cervical spine fracture or facet dislocation. No prevertebral soft tissue swelling. Visualized trachea is patent. No pneumothorax in the lung base. IMPRESSION: No CT evidence of an acute osseous abnormality. Electronically signed by Natalia Medina 04-22-2025 4:57 PM
[2025-04-22] MEDS ORDERED: LORazepam 0.5 MG TAB PO PRN (19:47)
[2025-04-22] MEDS ORDERED: Nursing to Pharmacy Communication SCH (20:15)
[2025-04-22] MEDS: ACETAMINOPHEN 500 MG TAB PO SCH (22:12)
[2025-04-22] MEDS: DICLOFENAC SOD 1% GEL 100 GM TUBE EXT SCH (22:14)
[2025-04-22] MEDS: LORazepam 1 MG TAB PO SCH (22:14)
[2025-04-23 07:50] LABS: Anion Gap 8.0 (3-11); Blood Urea Nitrogen 19.0 mg/dl (6-23); Calcium 9.2 mg/dl (8.6-10.3); Carbon Dioxide 27.0 mmol/L (21-32); Chloride 102.0 mmol/L (98-107); Creatinine Clr Calc Pharmacy 86.5 ml/min; Glucose 113.0 mg/dl (70-99(Fasting)); Magnesium 2.0 mg/dl (1.7-2.4); Potassium 4.1 mmol/L (3.5-5.1); Sodium 137.0 mmol/L (136-145)
--- NOTE | 2025-04-23 15:12 | Psychiatric Progress Note ---
Date of Service April 23, 2025 Impression / Recommendations Impression Diagnostically based on history of prior suicide attempts, mood disorder vs schizoaffective disorder, PTSD and suspected intentional overdose suicide attempt she is likely to require inpatient psychiatric treatment once medically stable. Concern for recent jarred and psychosis. Collateral from family indicate delusional thoughts and auditory hallucinations and may be present in the absence of a mood episode. 302 involuntary commitment approved and 303 commitment hearing scheduled for Saturday. Given seriousness of suicide attempt, concern for recent psychosis, med non- adherence concerns, memory impairment related to overdose attempt, and does not present a safe discharge plan at this time; remains a high risk of imminent harm to herself. Not currently connected to psychiatric outpatient care. A: Overnight sleep improved with lorazepam. Plan to taper prior to discharge. Tolerating increased dose of Abilify. Does not recall recent events. Recommend to continue plan for inpatient psychiatry once medically cleared. Overall, I spent a total of 30 minutes with this case including review of chart records, review of labwork, direct evaluation of the patient at bedside, counseling the patient, discussion of the patient with the Nurse and with the hospitalist provider, discussion with the psychiatric liaison during clinical rounds, review of collateral historian information from the family and documentation in the electronic health record. (1) Suicide attempt: (2) Auditory hallucinations: (3) Post traumatic stress disorder (PTSD): (4) Schizoaffective disorder: Plan 04/23/25: Continue medications and treatment plan Inpatient psych once medically cleared 303 commitment hearing scheduled for Saturday AM 04/22/25: 302 commitment, applying for 303 04/20/2025: Increase aripiprazole to 10 mg at bedtime Start lorazepam 1 mg at bedtime Continue venlafaxine ER 75 mg and lamotrigine 250 mg daily Change anxiety PRN to lorazepam 0.5 mg twice daily as needed D/c Abilify PRN Olanzapine 5 mg every 8 hours as needed for agitation -psychiatry to continue to follow -1-on-1 with suicide precautions -cannot leave AMA, if attempts to do so call security and psych liason JAYLIN as she would meet 302 criteria Interval History Identifying Information DEVAN MERRITT is a 54-year-old woman with numerous historical psychiatric diagnoses over the years such as bipolar disorder, personality disorder, schizoaffective disorder, depression, and PTSD and past psychiatric hospitalization on [facility] in 2019 admitted medically following suicide attempt via overdose on diltiazem. Chief Complaint Depression Subjective Subjective Pt reports fair mood. Sleep improved last night and was able to maintain sleep. Has plans for mother to visit and will go on a walk. Denies SI. Updated about the care plan. Does not recall what led to the overdose attempt. Denies AVH. Physical Exam Mental Examination Appearance: Unkempt Eye Contact: Maintains Eye Contact Motor Behavior: Unremarkable Speech: Normal Mood: Euthymic and Calm Affect: Congruent Thought Process: Intact and Linear Thought Content: Intact and Disoriented (poor memory recollection) Hallucinations: None Insight: Poor Judgement: Poor Vital Signs (Past 24 Hours) Last Vital Signs Temp 36.9 C 04/23/25 10:50 Pulse 82 04/23/25 14:14 Resp 20 04/23/25 10:50 BP 89/52 L 04/23/25 10:50 Pulse Ox 96 04/23/25 10:50 O2 Del Method Room Air 04/23/25 10:50 O2 Flow Rate 2 04/21/25 23:12 FiO2 30 04/23/25 02:42 Results & Data ([facility]) Laboratory Results Laboratory Results - last 24 hr 04/22/25 04/22/25 04/23/25 16:10 20:35 06:54 Sodium 137 Potassium 4.1 Chloride 102 Carbon Dioxide 27 Anion Gap 8 BUN 19 Creatinine 0.70 Est Cr Clr Drug Dosing 86.5 eGFR 102.07 BUN/Creatinine Ratio 27.1 H Glucose 113 H POC Glucose 114 H 143 H Calcium 9.2 Magnesium 2.0 04/23/25 04/23/25 07:12 10:53 Sodium Potassium Chloride Carbon Dioxide Anion Gap BUN Creatinine Est Cr Clr Drug Dosing eGFR BUN/Creatinine Ratio Glucose POC Glucose 106 H 138 H Calcium Magnesium Current Inpatient Medications Current Inpatient Medications: Current Inpatient Medications Acetaminophen (Acetaminophen 500 Mg Tab) 1,000 mg PO TID MARTÍN Stop: 05/22/25 20:59 Last Admin: 04/23/25 13:11 Dose: 1,000 mg Amlodipine Besylate (Amlodipine Besylate 5 Mg Tab) 5 mg PO QAM MARTÍN Stop: 05/19/25 17:29 Last Admin: 04/23/25 09:00 Dose: 5 mg Apixaban (Apixaban 2.5 Mg Tab) 2.5 mg PO BID MARTÍN Stop: 05/17/25 08:59 Last Admin: 04/23/25 09:00 Dose: 2.5 mg Aripiprazole (Aripiprazole 10 Mg Tab) 10 mg PO HS [facility] Stop: 05/22/25 20:59 Last Admin: 04/22/25 22:14 Dose: 10 mg Atorvastatin Calcium (Atorvastatin 10 Mg Tab) 10 mg PO DAILY [facility] Stop: 05/19/25 09:39 Last Admin: 04/23/25 09:01 Dose: 10 mg Dextrose (Dextrose 50% 50 Ml Syringe) 25 - 50 ml IV UD PRN; Protocol PRN Reason: Hypoglycemia Protocol Stop: 05/13/25 21:19 Diclofenac Sodium (Diclofenac Sod 1% Gel 100 Gm Tube) 2 gm EXT QID MARTÍN; Protocol Stop: 05/22/25 20:59 Last Admin: 04/23/25 13:13 Dose: 2 gm Furosemide (Furosemide 40 Mg Tab) 40 mg PO QAM [facility] Stop: 05/21/25 08:59 Last Admin: 04/22/25 09:41 Dose: 40 mg Glucagon (Glucagon For Inj 1 Mg Vial) 1 mg SQ UD PRN; Protocol PRN Reason: Hypoglycemia Protocol Stop: 05/13/25 21:19 Glucose (Glucose 40% Gel 15 Gm Tube) 15 - 30 gm PO UD PRN; Protocol PRN Reason: Hypoglycemia Protocol Stop: 05/13/25 21:19 Glucose (Glucose 10 Tab/Tube) 4 - 8 tab PO UD PRN; Protocol PRN Reason: Hypoglycemia Protocol Stop: 05/13/25 21:19 Insulin Aspart (Insulin Aspart Per Unit Charge) 0 units SC ACHS [facility] Stop: 05/16/25 11:59 Last Admin: 04/23/25 13:12 Dose: 1 units Insulin Glargine (Lantus Per Unit Charge) 12 units SC DAILY MARTÍN Stop: 05/22/25 08:59 Last Admin: 04/23/25 09:11 Dose: 12 units Lamotrigine (Lamotrigine 100 Mg Tab) 250 mg PO DAILY [facility] Stop: 05/14/25 08:59 Last Admin: 04/23/25 08:58 Dose: 250 mg Lorazepam (Lorazepam 1 Mg Tab) 1 mg PO HS [facility] Stop: 05/22/25 20:59 Last Admin: 04/22/25 22:14 Dose: 1 mg Lorazepam (Lorazepam 0.5 Mg Tab) 0.5 mg PO BID PRN PRN Reason: Anxiety Stop: 05/22/25 19:46 Melatonin (Melatonin 3 Mg Tab) 9 mg PO HS PRN PRN Reason: Sleep Stop: 05/16/25 19:25 Last Admin: 04/18/25 20:17 Dose: 9 mg Miscellaneous (Carbohydrates For Hypoglycemia ) 15 - 30 gm PO UD PRN PRN Reason: Hypoglycemia Protocol Stop: 05/13/25 21:19 Miscellaneous Information (Pharmacy Glycemic Mgmt Consult) 1 each N/A UD PRN; Protocol PRN Reason: Consult Stop: 05/14/25 16:04 Olanzapine (Olanzapine 5 Mg Tablet) 5 mg PO Q8H PRN PRN Reason: Agitation Stop: 05/22/25 19:59 Spironolactone (Spironolactone 25 Mg Tab) 50 mg PO QAM MARTÍN Stop: 05/19/25 09:39 Last Admin: 04/22/25 09:41 Dose: 50 mg Venlafaxine HCl (Venlafaxine Hcl Xr 75 Mg Capxr) 75 mg PO DAILY MARTÍN Stop: 05/14/25 08:59 Last Admin: 04/23/25 08:58 Dose: 75 mg
--- NOTE | 2025-04-23 20:36 | Hospitalist Progress Note ---
Date of Service April 23, 2025 Assessment & Plan (1) Shock: (2) RLL pneumonia: (3) Calcium channel edwin overdose: (4) PSVT (paroxysmal supraventricular tachycardia): (5) Schizoaffective disorder: (6) Dyslipidemia due to type 2 diabetes mellitus: (7) Suicide attempt: (8) Hyperkalemia: (9) Right atrial mass: (10) Pacemaker: (11) Bipolar disorder: (12) History of gastric bypass: (13) Diabetes: (14) Chronic anemia: (15) Post traumatic stress disorder (PTSD): Plan 54yo female with bipolar disorder who presented after an intentional overdose with long-acting diltiazem. She woke the following morning feeling poorly, collapsed and EMS was called. Diltiazem XR tablets 180mg - about 50 ingested at approximately 1 AM on 04/13. Given IV calcium and emergency treatment for hyperkalemia. Admitted to ICU for shock, required intubation and mechanical ventilation as well as pressors. 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 to 80 to override her junctional rhythm she had had early in the stay -off pressors and extubated AM 04/16 #haemophilus influenzae RLL pneumonia - -either 2nd to CAP or aspiration -stable in room air -s/p 7 days of rocephin IV; now off abx -cont pulmonary toilet #clinical and radiographic ileus - -IMPROVED -2 stools yesterday, passing flatus, bowel sounds improved on exam today -can upgrade diet later today from full liquids to regular -ambulate -keep mag/K wnl -cont to hold lasix/aldactone #falls at home - -CT head, c-spine CTs - no intracranial hemorrhage; no fractures -right shoulder x-rays - neg for fracture -cont tylenol TID for pain; cont voltaren gel pain #right atrial mass - cardiology consult appreciated mass well-visualized on TTE; RAYMON deferred - doing such would not change management expert -some initial concern for endocarditis but blood cultures negative and no septic emboli on chest CT -repeat TTE 04/16 reviewed no change in R atrial mass appears attached to RA pacer lead -[facility] Mcfarland [facility] -- he is not inclined to extract the pacer lead - will simply follow for now -cont Eliquis for "mass"? dosing for such? #thrombocytopenia - -resolved as of 04/21/25 -was likely sepsis-associated #MARY JANE with resulting hyperkalemia - -both resolved with supportive care #suicide attempt /bipolar disorder/PTSD/schizoaffective disorder - -appreciate psychiatrist assistance -cont abilify 10mg HS -continue lamotrigine and venlafaxine -ativan 1mg HS scheduled -ativan BID prn -olanzapine prn -cont one-to-one observation, should not be allowed to leave AMA, planning inpatient psychiatric admission following medical admission #transaminitis - -likely due to shock -resolved -most recent LFTs wnl #Type II DM - -A1c 7.7% -controlled # History of nonepileptic seizures - -Noted, no issues #hypertension - -BPs stable without diltiazem or lisinopril -BPs low-normal today - HOLD amlodipine #h/o gastric bypass status #anemia - -consider IV venofer - iron studies c/w Fe def -B12/folate wnl -Fe def likely due to gastric bypass status #DVT Prophylaxis - -low dose apixaban 2.5mg BID PT, OT patient reports she does walk at home; does not use assistive devices significant other updated at bedside yesterday Manderson correspondence had with psych today ready for d/c to psych tomorrow? Admission and Anticipated Discharge Date Admission Date: April 13, 2025 Subjective no events overnight passing flatus tolerating full liquids no nausea or emesis had 2 small stools yesterday no abd pain mild right shoulder pain today tele - NSR or pacing Review of Systems Review of Systems: cv - no orthopnea, no PND pulm - no dyspnea psych - patient asked what meds she is taking and what is new Physical Exam Physical Exam: gen - lying in bed, looks better today mouth - MMM today neck - no JVD heart - RRR, s1 s2, no murmur lungs - airation improved R base; minimal crackles R base; left basilar airation improved; no wheeze; no increased work of breathing abd - BS+ and improved; less distended; soft; NT; no HSM ext - no edema, pulses 2+ b/l feet psych - a/o x 3 Results & Data Results & Data Vital Signs (Past 12 Hours) Vital Signs Temp Pulse Pulse Resp BP BP Pulse Ox 04/23/25 18:55 36.9 C 88 16 112/69 98 04/23/25 16:02 36.6 C 82 20 140/72 94 04/23/25 16:00 81 04/23/25 14:14 82 04/23/25 10:50 36.9 C 80 20 89/52 L 96 O2 Del Method 04/23/25 18:55 Room Air 04/23/25 16:02 Room Air 04/23/25 16:00 04/23/25 14:14 04/23/25 10:50 Room Air Laboratory Results Laboratory Results - last 48 hr 04/22/25 04/22/25 04/22/25 10:37 11:23 16:10 Sodium 139 Potassium 4.5 Chloride 101 Carbon Dioxide 29 Anion Gap 9 BUN 17 Creatinine 0.73 Est Cr Clr Drug Dosing 83.7 eGFR 97.06 BUN/Creatinine Ratio 23.3 H Glucose 128 H POC Glucose 143 H 114 H Calcium 9.8 Magnesium 2.2 Iron 23 L TIBC 269 Transferrin 192 L Transferrin % Sat 9 L Ferritin 166.5 Vitamin B12 > 1500 H Folate 14.73 04/22/25 04/23/25 04/23/25 20:35 06:54 07:12 Sodium 137 Potassium 4.1 Chloride 102 Carbon Dioxide 27 Anion Gap 8 BUN 19 Creatinine 0.70 Est Cr Clr Drug Dosing 86.5 eGFR 102.07 BUN/Creatinine Ratio 27.1 H Glucose 113 H POC Glucose 143 H 106 H Calcium 9.2 Magnesium 2.0 Iron TIBC Transferrin Transferrin % Sat Ferritin Vitamin B12 Folate 04/23/25 04/23/25 10:53 16:07 Sodium Potassium Chloride Carbon Dioxide Anion Gap BUN Creatinine Est Cr Clr Drug Dosing eGFR BUN/Creatinine Ratio Glucose POC Glucose 138 H 114 H Calcium Magnesium Iron TIBC Transferrin Transferrin % Sat Ferritin Vitamin B12 Folate PG Care Time/CCT Total # of Minutes Spent Total Time Spent with Patient: Total time spent is greater than 50% in coordination of care (as documented) at patient's floor/unit and/or counseling patient: Coding Level of Care Code 77169 SUB INP/OBS CARE 3/50MIN Diagnoses Shock R57.9 RLL pneumonia J18.9 Calcium channel edwin overdose T46.1X1A PSVT (paroxysmal supraventricular tachycardia) I47.10 Schizoaffective disorder, depressive type F25.1 Schizoaffective disorder type: depressive Dyslipidemia due to type 2 diabetes mellitus E11.69; E78.5 Suicide attempt T14.91XA Hyperkalemia E87.5 Right atrial mass I51.89 Pacemaker Z95.0 Bipolar disorder F31.9 History of gastric bypass Z98.84 Diabetes E11.9 Chronic anemia D64.9 Post traumatic stress disorder (PTSD) F43.10 (5) Schizoaffective disorder Schizoaffective disorder type: depressive Qualified Code(s): F25.1 - Schizoaffective disorder, depressive type
[2025-04-24 06:54] VITALS: RESP 20
[2025-04-24 07:32] LABS: Anion Gap 6.0 (3-11); Blood Urea Nitrogen 20.0 mg/dl (6-23); Calcium 8.8 mg/dl (8.6-10.3); Carbon Dioxide 28.0 mmol/L (21-32); Chloride 104.0 mmol/L (98-107); Creatinine Clr Calc Pharmacy 85.8 ml/min; Glucose 97.0 mg/dl (70-99(Fasting)); Magnesium 1.9 mg/dl (1.7-2.4); Potassium 4.6 mmol/L (3.5-5.1); Sodium 138.0 mmol/L (136-145)
[2025-04-24] MEDS: POLYETHYLENE (MIRALAX) 17 GM PACK PO SCH (08:36)
[2025-04-24] MEDS: LANTUS PER UNIT CHARGE SC SCH (08:37)
--- NOTE | 2025-04-24 11:56 | Cardiology Progress Note ---
Date of Service April 24, 2025 Assessment & Plan (1) Right atrial mass: (2) Pacemaker: (3) PSVT (paroxysmal supraventricular tachycardia): Plan 1. Right atrial mass: Clearly visible on transthoracic echo and confined to the atrium. I had reviewed this with several of my partners and we are not sure of the significance. It is unlikely that a transesophageal echo would be of much benefit, therefore I do not think this is needed. Blood cultures were negative, a CT angiogram did not indicate pulmonary embolization although subsegmental evaluation was incomplete. At this point without bacteremia and no evidence of embolization I would not intervene surgically. I can only find case reports to guide treatment, it does seem that anticoagulation is generally used. The duration of the anticoagulation is not clear. I would therefore recommend anticoagulation with follow-up echocardiography, perhaps in several months, if the thrombus persists then we may have to consider removal but I would certainly not want to do that now without any clear complications from. 2. Pacemaker: Functioning well, rate increased to atrial pace at 80 beats per minute to override her accelerated junctional rhythm. This can now be programmed back to 60 bpm, I did do that today. 3. PSVT: No clinically significant findings. Admission and Anticipated Discharge Date Admission Date: April 13, 2025 Subjective She is feeling well today, she has no cardiovascular complaints. Physical Exam Physical Exam: Constitutional: Awake and alert and answering questions appropriately. HEENT: Unremarkable. Neck: No jugular venous distention, carotid pulses are normal and equal bilaterally without bruits. Pulmonary: Clear to auscultation bilaterally. Cardiac: Regular rhythm with no murmur, gallop or rub. Abdomen: Soft, nontender with normal bowel sounds. Extremities: No edema. Neurologic: No obvious deficits. Skin: No rash, ecchymoses or petechiae. Results & Data Vital Signs (Past 12 Hours) Vital Signs Temp Pulse Pulse Resp BP BP Pulse Ox 04/24/25 10:52 37.1 C 80 20 120/76 95 04/24/25 08:00 80 04/24/25 06:52 36.6 C 80 20 125/79 93 04/24/25 03:34 90 18 100 04/24/25 02:18 36.8 C 90 19 134/88 100 O2 Del Method FiO2 04/24/25 10:52 Room Air 04/24/25 08:00 04/24/25 06:52 Room Air 04/24/25 03:34 30 04/24/25 02:18 CPAP Laboratory Results Comprehensive Metabolic Panel 04/24/25 Range/Units 06:39 Sodium 138 (136-145) mmol/L Potassium 4.6 (3.5-5.1) mmol/L Chloride 104 (98-107) mmol/L Carbon Dioxide 28 (21-32) mmol/L BUN 20 (6-23) mg/dl Creatinine 0.71 (0.6-1.2) mg/dl Glucose 97 (70-99(Fasting)) mg/dl Calcium 8.8 (8.6-10.3) mg/dl Intake and Output 04/23/25 04/24/25 04/24/25 22:59 06:59 14:59 Intake Total 200 / 200 Balance 200 / 200 Intake: Oral 200 / 200 Other: # Unmeasured Voids 1 1 Weight 80 kg Weight Measurement Method Built in [facility] Diagnostic Findings Telemetry: Atrial pacing at 80 bpm, occasional increase in sinus rate above that. No significant arrhythmia. PG Care Time/CCT Total # of Minutes Spent Total Time Spent with Patient: Total time spent is greater than 50% in coordination of care (as documented) at patient's floor/unit and/or counseling patient: Coding Level of Care Code 47515 SUB INP/OBS CARE 2/35MIN Diagnoses Right atrial mass I51.89 Pacemaker Z95.0 PSVT (paroxysmal supraventricular tachycardia) I47.10 CPT Codes Dual Lead Pacemaker System - 19251 ([id number])
[2025-04-24] MEDS: IRON SUCROSE 300 MG in SODIUM CHLORIDE 0.9% 250 ML IV ONE (13:15)
--- NOTE | 2025-04-24 13:21 | Psychiatric Progress Note ---
Date of Service April 24, 2025 Impression / Recommendations Impression Diagnostically based on history of prior suicide attempts, mood disorder vs schizoaffective disorder, PTSD and suspected intentional overdose suicide attempt she is likely to require inpatient psychiatric treatment once medically stable. Concern for recent jarred and psychosis. Collateral from family indicate delusional thoughts and auditory hallucinations and may be present in the absence of a mood episode. 302 involuntary commitment approved and 303 commitment hearing scheduled for Saturday. Given seriousness of suicide attempt, concern for recent psychosis, med non- adherence concerns, memory impairment related to overdose attempt, and does not present a safe discharge plan at this time; remains a high risk of imminent harm to herself. Not currently connected to psychiatric outpatient care. A: Presenting stable sleep. Plan to taper lorazepam prior to discharge. Does not recall recent events. Recommend to continue plan for inpatient psychiatry once medically cleared. Would benefit from increase in Abilify to 15mg for prevention of future jarred and to address any psychosis. Overall, I spent a total of 30 minutes with this case including review of chart records, review of labwork, direct evaluation of the patient at bedside, counseling the patient, discussion of the patient with the Nurse and with the hospitalist provider, discussion with the psychiatric liaison during clinical rounds, review of collateral historian information from the family and documentation in the electronic health record. (1) Suicide attempt: (2) Auditory hallucinations: (3) Post traumatic stress disorder (PTSD): (4) Schizoaffective disorder: Plan 04/24/25: Increase Aripiprazole to 15mg at bedtime 04/23/25: Continue medications and treatment plan Inpatient psych once medically cleared 303 commitment hearing scheduled for Saturday AM 04/22/25: 302 commitment, applying for 303 04/20/2025: Increase aripiprazole to 10 mg at bedtime Start lorazepam 1 mg at bedtime Continue venlafaxine ER 75 mg and lamotrigine 250 mg daily Change anxiety PRN to lorazepam 0.5 mg twice daily as needed D/c Abilify PRN Olanzapine 5 mg every 8 hours as needed for agitation -psychiatry to continue to follow -1-on-1 with suicide precautions -cannot leave AMA, if attempts to do so call security and psych liason JAYLIN as she would meet 302 criteria Interval History Identifying Information DEVAN MERRITT is a 54-year-old woman with numerous historical psychiatric diagnoses over the years such as bipolar disorder, personality disorder, schizoaffective disorder, depression, and PTSD and past psychiatric hospitalization on [facility] in 2019 admitted medically following suicide attempt via overdose on diltiazem. Chief Complaint Depression, recent suicide attempt Subjective Subjective Patient was seen & assessed and interval progress reviewed with treatment team nursing and social work Reports feeling more rested with lorazepam. Reports 1 sleep disruption magdalena austin Says that her visit from her mother went well. Still reconciling their differences. Denies current SI. Agreeable to medication changes. No other concerns. Physical Exam Mental Examination Appearance: Unkempt Eye Contact: Maintains Eye Contact Motor Behavior: Unremarkable Speech: Normal Mood: Euthymic and Calm Affect: Congruent Thought Process: Intact and Linear Thought Content: Intact and Disoriented (poor memory recollection) Hallucinations: None Insight: Poor Judgement: Poor Vital Signs (Past 24 Hours) Last Vital Signs Temp 37.1 C 04/24/25 10:52 Pulse 80 04/24/25 10:52 Resp 20 04/24/25 10:52 BP 120/76 04/24/25 10:52 Pulse Ox 95 04/24/25 10:52 O2 Del Method Room Air 04/24/25 10:52 O2 Flow Rate 2 04/21/25 23:12 FiO2 30 04/24/25 03:34 Results & Data ([facility]) Laboratory Results Laboratory Results - last 24 hr 04/23/25 04/23/25 04/24/25 16:07 19:48 06:39 Sodium 138 Potassium 4.6 Chloride 104 Carbon Dioxide 28 Anion Gap 6 BUN 20 Creatinine 0.71 Est Cr Clr Drug Dosing 85.8 eGFR 100.35 BUN/Creatinine Ratio 28.2 H Glucose 97 POC Glucose 114 H 98 Calcium 8.8 Magnesium 1.9 04/24/25 04/24/25 06:56 10:57 Sodium Potassium Chloride Carbon Dioxide Anion Gap BUN Creatinine Est Cr Clr Drug Dosing eGFR BUN/Creatinine Ratio Glucose POC Glucose 94 128 H Calcium Magnesium Current Inpatient Medications Current Inpatient Medications: Current Inpatient Medications Acetaminophen (Acetaminophen 500 Mg Tab) 1,000 mg PO TID [facility] Stop: 05/22/25 20:59 Last Admin: 04/24/25 13:16 Dose: 1,000 mg Amlodipine Besylate (Amlodipine Besylate 5 Mg Tab) 5 mg PO QAM [facility] Stop: 05/19/25 17:29 Last Admin: 04/23/25 09:00 Dose: 5 mg Apixaban (Apixaban 2.5 Mg Tab) 2.5 mg PO BID [facility] Stop: 05/17/25 08:59 Last Admin: 04/24/25 08:38 Dose: 2.5 mg Aripiprazole (Aripiprazole 10 Mg Tab) 10 mg PO HS [facility] Stop: 05/22/25 20:59 Last Admin: 04/23/25 20:10 Dose: 10 mg Atorvastatin Calcium (Atorvastatin 10 Mg Tab) 10 mg PO DAILY [facility] Stop: 05/19/25 09:39 Last Admin: 04/24/25 08:39 Dose: 10 mg Dextrose (Dextrose 50% 50 Ml Syringe) 25 - 50 ml IV UD PRN; Protocol PRN Reason: Hypoglycemia Protocol Stop: 05/13/25 21:19 Diclofenac Sodium (Diclofenac Sod 1% Gel 100 Gm Tube) 2 gm EXT QID [facility]; Protocol Stop: 05/22/25 20:59 Last Admin: 04/24/25 12:24 Dose: 2 gm Furosemide (Furosemide 40 Mg Tab) 40 mg PO QAM [facility] Stop: 05/21/25 08:59 Last Admin: 04/22/25 09:41 Dose: 40 mg Glucagon (Glucagon For Inj 1 Mg Vial) 1 mg SQ UD PRN; Protocol PRN Reason: Hypoglycemia Protocol Stop: 05/13/25 21:19 Glucose (Glucose 40% Gel 15 Gm Tube) 15 - 30 gm PO UD PRN; Protocol PRN Reason: Hypoglycemia Protocol Stop: 05/13/25 21:19 Glucose (Glucose 10 Tab/Tube) 4 - 8 tab PO UD PRN; Protocol PRN Reason: Hypoglycemia Protocol Stop: 05/13/25 21:19 Iron Sucrose 300 mg/ Sodium (Chloride) 265 mls @ 176.667 mls/hr IV TODAY ONE Stop: 04/24/25 14:02 Last Admin: 04/24/25 13:15 Dose: 176.7 mls/hr Insulin Aspart (Insulin Aspart Per Unit Charge) 0 units SC ACHS [facility] Stop: 05/16/25 11:59 Last Admin: 04/24/25 12:22 Dose: 4 units Insulin Glargine (Lantus Per Unit Charge) 10 units SC DAILY [facility] Stop: 05/24/25 08:59 Last Admin: 04/24/25 08:37 Dose: 10 units Lamotrigine (Lamotrigine 100 Mg Tab) 250 mg PO DAILY [facility] Stop: 05/14/25 08:59 Last Admin: 04/24/25 08:39 Dose: 250 mg Lorazepam (Lorazepam 1 Mg Tab) 1 mg PO HS [facility] Stop: 05/22/25 20:59 Last Admin: 04/23/25 20:09 Dose: 1 mg Lorazepam (Lorazepam 0.5 Mg Tab) 0.5 mg PO BID PRN PRN Reason: Anxiety Stop: 05/22/25 19:46 Melatonin (Melatonin 3 Mg Tab) 9 mg PO HS PRN PRN Reason: Sleep Stop: 05/16/25 19:25 Last Admin: 04/23/25 20:12 Dose: 9 mg Miscellaneous (Carbohydrates For Hypoglycemia ) 15 - 30 gm PO UD PRN PRN Reason: Hypoglycemia Protocol Stop: 05/13/25 21:19 Miscellaneous Information (Pharmacy Glycemic Mgmt Consult) 1 each N/A UD PRN; Protocol PRN Reason: Consult Stop: 05/14/25 16:04 Olanzapine (Olanzapine 5 Mg Tablet) 5 mg PO Q8H PRN PRN Reason: Agitation Stop: 05/22/25 19:59 Pantoprazole Sodium (Pantoprazole 40 Mg Tab) 40 mg PO QAM [facility] Stop: 05/24/25 08:59 Last Admin: 04/24/25 08:53 Dose: 40 mg Polyethylene Glycol (Polyethylene (Miralax) 17 Gm Pack) 17 gm PO DAILY [facility] Stop: 05/24/25 08:59 Last Admin: 04/24/25 08:36 Dose: 17 gm Spironolactone (Spironolactone 25 Mg Tab) 50 mg PO QAM [facility] Stop: 05/19/25 09:39 Last Admin: 04/22/25 09:41 Dose: 50 mg Venlafaxine HCl (Venlafaxine Hcl Xr 75 Mg Capxr) 75 mg PO DAILY [facility] Stop: 05/14/25 08:59 Last Admin: 04/24/25 08:42 Dose: 75 mg
[2025-04-24 16:04] VITALS: O2SAT 94
[2025-04-24 19:45] VITALS: BP 136/75; PULSE 72; TEMP 99.3
[2025-04-24] MEDS: ARIPiprazole 15 MG TAB PO SCH (20:10)
--- NOTE | 2025-04-25 03:23 | Discharge Summary ---
Discharge Summary Date of Service date of admission - April 13, 2025 date of discharge - April 24, 2025 Principal Dx & Hospital Course #1 = Principal Diagnosis (1) Shock: (2) RLL pneumonia: (3) Calcium channel edwin overdose: (4) PSVT (paroxysmal supraventricular tachycardia): (5) Schizoaffective disorder: (6) Dyslipidemia due to type 2 diabetes mellitus: (7) Suicide attempt: (8) Hyperkalemia: (9) Right atrial mass: (10) Pacemaker: (11) Bipolar disorder: (12) History of gastric bypass: (13) Diabetes: (14) Chronic anemia: (15) Post traumatic stress disorder (PTSD): Plan 54yo female with bipolar disorder who presented after an intentional overdose with long-acting diltiazem. She woke the following morning feeling poorly, collapsed and EMS was called. Diltiazem XR tablets 180mg - about 50 ingested at approximately 1 AM on 04/13. Given IV calcium and emergency treatment for hyperkalemia. Admitted to ICU for shock, required intubation and mechanical ventilation as well as pressors. #toxidromic shock caused by intentional overdose of long-acting calcium channel edwin with end organ dysfunction of MARY JANE and respiratory failure - resolved #acute hypoxic respiratory failure present on admission - resolved; 2nd to above as well as RLL pneumonia #septic shock, unable to determine whether present on admission, 2nd to haemophilus influenzae pneumonia - resolved senior ui developer increased atrial pacing to 80 to override her junctional rhythm she had had early in the stay -off pressors and extubated AM 04/16 #haemophilus influenzae RLL pneumonia - -either 2nd to CAP or aspiration -stable in room air -s/p 7 days of rocephin IV; now off abx -cont pulmonary toilet #clinical and radiographic ileus - -IMPROVED -2 stools yesterday, passing flatus, bowel sounds improved on exam today -can upgrade diet later today from full liquids to regular -ambulate -keep mag/K wnl -cont to hold lasix/aldactone #falls at home - -CT head, c-spine CTs - no intracranial hemorrhage; no fractures -right shoulder x-rays - neg for fracture -cont tylenol TID for pain; cont voltaren gel pain #right atrial mass - cardiology consult appreciated mass well-visualized on TTE; RAYMON deferred - doing such would not knife changer -some initial concern for endocarditis but blood cultures negative and no septic emboli on chest CT -repeat TTE 04/16 reviewed no change in R atrial mass appears attached to RA pacer lead -Dr Mcfarland saw patient from [facility] Cards/EP -- he is not inclined to extract the pacer lead - will simply follow for now -cont Eliquis for "mass"? dosing for such? #thrombocytopenia - -resolved as of 04/21/25 -was likely sepsis-associated #MARY JANE with resulting hyperkalemia - -both resolved with supportive care #suicide attempt /bipolar disorder/PTSD/schizoaffective disorder - -appreciate psychiatrist assistance -cont abilify 10mg HS -continue lamotrigine and venlafaxine -ativan 1mg HS scheduled -ativan BID prn -olanzapine prn -cont one-to-one observation, should not be allowed to leave AMA, planning inpatient psychiatric admission following medical admission #transaminitis - -likely due to shock -resolved -most recent LFTs wnl #Type II DM - -A1c 7.7% -controlled # History of nonepileptic seizures - -Noted, no issues #hypertension - -BPs stable without diltiazem or lisinopril -BPs low-normal today - HOLD amlodipine #h/o gastric bypass status #anemia - -consider IV venofer - iron studies c/w Fe def -B12/folate wnl -Fe def likely due to gastric bypass status #DVT Prophylaxis - -low dose apixaban 2.5mg BID PT, OT patient reports she does walk at home; does not use assistive devices significant other updated at bedside yesterday [place] correspondence had with psych today ready for d/c to psych tomorrow? Admission HPI Per Admitting Provider Leslie is a 54-year-old female with a past medical history of schizoaffective/bipolar disorder who took 50x tablets of 180 mg diltiazem XR in a suicidal attempt. She presents hypotensive and with a metabolic acidosis and is recommended for admission for overdose/CCB toxicity. Seen at bedside. She reports she has a long history of passive suicidality, intermittently active with attempts in the past. She reports that she was not particularly planning her current overdose but last night she was overwhelmed with recent stressors and feeling that she has a stalker although is not who this is. She has not seen or heard anything unusual. She reported she started taking 1 diltiazem, and then continue taking 1 after the other with the intention to . When she woke up this morning she felt very weak tired and confused to try to go outside and then was brought to the hospital. She reports she still feels suicidal. She notes that her suicidal he has never completely gone away but is usually passive, and current stressors have made this worse. She denies any coingestions along with her diltiazem. She last took her regular medications yesterday, she reports she had not been missing doses of these. She denies alcohol/tobacco use. She reports she is very thirsty, otherwise no complaints. Denies fevers chills sweats. Denies cough. Denies abdominal pain. She denies chest pressure/chest pain. Full code in the setting of SI/302 Discharge Exam gen - lying in bed, looks better today mouth - MMM today neck - no JVD heart - RRR, s1 s2, no murmur lungs - airation improved R base; minimal crackles R base; left basilar airation improved; no wheeze; no increased work of breathing abd - BS+ and improved; less distended; soft; NT; no HSM ext - no edema, pulses 2+ b/l feet psych - a/o x 3 Discharge Plan Discharge Items Patient Disposition: Transfer Behavioral Health Fac Reason For Visit: OVERDOSE Discharge Diagnosis: 1. overdose of blood pressure medicine - intentional/suicide attempt 2. acute respiratory failure due to right lower lobe pneumonia; intubation/mechanical ventilation required in the ICU 3. cardiogenic/septic shock 4. bipolar disorder 5. recent falls at home 6. type 2 diabetes 7. history of gastric bypass 8. iron deficiency anemia 9. pacemaker status 10. large mass on pacemaker wire - thrombus (clot) suspected 11. right shoulder pain - likely contusion from recent fall; x-rays negative for fracture Activity: Resume your previous activity Activity Comment: as tolerated Non-emergency contact: Primary Care Provider Call non-emergency contact if: you have any medication questions Follow-up/Referrals: Dusty Stover DO [Primary Care Provider] - Diet: Carb Consistent or DM2 Addtl Attending Provider Instructions: Recommendations while in the behavioral health unit - 1. check BSGs ac/hs 2. consider pharmacy glycemic consultation for diabetes 3. consider PT & OT consultations for deconditioning 4. CBC, BMP in 3-4 days for stability 5. ice or heat to right shoulder as desired/as needed - patient preference Pending Studies at Discharge: No Stand-Alone Forms: My [facility] Skilled Items DNR: No Lines: None Urinary Catheter: No Medications and DC Order Prescriptions: New acetaminophen [Tylenol Extra Strength] 500 mg Tablet 1,000 mg PO TID 7 Days Qty: 42 0RF lorazepam 0.5 mg Tablet 0.5 mg PO BID PRN (Reason: anxiety) Qty: 2 0RF lorazepam 1 mg Tablet 1 mg PO HS Qty: 1 0RF aripiprazole [Abilify] 15 mg Tablet 15 mg PO HS Qty: 30 0RF olanzapine 5 mg Tablet 5 mg PO Q8H PRN (Reason: agitation, hallucinations) Qty: 3 0RF polyethylene glycol 3350 [Miralax] 17 gram Powder In Packet 17 g PO DAILY Qty: 30 0RF insulin glargine [Lantus U-100 Insulin] 100 unit/mL Solution 10 unit SC DAILY Qty: 10 0RF insulin aspart U-100 [Novolog U-100 Insulin aspart] 100 unit/mL Solution See Rx Instructions .ROUTE .COMPLEX Qty: 10 0RF Rx Instructions: --Goal BSG Range: Low 110 mg/dL, High 140 mg/dL --Correction Factor: 30 mg/dL/unit --Carbohydrate ratio = 12 g/unit --BSGs ACHS if eating, q6h if npo melatonin 3 mg Tablet 9 mg PO HS PRN (Reason: sleep) Qty: 3 0RF Eliquis 5 mg tablet 5 mg PO BID Qty: 60 2RF Continued omeprazole 40 mg capsule,delayed release(DR/EC) 40 mg PO DAILY Qty: 90 3RF atorvastatin 10 mg tablet 10 mg PO DAILY Qty: 90 3RF Hold Instructions: joint pains sumatriptan succinate 100 mg tablet 100 mg PO Q2H PRN (Reason: Migraine Headache) Rx Instructions: do not exceed 2 doses per 24 hrs (DME) BD Eclipse Luer-Yanna 3 mL 25 x 5/8" syringe See Rx Instructions .Route Qty: 50 1RF Rx Instructions: As directed ipratropium bromide 21 mcg (0.03 %) spray,non-aerosol 2 spray intranasal BID PRN (Reason: DIRECTED) lamotrigine 100 mg tablet 100 mg PO DAILY lamotrigine 150 mg tablet 150 mg PO DAILY venlafaxine 75 mg capsule,extended release 24hr 75 mg PO DAILY Qty: 30 2RF Held cyanocobalamin (vitamin B-12) 1,000 mcg/mL kit 1,000 mcg subcut Q7D Qty: 26 1RF Hold Instructions: hold -- B12 level in April 2025 is >1500. Medical Marijuana 1 dose PO DAILY PRN (Reason: Pain) Hold Instructions: hold while in behavioral health unit. Discontinued lisinopril 40 mg tablet 40 mg PO HS Qty: 90 3RF spironolactone 50 mg tablet 50 mg PO QAM Qty: 90 3RF diltiazem HCl 180 mg capsule,extended release 24hr 180 mg PO BID Qty: 180 3RF clonazepam 0.5 mg tablet 0.5 mg PO TID PRN (Reason: Anxiety) olanzapine 10 mg tablet,disintegrating 10 mg translingual DAILY dextroamphetamine-amphetamine 10 mg tablet 20 mg PO DAILY Discharge Orders: Discharge Order (Routine); Ordered 04/24/25 Ordered By: Susan Mondragon/Other Patient Handouts: Managing Type 2 Diabetes, Diabetes: Meal Planning Admission Data Admit Date/Time: 04/13/25 18:39 Attending Provider: Jaron Whittington Admit Provider: Hardik Banks Primary Care Provider: Dusty Stover Other Providers: Hardik Banks; Joe Sandoval; Sarai Carroll; Aguila Mason; Rosette Garcia; Kasey Hinds; Jesus Moses; Jocy Moore; Dennsi Barrera; Eliceo Townsend; Mason Phelps; Rick Berrios; Mat Stanley; Mateo Mcfarland; Sal Wylie Jr; Jamir Torres; Page Griffith; Cass Carter; Frederick Washington; Frederick Sharma; Denita Huff; Boo [place]; Jude Noriega; Yris Julian; Jude Yung; Nathen Scott; Naveed Moody; Ashish Florian; Delvis Darling; Theo Oconnor; Eloise Gleason; Leonardo Jones; Jennifer Wing; Mykel Chaves; Temi Courtney. Other Interventions: Discharge Summary Assessment (RN) Last Done: 04/24/25 22:10 Hospital Stay Data Consultations 04/13/25 18:00 ED Decision to Admit Stat 04/13/25 18:39 Consult Teaching Music Lessons Routine 04/13/25 19:52 Consult Psychiatry Routine 04/13/25 20:03 Consult Cardiology Routine 04/14/25 07:35 Consult Nephrology Routine Diagnostic Imagining Performed 04/15/25 07:44 CT Abd and Pelvis [CT abd pelvis oral and IV con] Routine CT angio chest PE protocol Routine 04/21/25 13:28 CT Abd and Pelvis [CT abd pelvis wo con] Routine 04/22/25 15:47 CT cervical spine wo con Routine Head CT [CT head/brain wo con] Routine Pending Results Patient Have Any Pending Studies at Discharge: No Discharge Instructions Given to Patient (Per Discharging Provider) Recommendations while in the behavioral health unit - 1. check BSGs ac/hs 2. consider pharmacy glycemic consultation for diabetes 3. consider PT & OT consultations for deconditioning 4. CBC, BMP in 3-4 days for stability 5. ice or heat to right shoulder as desired/as needed - patient preference Coding Diagnoses Shock R57.9 RLL pneumonia J18.9 Calcium channel edwin overdose T46.1X1A PSVT (paroxysmal supraventricular tachycardia) I47.10 Schizoaffective disorder, depressive type F25.1 Schizoaffective disorder type: depressive Dyslipidemia due to type 2 diabetes mellitus E11.69; E78.5 Suicide attempt T14.91XA Hyperkalemia E87.5 Right atrial mass I51.89 Pacemaker Z95.0 Bipolar disorder F31.9 History of gastric bypass Z98.84 Diabetes E11.9 Chronic anemia D64.9 Post traumatic stress disorder (PTSD) F43.10
== END 2025-04-24 22:17 | DRG 917 ==
LOC: SUATTDRO → ED 16:43 → 1E 18:39 → SUATTDRO 18:39 → 1E 19:35 → 2E 04-19 17:49

== ENCOUNTER 2025-04-24 15:48 | Inpatient (IN) ==
[2025-04-24] MEDS ORDERED: ALUMINUM/MAGNESIUM SUSP 30 ML UDC PO PRN (15:57)
[2025-04-24] MEDS ORDERED: MAGNESIUM HYDROXIDE SUSP 30 ML UDC PO PRN (15:57)
[2025-04-24] MEDS ORDERED: BISMUTH SUBSALICYLATE 262 MG CHEW PO PRN (15:57)
[2025-04-24] MEDS ORDERED: SODIUM CHLORIDE 0.65% NA SOLN 45 ML (OCEAN) PRN (15:57)
[2025-04-24] MEDS: ARIPiprazole 15 MG TAB PO SCH (23:17)
[2025-04-24] MEDS: LORazepam 1 MG TAB PO SCH (23:18)
[2025-04-25] MEDS ORDERED: LORazepam 0.5 MG TAB PO PRN (09:07)
[2025-04-25] MEDS ORDERED: NON-FORMULARY MEDICATION (Lamotrigine 150 mg tablet) PO SCH (09:15)
[2025-04-25] MEDS ORDERED: PHARMACY GLYCEMIC MGMT CONSULT PRN (09:28)
[2025-04-25] MEDS: APIXABAN 5 MG TABLET PO SCH (09:56)
[2025-04-25] MEDS: VENLAFAXINE HCL XR 75 MG CAPXR PO SCH (09:56)
[2025-04-25] MEDS: ATORVASTATIN 10 MG TAB PO SCH (09:56)
[2025-04-25] MEDS: POLYETHYLENE (MIRALAX) 17 GM PACK PO SCH (10:00)
[2025-04-25] MEDS: lamoTRIgine 100 MG TAB PO SCH (10:05)
--- NOTE | 2025-04-25 10:06 | History & Physical ---
Date of Service April 25, 2025 Impression / Recommendations Impression LESLIE MERRITT is a 54-year-old woman who currently lives in [place] her boyfriend, has a history of bipolar disorder vs schizoaffective disorder, ADHD, PTSD, and was admitted on 04/24/25 22:19 on a 302 involuntary commitment for suicide attempt via overdose requiring ICU admission and medical stabilization. Diagnostically consistent with unspecified psychosis with differential including schizoaffective disorder vs BPAD with depressive episode with psychotic features vs delusional disorder vs substance-induced given cannabis use vs complex PTSD but less likely that her hallucinations are tied to a mood episode given that they have been present for many years with very similar symptoms during hospitalization in 2019. Leslie seems most willing to accept possibility of complex PTSD as potential explanation for her symptoms though strongly views the hallucinations as real and not part of any type of psychiatric pathology. Discussed medication treatment options in detail. Discussed risks, benefits and alternatives. She consents to ongoing use of lamictal, Effexor XR, Abilify, and ativan. Reviewed side effects including but not limited to: GI, AL, with Effexor, potential for fatal rash and need for adherence with lamictal, dizziness/cognitive changes and need to avoid driving/machinery use with ativan and movement (TD, NMS), cardiac (QTc prolongation), and metabolic (stroke, insulin resistance) and necessity for fasting lipid and glucose labwork and AIMS done with score of 0. MNPR due to paranoia and psychosis Overall I spent a total of 75 minutes for this admission including review of chart records, review of labwork, direct evaluation of the patient, counseling the patient, ordering medication, risk assessment, discussion with the psychiatric liason RN and documentation in the electronic health record. (1) Suicide attempt: (2) Depression: (3) Unspecified psychosis not due to a substance or known physiological condition: (4) Auditory hallucinations: (5) Schizoaffective disorder: Schizoaffective disorder type: depressive Qualified Code(s): F25.1 - Schizoaffective disorder, depressive type (6) Bipolar disorder: (7) Post traumatic stress disorder (PTSD): Plan 04/25/2025: The patient was admitted to the [facility] ([facility] unit) on q15 min checks (behavioral with suicide precautions) for safety. The patient will participate in group, recreational, and milieu therapies and will be offered additional individual and family sessions as clinically appropriate. -303 hearing scheduled for tomorrow, reviewed this with her and encouraged her to contact the public defenders office -Continue psychiatric medications: * Abilify 15mg HS * Ativan 1mg HS * Lamictal 250mg daily * restart Effexor XR 75mg daily -Continue medications from medical admission: * Eliquis 5mg BID * Tylenol 1,000mg TID * Lipitor 10mg daily * Protonix * Miralax * Insulin -Fasting lipid panel and HbA1c tomorrow AM Inventory Assets Strengths: supportive relationships, resilient Needs: safety and stabilization, medication adjustment, additional coping skills, increased outpatient services Suicide Risk Level Suicide Risk Level: High-Moderate (q15 min suicide checks) (recent serious suicide attempt and ongoing paranoia and hallucinations but denies SI and denies command AH and feels able to ask for support if needed) Risk Factors Assessment Male: No : Yes Do You Have Access To A Gun?: No Health Problems: Yes Mental Health Diagnoses: Yes Substance Use Disorders: No Previous Attempt: Yes Family History of Suicide: No Previous Psychiatric Hospitalization: Yes Hopelessness: Yes Protective Factors Assessment Supportive Family: Yes Psychiatric History Identifying Data LESLIE MERRITT is a 54-year-old woman who currently lives in [place] her boyfriend, has a history of bipolar disorder vs schizoaffective disorder, ADHD, PTSD, and was admitted on 04/24/25 22:19 on a 302 involuntary commitment for suicide attempt via overdose requiring ICU admission and medical stabilization. Chief Complaint "I'm being harassed". History of Present Illness Leslie was admitted from the medical floor following extended admission for stabilization following her suicide attempt via overdose of diltiazem. She agrees it's possible this was a suicide attempt but cannot speak to her motive or actions as she reports no recollection of the events preceding or following the suspected attempt. Today she is tearful when I enter her room stating she doesn't know what to say or do as she's being watched and worries that what she says could be used to keep her in the hospital longer. Also is tearful because "I hear everyone talking about me" and expands that "I know the nurses keep talking about me" and reports hearing them say her name. She stated frustration toward her mother for not believing that the voices she hears are real. Tells me she knows she doesn't have schizophrenia or "delusions" and that the voices are a result of being harassed for the last 7-8 years and that "no one is delusional for 7-8 years". Expands that she doesn't have schizophrenia because "I'm very cognizant of what's going on". In the last six months she started to have more short-term memory issues which has been difficult and impacted her mood. Explains that at least three individuals (a least one female and one male voice) are always "screaming at me 'f*malinaing cunt". She notes that "it's embarrassing that they're still doing it outside the hospital while I'm here trying to get help". She feels strongly that these voices are real and caused by individuals harassing her for unknown reasons. Longest time frame she's gone without hearing them was two months and she knows of nothing during that time that helped them lessen. Notes that she is "normally abled" and emphasizes she doesn't have any psychiatric symptoms except bipolar disorder and PTSD. Feels she used to have more episodes of jarred with her bipolar disorder but in recent years it's been largely depressive episodes. She denies current SI but endorses ongoing depression with periods of irritability, depressed mood, trouble staying asleep, and low energy. She does identify recent psychosocial stressor of her dog dying about a month ago but feels she was coping with this reasonably well. Further history per my initial consult note on 04/14/2025: "Leslie remains intubated in the ICU so unable to gather history from her. Per chart review she took ~50 tabs of diltiazem 180mg. Further details per admission H&P by Dr. Banks on 04/13/2025: "She reports she has a long history of passive suicidality, intermittently active with attempts in the past. She reports that she was not particularly planning her current overdose but last night she was overwhelmed with recent stressors and feeling that she has a stalker although is not who this is. She has not seen or heard anything unusual. She reported she started taking 1 diltiazem, and then continue taking 1 after the other with the intention to . When she woke up this morning she felt very weak tired and confused to try to go outside and then was brought to the hospital. She reports she still feels suicidal. She notes that her suicidal he has never completely gone away but is usually passive, and current stressors have made this worse. She denies any coingestions along with her diltiazem. She last took her regular medications yesterday, she reports she had not been missing doses of these. She denies alcohol/tobacco use." Additional history per ED CM notes on 04/13/2025: "Met with patient to complete a brief MH evaluation with Dr. Frank present. Patient reports taking 50 180mg of Diltiazem in an attempt to kill herself. She reports being in distress, stating that she is also being harassed. She reports this is not the first time she has attempted to kill herself, and that she did other things to harm herself, but does not remember what she has done. Patient stated she has a pacemaker, she thought if she took the medication it would slow her heart rate down enough that it would make her pacemaker malfunction. She states she took the medication around 1:30am, she does not know how, but was found outside by her father about 45 minutes before she was brought into the ED. She reports feeling dehydrated and lethargic but is feeling better than she was. Patient states she has not been sleeping well. She has a bruise on her arm, and states she has been having falls. Patient has an extensive MH history. Patient's father Bill reported to ED. He states patient has been diagnosed with bipolar and schizoaffective disorder 30 years ago. He states she refuses all MH treatment including medication. Patient is in a very unhealthy relationship and has been for a long time. The man comes and goes in and out of her life, and according her father, is homeless and takes advantage of patient. Patient contacted mother and father over the weekend threatening to take medication to overdose. Father stated patient has psychotic behaviors, that she is paranoid and hears voices that she believes are threatening her. He states she refuses all help and has no MH services/medication at this time. Father states his called him and asked him to go to the home to check on patient and to get her boyfriend out of the house, when he was on his way to her home, patient called him and appeared very disoriented. Father states he arrived an she was outside, had fallen and was completed altered. He stated he called an ambulance and the police and began pouring cold water on her. Explained to father that patient will be a medical admission at first, but a 302 petitioning statement will be completed and placed on patient's chart, when she is cleared medically she will need to follow through with inpatient MH treatment." and "Box A petitioning statement completed by ANTHONY Thomas reads as follows: " Leslie has a very extensive mental health history. She has been diagnosed with bipolar disorder, schizoaffective disorder, and experiences psychotic behaviors including paranoia and hearing voices, daily. She is non-compliant with MH treatment and is not currently on MH medications. On 04/13/25 at 1:00am, Leslie reports taking 50 180mg of Diltiazem in an attempt to end her life." " Past Psychiatric History Current Psychiatric Diagnosis: Unspecified Mood Disorder Outpatient Services: none currently, saw telepsych provider in [place] Radha Phipps previously but states they are no longer working together (last appointment was ~ two months ago) Previous Psych Admissions: she estimates 7 total hospitalizations with last in [place] in 2019 (per other collateral possible this was in 2022 or 2023) U in 2020 Do You Have Access To A Gun?: No History of Previous Suicide Attempt: Yes Describe Attempts in the Past: 1992 via overdose of Klonopin and alcohol Past Medication Trials: many: 1. Tegretol - rash 2. Vraylar 3. Klonopin 4. Adderall 5. Gabapentin 6. Keppra - "the best thing for my moods" 7. Zyprexa 8. Zoloft 9. Prozac - "bottomed out" 10.Parnate 11.Haldol 12.Clozaril 13.Geodon 14.Seroquel - severe body aches "virtually every typical antipsychotic" Allergies Allergy/AdvReac Type Severity Reaction Status Date / Time carbamazepine [From Tegretol] Allergy Intermediate Rash Verified 03/09/25 16:08 Sulfa (Sulfonamide Allergy Intermediate HIVES/DELUS Verified 03/09/25 16:08 Antibiotics) IONAL prednisone AdvReac Unknown CONTRAINDICATED Verified 03/09/25 16:08 WITH BIPOLAR MEDS. Home Medications Medication Instructions Recorded Confirmed Type sumatriptan succinate 100 mg tablet 100 mg PO Q2H PRN Migraine Headache 07/03/23 04/25/25 History syringe with needle 3 mL 25 x 5/8" #50 ea 07/17/23 04/13/25 Rx (BD Eclipse Luer-Yanna) Medical Marijuana 1 dose PO DAILY PRN Pain 08/01/23 04/25/25 History omeprazole 40 mg capsule,delayed 40 mg PO DAILY #90 caps 10/12/24 04/25/25 Rx release atorvastatin 10 mg tablet 10 mg PO DAILY #90 tabs 10/26/24 04/25/25 Rx cyanocobalamin (vitamin B-12) 1,000 mcg subcut Q7D #26 ea 11/30/24 04/25/25 Rx 1,000 mcg/mL injection kit ipratropium bromide 21 mcg (0.03 2 spray intranasal BID PRN 01/11/25 04/25/25 History %) nasal spray DIRECTED lamotrigine 100 mg tablet 100 mg PO DAILY 01/11/25 04/25/25 History lamotrigine 150 mg tablet 150 mg PO DAILY 01/11/25 04/25/25 History venlafaxine 75 mg capsule,extended 75 mg PO DAILY #30 caps 01/11/25 04/25/25 Rx release 24 hr acetaminophen 500 mg tablet 1,000 mg (2 x 500 mg) PO TID 7 04/24/25 04/25/25 Rx (Tylenol Extra Strength) days #42 tabs apixaban 5 mg tablet (Eliquis) 5 mg PO BID #60 tabs 04/24/25 04/25/25 Rx aripiprazole 15 mg tablet (Abilify) 15 mg PO HS #30 tabs 04/24/25 04/25/25 Rx insulin aspart U-100 100 unit/mL See Rx Instructions .Route 04/24/25 04/25/25 Rx subcutaneous solution (Novolog .COMPLEX #10 mL U-100 Insulin aspart) insulin glargine 100 unit/mL 10 unit (0.1 mL) SC DAILY #10 mL 04/24/25 04/25/25 Rx subcutaneous solution (Lantus U-100 Insulin) lorazepam 0.5 mg tablet 0.5 mg PO BID PRN anxiety #2 tabs 04/24/25 04/25/25 Rx lorazepam 1 mg tablet 1 mg PO HS #1 tab 04/24/25 04/25/25 Rx melatonin 3 mg tablet 9 mg (3 x 3 mg) PO HS PRN sleep #3 04/24/25 04/25/25 Rx tabs olanzapine 5 mg tablet 5 mg PO Q8H PRN agitation, 04/24/25 04/25/25 Rx hallucinations #3 tabs polyethylene glycol 3350 17 gram 17 g PO DAILY #30 ea 04/24/25 04/25/25 Rx oral powder packet (Miralax) amlodipine 5 mg tablet (Norvasc) 5 mg PO DAILY 04/25/25 04/25/25 History Alcohol History Hx of Alcohol Use Over the Past 12 Months: No AUDIT Total Score: 0 Smoking Use Have You Smoked or Used Tobacco Products in the Last 30 Days: Yes tobacco type: cigarettes Smoking Status: Current every day smoker Substance History Hx of Over the Counter Med Misuse Over the Past 12 Months: No Hx of Organic Substance Use Over the Past 12 Months: No Hx of Illegal Substances/Street Drug Use Over Past 12 Months: Yes (cannabis) Personal History Highest Grade Completed: College Employment Status: Disabled Marital Status: Single Beliefs That Will Affect Care: None Current Legal Problems: No Hx Legal Problems: No Hx Traumatic Life Events: Yes Patient History Medical History Diabetes mellitus, type 2 Encounter for pre-operative examination Schizoaffective disorder follows with psych Kidney stones passed on own Anxiety follows with psych Bipolar disorder follows with psych Sinus node dysfunction reason for up coming pacemaker placement Sleep apnea dx several yrs ago, no device, feels no issues with Surgical History Status post placement of cardiac pacemaker S/P trigger finger release left thumb History of carpal tunnel release left History of esophagogastroduodenoscopy (EGD) History of colonoscopy Richardson teeth extracted Family History Mother Breast cancer Aunt Breast cancer Uncle Lung cancer Denies family history of Ovarian cancer Prostate cancer Diabetes Myocardial infarction Colorectal cancer Stroke Social History Smoking Status: Current every day smoker Tobacco Type: Cigarettes Age Started Using Tobacco: 17; packs per day: 0.5; Cigarettes Per Day: 10-15 cigs per day > advised npo status; Second Hand Exposure: Yes (s/o smokes); Do You Dip or Chew Tobacco: No; Hx Alcohol Use: No Hx Substance Use: No Preferred Language: Kiswahili Communication Ability: Effective Visual Impairment: Limited Hearing Ability: Normal Circuitry Negative Inspector Required: No Beliefs That Will Affect Care: None marital status: Single Current Living Situation: Homeless Current Living Situation Comment: Pt states she had a roommate, but would consider herself homeless now. current occupational status: unemployed How many Children do You have: 0 Feels Safe at Home: Yes Childhood Exposure to Second-Hand Smoke: Yes Diet: regular caffeine: Yes during the past year weight has: decreased > 10 lbs Dental Care, Regularly: Yes Physical Activity Frequency: Does not Exercise Seatbelt Use: always Sunscreen Use: Yes Gender Identity: Female Assistive Devices: Contacts and Walker Review of Systems Review of Systems: All systems reviewed & are unremarkable except as noted in HPI & below Physical Exam Psychiatric: Orientation: alert and oriented x 3 Apperance: appropriately dressed and appropriately groomed Eye Contact: good eye contact Motor Behavior: no abnormal motor movements Speech: + loud speech Affect: + depressed affect, + anxious affect, + tearful affect, + labile affect and + irritable affect Mood: + depressed mood and + anxious mood Thought Process: + circumstantial thought process Thought Content: + paranoid Suicidal Thoughts: denies suicidal thoughts (but s/p serious attempt), denies suicidal plan and denies suicidal intent Homicidal Thoughts: denies homicidal thoughts Hallucinations: + auditory hallucinations (voices screaming swear words at her); no visual hallucinations Cognition: remote memory grossly intact, attention grossly intact and language grossly intact; + recent memory not intact Estimated Intelligence: consistent with education level Insight: + limited insight Judgment: + limited judgement Vital Signs (Past 24 Hours): Last Vital Signs Temp 36.6 C 04/25/25 06:00 Pulse 77 04/25/25 06:00 Resp 16 04/25/25 06:00 BP 155/99 H 04/25/25 06:22 Pulse Ox 96 04/25/25 06:00 O2 Del Method Room Air 04/25/25 06:00 Exam Statement: A physical exam was performed on the medical floor by Dr. Whittington for the purposes of medical clearance. I accept that physical as correct and adequate for the purposes of the inpatient physical exam. Results & Data (U) Laboratory Results Laboratory Results - last 24 hr 04/25/25 06:20 POC Glucose 122 H Current Inpatient Medications Current Inpatient Medications: Current Inpatient Medications Acetaminophen (Acetaminophen 325 Mg Tab) 650 mg PO Q4H PRN PRN Reason: Headache or Minor Fever Stop: 05/24/25 15:56 Acetaminophen (Acetaminophen 500 Mg Tab) 1,000 mg PO TID MARTÍN Stop: 05/25/25 13:59 Al Hydrox/Mg Hydrox/Simethicone (Aluminum/Magnesium Susp 30 Ml Udc) 30 ml PO Q4H PRN PRN Reason: GI Upset Stop: 05/24/25 15:56 Apixaban (Apixaban 5 Mg Tablet) 5 mg PO BID MARTÍN Stop: 05/25/25 09:14 Last Admin: 04/25/25 09:56 Dose: 5 mg Aripiprazole (Aripiprazole 15 Mg Tab) 15 mg PO HS MARTÍN Stop: 05/24/25 21:59 Last Admin: 04/24/25 23:17 Dose: Not Given Atorvastatin Calcium (Atorvastatin 10 Mg Tab) 10 mg PO DAILY MARTÍN Stop: 05/25/25 09:14 Last Admin: 04/25/25 09:56 Dose: 10 mg Bismuth Subsalicylate (Bismuth Subsalicylate 262 Mg Chew) 2 tab PO Q30M PRN PRN Reason: Loose Stool/Diarrhea Stop: 05/24/25 15:56 Hydroxyzine HCl (Hydroxyzine Hcl 25 Mg Tab) 50 mg PO HSZ PRN PRN Reason: Insomnia Stop: 05/24/25 15:56 Hydroxyzine HCl (Hydroxyzine Hcl 25 Mg Tab) 25 mg PO Q4H PRN PRN Reason: Anxiety Stop: 05/24/25 15:56 Insulin Aspart (Insulin Aspart Per Unit Charge) 0 units SQ ACHS MARTÍN Stop: 05/25/25 09:59 Insulin Glargine (Lantus Per Unit Charge) 10 units SC DAILY MARTÍN Stop: 05/25/25 09:59 Lamotrigine (Lamotrigine 100 Mg Tab) 250 mg PO DAILY MARTÍN; Protocol Stop: 05/25/25 09:14 Lorazepam (Lorazepam 1 Mg Tab) 1 mg PO HS MARTÍN Stop: 05/24/25 21:59 Last Admin: 04/24/25 23:18 Dose: Not Given Lorazepam (Lorazepam 0.5 Mg Tab) 0.5 mg PO BID PRN PRN Reason: anxiety Stop: 05/25/25 09:06 Magnesium Hydroxide (Magnesium Hydroxide Susp 30 Ml Udc) 30 ml PO DAILY PRN PRN Reason: Constipation Stop: 05/24/25 15:56 Melatonin (Melatonin 3 Mg Tab) 9 mg PO HS PRN PRN Reason: sleep Stop: 05/25/25 09:06 Miscellaneous Information (Pharmacy Glycemic Mgmt Consult) 1 each N/A UD PRN; Protocol PRN Reason: Consult Stop: 05/25/25 09:27 Olanzapine (Olanzapine 5 Mg Tablet) 5 mg PO Q8H PRN PRN Reason: agitation, hallucinations Stop: 05/25/25 09:06 Pantoprazole Sodium (Pantoprazole 40 Mg Tab) 40 mg PO DAILY MARTÍN Stop: 05/25/25 09:14 Last Admin: 04/25/25 09:56 Dose: 40 mg Polyethylene Glycol (Polyethylene (Miralax) 17 Gm Pack) 17 gm PO DAILY MARTÍN Stop: 05/25/25 09:14 Last Admin: 04/25/25 10:00 Dose: Not Given Sodium Chloride (Sodium Chloride 0.65% Na Soln 45 Ml ([place])) 1 - 2 sprays NA PRN PRN PRN Reason: Nasal Dryness/Congestion Stop: 05/24/25 15:56 Sumatriptan Succinate (Sumatriptan Succinate 100 Mg Tab) 100 mg PO Q2H PRN PRN Reason: Migraine Headache Stop: 05/25/25 09:06 Venlafaxine HCl (Venlafaxine Hcl Xr 75 Mg Capxr) 75 mg PO DAILY MARTÍN Stop: 05/25/25 09:14 Last Admin: 04/25/25 09:56 Dose: 75 mg
[2025-04-25] MEDS: LANTUS PER UNIT CHARGE SC SCH (10:07)
[2025-04-25] MEDS: INSULIN ASPART PER UNIT CHARGE SQ SCH (10:11)
[2025-04-25] MEDS: ACETAMINOPHEN 500 MG TAB PO SCH (14:25)
[2025-04-25] MEDS ORDERED: LORazepam 1 MG TAB PO SCH (22:00)
[2025-04-25] MEDS ORDERED: ARIPiprazole 15 MG TAB PO SCH (22:00)
--- NOTE | 2025-04-26 09:12 | Psychiatric Progress Note ---
Date of Service April 26, 2025 Impression / Recommendations Impression LESLIE MERRITT is a 54-year-old woman who currently lives in [place] with her boyfriend, has a history of bipolar disorder vs schizoaffective disorder, ADHD, PTSD, and was admitted on 04/24/25 22:19 on a 302 involuntary commitment for suicide attempt via overdose requiring ICU admission and medical stabilization. Now on 303 commitment. Diagnostically consistent with unspecified psychosis with differential including schizoaffective disorder vs BPAD with depressive episode with psychotic features vs delusional disorder vs substance-induced given cannabis use vs complex PTSD but less likely that her hallucinations are tied to a mood episode given that they have been present for many years with very similar symptoms during hospitalization in 2020. Leslie seems most willing to accept possibility of complex PTSD as potential explanation for her symptoms though strongly views the hallucinations as real and not part of any type of psychiatric pathology. A: Ongoing psychosis and depression. She declined to participate in 303 hearing but spoke with public health technician, 303 commitment was granted. Family collateral consistent with longstanding paranoid delusions and chronic auditory hallucinations consistent with schizoaffective disorder current depressive episode. Tolerating re-initiation of Effexor XR so far. Discussed medication treatment options in detail for psychosis given limited benefit from multiple prior antipsychotics including olanzapine in months prior to admission with consistent adherence. Reviewed consideration for a more sedating antipsychotic like olanzapine vs clozapine trial. Reviewed that clozapine comes with higher risks including serious cardiac, bowel, neutropenia and regular blood work burden but is more effective than other antipsychotics vs restarting olanzapine at a higher dose. she would like to start clozapine as she feels olanzapine helped her sleep but otherwise offered no benefit in terms of lessening hallucinations nor improving her mood. Discussed risks, benefits and alternatives. Reviewed side effects including but not limited to:recommendation for weekly WBC/ANC monitoring for the first six months then biweekly for 6 months then monthly, severe neutropenia with potential for life threatening agranulocytosis, blood clots (DVT, PE), movement (TD, NMS), cardiac (QTc prolongation, myocarditis, cardiomyopathy), constipation, hepatotoxicity, and metabolic (stroke, insulin resistance), necessity for routine fasting lipid and glucose labwork, AIMS done with score of 0. Reviewed baseline labs including WBC and ANC completed during recent medical ad mission, weight, blood pressure and with fasting lipid panel, glucose/HbA1c, and repeat CBC/ANC planned in two days to limit number of blood draws. Given her recent serious overdose and history of cardiac pacemaker will plan for weekly EKG. Also will start docusate 250 mg daily and continue miralax 17mg daily to reduce risk for constipation. MNPR due to paranoia and psychosis Overall, I spent a total of 60 minutes on this case including meeting with the patient, reviewing the chart, nursing report, multidisciplinary team meeting, orders, and documentation and 303 hearing. (1) Schizoaffective disorder: (2) Suicide attempt: (3) Depression: (4) Unspecified psychosis not due to a substance or known physiological condition: (5) Auditory hallucinations: (6) Post traumatic stress disorder (PTSD): Plan 04/26/2025: -Discontinue abilify -Start clozapine 25mg HS -Start docusate 100 mg daily -Weekly EKG starting 05/03/2025 with clozapine use initially 04/25/2025: The patient was admitted to the [facility]) on q15 min checks (behavioral with suicide precautions) for safety. The patient will participate in group, recreational, and milieu therapies and will be offered additional individual and family sessions as clinically appropriate. -303 hearing scheduled for tomorrow, reviewed this with her and encouraged her to contact the public defenders office -Continue psychiatric medications: * Abilify 15mg HS * Ativan 1mg HS * Lamictal 250mg daily * restart Effexor XR 75mg daily -Continue medications from medical admission: * Eliquis 5mg BID * Tylenol 1,000mg TID * Lipitor 10mg daily * Protonix * Miralax * Insulin -Fasting lipid panel and HbA1c tomorrow AM Inventory Assets Strengths: supportive relationships, resilient Needs: safety and stabilization, medication adjustment, additional coping skills, increased outpatient services Suicide Risk Level Suicide Risk Level: High-Moderate (q15 min suicide checks) (recent serious suicide attempt and ongoing paranoia and hallucinations but denies SI and denies command AH and feels able to ask for support if needed) Risk Factors Assessment Male: No : Yes Do You Have Access To A Gun?: No Health Problems: Yes Mental Health Diagnoses: Yes Substance Use Disorders: No Previous Attempt: Yes Family History of Suicide: No Previous Psychiatric Hospitalization: Yes Hopelessness: Yes Protective Factors Assessment Supportive Family: Yes Interval History Identifying Information LESLIE MERRITT is a 54-year-old woman who currently lives in [place] with her boyfriend, has a history of bipolar disorder vs schizoaffective disorder, ADHD, PTSD, and was admitted on 04/24/25 22:19 on a 302 involuntary commitment for suicide attempt via overdose requiring ICU admission and medical stabilization. Chief Complaint "It's constant". Review of Systems Sleep Information Total Hours of Sleep: 6.75 Meal Information Percent Meal Consumed - Breakfast: 100 Percent Meal Consumed - Lunch: 100 Percent Meal Consumed - Dinner: 75 Subjective Subjective Patient was seen & assessed and interval progress reviewed with treatment team. Attended groups but otherwise isolative to her room. Last evening reported her mood as "overwhelmed" citing feeling tired and difficulty with sleep. She reports more difficulty sleeping without olanzapine as she was previously on 10mg at HS and this helped her get some consolidated sleep. Susan has not been helping at all with her sleep. The hallucinations continue to scream at her and she notes these are constant. She continues to deal with "13/05 harassment". Ongoing depression due to this. Denies any medication side effects. Physical Exam Psychiatric Orientation: alert and oriented x 3 Apperance: appropriately dressed and appropriately groomed Eye Contact: good eye contact Motor Behavior: no abnormal motor movements Speech: normal rate/rhythm/volume of speech Affect: + constricted affect Mood: + depressed mood and + anxious mood Thought Process: + circumstantial thought process Thought Content: + paranoid and + delusions Suicidal Thoughts: denies suicidal thoughts (but s/p serious attempt), denies suicidal plan and denies suicidal intent Homicidal Thoughts: denies homicidal thoughts Hallucinations: + auditory hallucinations (voices screaming swear words at her); no visual hallucinations Cognition: remote memory grossly intact, attention grossly intact and language grossly intact; + recent memory not intact Estimated Intelligence: consistent with education level Insight: + limited insight Judgment: + fair judgement Vital Signs (Past 24 Hours) Last Vital Signs Temp 36.7 C 04/26/25 06:21 Pulse 93 H 04/26/25 06:23 Resp 16 04/26/25 06:21 BP 137/85 04/26/25 06:23 Pulse Ox 96 04/25/25 06:00 O2 Del Method Room Air 04/25/25 06:00 Results & Data ([facility]) Laboratory Results Laboratory Results - last 24 hr 04/25/25 04/25/25 04/25/25 11:47 16:24 20:28 POC Glucose 160 H 77 128 H 04/26/25 06:11 POC Glucose 108 H Current Inpatient Medications Current Inpatient Medications: Current Inpatient Medications Acetaminophen (Acetaminophen 325 Mg Tab) 650 mg PO Q4H PRN PRN Reason: Headache or Minor Fever Stop: 05/24/25 15:56 Acetaminophen (Acetaminophen 500 Mg Tab) 1,000 mg PO TID [facility] Stop: 05/25/25 13:59 Last Admin: 04/25/25 20:46 Dose: 1,000 mg Al Hydrox/Mg Hydrox/Simethicone (Aluminum/Magnesium Susp 30 Ml Udc) 30 ml PO Q4H PRN PRN Reason: GI Upset Stop: 05/24/25 15:56 Apixaban (Apixaban 5 Mg Tablet) 5 mg PO BID [facility] Stop: 05/25/25 09:14 Last Admin: 04/25/25 20:47 Dose: 5 mg Aripiprazole (Aripiprazole 15 Mg Tab) 15 mg PO HS [facility] Stop: 05/24/25 21:59 Last Admin: 04/25/25 20:47 Dose: 15 mg Atorvastatin Calcium (Atorvastatin 10 Mg Tab) 10 mg PO DAILY [facility] Stop: 05/25/25 09:14 Last Admin: 04/25/25 09:56 Dose: 10 mg Bismuth Subsalicylate (Bismuth Subsalicylate 262 Mg Chew) 2 tab PO Q30M PRN PRN Reason: Loose Stool/Diarrhea Stop: 05/24/25 15:56 Hydroxyzine HCl (Hydroxyzine Hcl 25 Mg Tab) 50 mg PO HSZ PRN PRN Reason: Insomnia Stop: 05/24/25 15:56 Hydroxyzine HCl (Hydroxyzine Hcl 25 Mg Tab) 25 mg PO Q4H PRN PRN Reason: Anxiety Stop: 05/24/25 15:56 Insulin Aspart (Insulin Aspart Per Unit Charge) 0 units SQ ACHS [facility] Stop: 05/25/25 09:59 Last Admin: 04/25/25 20:45 Dose: Not Given Insulin Glargine (Lantus Per Unit Charge) 5 units SC DAILY [facility] Stop: 05/25/25 09:59 Lamotrigine (Lamotrigine 100 Mg Tab) 250 mg PO DAILY [facility]; Protocol Stop: 05/25/25 09:14 Last Admin: 04/25/25 10:05 Dose: 250 mg Lorazepam (Lorazepam 1 Mg Tab) 1 mg PO HS [facility] Stop: 05/24/25 21:59 Last Admin: 04/25/25 20:47 Dose: 1 mg Lorazepam (Lorazepam 0.5 Mg Tab) 0.5 mg PO BID PRN PRN Reason: anxiety Stop: 05/25/25 09:06 Magnesium Hydroxide (Magnesium Hydroxide Susp 30 Ml Udc) 30 ml PO DAILY PRN PRN Reason: Constipation Stop: 05/24/25 15:56 Melatonin (Melatonin 3 Mg Tab) 9 mg PO HS PRN PRN Reason: sleep Stop: 05/25/25 09:06 Miscellaneous Information (Pharmacy Glycemic Mgmt Consult) 1 each N/A UD PRN; Protocol PRN Reason: Consult Stop: 05/25/25 09:27 Olanzapine (Olanzapine 5 Mg Tablet) 5 mg PO Q8H PRN PRN Reason: agitation, hallucinations Stop: 05/25/25 09:06 Pantoprazole Sodium (Pantoprazole 40 Mg Tab) 40 mg PO DAILY [facility] Stop: 05/25/25 09:14 Last Admin: 04/25/25 09:56 Dose: 40 mg Polyethylene Glycol (Polyethylene (Miralax) 17 Gm Pack) 17 gm PO DAILY [facility] Stop: 05/25/25 09:14 Last Admin: 04/25/25 10:00 Dose: Not Given Sodium Chloride (Sodium Chloride 0.65% Na Soln 45 Ml ([place])) 1 - 2 sprays NA PRN PRN PRN Reason: Nasal Dryness/Congestion Stop: 05/24/25 15:56 Sumatriptan Succinate (Sumatriptan Succinate 100 Mg Tab) 100 mg PO Q2H PRN PRN Reason: Migraine Headache Stop: 05/25/25 09:06 Venlafaxine HCl (Venlafaxine Hcl Xr 75 Mg Capxr) 75 mg PO DAILY [facility] Stop: 05/25/25 09:14 Last Admin: 04/25/25 09:56 Dose: 75 mg Mental Health & Subst Abuse Tx Psychiatrist Time of Appointment with Psychiatrist: n/a Therapist Name of Therapist: n/a Time of Therapist Appointment: n/a Composition Weatherboard Applier Name of Composition Weatherboard Applier: n/a Time of Appointment with Composition Weatherboard Applier: n/a Post Discharge Appointments Primary Care Physician Name Of Family Doctor/PCP: n/a Time of Appointment with PCP: n/a (1) Schizoaffective disorder Schizoaffective disorder type: depressive Qualified Code(s): F25.1 - Schizoaffective disorder, depressive type
[2025-04-26] MEDS: LANTUS PER UNIT CHARGE SC SCH (09:45)
--- NOTE | 2025-04-26 14:56 | Pharmacy Report ---
Pharmacy Glycemic Short Note 2 - Date of Service April 26, 2025 - Glycemic Short BSG Results (Last 24 hours): 04/25/25 04/25/25 04/26/25 16:24 20:28 06:11 POC Glucose 77 128 H 108 H OUTPATIENT ANTIDIABETIC REGIMEN: * n/a HbA1c: 7.7% on 03/05/25 ASSESSMENT: * Leslie was admitted 04/13 with a calcium channel edwin overdose. She was initially in the ICU where she was started on an insulin drip for BSG > 400 mg/dL. Pharmacy was consulted at that time for glycemic management. See pharmacy notes from previous account for additional information ([id number]). She was transferred to [facility] on 04/25 and the glycemic consult was continued. * She has not required much insulin since the drip was stopped. She received a total of 15 units of insulin yesterday (10 units were basal and 5 units were bolus.) BSGs were 485-868-27-128mg/dL. * Fasting BSG was below goal this morning so the Lantus dose was reduced by 50%. Patient reportedly refused the basal insulin today, and as been refusing several doses of bolus insulin. PLAN FOR INPATIENT GLYCEMIC CONTROL: * Basal insulin * Lantus 5 units SQ daily * Bolus insulin * NovoLog per scale ACHS or Q6hrs while NPO * Goal Range: Low 110 mg/dL - High 140 mg/dL * Correction Factor: 30 mg/dL/unit * Nutritional / Prandial insulin per carb ratio of 1 unit per 15 grams CHO consumed
[2025-04-27] MEDS: DOCUSATE SODIUM 100 MG CAP PO SCH (08:25)
--- NOTE | 2025-04-27 08:55 | Psychiatric Progress Note ---
Date of Service April 27, 2025 Impression / Recommendations Impression LESLIE MERRITT is a 54-year-old woman who currently lives in [place] with her boyfriend, has a history of bipolar disorder vs schizoaffective disorder, ADHD, PTSD, and was admitted on 04/24/25 22:19 on a 302 involuntary commitment for suicide attempt via overdose requiring ICU admission and medical stabilization. Now on 303 commitment. Diagnostically consistent with unspecified psychosis with differential including schizoaffective disorder vs BPAD with depressive episode with psychotic features vs delusional disorder vs substance-induced given cannabis use vs complex PTSD but less likely that her hallucinations are tied to a mood episode given that they have been present for many years with very similar symptoms during hospitalization in 2019. Leslie seems most willing to accept possibility of complex PTSD as potential explanation for her symptoms though strongly views the hallucinations as real and not part of any type of psychiatric pathology. A: Ongoing psychosis and depression. Tolerating initiation of clozapine. Labwork scheduled for tomorrow. MNPR due to paranoia and psychosis Overall, I spent a total of 36 minutes on this case including meeting with the patient, reviewing the chart, nursing report, multidisciplinary team meeting, orders, and documentation. (1) Schizoaffective disorder: (2) Suicide attempt: (3) Depression: (4) Unspecified psychosis not due to a substance or known physiological condition: (5) Auditory hallucinations: (6) Post traumatic stress disorder (PTSD): Plan 04/27/2025: -Increase clozapine to 50mg HS -Labwork tomorrow AM 04/26/2025: -Discontinue abilify -Start clozapine 25mg HS -Start docusate 100 mg daily -Weekly EKG starting 05/03/2025 with clozapine use initially 04/25/2025: The patient was admitted to the [facility] ([facility] unit) on q15 min checks (behavioral with suicide precautions) for safety. The patient will participate in group, recreational, and milieu therapies and will be offered additional individual and family sessions as clinically appropriate. -303 hearing scheduled for tomorrow, reviewed this with her and encouraged her to contact the public defenders office -Continue psychiatric medications: * Abilify 15mg HS * Ativan 1mg HS * Lamictal 250mg daily * restart Effexor XR 75mg daily -Continue medications from medical admission: * Eliquis 5mg BID * Tylenol 1,000mg TID * Lipitor 10mg daily * Protonix * Miralax * Insulin -Fasting lipid panel and HbA1c tomorrow AM Inventory Assets Strengths: supportive relationships, resilient Needs: safety and stabilization, medication adjustment, additional coping skills, in creased outpatient services Suicide Risk Level Suicide Risk Level: High-Moderate (q15 min suicide checks) (recent serious suicide attempt and ongoing paranoia and hallucinations but denies SI and denies command AH and feels able to ask for support if needed) Risk Factors Assessment Male: No : Yes Do You Have Access To A Gun?: No Health Problems: Yes Mental Health Diagnoses: Yes Substance Use Disorders: No Previous Attempt: Yes Family History of Suicide: No Previous Psychiatric Hospitalization: Yes Hopelessness: Yes Protective Factors Assessment Supportive Family: Yes Interval History Identifying Information LESLIE MERRITT is a 54-year-old woman who currently lives in [place] with her boyfriend, has a history of bipolar disorder vs schizoaffective disorder, ADHD, PTSD, and was admitted on 04/24/25 22:19 on a 302 involuntary commitment for suicide attempt via overdose requiring ICU admission and medical stabilization. Chief Complaint "Yeah the harrassment is ongoing". Review of Systems Sleep Information Total Hours of Sleep: 6 Meal Information Percent Meal Consumed - Breakfast: 100 Percent Meal Consumed - Lunch: 90 Percent Meal Consumed - Dinner: 95 Subjective Subjective Patient was seen & assessed and interval progress reviewed with nursing and social work. Attended groups, showered. Woke once overnight. Feels encouraged that some of her lower body strength is coming back, she's been walking without the walker. Feels a little tired today but has remained awake. Slept well with the clozapine, she'd like to continue with the titration. Denies any other medication side effects. Still being harassed by the hallucinations. Physical Exam Psychiatric Orientation: alert and oriented x 3 Apperance: appropriately dressed and appropriately groomed Eye Contact: good eye contact Motor Behavior: no abnormal motor movements Speech: normal rate/rhythm/volume of speech Affect: + constricted affect Mood: + depressed mood and + anxious mood Thought Process: + circumstantial thought process Thought Content: + paranoid and + delusions Suicidal Thoughts: denies suicidal thoughts (but s/p serious attempt), denies suicidal plan and denies suicidal intent Homicidal Thoughts: denies homicidal thoughts Hallucinations: + auditory hallucinations (voices screaming swear words at her); no visual hallucinations Cognition: remote memory grossly intact, attention grossly intact and language grossly intact; + recent memory not intact Estimated Intelligence: consistent with education level Insight: + limited insight Judgment: + fair judgement Vital Signs (Past 24 Hours) Last Vital Signs Temp 36.1 C L 04/27/25 06:19 Pulse 98 H 04/27/25 06:19 Resp 16 04/27/25 06:19 BP 118/80 04/27/25 06:20 Pulse Ox 95 04/27/25 06:19 O2 Del Method Room Air 04/27/25 06:19 Results & Data ([facility]) Laboratory Results Laboratory Results - last 24 hr 04/26/25 04/26/25 04/27/25 17:15 20:54 08:20 POC Glucose 110 H 152 H 145 H Current Inpatient Medications Current Inpatient Medications: Current Inpatient Medications Acetaminophen (Acetaminophen 325 Mg Tab) 650 mg PO Q4H PRN PRN Reason: Headache or Minor Fever Stop: 05/24/25 15:56 Acetaminophen (Acetaminophen 500 Mg Tab) 1,000 mg PO TID [facility] Stop: 05/25/25 13:59 Last Admin: 04/27/25 08:18 Dose: 1,000 mg Al Hydrox/Mg Hydrox/Simethicone (Aluminum/Magnesium Susp 30 Ml Udc) 30 ml PO Q4H PRN PRN Reason: GI Upset Stop: 05/24/25 15:56 Apixaban (Apixaban 5 Mg Tablet) 5 mg PO BID [facility] Stop: 05/25/25 09:14 Last Admin: 04/27/25 08:19 Dose: 5 mg Atorvastatin Calcium (Atorvastatin 10 Mg Tab) 10 mg PO DAILY [facility] Stop: 05/25/25 09:14 Last Admin: 04/27/25 08:19 Dose: 10 mg Bismuth Subsalicylate (Bismuth Subsalicylate 262 Mg Chew) 2 tab PO Q30M PRN PRN Reason: Loose Stool/Diarrhea Stop: 05/24/25 15:56 Clozapine (Clozapine 25 Mg Tab) 25 mg PO HS [facility]; Protocol Stop: 05/26/25 21:59 Last Admin: 04/26/25 22:06 Dose: 25 mg Docusate Sodium (Docusate Sodium 100 Mg Cap) 100 mg PO DAILY [facility] Stop: 05/27/25 08:59 Last Admin: 04/27/25 08:25 Dose: Not Given Hydroxyzine HCl (Hydroxyzine Hcl 25 Mg Tab) 50 mg PO HSZ PRN PRN Reason: Insomnia Stop: 05/24/25 15:56 Hydroxyzine HCl (Hydroxyzine Hcl 25 Mg Tab) 25 mg PO Q4H PRN PRN Reason: Anxiety Stop: 05/24/25 15:56 Insulin Aspart (Insulin Aspart Per Unit Charge) 0 units SQ ACHS [facility] Stop: 05/25/25 09:59 Last Admin: 04/26/25 22:14 Dose: 1 units Lamotrigine (Lamotrigine 100 Mg Tab) 250 mg PO DAILY [facility]; Protocol Stop: 05/25/25 09:14 Last Admin: 04/27/25 08:19 Dose: 250 mg Lorazepam (Lorazepam 1 Mg Tab) 1 mg PO HS [facility] Stop: 05/24/25 21:59 Last Admin: 04/26/25 22:07 Dose: 1 mg Lorazepam (Lorazepam 0.5 Mg Tab) 0.5 mg PO BID PRN PRN Reason: anxiety Stop: 05/25/25 09:06 Magnesium Hydroxide (Magnesium Hydroxide Susp 30 Ml Udc) 30 ml PO DAILY PRN PRN Reason: Constipation Stop: 05/24/25 15:56 Melatonin (Melatonin 3 Mg Tab) 9 mg PO HS PRN PRN Reason: sleep Stop: 05/25/25 09:06 Miscellaneous Information (Pharmacy Glycemic Mgmt Consult) 1 each N/A UD PRN; Protocol PRN Reason: Consult Stop: 05/25/25 09:27 Olanzapine (Olanzapine 5 Mg Tablet) 5 mg PO Q8H PRN PRN Reason: agitation, hallucinations Stop: 05/25/25 09:06 Last Admin: 04/26/25 08:58 Dose: 5 mg Pantoprazole Sodium (Pantoprazole 40 Mg Tab) 40 mg PO DAILY [facility] Stop: 05/25/25 09:14 Last Admin: 04/27/25 08:20 Dose: 40 mg Polyethylene Glycol (Polyethylene (Miralax) 17 Gm Pack) 17 gm PO DAILY [facility] Stop: 05/25/25 09:14 Last Admin: 04/27/25 08:23 Dose: 17 gm Sodium Chloride (Sodium Chloride 0.65% Na Soln 45 Ml ([place])) 1 - 2 sprays NA PRN PRN PRN Reason: Nasal Dryness/Congestion Stop: 05/24/25 15:56 Sumatriptan Succinate (Sumatriptan Succinate 100 Mg Tab) 100 mg PO Q2H PRN PRN Reason: Migraine Headache Stop: 05/25/25 09:06 Venlafaxine HCl (Venlafaxine Hcl Xr 75 Mg Capxr) 75 mg PO DAILY [facility] Stop: 05/25/25 09:14 Last Admin: 04/27/25 08:21 Dose: 75 mg Mental Health & Subst Abuse Tx Psychiatrist Time of Appointment with Psychiatrist: n/a Therapist Name of Therapist: n/a Time of Therapist Appointment: n/a School Superintendent Name of School Superintendent: n/a Time of Appointment with School Superintendent: n/a Post Discharge Appointments Primary Care Physician Name Of Family Doctor/PCP: n/a Time of Appointment with PCP: n/a (1) Schizoaffective disorder Schizoaffective disorder type: depressive Qualified Code(s): F25.1 - Schizoaffective disorder, depressive type
[2025-04-27] MEDS: MELATONIN 3 MG TAB PO PRN (21:06)
[2025-04-27] MEDS: ACETAMINOPHEN 325 MG TAB PO PRN (21:06)
[2025-04-28 08:23] LABS: Hematocrit (blood only) 31.0 % (37.0-47.0); Hemoglobin 9.4 g/dl (12.0-16.0); Immature Granulocytes # (auto) 0.06 K/uL (0.01-0.20); Immature Granulocytes % (auto) 0.8 %; Mean Corpuscular Hemoglobin 26.1 pg (25.0-34.0); Mean Corpuscular Volume 86.1 fL (80.0-100.0); Platelet Count 509 K/uL (130-400); RDW Standard Deviation 59.8 fL (36.4-46.3); Red Blood Count 3.60 M/uL (4.20-5.40); White Blood Count 7.36 K/ul (4.8-10.8)
[2025-04-28 08:35] LABS: Hemoglobin A1C 7.2 % (4.5-5.6)
[2025-04-28 08:39] LABS: Anion Gap 6.0 (3-11); Blood Urea Nitrogen 12.0 mg/dl (6-23); Calcium 8.9 mg/dl (8.6-10.3); Carbon Dioxide 28.0 mmol/L (21-32); Chloride 107.0 mmol/L (98-107); Cholesterol 117.0 mg/dl (0-200); Creatinine Clr Calc Pharmacy 96.7 ml/min; Glucose 128.0 mg/dl (70-99(Fasting)); HDL Cholesterol 36.0 mg/dl; Potassium 4.0 mmol/L (3.5-5.1); Sodium 141.0 mmol/L (136-145); Triglycerides 109.0 mg/dl (0-150)
--- NOTE | 2025-04-28 08:41 | Psychiatric Progress Note ---
Date of Service April 28, 2025 Impression / Recommendations Impression LESLIE MERRITT is a 54-year-old woman who currently lives in [place] with her boyfriend, has a history of bipolar disorder vs schizoaffective disorder, ADHD, PTSD, and was admitted on 04/24/25 22:19 on a 302 involuntary commitment for suicide attempt via overdose requiring ICU admission and medical stabilization. Now on 303 commitment. Diagnostically consistent with unspecified psychosis with differential including schizoaffective disorder vs BPAD with depressive episode with psychotic features vs delusional disorder vs substance-induced given cannabis use vs complex PTSD but less likely that her hallucinations are tied to a mood episode given that they have been present for many years with very similar symptoms during hospitalization in 2020. Leslie seems most willing to accept possibility of complex PTSD as potential explanation for her symptoms though strongly views the hallucinations as real and not part of any type of psychiatric pathology. A: Ongoing psychosis with delusions and some grandiosity today with increased lability and anger. Labwork notable for elevated HbA1c, normal Vit D, normal fasting lipid panel. BMP, CBC stable. ANC normal and safe to continue with clozapine. Will continue with clozapine titration for psychosis. Will switch ativan to Klonopin to address panic attacks and in effort to lessen distress from hallucinations. Discussed medication treatment options in detail. Discussed risks, benefits and alternatives. She would like to restart and consented to Klonopin.Reviewed side effects including but not limited to: addictive potential, respiratory suppression, sedation, cognitive effects, not driving or operating heavy machinery while using. MNPR due to paranoia and psychosis Overall, I spent a total of 50 minutes on this case including meeting with the patient, reviewing the chart, nursing report, multidisciplinary team meeting, orders, and documentation. (1) Schizoaffective disorder: (2) Suicide attempt: (3) Depression: (4) Unspecified psychosis not due to a substance or known physiological condition: (5) Auditory hallucinations: (6) Post traumatic stress disorder (PTSD): Plan 04/28/2025: -Increase clozapine to 100mg HS -Discontinue ativan, start Klonopin 1mg daily -Klonopin 0.5mg daily prn for panic attacks -Discontinue blood glucose checks and insulin given this is increasing agitation -Start metformin 500mg BID (she prefers IR formulation given hx gastric bypass, liquid formulation not available on hospital formulary and she previously stopped this due to the taste so will trial IR formulation) 04/27/2025: -Increase clozapine to 50mg HS -Labwork tomorrow AM 04/26/2025: -Discontinue abilify -Start clozapine 25mg HS -Start docusate 100 mg daily -Weekly EKG starting 05/03/2025 with clozapine use initially 04/25/2025: The patient was admitted to the [facility] ([facility]) on q15 min checks (behavioral with suicide precautions) for safety. The patient will participate in group, recreational, and milieu therapies and will be offered additional individual and family sessions as clinically appropriate. -303 hearing scheduled for tomorrow, reviewed this with her and encouraged her to contact the public defenders office -Continue psychiatric medications: * Abilify 15mg HS * Ativan 1mg HS * Lamictal 250mg daily * restart Effexor XR 75mg daily -Continue medications from medical admission: * Eliquis 5mg BID * Tylenol 1,000mg TID * Lipitor 10mg daily * Protonix * Miralax * Insulin -Fasting lipid panel and HbA1c tomorrow AM Inventory Assets Strengths: supportive relationships, resilient Needs: safety and stabilization, medication adjustment, additional coping skills, increased outpatient services Suicide Risk Level Suicide Risk Level: High-Moderate (q15 min suicide checks) (recent serious suicide attempt and ongoing paranoia and hallucinations but denies SI and denies command AH and feels able to ask for support if needed) Risk Factors Assessment Male: No : Yes Do You Have Access To A Gun?: No Health Problems: Yes Mental Health Diagnoses: Yes Substance Use Disorders: No Previous Attempt: Yes Family History of Suicide: No Previous Psychiatric Hospitalization: Yes Hopelessness: Yes Protective Factors Assessment Supportive Family: Yes Interval History Identifying Information LESLIE MERRITT is a 54-year-old woman who currently lives in [place] with her boyfriend, has a history of bipolar disorder vs schizoaffective disorder, ADHD, PTSD, and was admitted on 04/24/25 22:19 on a 302 involuntary commitment for suicide attempt via overdose requiring ICU admission and medical stabilization. Chief Complaint "I'm insulted, I'm no dumb f*ck". Review of Systems Sleep Information Total Hours of Sleep: 7 Meal Information Percent Meal Consumed - Breakfast: 100 Percent Meal Consumed - Lunch: 100 Percent Meal Consumed - Dinner: 90 Subjective Subjective Patient was seen & assessed and interval progress reviewed with treatment team. More irritable in the evening after talking with her mother who helped to pay some of her bills, now worried that her account has been drained. Declined case management referral. Slept well. Denies any side effects from clozapine. States she will not tolerate any more glucose fingerprick checks. She is willing to start metformin, previously was prescribed this for diabetes and took the liquid formulation which she prefers if available. Reports having a lot more panic attacks "3-4" daily. Had been taking Klonopin 0.5mg TID prn which is consistent with PDMP verification though last filled in January as she hasn't had a psychiatric provider since that time. Denies SI and reports her mood is improving. However, when attempting to discuss her hallucinations and what she believes is ongoing harassment and that I feel is a paranoid delusion she becomes very upset and states she is "pi*sed off" about her length of stay and that the groups are beneath her noting "I'm insulted, I'm no dumb f*ck". Feels she can titrate her own medications and that being in the hospital is wasting her insurance money and useless. She feels the voices shouting at her and harassment from this is "absolutely real" because no medications, even at high doses, have ever gotten the voices to go away. Offered to have hospital security review recordings of audio outside the hospital but she declines this stating "I'll hire my own special investigation unit investigator when I leave". Very angry at her mother, revoked her LEDA and states that she plans to move away with her boyfriend noting "tell my mother he's a f*cking multimillionaire and she'll live in abject poverty compared to us". Physical Exam Psychiatric Orientation: alert and oriented x 3 Apperance: appropriately dressed and appropriately groomed Eye Contact: good eye contact Motor Behavior: no abnormal motor movements Speech: normal rate/rhythm/volume of speech Affect: + labile affect and + angry affect Mood: + anxious mood, + irritable mood and + angry mood Thought Process: + circumstantial thought process Thought Content: + preoccupation, + paranoid and + delusions Suicidal Thoughts: denies suicidal thoughts (but s/p serious attempt), denies suicidal plan and denies suicidal intent Homicidal Thoughts: denies homicidal thoughts Hallucinations: + auditory hallucinations (voices screaming swear words at her); no visual hallucinations Cognition: recent memory grossly intact, remote memory grossly intact, attention grossly intact and language grossly intact Estimated Intelligence: consistent with education level Insight: + limited insight Judgment: + limited judgement Vital Signs (Past 24 Hours) Last Vital Signs Temp 36.8 C 04/28/25 06:00 Pulse 95 H 04/28/25 06:00 Resp 16 04/28/25 06:00 BP 158/90 H 04/28/25 06:00 Pulse Ox 95 04/28/25 06:00 O2 Del Method Room Air 04/28/25 06:00 Results & Data ([facility]) Laboratory Results Laboratory Results - last 24 hr 04/27/25 04/27/25 04/27/25 12:26 16:38 19:44 WBC RBC Hgb Hct MCV MCH MCHC RDW Std Deviation RDW Coeff of Maxine Plt Count MPV Immature Gran % (Auto) Neut % (Auto) Lymph % (Auto) [place] % (Auto) Eos % (Auto) Baso % (Auto) Neut # (Auto) Lymph # (Auto) [place] # (Auto) Eos # (Auto) Baso # (Auto) Immature Gran # (Auto) Sodium Potassium Chloride Carbon Dioxide Anion Gap BUN Creatinine Est Cr Clr Drug Dosing eGFR BUN/Creatinine Ratio Glucose POC Glucose 112 H 116 H 199 H Estimat Average Glucose Hemoglobin A1c Calcium Triglycerides Cholesterol VLDL Cholesterol, Calc HDL Cholesterol Cholesterol/HDL Ratio 25-OH Vitamin D Total 04/27/25 04/28/25 04/28/25 21:03 07:45 07:48 WBC 7.36 RBC 3.60 L Hgb 9.4 L Hct 31.0 L MCV 86.1 MCH 26.1 MCHC 30.3 L RDW Std Deviation 59.8 H RDW Coeff of Maxine 20.0 H Plt Count 509 H MPV 9.0 L Immature Gran % (Auto) 0.8 Neut % (Auto) 70.2 Lymph % (Auto) 21.6 [place] % (Auto) 5.2 Eos % (Auto) 1.8 Baso % (Auto) 0.4 Neut # (Auto) 5.17 Lymph # (Auto) 1.59 [place] # (Auto) 0.38 Eos # (Auto) 0.13 Baso # (Auto) 0.03 Immature Gran # (Auto) 0.06 Sodium Pending Potassium Pending Chloride Pending Carbon Dioxide Pending Anion Gap Pending BUN Pending Creatinine Pending Est Cr Clr Drug Dosing Pending eGFR Pending BUN/Creatinine Ratio Pending Glucose Pending POC Glucose 177 H 120 H Estimat Average Glucose Pending Hemoglobin A1c Pending Calcium Pending Triglycerides Pending Cholesterol Pending VLDL Cholesterol, Calc Pending HDL Cholesterol Pending Cholesterol/HDL Ratio Pending 25-OH Vitamin D Total Pending Current Inpatient Medications Current Inpatient Medications: Current Inpatient Medications Acetaminophen (Acetaminophen 325 Mg Tab) 650 mg PO Q4H PRN PRN Reason: Headache or Minor Fever Stop: 05/24/25 15:56 Last Admin: 04/27/25 21:22 Dose: 650 mg Acetaminophen (Acetaminophen 500 Mg Tab) 1,000 mg PO TID [facility] Stop: 05/25/25 13:59 Last Admin: 04/28/25 08:17 Dose: 1,000 mg Al Hydrox/Mg Hydrox/Simethicone (Aluminum/Magnesium Susp 30 Ml Udc) 30 ml PO Q4H PRN PRN Reason: GI Upset Stop: 05/24/25 15:56 Apixaban (Apixaban 5 Mg Tablet) 5 mg PO BID [facility] Stop: 05/25/25 09:14 Last Admin: 04/28/25 08:13 Dose: 5 mg Atorvastatin Calcium (Atorvastatin 10 Mg Tab) 10 mg PO DAILY [facility] Stop: 05/25/25 09:14 Last Admin: 04/28/25 08:16 Dose: 10 mg Bismuth Subsalicylate (Bismuth Subsalicylate 262 Mg Chew) 2 tab PO Q30M PRN PRN Reason: Loose Stool/Diarrhea Stop: 05/24/25 15:56 Clozapine (Clozapine 25 Mg Tab) 50 mg PO HS MARTÍN; Protocol Stop: 05/27/25 21:59 Last Admin: 04/27/25 21:06 Dose: 50 mg Docusate Sodium (Docusate Sodium 100 Mg Cap) 100 mg PO DAILY MARTÍN Stop: 05/27/25 08:59 Last Admin: 04/28/25 08:19 Dose: Not Given Hydroxyzine HCl (Hydroxyzine Hcl 25 Mg Tab) 50 mg PO HSZ PRN PRN Reason: Insomnia Stop: 05/24/25 15:56 Hydroxyzine HCl (Hydroxyzine Hcl 25 Mg Tab) 25 mg PO Q4H PRN PRN Reason: Anxiety Stop: 05/24/25 15:56 Insulin Aspart (Insulin Aspart Per Unit Charge) 0 units SQ ACHS MARTÍN Stop: 05/25/25 09:59 Last Admin: 04/27/25 21:12 Dose: 2 units Lamotrigine (Lamotrigine 100 Mg Tab) 250 mg PO DAILY MARTÍN; Protocol Stop: 05/25/25 09:14 Last Admin: 04/28/25 08:14 Dose: 250 mg Lorazepam (Lorazepam 1 Mg Tab) 1 mg PO HS MARTÍN Stop: 05/24/25 21:59 Last Admin: 04/27/25 21:06 Dose: 1 mg Lorazepam (Lorazepam 0.5 Mg Tab) 0.5 mg PO BID PRN PRN Reason: anxiety Stop: 05/25/25 09:06 Magnesium Hydroxide (Magnesium Hydroxide Susp 30 Ml Udc) 30 ml PO DAILY PRN PRN Reason: Constipation Stop: 05/24/25 15:56 Melatonin (Melatonin 3 Mg Tab) 9 mg PO HS PRN PRN Reason: sleep Stop: 05/25/25 09:06 Miscellaneous Information (Pharmacy Glycemic Mgmt Consult) 1 each N/A UD PRN; Protocol PRN Reason: Consult Stop: 05/25/25 09:27 Olanzapine (Olanzapine 5 Mg Tablet) 5 mg PO Q8H PRN PRN Reason: agitation, hallucinations Stop: 05/25/25 09:06 Last Admin: 04/26/25 08:58 Dose: 5 mg Pantoprazole Sodium (Pantoprazole 40 Mg Tab) 40 mg PO DAILY MARTÍN Stop: 05/25/25 09:14 Last Admin: 04/28/25 08:14 Dose: 40 mg Polyethylene Glycol (Polyethylene (Miralax) 17 Gm Pack) 17 gm PO DAILY MARTÍN Stop: 05/25/25 09:14 Last Admin: 04/28/25 08:19 Dose: Not Given Sodium Chloride (Sodium Chloride 0.65% Na Soln 45 Ml ([place])) 1 - 2 sprays NA PRN PRN PRN Reason: Nasal Dryness/Congestion Stop: 05/24/25 15:56 Sumatriptan Succinate (Sumatriptan Succinate 100 Mg Tab) 100 mg PO Q2H PRN PRN Reason: Migraine Headache Stop: 05/25/25 09:06 Venlafaxine HCl (Venlafaxine Hcl Xr 75 Mg Capxr) 75 mg PO DAILY MARTÍN Stop: 05/25/25 09:14 Last Admin: 04/28/25 08:17 Dose: 75 mg Mental Health & Subst Abuse Tx Psychiatrist Name of Psychiatrist: Laurence Piper [facility] [facility], [address], [facility] [address] Psychiatrist's Time of Appointment with Psychiatrist: n/a Therapist Name of Therapist: n/a Time of Therapist Appointment: n/a Meter Reading Clerk Name of Meter Reading Clerk: n/a Time of Appointment with Meter Reading Clerk: n/a Post Discharge Appointments Primary Care Physician Name Of Family Doctor/PCP: Dr. Stover [facility] - [address] [facility], [place] [address] Primary Care Date of Future Appointment with PCP: 05/10/25 Time of Appointment with PCP: 11:30AM Neurologist Name of Neurologist: Dr. Charlie Yi - [address] [place] [address] Neurologist's Neurology Appointment Comment: Neuropsych testing recommended by PCP (memory) Specialist Name of Specialist: Dr. Charlie Yi - [address] [place] [address] Phone Number for Specialist: [phone] Specialty Appointment Comment: Neuropsych testing recommended by PCP Contact Information Discharge Discharge Address: [address] [place] [phone] (1) Schizoaffective disorder Schizoaffective disorder type: depressive Qualified Code(s): F25.1 - Schizoaffective disorder, depressive type
[2025-04-28] MEDS: ONDANSETRON 2 MG OD TAB PO PRN (18:14)
--- NOTE | 2025-04-29 08:44 | Psychiatric Progress Note ---
Date of Service April 29, 2025 Impression / Recommendations Impression LESLIE MERRITT is a 54-year-old woman who currently lives in [place] with her boyfriend, has a history of bipolar disorder vs schizoaffective disorder, ADHD, PTSD, and was admitted on 04/24/25 22:19 on a 302 involuntary commitment for suicide attempt via overdose requiring ICU admission and medical stabilization. Now on 303 commitment. Diagnostically consistent with unspecified psychosis with differential including schizoaffective disorder vs BPAD with depressive episode with psychotic features vs delusional disorder vs substance-induced given cannabis use vs complex PTSD but less likely that her hallucinations are tied to a mood episode given that they have been present for many years with very similar symptoms during hospitalization in 2019. Leslie seems most willing to accept possibility of complex PTSD as potential explanation for her symptoms though strongly views the hallucinations as real and not part of any type of psychiatric pathology. A: Ongoing psychosis with delusions and periods of irritability. Tolerating clozapine and ongoing poor sleep, hallucinations and sense of harassment (which I view as a delusional and which Leslie views as reality) so will increase clozapine. Metformin may have caused GI distress last evening, if this persists can consider alternative options. MNPR due to paranoia and psychosis Overall, I spent a total of 35 minutes on this case including meeting with the patient, reviewing the chart, nursing report, multidisciplinary team meeting, orders, and documentation. (1) Schizoaffective disorder: (2) Suicide attempt: (3) Depression: (4) Unspecified psychosis not due to a substance or known physiological condition: (5) Auditory hallucinations: (6) Post traumatic stress disorder (PTSD): Plan 04/29/2025: -Increase clozapine to 150mg HS 04/28/2025: -Increase clozapine to 100mg HS -Discontinue ativan, start Klonopin 1mg daily -Klonopin 0.5mg daily prn for panic attacks -Discontinue blood glucose checks and insulin given this is increasing agitation -Start metformin 500mg BID (she prefers IR formulation given hx gastric bypass, liquid formulation not available on hospital formulary and she previously stopped this due to the taste so will trial IR formulation) 04/27/2025: -Increase clozapine to 50mg HS -Labwork tomorrow AM 04/26/2025: -Discontinue abilify -Start clozapine 25mg HS -Start docusate 100 mg daily -Weekly EKG starting 05/03/2025 with clozapine use initially 04/25/2025: The patient was admitted to the [facility] ([facility] mental health unit) on q15 min checks (behavioral with suicide precautions) for safety. The patient will participate in group, recreational, and milieu therapies and will be offered additional individual and family sessions as clinically appropriate. -303 hearing scheduled for tomorrow, reviewed this with her and encouraged her to contact the public defenders office -Continue psychiatric medications: * Abilify 15mg HS * Ativan 1mg HS * Lamictal 250mg daily * restart Effexor XR 75mg daily -Continue medications from medical admission: * Eliquis 5mg BID * Tylenol 1,000mg TID * Lipitor 10mg daily * Protonix * Miralax * Insulin -Fasting lipid panel and HbA1c tomorrow AM Inventory Assets Strengths: supportive relationships, resilient Needs: safety and stabilization, medication adjustment, additional coping skills, increased outpatient services Suicide Risk Level Suicide Risk Level: High-Moderate (q15 min suicide checks) (recent serious suicide attempt and ongoing paranoia and hallucinations but denies SI and denies command AH and feels able to ask for support if needed) Risk Factors Assessment Male: No : Yes Do You Have Access To A Gun?: No Health Problems: Yes Mental Health Diagnoses: Yes Substance Use Disorders: No Previous Attempt: Yes Family History of Suicide: No Previous Psychiatric Hospitalization: Yes Hopelessness: Yes Protective Factors Assessment Supportive Family: Yes Interval History Identifying Information LESLIE MERRITT is a 54-year-old woman who currently lives in [place] with her boyfriend, has a history of bipolar disorder vs schizoaffective disorder, ADHD, PTSD, and was admitted on 04/24/25 22:19 on a 302 involuntary commitment for suicide attempt via overdose requiring ICU admission and medical stabilization. Chief Complaint "I was awake a lot last night". Review of Systems Sleep Information Total Hours of Sleep: 5 Meal Information Percent Meal Consumed - Breakfast: 100 Percent Meal Consumed - Lunch: 90 Percent Meal Consumed - Dinner: 90 Nutrition Comment: Ate pretzels with hummus; c/o GI upset Subjective Subjective Patient was seen & assessed and interval progress reviewed with nursing and social work. Got upset after asking for her credit card to be able to pay a bill but got upset after seeing RNs have to sort through her items to ensure no unsafe belongings. Had GI upset last evening, got prn zofran. Didn't sleep as much last night. Reported mood as "sick and tired". Today reports her mood is "pretty stable" and apologizes for being angry yesterday. Didn't sleep well, found she woke up a lot. References events of the morning noting "I'm just frustrated because of my mother's inability to focus". States frustration that her mother "really f*cked up my bank account" after stating her mother depositing $2,000 for her to use to pay her bills. States her issues with her mother have been going on for many years and she is not hopeful they will improve. Agreeable to ongoing clozapine titration. Physical Exam Psychiatric Orientation: alert and oriented x 3 Apperance: appropriately dressed and appropriately groomed Eye Contact: good eye contact Motor Behavior: no abnormal motor movements Speech: normal rate/rhythm/volume of speech Affect: + labile affect Mood: + irritable mood Thought Process: + circumstantial thought process Thought Content: + preoccupation, + paranoid and + delusions Suicidal Thoughts: denies suicidal thoughts (but s/p serious attempt), denies suicidal plan and denies suicidal intent Homicidal Thoughts: denies homicidal thoughts Hallucinations: + auditory hallucinations (voices screaming swear words at her); no visual hallucinations Cognition: recent memory grossly intact, remote memory grossly intact, attention grossly intact and language grossly intact Estimated Intelligence: consistent with education level Insight: + limited insight Judgment: + limited judgement Vital Signs (Past 24 Hours) Last Vital Signs Temp 36.8 C 04/28/25 06:00 Pulse 92 H 04/29/25 05:36 Resp 16 04/29/25 05:36 BP 127/82 04/29/25 05:36 Pulse Ox 97 04/29/25 05:36 O2 Del Method Room Air 04/29/25 05:36 Results & Data ([facility]) Laboratory Results Laboratory Results - last 24 hr 04/28/25 07:48 25-OH Vitamin D Total 31.6 Current Inpatient Medications Current Inpatient Medications: Current Inpatient Medications Acetaminophen (Acetaminophen 325 Mg Tab) 650 mg PO Q4H PRN PRN Reason: Headache or Minor Fever Stop: 05/24/25 15:56 Last Admin: 04/27/25 21:22 Dose: 650 mg Acetaminophen (Acetaminophen 500 Mg Tab) 1,000 mg PO TID [facility] Stop: 05/25/25 13:59 Last Admin: 04/28/25 20:44 Dose: 1,000 mg Al Hydrox/Mg Hydrox/Simethicone (Aluminum/Magnesium Susp 30 Ml Udc) 30 ml PO Q4H PRN PRN Reason: GI Upset Stop: 05/24/25 15:56 Apixaban (Apixaban 5 Mg Tablet) 5 mg PO BID [facility] Stop: 05/25/25 09:14 Last Admin: 04/28/25 20:44 Dose: 5 mg Atorvastatin Calcium (Atorvastatin 10 Mg Tab) 10 mg PO DAILY [facility] Stop: 05/25/25 09:14 Last Admin: 04/28/25 08:16 Dose: 10 mg Bismuth Subsalicylate (Bismuth Subsalicylate 262 Mg Chew) 2 tab PO Q30M PRN PRN Reason: Loose Stool/Diarrhea Stop: 05/24/25 15:56 Clonazepam (Clonazepam 1 Mg Tab) 1 mg PO DAILY [facility] Stop: 05/29/25 08:59 Clonazepam (Clonazepam 0.5 Mg Tab) 0.5 mg PO DAILY PRN PRN Reason: panic attacks Stop: 05/28/25 15:51 Clozapine (Clozapine 100 Mg Tab) 100 mg PO HS [facility]; Protocol Stop: 05/28/25 21:59 Last Admin: 04/28/25 20:53 Dose: 100 mg Docusate Sodium (Docusate Sodium 100 Mg Cap) 100 mg PO DAILY [facility] Stop: 05/27/25 08:59 Last Admin: 04/28/25 08:19 Dose: Not Given Hydroxyzine HCl (Hydroxyzine Hcl 25 Mg Tab) 50 mg PO HSZ PRN PRN Reason: Insomnia Stop: 05/24/25 15:56 Hydroxyzine HCl (Hydroxyzine Hcl 25 Mg Tab) 25 mg PO Q4H PRN PRN Reason: Anxiety Stop: 05/24/25 15:56 Lamotrigine (Lamotrigine 100 Mg Tab) 250 mg PO DAILY [facility]; Protocol Stop: 05/25/25 09:14 Last Admin: 04/28/25 08:14 Dose: 250 mg Magnesium Hydroxide (Magnesium Hydroxide Susp 30 Ml Udc) 30 ml PO DAILY PRN PRN Reason: Constipation Stop: 05/24/25 15:56 Melatonin (Melatonin 3 Mg Tab) 9 mg PO HS PRN PRN Reason: sleep Stop: 05/25/25 09:06 Metformin HCl (Metformin Hcl 500 Mg Tab) 500 mg PO BIDM [facility] Stop: 05/28/25 17:44 Last Admin: 04/28/25 18:09 Dose: Not Given Olanzapine (Olanzapine 5 Mg Tablet) 5 mg PO Q8H PRN PRN Reason: agitation, hallucinations Stop: 05/25/25 09:06 Last Admin: 04/26/25 08:58 Dose: 5 mg Ondansetron HCl (Ondansetron 2 Mg Od Tab) 2 mg PO BID PRN PRN Reason: Nausea And Vomiting Stop: 05/28/25 17:56 Last Admin: 04/28/25 18:14 Dose: 2 mg Pantoprazole Sodium (Pantoprazole 40 Mg Tab) 40 mg PO DAILY [facility] Stop: 05/25/25 09:14 Last Admin: 04/28/25 08:14 Dose: 40 mg Polyethylene Glycol (Polyethylene (Miralax) 17 Gm Pack) 17 gm PO DAILY [facility] Stop: 05/25/25 09:14 Last Admin: 04/28/25 08:19 Dose: Not Given Sodium Chloride (Sodium Chloride 0.65% Na Soln 45 Ml ([place])) 1 - 2 sprays NA PRN PRN PRN Reason: Nasal Dryness/Congestion Stop: 05/24/25 15:56 Sumatriptan Succinate (Sumatriptan Succinate 100 Mg Tab) 100 mg PO Q2H PRN PRN Reason: Migraine Headache Stop: 05/25/25 09:06 Venlafaxine HCl (Venlafaxine Hcl Xr 75 Mg Capxr) 75 mg PO DAILY [facility] Stop: 05/25/25 09:14 Last Admin: 04/28/25 08:17 Dose: 75 mg Mental Health & Subst Abuse Tx Psychiatrist Name of Psychiatrist: Laurence Wiseman ([employer]) Psychiatrist's Date Of Appointment With Psychiatric Provider: 11/13/24 Time of Appointment with Psychiatrist: 2:30PM Psychiatric Appointment Comment: Email and text will be sent to complete additional documents before appt Therapist Name of Therapist: Declined therapy referral - states will self refer after discharge Time of Therapist Appointment: n/a Epic Willow Analyst Name of Epic Willow Analyst: n/a Time of Appointment with Epic Willow Analyst: n/a Post Discharge Appointments Primary Care Physician Name Of Family Doctor/PCP: Dr. Stover [facility] - [address] [facility], [place] [address] Primary Care Date of Future Appointment with PCP: 05/10/25 Time of Appointment with PCP: 11:30AM Neurologist Name of Neurologist: Dr. Charlie Piper [address] [place] [address] Neurologist's Date of Appointment with Neurologist: 05/27/25 Time of Appointment with Neurologist: 12PM Neurology Appointment Comment: Neuropsych testing recommended by PCP (memory) Specialist Name of Specialist: Dr. Charlie Yi - [address] [place] [address] Phone Number for Specialist: [phone] Date of Appointment with Specialist: 05/27/25 Time of Appointment with Specialist: 12 PM Specialty Appointment Comment: Neuropsych testing recommended by PCP Contact Information Discharge Discharge Address: [facility] [place] [address] (1) Schizoaffective disorder Schizoaffective disorder type: depressive Qualified Code(s): F25.1 - Schizoaffective disorder, depressive type
[2025-04-29] MEDS: clonazePAM 1 MG TAB PO SCH (08:58)
--- NOTE | 2025-04-30 08:44 | Psychiatric Progress Note ---
Date of Service April 30, 2025 Impression / Recommendations Impression LESLIE MERRITT is a 54-year-old woman who currently lives in [place] with her boyfriend, has a history of bipolar disorder vs schizoaffective disorder, ADHD, PTSD, and was admitted on 04/24/25 22:19 on a 302 involuntary commitment for suicide attempt via overdose requiring ICU admission and medical stabilization. Now on 303 commitment. Diagnostically consistent with unspecified psychosis with differential including schizoaffective disorder vs BPAD with depressive episode with psychotic features vs delusional disorder vs substance-induced given cannabis use vs complex PTSD but less likely that her hallucinations are tied to a mood episode given that they have been present for many years with very similar symptoms during hospitalization in 2019. Leslie seems most willing to accept possibility of complex PTSD as potential explanation for her symptoms though strongly views the hallucinations as real and not part of any type of psychiatric pathology. A: Ongoing distressing hallucinations and paranoid delusion but with very limited ability to reality-test this. Tolerating clozapine and she consents to ongoing titration. Will discontinue scheduled Klonopin as not helping with paranoia and increases sedation. Ongoing insight-oriented approach, trying to encourage involvement of her mother, she remains unwilling for this. MNPR due to paranoia and psychosis Overall, I spent a total of 40 minutes on this case including meeting with the patient, reviewing the chart, nursing report, multidisciplinary team meeting, orders, and documentation. (1) Schizoaffective disorder: (2) Suicide attempt: (3) Depression: (4) Unspecified psychosis not due to a substance or known physiological condition: (5) Auditory hallucinations: (6) Post traumatic stress disorder (PTSD): Plan 04/30/2025: -Increase clozapine to 200mg HS 04/29/2025: -Increase clozapine to 150mg HS 04/28/2025: -Increase clozapine to 100mg HS -Discontinue ativan, start Klonopin 1mg daily -Klonopin 0.5mg daily prn for panic attacks -Discontinue blood glucose checks and insulin given this is increasing agitation -Start metformin 500mg BID (she prefers IR formulation given hx gastric bypass, liquid formulation not available on hospital formulary and she previously stopped this due to the taste so will trial IR formulation) 04/27/2025: -Increase clozapine to 50mg HS -Labwork tomorrow AM 04/26/2025: -Discontinue abilify -Start clozapine 25mg HS -Start docusate 100 mg daily -Weekly EKG starting 05/03/2025 with clozapine use initially 04/25/2025: The patient was admitted to the [facility] ([facility] mental health unit) on q15 min checks (behavioral with suicide precautions) for safety. The patient will participate in group, recreational, and milieu therapies and will be offered additional individual and family sessions as clinically appropriate. -303 hearing scheduled for tomorrow, reviewed this with her and encouraged her to contact the public defenders office -Continue psychiatric medications: * Abilify 15mg HS * Ativan 1mg HS * Lamictal 250mg daily * restart Effexor XR 75mg daily -Continue medications from medical admission: * Eliquis 5mg BID * Tylenol 1,000mg TID * Lipitor 10mg daily * Protonix * Miralax * Insulin -Fasting lipid panel and HbA1c tomorrow AM Inventory Assets Strengths: supportive relationships, resilient Needs: safety and stabilization, medication adjustment, additional coping skills, incre ased outpatient services Suicide Risk Level Suicide Risk Level: High-Moderate (q15 min suicide checks) (recent serious suicide attempt and ongoing paranoia and hallucinations but denies SI and denies command AH and feels able to ask for support if needed) Risk Factors Assessment Male: No : Yes Do You Have Access To A Gun?: No Health Problems: Yes Mental Health Diagnoses: Yes Substance Use Disorders: No Previous Attempt: Yes Family History of Suicide: No Previous Psychiatric Hospitalization: Yes Hopelessness: Yes Protective Factors Assessment Supportive Family: Yes Interval History Identifying Information LESLIE MERRITT is a 54-year-old woman who currently lives in [place] with her boyfriend, has a history of bipolar disorder vs schizoaffective disorder, ADHD, PTSD, and was admitted on 04/24/25 22:19 on a 302 involuntary commitment for suicide attempt via overdose requiring ICU admission and medical stabilization. Chief Complaint "I feel like an idiot". Review of Systems Sleep Information Total Hours of Sleep: 8.75 Meal Information Percent Meal Consumed - Breakfast: 100 Percent Meal Consumed - Lunch: 90 Percent Meal Consumed - Dinner: 50 Nutrition Comment: Subjective Subjective Patient was seen & assessed and interval progress reviewed with treatment team. She tried to pay bills with SW yesterday but wasn't able to do this as she needed to reset her password. Ongoing hallucinations, reported increased panic attacks but unclear what may be the trigger. Her boyfriend visited last evening but then she reported that he just focused on himself during the visit. Attending some groups. Ongoing harassment (hallucinations) which she reports makes her feel "like an idiot". She slept well overnight. Asks to discontinue Klonopin scheduled as this is making her feel tired after breakfast, she prefers to use prn. She consents to ongoing clozapine titration, she's using sound machine today to cope with harassment. Physical Exam Psychiatric Orientation: alert and oriented x 3 Apperance: appropriately dressed and appropriately groomed Eye Contact: good eye contact Motor Behavior: no abnormal motor movements Speech: normal rate/rhythm/volume of speech Affect: + flat affect Mood: + anxious mood Thought Process: + concrete thought process Thought Content: + preoccupation, + paranoid and + delusions Suicidal Thoughts: denies suicidal thoughts (but s/p serious attempt), denies suicidal plan and denies suicidal intent Homicidal Thoughts: denies homicidal thoughts Hallucinations: + auditory hallucinations (voices screaming swear words at her); no visual hallucinations Cognition: recent memory grossly intact, remote memory grossly intact, attention grossly intact and language grossly intact Estimated Intelligence: consistent with education level Insight: + limited insight Judgment: + limited judgement Vital Signs (Past 24 Hours) Last Vital Signs Temp 36.6 C 04/30/25 06:21 Pulse 54 L 04/30/25 06:21 Resp 16 04/30/25 06:21 BP 127/85 04/30/25 06:21 Pulse Ox 97 04/29/25 05:36 O2 Del Method Room Air 04/29/25 05:36 Results & Data ([facility]) Current Inpatient Medications Current Inpatient Medications: Current Inpatient Medications Acetaminophen (Acetaminophen 325 Mg Tab) 650 mg PO Q4H PRN PRN Reason: Headache or Minor Fever Stop: 05/24/25 15:56 Last Admin: 04/27/25 21:22 Dose: 650 mg Acetaminophen (Acetaminophen 500 Mg Tab) 1,000 mg PO TID [facility] Stop: 05/25/25 13:59 Last Admin: 04/30/25 08:36 Dose: Not Given Al Hydrox/Mg Hydrox/Simethicone (Aluminum/Magnesium Susp 30 Ml Udc) 30 ml PO Q4H PRN PRN Reason: GI Upset Stop: 05/24/25 15:56 Apixaban (Apixaban 5 Mg Tablet) 5 mg PO BID [facility] Stop: 05/25/25 09:14 Last Admin: 04/30/25 08:32 Dose: 5 mg Atorvastatin Calcium (Atorvastatin 10 Mg Tab) 10 mg PO DAILY [facility] Stop: 05/25/25 09:14 Last Admin: 04/30/25 08:31 Dose: 10 mg Bismuth Subsalicylate (Bismuth Subsalicylate 262 Mg Chew) 2 tab PO Q30M PRN PRN Reason: Loose Stool/Diarrhea Stop: 05/24/25 15:56 Clonazepam (Clonazepam 1 Mg Tab) 1 mg PO DAILY [facility] Stop: 05/29/25 08:59 Last Admin: 04/30/25 08:34 Dose: 1 mg Clonazepam (Clonazepam 0.5 Mg Tab) 0.5 mg PO DAILY PRN PRN Reason: panic attacks Stop: 05/28/25 15:51 Clozapine (Clozapine 100 Mg Tab) 100 mg PO HS [facility]; Protocol Stop: 05/28/25 21:59 Last Admin: 04/29/25 21:05 Dose: 100 mg Docusate Sodium (Docusate Sodium 100 Mg Cap) 100 mg PO DAILY [facility] Stop: 05/27/25 08:59 Last Admin: 04/30/25 08:36 Dose: Not Given Hydroxyzine HCl (Hydroxyzine Hcl 25 Mg Tab) 50 mg PO HSZ PRN PRN Reason: Insomnia Stop: 05/24/25 15:56 Hydroxyzine HCl (Hydroxyzine Hcl 25 Mg Tab) 25 mg PO Q4H PRN PRN Reason: Anxiety Stop: 05/24/25 15:56 Lamotrigine (Lamotrigine 100 Mg Tab) 250 mg PO DAILY [facility]; Protocol Stop: 05/25/25 09:14 Last Admin: 04/30/25 08:30 Dose: 250 mg Magnesium Hydroxide (Magnesium Hydroxide Susp 30 Ml Udc) 30 ml PO DAILY PRN PRN Reason: Constipation Stop: 05/24/25 15:56 Melatonin (Melatonin 3 Mg Tab) 9 mg PO HS PRN PRN Reason: sleep Stop: 05/25/25 09:06 Metformin HCl (Metformin Hcl 500 Mg Tab) 500 mg PO BIDM [facility] Stop: 05/28/25 17:44 Last Admin: 04/30/25 08:31 Dose: 500 mg Olanzapine (Olanzapine 5 Mg Tablet) 5 mg PO Q8H PRN PRN Reason: agitation, hallucinations Stop: 05/25/25 09:06 Last Admin: 04/26/25 08:58 Dose: 5 mg Ondansetron HCl (Ondansetron 2 Mg Od Tab) 2 mg PO BID PRN PRN Reason: Nausea And Vomiting Stop: 05/28/25 17:56 Last Admin: 04/28/25 18:14 Dose: 2 mg Pantoprazole Sodium (Pantoprazole 40 Mg Tab) 40 mg PO DAILY [facility] Stop: 05/25/25 09:14 Last Admin: 04/30/25 08:32 Dose: 40 mg Polyethylene Glycol (Polyethylene (Miralax) 17 Gm Pack) 17 gm PO DAILY [facility] Stop: 05/25/25 09:14 Last Admin: 04/30/25 08:36 Dose: Not Given Sodium Chloride (Sodium Chloride 0.65% Na Soln 45 Ml ([place])) 1 - 2 sprays NA PRN PRN PRN Reason: Nasal Dryness/Congestion Stop: 05/24/25 15:56 Sumatriptan Succinate (Sumatriptan Succinate 100 Mg Tab) 100 mg PO Q2H PRN PRN Reason: Migraine Headache Stop: 05/25/25 09:06 Venlafaxine HCl (Venlafaxine Hcl Xr 75 Mg Capxr) 75 mg PO DAILY [facility] Stop: 05/25/25 09:14 Last Admin: 04/30/25 08:31 Dose: 75 mg Mental Health & Subst Abuse Tx Psychiatrist Name of Psychiatrist: Laurence Wiseman ([facility]) Psychiatrist's Date Of Appointment With Psychiatric Provider: 05/13/25 Time of Appointment with Psychiatrist: 2:30PM Psychiatric Appointment Comment: Email and text will be sent to complete additional documents before appt Therapist Name of Therapist: Hoda López Therapist's Date of Therapist Appointment: 05/10/25 Time of Therapist Appointment: 11 AM Therapy Appointment Comment: Virtual via my chart documents. Insulation Board Back Tender Name of Insulation Board Back Tender: n/a Time of Appointment with Insulation Board Back Tender: n/a Post Discharge Appointments Primary Care Physician Name Of Family Doctor/PCP: Dr. Stover [facility] - [address] [facility], [place] [address] Primary Care Date of Future Appointment with PCP: 05/10/25 Time of Appointment with PCP: 11:30AM Neurologist Name of Neurologist: Dr. Charlie Piper [address] [place] [address] Neurologist's Date of Appointment with Neurologist: 05/27/25 Time of Appointment with Neurologist: 12PM Neurology Appointment Comment: Neuropsych testing recommended by PCP (memory) Specialist Name of Specialist: Dr. Charlie Yi - [address] [place] [address] Phone Number for Specialist: [phone] Date of Appointment with Specialist: 05/27/25 Time of Appointment with Specialist: 12 PM Specialty Appointment Comment: Neuropsych testing recommended by PCP Contact Information Discharge Discharge Address: [address] [place] [address] [place] [address] (1) Schizoaffective disorder Schizoaffective disorder type: depressive Qualified Code(s): F25.1 - Schizoaffective disorder, depressive type
--- NOTE | 2025-05-01 09:43 | Psychiatric Progress Note ---
Date of Service May 01, 2025 Impression / Recommendations Impression LESLIE MERRITT is a 54-year-old woman who currently lives in [place] with her boyfriend, has a history of bipolar disorder vs schizoaffective disorder, ADHD, PTSD, and was admitted on 04/24/25 22:19 on a 302 involuntary commitment for suicide attempt via overdose requiring ICU admission and medical stabilization. Now on 303 commitment. Diagnostically consistent with unspecified psychosis with differential including schizoaffective disorder vs BPAD with depressive episode with psychotic features vs delusional disorder vs substance-induced given cannabis use vs complex PTSD but less likely that her hallucinations are tied to a mood episode given that they have been present for many years with very similar symptoms during hospitalization in 2019. Leslie seems most willing to accept possibility of complex PTSD as potential explanation for her symptoms though strongly views the hallucinations as real and not part of any type of psychiatric pathology. A: Ongoing distressing hallucinations and paranoid delusion but tolerating clozapine and less mood lability overall. Discussed having her schedule support meeting. MNPR due to paranoia and psychosis Overall, I spent a total of 35 minutes on this case including meeting with the patient, reviewing the chart, nursing report, multidisciplinary team meeting, orders, and documentation. (1) Schizoaffective disorder: (2) Suicide attempt: (3) Depression: (4) Unspecified psychosis not due to a substance or known physiological condition: (5) Auditory hallucinations: (6) Post traumatic stress disorder (PTSD): Plan 05/01/2025: -Increase to clozapine 200mg HS 04/30/2025: -Continue clozapine to 150mg HS 04/29/2025: -Increase clozapine to 150mg HS 04/28/2025: -Increase clozapine to 100mg HS -Discontinue ativan, start Klonopin 1mg daily -Klonopin 0.5mg daily prn for panic attacks -Discontinue blood glucose checks and insulin given this is increasing agitation -Start metformin 500mg BID (she prefers IR formulation given hx gastric bypass, liquid formulation not available on hospital formulary and she previously stopped this due to the taste so will trial IR formulation) 04/27/2025: -Increase clozapine to 50mg HS -Labwork tomorrow AM 04/26/2025: -Discontinue abilify -Start clozapine 25mg HS -Start docusate 100 mg daily -Weekly EKG starting 05/03/2025 with clozapine use initially 04/25/2025: The patient was admitted to the [facility] ([facility] inpatient mental health unit) on q15 min checks (behavioral with suicide precautions) for safety. The patient will participate in group, recreational, and milieu therapies and will be offered additional individual and family sessions as clinically appropriate. -303 hearing scheduled for tomorrow, reviewed this with her and encouraged her to contact the public defenders office -Continue psychiatric medications: * Abilify 15mg HS * Ativan 1mg HS * Lamictal 250mg daily * restart Effexor XR 75mg daily -Continue medications from medical admission: * Eliquis 5mg BID * Tylenol 1,000mg TID * Lipitor 10mg daily * Protonix * Miralax * Insulin -Fasting lipid panel and HbA1c tomorrow AM Inventory Assets Strengths: supportive relationships, resilient Needs: safety and stabilization, medication adjustment, additional coping skills, increased outpatient services Suicide Risk Level Suicide Risk Level: High-Moderate (q15 min suicide checks) (recent serious suicide attempt and ongoing paranoia and hallucinations but denies SI and denies command AH and feels able to ask for support if needed) Risk Factors Assessment Male: No : Yes Do You Have Access To A Gun?: Yes (Son secured guns no access to firearms in the home) Health Problems: Yes Mental Health Diagnoses: Yes Substance Use Disorders: No Previous Attempt: Yes Family History of Suicide: No Previous Psychiatric Hospitalization: Yes Hopelessness: Yes Protective Factors Assessment Supportive Family: Yes Interval History Identifying Information LESLIE MERRITT is a 54-year-old woman who currently lives in [place] with her boyfriend, has a history of bipolar disorder vs schizoaffective disorder, ADHD, PTSD, and was admitted on 04/24/25 22:19 on a 302 involuntary commitment for suicide attempt via overdose requiring ICU admission and medical stabilization. Chief Complaint "I'm pretty decent". Review of Systems Sleep Information Total Hours of Sleep: 5.75 Sleep Comments: Up early Meal Information Percent Meal Consumed - Breakfast: 95 Percent Meal Consumed - Lunch: 95 Percent Meal Consumed - Dinner: 100 Subjective Subjective Patient was seen & assessed and interval progress reviewed with nursing and social work. Attended some groups, more isolative in the evening. Eating well. Doesn't socialize much. Awake early this morning. Listening to sound machine and in her room most of the day. Reports feeling "pretty decent" but also ongoing harassment. Slept better overnight, likes the clozapine so far. Denies any side effects. Physical Exam Psychiatric Orientation: alert and oriented x 3 Apperance: appropriately dressed and appropriately groomed Eye Contact: good eye contact Motor Behavior: no abnormal motor movements Speech: normal rate/rhythm/volume of speech Affect: + flat affect Mood: + anxious mood Thought Process: + concrete thought process Thought Content: + preoccupation, + paranoid and + delusions Suicidal Thoughts: denies suicidal thoughts (but s/p serious attempt), denies suicidal plan and denies suicidal intent Homicidal Thoughts: denies homicidal thoughts Hallucinations: + auditory hallucinations (voices screaming swear words at her); no visual hallucinations Cognition: recent memory grossly intact, remote memory grossly intact, attention grossly intact and language grossly intact Estimated Intelligence: consistent with education level Insight: + limited insight Judgment: + limited judgement Vital Signs (Past 24 Hours) Last Vital Signs Temp 36.5 C 05/01/25 06:25 Pulse 108 H 05/01/25 06:25 Resp 18 05/01/25 06:25 BP 123/83 05/01/25 06:25 Pulse Ox 97 04/29/25 05:36 O2 Del Method Room Air 04/29/25 05:36 Results & Data ([facility]) Current Inpatient Medications Current Inpatient Medications: Current Inpatient Medications Acetaminophen (Acetaminophen 325 Mg Tab) 650 mg PO Q4H PRN PRN Reason: Headache or Minor Fever Stop: 05/24/25 15:56 Last Admin: 04/27/25 21:22 Dose: 650 mg Acetaminophen (Acetaminophen 500 Mg Tab) 1,000 mg PO TID [facility] Stop: 05/25/25 13:59 Last Admin: 05/01/25 07:41 Dose: 1,000 mg Al Hydrox/Mg Hydrox/Simethicone (Aluminum/Magnesium Susp 30 Ml Udc) 30 ml PO Q4H PRN PRN Reason: GI Upset Stop: 05/24/25 15:56 Apixaban (Apixaban 5 Mg Tablet) 5 mg PO BID [facility] Stop: 05/25/25 09:14 Last Admin: 05/01/25 07:40 Dose: 5 mg Atorvastatin Calcium (Atorvastatin 10 Mg Tab) 10 mg PO DAILY [facility] Stop: 05/25/25 09:14 Last Admin: 05/01/25 07:41 Dose: 10 mg Bismuth Subsalicylate (Bismuth Subsalicylate 262 Mg Chew) 2 tab PO Q30M PRN PRN Reason: Loose Stool/Diarrhea Stop: 05/24/25 15:56 Clonazepam (Clonazepam 0.5 Mg Tab) 0.5 mg PO DAILY PRN PRN Reason: panic attacks Stop: 05/28/25 15:51 Clozapine (Clozapine 100 Mg Tab) 100 mg PO HS [facility] Stop: 05/30/25 21:59 Last Admin: 04/30/25 20:48 Dose: 100 mg Clozapine (Clozapine 25 Mg Tab) 50 mg PO HS [facility] Stop: 05/30/25 21:59 Last Admin: 04/30/25 20:49 Dose: 50 mg Docusate Sodium (Docusate Sodium 100 Mg Cap) 100 mg PO DAILY [facility] Stop: 05/27/25 08:59 Last Admin: 05/01/25 07:41 Dose: 100 mg Hydroxyzine HCl (Hydroxyzine Hcl 25 Mg Tab) 50 mg PO HSZ PRN PRN Reason: Insomnia Stop: 05/24/25 15:56 Hydroxyzine HCl (Hydroxyzine Hcl 25 Mg Tab) 25 mg PO Q4H PRN PRN Reason: Anxiety Stop: 05/24/25 15:56 Lamotrigine (Lamotrigine 100 Mg Tab) 250 mg PO DAILY [facility]; Protocol Stop: 05/25/25 09:14 Last Admin: 05/01/25 07:40 Dose: 250 mg Magnesium Hydroxide (Magnesium Hydroxide Susp 30 Ml Udc) 30 ml PO DAILY PRN PRN Reason: Constipation Stop: 05/24/25 15:56 Melatonin (Melatonin 3 Mg Tab) 9 mg PO HS PRN PRN Reason: sleep Stop: 05/25/25 09:06 Metformin HCl (Metformin Hcl 500 Mg Tab) 500 mg PO BIDM [facility] Stop: 05/28/25 17:44 Last Admin: 05/01/25 07:41 Dose: 500 mg Olanzapine (Olanzapine 5 Mg Tablet) 5 mg PO Q8H PRN PRN Reason: agitation, hallucinations Stop: 05/25/25 09:06 Last Admin: 04/26/25 08:58 Dose: 5 mg Ondansetron HCl (Ondansetron 2 Mg Od Tab) 2 mg PO BID PRN PRN Reason: Nausea And Vomiting Stop: 05/28/25 17:56 Last Admin: 04/28/25 18:14 Dose: 2 mg Pantoprazole Sodium (Pantoprazole 40 Mg Tab) 40 mg PO DAILY [facility] Stop: 05/25/25 09:14 Last Admin: 05/01/25 07:41 Dose: 40 mg Polyethylene Glycol (Polyethylene (Miralax) 17 Gm Pack) 17 gm PO DAILY [facility] Stop: 05/25/25 09:14 Last Admin: 05/01/25 07:39 Dose: Not Given Sodium Chloride (Sodium Chloride 0.65% Na Soln 45 Ml ([place])) 1 - 2 sprays NA PRN PRN PRN Reason: Nasal Dryness/Congestion Stop: 05/24/25 15:56 Sumatriptan Succinate (Sumatriptan Succinate 100 Mg Tab) 100 mg PO Q2H PRN PRN Reason: Migraine Headache Stop: 05/25/25 09:06 Venlafaxine HCl (Venlafaxine Hcl Xr 75 Mg Capxr) 75 mg PO DAILY [facility] Stop: 05/25/25 09:14 Last Admin: 05/01/25 07:41 Dose: 75 mg Mental Health & Subst Abuse Tx Psychiatrist Name of Psychiatrist: Laurence Wiseman ([facility]) Psychiatrist's Date Of Appointment With Psychiatric Provider: 05/13/25 Time of Appointment with Psychiatrist: 2:30PM Psychiatric Appointment Comment: Email and text will be sent to complete additional documents before appt Therapist Name of Therapist: Shay Harkins Therapist's Date of Therapist Appointment: 05/10/25 Time of Therapist Appointment: 11 AM Therapy Appointment Comment: Virtual via my chart documents. Housemaid Name of Housemaid: Prachi Maher Time of Appointment with Housemaid: n/a Post Discharge Appointments Primary Care Physician Name Of Family Doctor/PCP: Dr. Angelo [facility] Date of Future Appointment with PCP: 05/10/25 Time of Appointment with PCP: 11:30AM Neurologist Name of Neurologist: Dr. Charlie Yi - [address] [place] [address] Neurologist's Date of Appointment with Neurologist: 05/27/25 Time of Appointment with Neurologist: 12PM Neurology Appointment Comment: Neuropsych testing recommended by PCP (memory) Specialist Name of Specialist: Dr. Charlie Yi - [address] [place] [address] Phone Number for Specialist: [phone] Date of Appointment with Specialist: 05/27/25 Time of Appointment with Specialist: 12 PM Specialty Appointment Comment: Neuropsych testing recommended by PCP Contact Information Discharge Discharge Address: [address] [place] [address] [place] [address] (1) Schizoaffective disorder Schizoaffective disorder type: depressive Qualified Code(s): F25.1 - Schizoaffective disorder, depressive type
[2025-05-01] MEDS: clonazePAM 0.5 MG TAB PO PRN (16:49)
--- NOTE | 2025-05-02 14:24 | Psychiatric Progress Note ---
Date of Service May 02, 2025 Impression / Recommendations Impression LESLIE MERRITT is a 54-year-old woman who currently lives in [place] with her boyfriend, has a history of bipolar disorder vs schizoaffective disorder, ADHD, PTSD, and was admitted on 04/24/25 22:19 on a 302 involuntary commitment for suicide attempt via overdose requiring ICU admission and medical stabilization. Now on 303 commitment. Diagnostically consistent with unspecified psychosis with differential including schizoaffective disorder vs BPAD with depressive episode with psychotic features vs delusional disorder vs substance-induced given cannabis use vs complex PTSD but less likely that her hallucinations are tied to a mood episode given that they have been present for many years with very similar symptoms during hospitalization in 2020. Leslie seems most willing to accept possibility of complex PTSD as potential explanation for her symptoms though strongly views the hallucinations as real and not part of any type of psychiatric pathology. A: Mood remains irritable, with persisting distressing hallucinations and paranoid delusion. She appears to be tolerating clozapine. Mood remains irritable, with poor reality-testing. MNPR due to paranoia and psychosis Overall, I spent a total of 35 minutes on this case including meeting with the patient, reviewing the chart, nursing report, multidisciplinary team meeting, orders, and documentation. (1) Schizoaffective disorder: (2) Suicide attempt: (3) Unspecified psychosis not due to a substance or known physiological condition: (4) Auditory hallucinations: (5) Post traumatic stress disorder (PTSD): Plan 05/02/25: Continue Clozapine 200mg HS with plan to titrate. Check Clozapine levels. Continue Klonopin 1mg daily. Metforming 500mg bid. 05/01/2025: -Increase to clozapine 200mg HS 04/30/2025: -Continue clozapine to 150mg HS 04/29/2025: -Increase clozapine to 150mg HS 04/28/2025: -Increase clozapine to 100mg HS -Discontinue ativan, start Klonopin 1mg daily -Klonopin 0.5mg daily prn for panic attacks -Discontinue blood glucose checks and insulin given this is increasing agitation -Start metformin 500mg BID (she prefers IR formulation given hx gastric bypass, liquid formulation not available on hospital formulary and she previously stopped this due to the taste so will trial IR formulation) 04/27/2025: -Increase clozapine to 50mg HS -Labwork tomorrow AM 04/26/2025: -Discontinue abilify -Start clozapine 25mg HS -Start docusate 100 mg daily -Weekly EKG starting 05/03/2025 with clozapine use initially 04/25/2025: The patient was admitted to the [facility] ([facility] mental health unit) on q15 min checks (behavioral with suicide precautions) for safety. The patient will participate in group, recreational, and milieu therapies and will be offe red additional individual and family sessions as clinically appropriate. -303 hearing scheduled for tomorrow, reviewed this with her and encouraged her to contact the public defenders office -Continue psychiatric medications: * Abilify 15mg HS * Ativan 1mg HS * Lamictal 250mg daily * restart Effexor XR 75mg daily -Continue medications from medical admission: * Eliquis 5mg BID * Tylenol 1,000mg TID * Lipitor 10mg daily * Protonix * Miralax * Insulin -Fasting lipid panel and HbA1c tomorrow AM Inventory Assets Strengths: supportive relationships, resilient Needs: safety and stabilization, medication adjustment, additional coping skills, increased outpatient services Suicide Risk Level Suicide Risk Level: High-Moderate (q15 min suicide checks) (recent serious suicide attempt and ongoing paranoia and hallucinations but denies SI and denies command AH and feels able to ask for support if needed) Risk Factors Assessment Male: No : Yes Do You Have Access To A Gun?: Yes (Son secured guns no access to firearms in the home) Health Problems: Yes Mental Health Diagnoses: Yes Substance Use Disorders: No Previous Attempt: Yes Family History of Suicide: No Previous Psychiatric Hospitalization: Yes Hopelessness: Yes Protective Factors Assessment Supportive Family: Yes Interval History Identifying Information LESLIE MERRITT is a 54-year-old woman who currently lives in [place] with her boyfriend, has a history of bipolar disorder vs schizoaffective disorder, ADHD, PTSD, and was admitted on 04/24/25 22:19 on a 302 involuntary commitment for suicide attempt via overdose requiring ICU admission and medical stabi lization. Chief Complaint "I am still hearing my neighbors' voices". Review of Systems Sleep Information Total Hours of Sleep: 7.5 Sleep Comments: Up early Meal Information Percent Meal Consumed - Breakfast: 100 Percent Meal Consumed - Lunch: 100 Percent Meal Consumed - Dinner: 100 Subjective Subjective Patient was seen & assessed and interval progress reviewed with nursing and social work. 54 y/o female with a history of chronic psychosis, trauma and mood symptoms (Schizoaffective Disorder vs Bipolar Disorder vs Complex PTSD) admitted following a serious OD on her cardiac medication. She was transferred to psych after 2 weeks on the medical unit. She does not recall actually taking the OD. She reports that she has been hearing people screaming her name around the neighborhood and using derogatory language to describe her. This has been going on for 9 years. She believes these are real voices of her former neighbor and her neighbors brother. Mood remains irritable with very poor reality testing. She denied side effects from her medication. She is less sedated since Klonopin was switched to prn. Clozapine helps her sleep better. No side effects. She stormed out when proposal writer asked how she could be hearing her neighbor, who now lives in [place]. Physical Exam Psychiatric Orientation: alert and oriented x 3 Apperance: appropriately dressed and appropriately groomed Eye Contact: good eye contact Motor Behavior: no abnormal motor movements Speech: + loud speech and normal rate/rhythm/volume of speech Affect: + labile affect, + irritable affect, + angry affect and + constricted affect Mood: + depressed mood, + anxious mood, + irritable mood and + angry mood Thought Process: + circumstantial thought process and + concrete thought process Thought Content: + preoccupation, + paranoid and + delusions Suicidal Thoughts: denies suicidal thoughts (but s/p serious attempt), denies suicidal plan and denies suicidal intent Homicidal Thoughts: denies homicidal thoughts Hallucinations: + auditory hallucinations (voices screaming swear words at her); no visual hallucinations Cognition: recent memory grossly intact, remote memory grossly intact, attention grossly intact and language grossly intact Estimated Intelligence: consistent with education level Insight: + limited insight Judgment: + limited judgement and + fair judgement Vital Signs (Past 24 Hours) Last Vital Signs Temp 36.7 C 05/02/25 06:23 Pulse 98 H 05/02/25 06:23 Resp 16 05/02/25 06:23 BP 129/86 05/02/25 06:23 Pulse Ox 97 04/29/25 05:36 O2 Del Method Room Air 04/29/25 05:36 Results & Data ([facility]) Current Inpatient Medications Current Inpatient Medications: Current Inpatient Medications Acetaminophen (Acetaminophen 325 Mg Tab) 650 mg PO Q4H PRN PRN Reason: Headache or Minor Fever Stop: 05/24/25 15:56 Last Admin: 04/27/25 21:22 Dose: 650 mg Acetaminophen (Acetaminophen 500 Mg Tab) 1,000 mg PO TID [facility] Stop: 05/25/25 13:59 Last Admin: 05/02/25 08:38 Dose: Not Given Al Hydrox/Mg Hydrox/Simethicone (Aluminum/Magnesium Susp 30 Ml Udc) 30 ml PO Q4H PRN PRN Reason: GI Upset Stop: 05/24/25 15:56 Apixaban (Apixaban 5 Mg Tablet) 5 mg PO BID [facility] Stop: 05/25/25 09:14 Last Admin: 05/02/25 08:38 Dose: 5 mg Atorvastatin Calcium (Atorvastatin 10 Mg Tab) 10 mg PO DAILY [facility] Stop: 05/25/25 09:14 Last Admin: 05/02/25 08:38 Dose: 10 mg Bismuth Subsalicylate (Bismuth Subsalicylate 262 Mg Chew) 2 tab PO Q30M PRN PRN Reason: Loose Stool/Diarrhea Stop: 05/24/25 15:56 Clonazepam (Clonazepam 0.5 Mg Tab) 0.5 mg PO DAILY PRN PRN Reason: panic attacks Stop: 05/28/25 15:51 Last Admin: 05/01/25 16:49 Dose: 0.5 mg Clozapine (Clozapine 100 Mg Tab) 200 mg PO HS [facility] Stop: 05/31/25 21:59 Last Admin: 05/01/25 21:58 Dose: 200 mg Docusate Sodium (Docusate Sodium 100 Mg Cap) 100 mg PO DAILY [facility] Stop: 05/27/25 08:59 Last Admin: 05/02/25 08:39 Dose: 100 mg Hydroxyzine HCl (Hydroxyzine Hcl 25 Mg Tab) 50 mg PO HSZ PRN PRN Reason: Insomnia Stop: 05/24/25 15:56 Hydroxyzine HCl (Hydroxyzine Hcl 25 Mg Tab) 25 mg PO Q4H PRN PRN Reason: Anxiety Stop: 05/24/25 15:56 Lamotrigine (Lamotrigine 100 Mg Tab) 250 mg PO DAILY [facility]; Protocol Stop: 05/25/25 09:14 Last Admin: 05/02/25 08:39 Dose: 250 mg Magnesium Hydroxide (Magnesium Hydroxide Susp 30 Ml Udc) 30 ml PO DAILY PRN PRN Reason: Constipation Stop: 05/24/25 15:56 Melatonin (Melatonin 3 Mg Tab) 9 mg PO HS PRN PRN Reason: sleep Stop: 05/25/25 09:06 Metformin HCl (Metformin Hcl 500 Mg Tab) 500 mg PO BIDM [facility] Stop: 05/28/25 17:44 Last Admin: 05/02/25 08:39 Dose: 500 mg Nicotine Polacrilex (Nicotine Polacrilex 2 Mg Gum) 2 piece MT Q2H PRN PRN Reason: Nicotine Cessation Stop: 05/31/25 18:38 Olanzapine (Olanzapine 5 Mg Tablet) 5 mg PO Q8H PRN PRN Reason: agitation, hallucinations Stop: 05/25/25 09:06 Last Admin: 04/26/25 08:58 Dose: 5 mg Ondansetron HCl (Ondansetron 2 Mg Od Tab) 2 mg PO BID PRN PRN Reason: Nausea And Vomiting Stop: 05/28/25 17:56 Last Admin: 04/28/25 18:14 Dose: 2 mg Pantoprazole Sodium (Pantoprazole 40 Mg Tab) 40 mg PO DAILY [facility] Stop: 05/25/25 09:14 Last Admin: 05/02/25 08:39 Dose: 40 mg Polyethylene Glycol (Polyethylene (Miralax) 17 Gm Pack) 17 gm PO DAILY [facility] Stop: 05/25/25 09:14 Last Admin: 05/02/25 08:43 Dose: Not Given Sodium Chloride (Sodium Chloride 0.65% Na Soln 45 Ml ([place])) 1 - 2 sprays NA PRN PRN PRN Reason: Nasal Dryness/Congestion Stop: 05/24/25 15:56 Sumatriptan Succinate (Sumatriptan Succinate 100 Mg Tab) 100 mg PO Q2H PRN PRN Reason: Migraine Headache Stop: 05/25/25 09:06 Venlafaxine HCl (Venlafaxine Hcl Xr 75 Mg Capxr) 75 mg PO DAILY [facility] Stop: 05/25/25 09:14 Last Admin: 05/02/25 08:40 Dose: 75 mg Mental Health & Subst Abuse Tx Psychiatrist Name of Psychiatrist: Laurence Wiseman ([employer]) Psychiatrist's Date Of Appointment With Psychiatric Provider: 05/13/25 Time of Appointment with Psychiatrist: 2:30PM Psychiatric Appointment Comment: Email and text will be sent to complete additional documents before appt Therapist Name of Therapist: Shay Harkins Therapist's Date of Therapist Appointment: 05/10/25 Time of Therapist Appointment: 11 AM Therapy Appointment Comment: Virtual via my chart documents. Administrative Assistant Receptionist Name of Administrative Assistant Receptionist: Prachi Maher Time of Appointment with Administrative Assistant Receptionist: n/a Post Discharge Appointments Primary Care Physician Name Of Family Doctor/PCP: Dr. Angelo [facility] Date of Future Appointment with PCP: 05/10/25 Time of Appointment with PCP: 11:30AM Neurologist Name of Neurologist: Dr. Charlie Yi - [address] [place] [address] Neurologist's Date of Appointment with Neurologist: 05/27/25 Time of Appointment with Neurologist: 12PM Neurology Appointment Comment: Neuropsych testing recommended by PCP (memory) Specialist Name of Specialist: Dr. Charlie Yi - [address] [place] [address] [address] Phone Number for Specialist: [phone] Date of Appointment with Specialist: 05/27/25 Time of Appointment with Specialist: 12 PM Specialty Appointment Comment: Neuropsych testing recommended by PCP Contact Information Discharge Discharge Address: [address] [place] [address] (1) Schizoaffective disorder Schizoaffective disorder type: depressive Qualified Code(s): F25.1 - Schizoaffective disorder, depressive type
[2025-05-02] MEDS: NICOTINE POLACRILEX 2 MG GUM MT PRN (15:33)
[2025-05-03 11:12] LABS: Hematocrit (blood only) 30.3 % (37.0-47.0); Hemoglobin 9.6 g/dl (12.0-16.0); Immature Granulocytes # (auto) 0.04 K/uL (0.01-0.20); Immature Granulocytes % (auto) 0.6 %; Mean Corpuscular Hemoglobin 27.4 pg (25.0-34.0); Mean Corpuscular Volume 86.6 fL (80.0-100.0); Platelet Count 433 K/uL (130-400); RDW Standard Deviation 62.4 fL (36.4-46.3); Red Blood Count 3.50 M/uL (4.20-5.40); White Blood Count 7.15 K/ul (4.8-10.8)
--- NOTE | 2025-05-03 13:10 | Electrocardiogram Report ---
Test Reason : Blood Pressure : */* mmHG Vent. Rate : 98 BPM Atrial Rate : 98 BPM P-R Int : 126 ms QRS Dur : 90 ms QT Int : 328 ms P-R-T Axes : 35 -2 0 degrees QTcB Int : 418 ms Normal sinus rhythm Poor R wave progression, consider anterior [place] vs. lead placement vs. LVH Abnormal ECG When compared with ECG of 20-Apr-2025 05:06, Sinus rhythm has replaced Electronic atrial pacemaker Inverted T waves have replaced nonspecific T wave abnormality in Inferior leads Nonspecific T wave abnormality no longer evident in Lateral leads Confirmed by Rick Berrios ([id number]) on 05/03/2025 1:10:33 PM Referred By: Jesus Moses Confirmed By: Rick Berrios
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
[2025-05-03] MEDS: clonazePAM 0.5 MG TAB PO ONE (17:47)
[2025-05-04 06:25] VITALS: O2SAT 96
[2025-05-04] MEDS: GLYCOPYRROLATE 1 MG TAB PO SCH (12:44)
--- NOTE | 2025-05-04 13:01 | Progress Note ---
Date of Service May 04, 2025 Assessment & Plan (1) Schizoaffective disorder: Schizoaffective disorder type: depressive Qualified Code(s): F25.1 - Schizoaffective disorder, depressive type (2) Suicide attempt: (3) Unspecified psychosis not due to a substance or known physiological condition: (4) Auditory hallucinations: (5) Post traumatic stress disorder (PTSD): Plan 05/03/25: Increase Clozapine to 250mg qhs. Continue Klonopin 1mg daily, Lamictal 250mg daily, Venlafaxine 75mg daily. EKG reviewed: Normal sinus rhythm, old anterior infarct. 05/02/25: Continue Clozapine 200mg HS with plan to titrate. Check Clozapine levels. Continue Klonopin 1mg daily. Metformin 500mg bid. 05/01/2025: -Increase to clozapine 200mg HS 04/30/2025: -Continue clozapine to 150mg HS 04/29/2025: -Increase clozapine to 150mg HS 04/28/2025: -Increase clozapine to 100mg HS -Discontinue ativan, start Klonopin 1mg daily -Klonopin 0.5mg daily prn for panic attacks -Discontinue blood glucose checks and insulin given this is increasing agitation -Start metformin 500mg BID (she prefers IR formulation given hx gastric bypass, liquid formulation not available on hospital formulary and she previously stopped this due to the taste so will trial IR formulation) 04/27/2025: -Increase clozapine to 50mg HS -Labwork tomorrow AM 04/26/2025: -Discontinue abilify -Start clozapine 25mg HS -Start docusate 100 mg daily -Weekly EKG starting 05/03/2025 with clozapine use initially 04/25/2025: The patient was admitted to the [facility] ([facility]) on q15 min checks (behavioral with suicide precautions) for safety. The patient will participate in group, recreational, and milieu therapies and will be offered additional individual and family sessions as clinically appropriate. -303 hearing scheduled for tomorrow, reviewed this with her and encouraged her to contact the public defenders office -Continue psychiatric medications: * Abilify 15mg HS * Ativan 1mg HS * Lamictal 250mg daily * restart Effexor XR 75mg daily -Continue medications from medical admission: * Eliquis 5mg BID * Tylenol 1,000mg TID * Lipitor 10mg daily * Protonix * Miralax * Insulin -Fasting lipid panel and HbA1c tomorrow AM Admission and Anticipated Discharge Date Admission Date: April 24, 2025 Results & Data Vital Signs (Past 12 Hours) Vital Signs Temp Pulse Resp BP Pulse Ox O2 Del Method 05/04/25 06:25 100 H 135/91 05/04/25 06:24 37.2 C 96 H 16 135/85 96 Room Air
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
[2025-05-05 06:51] VITALS: PULSE 94; RESP 18; TEMP 98.4
[2025-05-05 09:57] VITALS: BP 138/89
--- NOTE | 2025-05-05 11:39 | Discharge Summary ---
Date of Service May 05, 2025 History of Present Illness Leslie was admitted from the medical floor following extended admission for stabilization following her suicide attempt via overdose of diltiazem. She agrees it's possible this was a suicide attempt but cannot speak to her motive or actions as she reports no recollection of the events preceding or following the suspected attempt. Today she is tearful when I enter her room stating she doesn't know what to say or do as she's being watched and worries that what she says could be used to keep her in the hospital longer. Also is tearful because "I hear everyone talking about me" and expands that "I know the nurses keep talking about me" and reports hearing them say her name. She stated frustration toward her mother for not believing that the voices she hears are real. Tells me she knows she doesn't have schizophrenia or "delusions" and that the voices are a result of being harassed for the last 7-8 years and that "no one is delusional for 7-8 years". Expands that she doesn't have schizophrenia because "I'm very cognizant of what's going on". In the last six months she started to have more short-term memory issues which has been difficult and impacted her mood. Explains that at least three individuals (a least one female and one male voice) are always "screaming at me 'f*cking cunt". She notes that "it's embarrassing that they're still doing it outside the hospital while I'm here trying to get help". She feels strongly that these voices are real and caused by individuals harassing her for unknown reasons. Longest time frame she's gone without hearing them was two months and she knows of nothing during that time that helped them l magdien. Notes that she is "normally abled" and emphasizes she doesn't have any psychiatric symptoms except bipolar disorder and PTSD. Feels she used to have more episodes of jarred with her bipolar disorder but in recent years it's been largely depressive episodes. She denies current SI but endorses ongoing depression with periods of irritability, depressed mood, trouble staying asleep, and low energy. She does identify recent psychosocial stressor of her dog dying about a month ago but feels she was coping with this reasonably well. Further history per my initial consult note on 04/14/2025: "Leslie remains intubated in the ICU so unable to gather history from her. Per chart review she took ~50 tabs of diltiazem 180mg. Further details per admission H&P by Dr. Banks on 04/13/2025: "She reports she has a long history of passive suicidality, intermittently active with attempts in the past. She reports that she was not particularly planning her current overdose but last n ight she was overwhelmed with recent stressors and feeling that she has a stalker although is not who this is. She has not seen or heard anything unusual. She reported she started taking 1 diltiazem, and then continue taking 1 after the other with the intention to . When she woke up this morning she felt very weak tired and confused to try to go outside and then was brought to the hospital. She reports she still feels suicidal. She notes that her suicidal he has never completely gone away but is usually passive, and current stressors have made this worse. She denies any coingestions along with her diltiazem. She last took her regular medications yesterday, she reports she had not been missing doses of these. She denies alcohol/tobacco use." Additional history per ED CM notes on 04/13/2025: "Met with patient to complete a brief MH evaluation with Dr. Frank present. Patient reports taking 50 180mg of Diltiazem in an attempt to kill herself. She reports being in distress, stating that she is also being harassed. She reports this is not the first time she has attempted to kill herself, and that she did other things to harm herself, but does not remember what she has done. Patient stated she has a pacemaker, she thought if she took the medication it would slow her heart rate down enough that it would make her pacemaker malfunction. She states she took the medication around 1:30am, she does not know how, but was found outside by her father about 45 minutes before she was brought into the ED. She reports feeling dehydrated and lethargic but is feeling better than she was. Patient states she has not been sleeping well. She has a bruise on her arm, and states she has been having falls. Patient has an extensive MH history. Patient's father Bill reported to ED. He states patient has been diagnosed with bipolar and schizoaffective disorder 30 years ago. He states she refuses all MH treatment including medication. Patient is in a very unhealthy relationship and has been for a long time. The man comes and goes in and out of her life, and according her father, is homeless and takes advantage of patient. Patient contacted mother and father over the weekend threatening to take medication to overdose. Father stated patient has psychotic behaviors, that she is paranoid and hears voices that she believes are threatening her. He states she refuses all help and has no MH services/medication at this time. Father states his called him and asked him to go to the home to check on patient and to get her boyfriend out of the house, when he was on his way to her home, patient called him and appeared very disoriented. Father states he arrived an she was outside, had fallen and was completed altered. He stated he called an ambulance and the police and began pouring cold water on her. Explained to father that patient will be a medical admission at first, but a 302 petitioning statement will be completed and placed on patient's chart, when she is cleared medically she will need to follow through with inpatient MH treatment." and "Box A petitioning statement completed by ANTHONY Thomas reads as follows: " Leslie has a very extensive mental health history. She has been diagnosed with bipolar disorder, schizoaffective disorder, and experiences psychotic behaviors including paranoia and hearing voices, daily. She is non-compliant with MH treatment and is not currently on MH medications. On 04/13/25 at 1:00am, Leslie reports taking 50 180mg of Diltiazem in an attempt to end her life." " Physical Exam Vital Signs (Past 24 Hours) Last Vital Signs Temp 36.9 C 05/05/25 10:49 Pulse 94 H 05/05/25 10:49 Resp 18 05/05/25 10:49 BP 138/89 05/05/25 10:49 Pulse Ox 96 05/05/25 10:49 O2 Del Method Room Air 05/05/25 06:49 Principal Diagnosis Schizoaffective Disorder Bipolar Type Psychiatric Data See daily stay summary. In short, safety was maintained and the patient was cooperative with care. Medication changes included titrating clozapine dose to 250mg qhs and they tolerated this well. A family session was held on 05/04/25 and safety plan was completed prior to discharge. See daily stay summary. In short, patient was engaged with the social/therapeutic milieu of the unit, safety was maintained and the patient was cooperative with care. Medication changes included restarting and titrating clozapine 100mg HS for schizoaffective disorder and they tolerated this well. Baseline labs of HBaic (7.2) fasting lipid profile (normal), and weight were performed as well as weekly ANC (last ANC was 4.42 on 05/03/25). Recommend repeat ANC in one week on 05/10/2025 followed by weekly ANC for 6 months. Recommend repeat weight in one month. Recommend repeat fasting glucose, HbA1c and fasting lipid profile every 12 weeks and then annually. If symptoms arise recommend checking BP, EKG, prolactin level as clinically indicated or relevant. A support session was held and safety plan was completed prior to discharge. They participated in safety planning and in discussions about ways to seek support and recognizing warning signs and utilizing coping skills. Reviewed ways to have their safety plan and contacts easily available should thoughts of SI re-emerge in the future. Reviewed importance of seeking emergency care should SI intensify, worsen or should they feel unsafe in the future which they agree to do. On the day of discharge they stated their mood was "good" and remained future-oriented including spending time with family, eating favorite meals like, relaxing and engaging in aftercare appointments for psychiatry, therapy and case management. Overall, I spent a total of 35 minutes on this case including meeting with the patient, reviewing the chart, nursing report, multidisciplinary team meeting, discharge orders, anticipatory planning, safety planning, risk assessment and documentation. Day of Discharge Assessment Today the patient voices readiness for discharge. They note improvement in mood and anxiety. They deny thoughts of harm to self or others. Thoughts are organized and they are clinically improved from admission. Pt denied hearing voices and was not preoccupied with chronic AH. They improved in the hospital with support and medication adjustments. They agree to take medications as prescribed and keep follow-up appointments. At the time of the discharge they are deemed to be stable and appropriate for outpatient level of care. They are not deemed to be at imminent risk of harm to self or others. They are aware of emergency and crisis services. Knows to call 911 or go to nearest emergency care center if in a crisis which cannot be handled as an outpatient. Suicide risk assessment: Acute risk is low given improvement in mood and denial of SI, lack of access to lethal means, hopefulness and improvement in psychosis. Chronic risk is moderate given some non-modifiable risk factors: psychiatric co-morbid diagnoses, prior attempt, prior psychiatric hospitalizations, mood disorder, schizophrenia but also with protective factors including good social support, sense of responsibility to family and social supports, outpatient care in place, positive coping skills, positive problem solving, willingness to engage with treatment and self-observation. Counseled on ways to reduce acute and chronic risk including engaging with outpatient providers, using safety plan if needed, utilizing supports, taking medication, and using coping skills. Modifiable risk factors of psychosis, command AH, SI and ego-dystonic HI were addressed during hospitalization through development of new coping skills, support meeting, safety planning, and medication adjustments. Acute risk of harm to others is low given denial of HI, resolution of psychosis, no aggression or agitated behaviors and outpatient providers. Discharge physical exam: See admission H&P, MSE per above and day of discharge summary. Transition of Care Transition Of Care Record: was reviewed with the patient Advance Directives Advance Directives Information Provided: Yes Advance Directives: No Mental Health Advance Directive: No Advance Directives on File: No Living Will: No Power of Register Clerk: No Advance Directives Reason:: Declines as Mental Health Visit. Risk Factors Assessment Male: No : Yes Do You Have Access To A Gun?: Yes (Son secured guns no access to firearms in the home) Health Problems: Yes Mental Health Diagnoses: Yes Substance Use Disorders: No Previous Attempt: Yes Family History of Suicide: No Previous Psychiatric Hospitalization: Yes Hopelessness: Yes Protective Factors Assessment Supportive Family: Yes Total Time Total Time Includes: Examination of the patient, Discharge Planning and Medication Reconciliation Discharge Data Lab Results 04/25/25 04/25/25 04/25/25 06:20 11:47 16:24 WBC RBC Hgb Hct MCV MCH MCHC RDW Std Deviation RDW Coeff of Maxine Plt Count MPV Immature Gran % (Auto) Neut % (Auto) Lymph % (Auto) Waldo % (Auto) Eos % (Auto) Baso % (Auto) Neut # (Auto) Lymph # (Auto) Waldo # (Auto) Eos # (Auto) Baso # (Auto) Immature Gran # (Auto) Sodium Potassium Chloride Carbon Dioxide Anion Gap BUN Creatinine Est Cr Clr Drug Dosing eGFR BUN/Creatinine Ratio Glucose POC Glucose 122 H 160 H 77 Estimat Average Glucose Hemoglobin A1c Calcium Triglycerides Cholesterol LDL Cholesterol, Calc VLDL Cholesterol, Calc HDL Cholesterol Cholesterol/HDL Ratio 25-OH Vitamin D Total 04/25/25 04/26/25 04/26/25 20:28 06:11 17:15 WBC RBC Hgb Hct MCV MCH MCHC RDW Std Deviation RDW Coeff of Maxine Plt Count MPV Immature Gran % (Auto) Neut % (Auto) Lymph % (Auto) Waldo % (Auto) Eos % (Auto) Baso % (Auto) Neut # (Auto) Lymph # (Auto) Waldo # (Auto) Eos # (Auto) Baso # (Auto) Immature Gran # (Auto) Sodium Potassium Chloride Carbon Dioxide Anion Gap BUN Creatinine Est Cr Clr Drug Dosing eGFR BUN/Creatinine Ratio Glucose POC Glucose 128 H 108 H 110 H Estimat Average Glucose Hemoglobin A1c Calcium Triglycerides Cholesterol LDL Cholesterol, Calc VLDL Cholesterol, Calc HDL Cholesterol Cholesterol/HDL Ratio 25-OH Vitamin D Total 04/26/25 04/27/25 04/27/25 20:54 08:20 12:26 WBC RBC Hgb Hct MCV MCH MCHC RDW Std Deviation RDW Coeff of Maxine Plt Count MPV Immature Gran % (Auto) Neut % (Auto) Lymph % (Auto) Waldo % (Auto) Eos % (Auto) Baso % (Auto) Neut # (Auto) Lymph # (Auto) Waldo # (Auto) Eos # (Auto) Baso # (Auto) Immature Gran # (Auto) Sodium Potassium Chloride Carbon Dioxide Anion Gap BUN Creatinine Est Cr Clr Drug Dosing eGFR BUN/Creatinine Ratio Glucose POC Glucose 152 H 145 H 112 H Estimat Average Glucose Hemoglobin A1c Calcium Triglycerides Cholesterol LDL Cholesterol, Calc VLDL Cholesterol, Calc HDL Cholesterol Cholesterol/HDL Ratio 25-OH Vitamin D Total 04/27/25 04/27/25 04/27/25 16:38 19:44 21:03 WBC RBC Hgb Hct MCV MCH MCHC RDW Std Deviation RDW Coeff of Maxine Plt Count MPV Immature Gran % (Auto) Neut % (Auto) Lymph % (Auto) Waldo % (Auto) Eos % (Auto) Baso % (Auto) Neut # (Auto) Lymph # (Auto) Waldo # (Auto) Eos # (Auto) Baso # (Auto) Immature Gran # (Auto) Sodium Potassium Chloride Carbon Dioxide Anion Gap BUN Creatinine Est Cr Clr Drug Dosing eGFR BUN/Creatinine Ratio Glucose POC Glucose 116 H 199 H 177 H Estimat Average Glucose Hemoglobin A1c Calcium Triglycerides Cholesterol LDL Cholesterol, Calc VLDL Cholesterol, Calc HDL Cholesterol Cholesterol/HDL Ratio 25-OH Vitamin D Total 04/28/25 04/28/25 05/03/25 07:45 07:48 10:47 WBC 7.36 7.15 RBC 3.60 L 3.50 L Hgb 9.4 L 9.6 L Hct 31.0 L 30.3 L MCV 86.1 86.6 MCH 26.1 27.4 MCHC 30.3 L 31.7 L RDW Std Deviation 59.8 H 62.4 H RDW Coeff of Maxine 20.0 H 19.9 H Plt Count 509 H 433 H MPV 9.0 L 9.4 Immature Gran % (Auto) 0.8 0.6 Neut % (Auto) 70.2 61.7 Lymph % (Auto) 21.6 26.2 Waldo % (Auto) 5.2 8.0 Eos % (Auto) 1.8 2.5 Baso % (Auto) 0.4 1.0 Neut # (Auto) 5.17 4.42 Lymph # (Auto) 1.59 1.87 Waldo # (Auto) 0.38 0.57 Eos # (Auto) 0.13 0.18 Baso # (Auto) 0.03 0.07 Immature Gran # (Auto) 0.06 0.04 Sodium 141 Potassium 4.0 Chloride 107 Carbon Dioxide 28 Anion Gap 6 BUN 12 Creatinine 0.63 Est Cr Clr Drug Dosing 96.7 eGFR 104.70 BUN/Creatinine Ratio 19.0 Glucose 128 H POC Glucose 120 H Estimat Average Glucose 160 Hemoglobin A1c 7.2 H Calcium 8.9 Triglycerides 109 Cholesterol 117 LDL Cholesterol, Calc 59 VLDL Cholesterol, Calc 22 HDL Cholesterol 36 Cholesterol/HDL Ratio 3.3 25-OH Vitamin D Total 31.6 Hospital Course (1) Schizoaffective disorder: (2) Suicide attempt: (3) Unspecified psychosis not due to a substance or known physiological condition: (4) Auditory hallucinations: (5) Post traumatic stress disorder (PTSD): Plan 05/04/25: Continue current regimen at current doses. Discharge tomorrow. 05/03/25: Increase Clozapine to 250mg qhs. Continue Klonopin 1mg daily, Lamictal 250mg daily, Venlafaxine 75mg daily. EKG reviewed: Normal sinus rhythm, old anterior infarct. 05/02/25: Continue Clozapine 200mg HS with plan to titrate. Check Clozapine levels. Continue Klonopin 1mg daily. Metformin 500mg bid. 05/01/2025: -Increase to clozapine 200mg HS 04/30/2025: -Continue clozapine to 150mg HS 04/29/2025: -Increase clozapine to 150mg HS 04/28/2025: -Increase clozapine to 100mg HS -Discontinue ativan, start Klonopin 1mg daily -Klonopin 0.5mg daily prn for panic attacks -Discontinue blood glucose checks and insulin given this is increasing agitation -Start metformin 500mg BID (she prefers IR formulation given hx gastric bypass, liquid formulation not available on hospital formulary and she previously stopped this due to the taste so will trial IR formulation) 04/27/2025: -Increase clozapine to 50mg HS -Labwork tomorrow AM 04/26/2025: -Discontinue abilify -Start clozapine 25mg HS -Start docusate 100 mg daily -Weekly EKG starting 05/03/2025 with clozapine use initially 04/25/2025: The patient was admitted to the [facility] ([facility] inpatient mental health unit) on q15 min checks (behavioral with suicide precautions) for safety. The patient will participate in group, recreational, and milieu therapies and will be offered additional individual and family sessions as clinically appropriate. -303 hearing scheduled for tomorrow, reviewed this with her and encouraged her to contact the public defenders office -Continue psychiatric medications: * Abilify 15mg HS * Ativan 1mg HS * Lamictal 250mg daily * restart Effexor XR 75mg daily -Continue medications from medical admission: * Eliquis 5mg BID * Tylenol 1,000mg TID * Lipitor 10mg daily * Protonix * Miralax * Insulin -Fasting lipid panel and HbA1c tomorrow AM Mental Health & Subst Abuse Tx Psychiatrist Name of Psychiatrist: Laurence Rubi - Dr. Wiseman ([employer]) Psychiatrist's Date Of Appointment With Psychiatric Provider: 05/13 Time of Appointment with Psychiatrist: 2:30PM Psychiatric Appointment Comment: Email and text will be sent to complete additional documents before appt Psychiatrist Release of Information: Obtained, Reviewed and Signed Therapist Name of Therapist: Lucien Emily Maribel Therapist's Date of Therapist Appointment: 05/10 Time of Therapist Appointment: 11AM Therapy Appointment Comment: Virtual via my chart documents. Therapist Release of Information: Obtained, Reviewed and Signed Entry Level Recruiter Name of Entry Level Recruiter: NA Time of Appointment with Entry Level Recruiter: n/a Post Discharge Appointments Primary Care Physician Name Of Family Doctor/PCP: Dr. Stover Primary Care Date of Future Appointment with PCP: 05/10 Time of Appointment with PCP: 11:30 AM Primary Care Release of Information: Obtained, Reviewed and Signed Neurologist Name of Neurologist: Dr. Charlie Yi - [address] [place] [address] Neurologist's Date of Appointment with Neurologist: 05/27/25 Time of Appointment with Neurologist: 12PM Neurology Appointment Comment: Neuropsych testing recommended by PCP (memory) Release of Information for Neurologist: Obtained, Reviewed and Signed Specialist Name of Specialist: Dr. Charlie Yi - [address] [place] [address] [address] Phone Number for Specialist: [phone] Date of Appointment with Specialist: 05/27/25 Time of Appointment with Specialist: 12 PM Specialty Appointment Comment: Neuropsych testing recommended by PCP Specialist Release of Information: Obtained, Reviewed and Signed Contact Information Discharge Discharge Address: [address] [place] [address] Discharge Plan Discharge Items Patient Disposition: Home - Self-Care Reason For Visit: UNSPECIFIED MOOD DISORDER Discharge Diagnosis: Schizoaffective disorder Complex PTSD ADHD (by history) Cannabis Use disorder Condition on Discharge: Fair Health Concerns: Elevated lactic acid level (Acute) Medical History Diabetes mellitus, type 2 Sinus node dysfunction Sleep apnea s/p Calcium channel edwin overdose Vertigo PSVT (paroxysmal supraventricular tachycardia) Pacemaker Dyslipidemia due to type 2 diabetes mellitus GERD (gastroesophageal reflux disease) Sinus node dysfunction Migraine (Chronic) "Thunderclap Migraines" Chronic anemia (Chronic) Hypertension (Chronic) Spondylolysis (Chronic) "L5"Spinal stenosis (Chronic) Surgical History Status post placement of cardiac pacemaker S/P trigger finger release left thumbHistory of carpal tunnel release leftHistory of esophagogastroduodenoscopy (EGD) History of colonoscopy [place] teeth extracted Activity: Resume your previous activity Lifting: Gradually increase as tolerated Bathing: No limitations Sexual Activity: When tolerated Driving/Machine Use: No limitations Non-emergency contact: Primary Care Provider, Psychiatrist and Therapist Call non-emergency contact if: you have any medication questions and your symptoms worsen Follow-up/Referrals: Dusty Stover DO [Primary Care Provider] - Diet: Carb Consistent or DM2 and Heart Healthy Fluids: 2000ml (8 cups) Addtl Attending Provider Instructions: Continue current medication. Continue weekly CBCs for Clozapine. Ensure outpatient follow up. Pending Studies at Discharge: No Stand-Alone Forms: My InvenQuery, Smoking Cessation Medications and DC Order Prescriptions: New glycopyrrolate 1 mg Tablet 1 mg PO BID Qty: 60 0RF metformin 500 mg Tablet 500 mg PO BIDM 30 Days Qty: 60 0RF clozapine 100 mg Tablet 250 mg PO HS 30 Days Qty: 75 0RF lamotrigine 100 mg Tablet 250 mg PO DAILY 30 Days Qty: 30 0RF Continued omeprazole 40 mg capsule,delayed release(DR/EC) 40 mg PO DAILY Qty: 90 3RF atorvastatin 10 mg tablet 10 mg PO DAILY Qty: 90 3RF Hold Instructions: joint pains cyanocobalamin (vitamin B-12) 1,000 mcg/mL kit 1,000 mcg subcut Q7D Qty: 26 1RF Hold Instructions: hold -- B12 level in April 2025 is >1500. sumatriptan succinate 100 mg tablet 100 mg PO Q2H PRN (Reason: Migraine Headache) Rx Instructions: do not exceed 2 doses per 24 hrs (DME) BD Eclipse Luer-Yanna 3 mL 25 x 5/8" syringe See Rx Instructions .Route Qty: 50 1RF Rx Instructions: As directed ipratropium bromide 21 mcg (0.03 %) spray,non-aerosol 2 spray intranasal BID PRN (Reason: DIRECTED) venlafaxine 75 mg capsule,extended release 24hr 75 mg PO DAILY Qty: 30 2RF acetaminophen [Tylenol Extra Strength] 500 mg Tablet 1,000 mg PO TID 7 Days Qty: 42 0RF polyethylene glycol 3350 [Miralax] 17 gram Powder In Packet 17 g PO DAILY Qty: 30 0RF insulin glargine [Lantus U-100 Insulin] 100 unit/mL Solution 10 unit SC DAILY Qty: 10 0RF insulin aspart U-100 [Novolog U-100 Insulin aspart] 100 unit/mL Solution See Rx Instructions .ROUTE .COMPLEX Qty: 10 0RF Rx Instructions: --Goal BSG Range: Low 110 mg/dL, High 140 mg/dL --Correction Factor: 30 mg/dL/unit --Carbohydrate ratio = 12 g/unit --BSGs ACHS if eating, q6h if npo melatonin 3 mg Tablet 9 mg PO HS PRN (Reason: sleep) Qty: 3 0RF Eliquis 5 mg tablet 5 mg PO BID Qty: 60 2RF amlodipine [Norvasc] 5 mg Tablet 5 mg PO DAILY Discontinued lamotrigine 100 mg tablet 100 mg PO DAILY lamotrigine 150 mg tablet 150 mg PO DAILY Medical Marijuana 1 dose PO DAILY PRN (Reason: Pain) Hold Instructions: hold while in behavioral health unit. lorazepam 0.5 mg Tablet 0.5 mg PO BID PRN (Reason: anxiety) Qty: 2 0RF lorazepam 1 mg Tablet 1 mg PO HS Qty: 1 0RF aripiprazole [Abilify] 15 mg Tablet 15 mg PO HS Qty: 30 0RF olanzapine 5 mg Tablet 5 mg PO Q8H PRN (Reason: agitation, hallucinations) Qty: 3 0RF Discharge Orders: Discharge Order (Routine); Ordered 05/05/25 Ordered By: Jocy Mondragon/Other Patient Handouts: Managing Type 2 Diabetes, Diabetes: Meal Planning Admission Data Admit Date/Time: 04/24/25 22:19 Attending Provider: Sarai Carroll Admit Provider: Jesus Moses Primary Care Provider: Dusty Stover Other Providers: Jesus Moses Other Interventions: Discharge Summary Assessment (RN) Last Done: 05/05/25 10:49 PSY Interdisciplinary Discharge Planning Last Done: 05/05/25 09:34 Coding Level of Care Code 61571 D/C day mgmt > 30 min Diagnoses Schizoaffective disorder, depressive type F25.1 Schizoaffective disorder type: depressive Suicide attempt T14.91XA Unspecified psychosis not due to a substance or known physiological condition F29 Auditory hallucinations R44.0 Post traumatic stress disorder (PTSD) F43.10
== END 2025-05-05 11:05 | disposition home or self-care (01) | DRG 885 ==
LOC: 3S 22:19 → SUATTDRO 22:19